=== PATIENT | male | born 1980 | race Caucasian/White ===

== ENCOUNTER 2019-05-22 10:43 | Outpatient (CLI) | payer OTHER, SELFPAY | END 2019-05-22 10:44 | disposition home or self-care (01) | PROVIDERS: PCP Family Medicine; Visit Provider Family Medicine | DX: Z53.8 Procedure and treatment not carried out for other reasons (principal) | CPT/HCPCS: 99199 ==

== ENCOUNTER 2019-06-15 12:49 | Outpatient (CLI) | payer OTHER, SELFPAY ==
--- NOTE | ~2019-06-15 | XR_ITS ---
XR toe 1st LT min 2V DATE: 06/15/2019 13:25 INDICATION: Left digit pain for 1.5 weeks. TECHNIQUE: 4 views COMPARISON: None FINDINGS: No fracture or dislocation, periosteal reaction or bone destruction. Moderate narrowing of first metatarsophalangeal joint, likely due to osteoarthritis IMPRESSION: Moderate narrowing of first metatarsophalangeal joint, likely due to osteoarthritis Reviewed, dictated and finalized at location B. IMPRESSION: Moderate narrowing of first metatarsophalangeal joint, likely due t o osteoarthritis
== END 2019-06-15 12:50 | disposition home or self-care (01) ==
LOC: CHSLAB 12:51
PROVIDERS: PCP Family Medicine; Visit Provider Family Medicine
DX: M79.675 Pain in left toe(s) (principal)
CPT/HCPCS: 73660

== ENCOUNTER 2019-07-23 11:23 | Outpatient (CLI) | payer OTHER, SELFPAY ==
--- NOTE | ~2019-07-23 | XR_ITS ---
XR shoulder RT min 2V 07/23/2019 11:50 Indication: Right shoulder pain Procedure: 4 views right shoulder Comparison: No prior studies for comparison. Findings: No acute fracture, subluxation or dislocation. Anatomic alignment. Surrounding osseous stru ctures and soft tissues are unremarkable. Impression: 1: No acute bone or joint abnormality. Reviewed, dictated and finalized at location A. Impression: 1: No acute bone or joint abnormality.
== END 2019-07-23 11:24 | disposition home or self-care (01) ==
LOC: CHSIMG 11:25
PROVIDERS: PCP Family Medicine; Visit Provider Family Medicine
DX: M25.511 Pain in right shoulder (principal)
CPT/HCPCS: 73030

== ENCOUNTER 2019-08-02 11:03 | Outpatient (RCR) | payer OTHER, SELFPAY ==
--- NOTE | 2019-08-02 11:36 | PTOPEVAL ---
Thank you for referring David Shannon to [facility]. Please review, sign, date and return this plan of care EDWAR. I agree with and certify that the following plan of care is medically necessary. Referring Physician Date Admitting Provider: Attending Provider: Yves Lafleur MD Referring Provider: *PT Outpatient Evaluation Start: 08/02/19 11:07 Freq: Status: Active Protocol: Document 08/02/19 11:10 J (Rec: 08/02/19 11:32 [facility] [id number]) Therapy Assessment Status Assessment Status Assessment Status Evaluation Outpatient Past Medical History Past Medical History Source of Past Medical History Patient Other Source of Past Medical History see patient intake form Evaluation Information Problem Diagnosis R shoulder pain Onset 07/26/19 Subjective Information patient reports he believes he Query Text:As Reported By Patient/ has re-aggravated an old Family shoulder injury. he reports he has been having increased pain in the L shoulder for a bit over a month. he reports the pain is getting worse. he reports he has had pain in the R shoulder in the past from a small tear in the RTC. he reports he did not have surgery last injury. he reports this pain feels similar to the last injury. he reports previous injury was 15 years ago. patient reports pain increased with increased activities and exaccerbation. he reports carrying a basket in the grocery store is difficult. he reports the area of pain to the front and top of the R shoulder. Diagnostic Tests X-Rays For This Problem Yes: negative Prior Level of Function Comments Additional Prior Level of Function patient reports he is diabetic Comments . he reports he does work. 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 he reports he is currently off work due to injury. Pain Assessment Timing of Pain Assessment Timing of Pain Assessment Assessment Pain Scale Pain Scale Used Numeric (1 - 10) Self Report Pain Assessment Right Shoulder(s) Reported Pain Level 1 Pain Description Numbness,Sharp,Shooting,
--- NOTE | 2019-09-08 09:09 | PTOPEVAL ---
Thank you for referring David Spring to [facility]. Please review, sign, date and return this plan of care [facility]. I agree with and certify that the following plan of care is medically necessary. Referring Physician Date Admitting Provider: Attending Provider: Yves Lafleur MD Referring Provider: *PT Outpatient Evaluation Start: 08/02/19 11:07 Freq: Status: Active Protocol: Document 08/31/19 09:00 JTF (Rec: 09/07/19 20:48 JTF Laptop) Therapy Assessment Status Assessment Status Assessment Status Re-evaluation Outpatient Past Medical History Past Medical History Source of Past Medical History Patient Other Source of Past Medical History see patient intake form Evaluation Information Problem Diagnosis R shoulder pain Subjective Information quick dash = 13% Query Text:As Reported By Patient/ patient reports he is feeling Family good this date. he reports he still has pain in the R shoulder at times, but is much improved since his initial evaluation. he reports he is not yet back to work but does follow up with his MD in about 2 weeks. he reports he would like to be 100% prior to returning to work. Pain Assessment Timing of Pain Assessment Timing of Pain Assessment Assessment Pain Scale Pain Scale Used Numeric (1 - 10) Self Report Pain Assessment Right Shoulder(s) Reported Pain Level 2 Pain Score Pain Score 2: Self Report Upper Extremity Range of Motion Scapular/ Shoulder Range of Motion Right Shoulder Flexion - Active 160 Shoulder Flexion - Passive 170 Shoulder Medial Rotation - Active 70 Shoulder Lateral Rotation - Active 90 Upper Extremity Muscle Strength Testing Scapular/Shoulder Right Shoulder Flexion Strength 4+ Good + Shoulder Extension Strength 5 Normal Shoulder Abduction Strength 4+ Good + Shoulder Medial Rotation Strength 5 Normal Shoulder Lateral Rotation Strength 5 Normal Shoulder Strength Comments 5/5 elbow strength Palpation Assessment Palpation Palpation tenderness to palpation noted over the long head of the biceps of the anterior R shoulder. PT Clinical Summary Clinical Summary Protocol: PTEVCODE PT Clinical Summary mr. spring presents this date for his 8th skilled PT session. as of this date, he has improved his ROM, strength
== END 2019-09-14 10:37 | disposition home or self-care (01) ==
LOC: CHSPT 11:03
PROVIDERS: PCP Family Medicine; Visit Provider Family Medicine
DX: M25.511 Pain in right shoulder (principal)
CPT/HCPCS: 97014; 97110; 97140; 97161; G0283

== ENCOUNTER 2020-08-16 17:06 | Outpatient (RCR) | payer OTHER, SELFPAY ==
--- NOTE | 2020-08-17 13:23 | PTOPEVAL ---
Thank you for referring David Shannon to [facility].? The patient is scheduled to be seen for therapy? _2___x/week for 8 visits. Please review, sign, date and return this plan of care [facility]. I agree with and certify that the following plan of care is medically necessary. Referring Physician Date Admitting Provider: Attending Provider: Mao Ortega MD Referring Provider: *PT Outpatient Evaluation Start: 08/16/20 17:03 Freq: Status: Active Protocol: Document 08/16/20 17:07 ABDIFATAH (Rec: 08/16/20 17:35 [facility] [id number]) Therapy Assessment Status Assessment Status Assessment Status Evaluation Evaluation Information Problem Diagnosis right rotator cuff tendonitis, impingement Onset 06/05/20 Subjective Information Pt. reports that he was Query Text:As Reported By Patient/ squeezing boxes at work which Family triggered his right shoulder pain. He describes pain on top of the right shoulder. He states that pain is not constant and is more related to work related duties. He states that pain will disrupt sleep, esepcially if rolling onto the right shoulder. He reports that his goal for therpay is to decrease his pain. 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 Activity of Daily Living Ability Independent Indoor/Home Mobility Independent Community Mobility Independent Stairs Ability Independent Functional Cognition (Planning, Shopping Independent , Taking Medications) Cooking Yes Cleaning Yes Laundry Yes Shopping Yes Driving Yes Pain Assessment Pain Scale Pain Scale Used Numeric (1 - 10) Self Report Pain Assessment Right Shoulder(s) Reported Pain Level 6 Pain Description Aching Pain Frequency Intermittent Lowest Pain Intensity 0 Greatest Pain Intensity 8 Pain Aggravating Factors Exercise/Activity,Lifting Pain Score Pain Score 6: Self Report Interventions Used Interventions Used By Clinicians Electrical Stimulation, Exercise,Heat Upper Extremity Range of Motion General Upper Extremity Range of Motion Gross Upper Extremity Rang
== END 2020-09-13 08:43 | disposition home or self-care (01) ==
LOC: CHSPT 17:06
PROVIDERS: PCP Family Medicine; Visit Provider Orthopaedic Surgery
DX: M75.41 Impingement syndrome of right shoulder (principal); M77.8 Other enthesopathies, not elsewhere classified
CPT/HCPCS: 97014; 97110; 97140; 97161; G0283

== ENCOUNTER 2020-10-28 15:41 | Emergency (ER) | payer OTHER, SELFPAY ==
--- NOTE | ~2020-10-28 | XR_ITS ---
EXAMINATION: XR chest 1V portable EXAM DATE: 10/28/2020 17:37 INDICATION: Dyspnea, COVID positive. TECHNIQUE: Portable AP frontal chest x-ray was obtained. Comparison is made to prior examination from 05/04/2015. FINDINGS: Small to moderate amount of patchy peripheral acute airspace disease consistent with COVID pneumonia. There is no pneumothorax suspected. There are no pleural effusions. Cardiomediastinal silh ouette is normal. There are no osseous abnormalities identified. IMPRESSION: Small to moderate amount of bilateral COVID pneumonia. Reviewed, dictated and finalized at location A.
[2020-10-28 16:13] VITALS: BP 124/77; PULSE 95; RESP 20; TEMP 36.4; O2SAT 94
--- NOTE | 2020-10-28 16:35 | ED.SOB ---
HPI - SOB/Dyspnea General Chief Complaint: Shortness of Breath/Dyspnea Stated Complaint: covid positive SOB Time Seen by Provider: 10/28/20 15:43 Source: patient Mode of arrival: ambulatory Limitations: no limitations History of Present Illness HPI Narrative: 40-year-old man with a history of type 2 diabetes comes in today complaining of increasing shortness of breath over last week. Patient states he has had a cough and a fever. His temperature was 101.4? this morning. He also complains of vomiting this morning and of mild chest discomfort. He denies calf pain and swelling, diarrhea, syncope, and rash. He had a positive COVID test on October 23 after presenting with body aches. He denies history of heart and lung disease. MD elicited complaint: shortness of breath and chest pain Related Data Home Medications Medication Instructions Recorded Confirmed citalopram 40 mg PO DAILY 10/28/20 10/28/20 glimepiride 1 mg PO DAILY 10/28/20 10/28/20 linagliptin [Tradjenta] 5 mg PO QAM 10/28/20 10/28/20 lisinopril-hydrochlorothiazide 1 tablet PO DAILY 10/28/20 10/28/20 lovastatin 40 mg PO QPM 10/28/20 10/28/20 metformin 1,000 mg PO BID 10/28/20 10/28/20 metoprolol tartrate 25 mg PO BID 10/28/20 10/28/20 pioglitazone 30 mg PO DAILY 10/28/20 10/28/20 Allergies Allergy/AdvReac Type Severity Reaction Status Date / Time camphor [From Biofreeze] Allergy Rash Verified 10/28/20 16:18 menthol [From Biofreeze] Allergy Rash Verified 10/28/20 16:18 Review of Systems Constitutional: Constitutional: Denies chills, Reports fatigue, Reports fever(s) and Denies weakness Eyes: Eyes: Denies change in vision and Denies photophobia ENT: Denies dysphagia, Reports nasal congestion and Denies sore throat Cardiovascular: Cardiovascular: Reports chest pain (with cough) and Denies radiating jaw, neck or arm pain Respiratory: Respiratory: Reports cough, Reports dyspnea and Denies wheezing Gastrointestinal: Gastrointestinal: Denies abdominal pain, Reports nausea and Reports vomiting Genitourinary: Genitourinary: Denies dysuria and Denies urinary frequency Musculoskeletal: Musculoskeletal: Denies back pain, Denies arthralgias and Denies joint swelling Integumentary/Breasts: Skin/Breast: Denies pruritus, Denies erythema and Denies rash Neurologic: Denies vertigo, Denies dizziness, Denies syncope, Denies focal weakness and Denies numbness Hematologic/Lymphatic: Hematologic/Lymphatic: Denies easy bleeding and Denies easy bruising Allergic/Immunologic: Allergic/Immunologic: Denies lip swelling, Denies throat swelling and Denies tongue swelling PMFSH Past Medical History Medical History Alcoholism Anxiety Arthritis Biceps tendinitis of right shoulder Bleeding nose Cellulitis Change in vision Depression Diabetes Drug dependence Headache High blood pressure Right rotator cuff tendinitis Sleep disorder Subacromial impingement of right shoulder Weight gain Surgical History Surgical History History of spinal fusion L4-L5 Family History Family History Other Arthritis Diabetes mellitus Hypertension Malignant neoplasm Social History Social History Years smoked: 11 Smoking status: Former smoker Smoking end date: 04/07/08 Alcohol intake: current Drinks per week: 6 Alcohol use details: Occasional Substance use: unknown Gender identity (if verbalized by the patient): Male Exam Const: General: healthy appearing, no acute distress and alert Nutritional Appearance: obese Orientation/consciousness: patient oriented x3 Limitations: no limitations HENMT: Head: normal to inspection Ears: external ears normal, TM's normal bilaterally and EAC's normal General nose exam: Normal nares present Fac
--- NOTE | 2020-10-28 16:40 | ECG_ITS ---
Measurements Intervals [place] Rate: 87 P: 67 RI: 157 QRS: -7 QRSD: 89 T: 24 QT: 337 QTc: 406 Interpretive Statements SINUS RHYTHM BORDERLINE R WAVE PROGRESSION, ANTERIOR LEADS BORDERLINE T WAVE ABNORMALITY- ANTERIOR LEADS BASELINE ARTIFACT- I, II, III, AVR, AVL, AVF, V3 BORDERLINE ECG Electronically Signed On 10-28-2020 17:12:35 CDT by Carlos Stanley D.O.
[2020-10-28] MEDS: ALBUTEROL SULFATE (*SP) INHALER 4 PUFF INHALATION (16:51)
[2020-10-28] MEDS: ONDANSETRON HCL ODT 4 MG TABLET PO (16:51)
[2020-10-28 16:52] VITALS: PULSE 85; RESP 16; O2SAT 95
[2020-10-28 17:23] LABS: Hemoglobin 13.6 g/dL (14.0-18.0); Mean Corpuscular HGB Conc 33.2 g/dL (32.0-36.0); Mean Corpuscular Hemoglobin 28.5 pg (27.0-31.0); Mean Platelet Volume 11.7 fl (8.7-11.0); Platelet Count Result 187 K/mm3 (150-420); Red Blood Count 4.77 M/mm3 (4.70-6.10); Red Cell Distribution Width 13.3 % (11.6-14.4); White Blood Count 4.9 K/mm3 (4.8-10.8)
[2020-10-28 17:30] LABS: D Dimer 0.26 mg/L (0.19-0.50)
[2020-10-28 17:35] LABS: Alanine Aminotransferase 43 U/L (16-63); Albumin Level 3.4 g/dL (3.4-5.0); Alkaline Phosphatase 61 U/L (46-116); Anion Gap 15 mmol/L (8-16); Aspartate Amino Transferase 35 U/L (15-37); Bilirubin,Total 0.6 mg/dL (0.00-1.00); Blood Urea Nitrogen 14 mg/dL (7-18); Calcium 8.6 mg/dL (8.5-10.1); Carbon Dioxide 26 mmol/L (21-32); Chloride 97 mmol/L (98-108); Estimated CRCL calculation 156 ml/min; Estimated Glomerular Filt Rate > 60; Glucose 239 mg/dL (70-99); Osmolality Calculated 294 mOsm/kg (285-295); Potassium 3.8 mmol/L (3.5-5.1); Sodium 138 mmol/L (136-145); Total Protein 6.9 g/dL (6.4-8.2); Troponin I 6.2 ng/L (0.00-60.4)
[2020-10-28] MEDS: DEXAMETHASONE 4 MG TABLET 8 MG PO (17:35)
[2020-10-28 17:40] LABS: Magnesium 1.3 mg/dL (1.8-2.4)
[2020-10-28 18:04] LABS: Influenza Control Valid (Valid)
[2020-10-28 18:44] VITALS: BP 106/53; PULSE 87; RESP 20; TEMP 36.9; O2SAT 92
--- NOTE | 2020-11-01 17:24 | PC.NURSE ---
PTS BLOOD CULTURE RESULTS REVIEWED BY DR FARRAR, DR FARRAR STATES CONTAMINATED BOTTLE AND PT ON LEVAQUIN.
== END 2020-10-28 18:47 | disposition home or self-care (01) ==
PROVIDERS: Emergency Provider Emergency Medicine; PCP Family Medicine
DX: U07.1 COVID-19 (principal); J12.82 Pneumonia due to coronavirus disease 2019; Z87.891 Personal history of nicotine dependence
CPT/HCPCS: 36415; 71045; 80053; 83735; 84484; 85025; 85380; 87040; 87077; 87186; 87804; 93005; 94640; 99283; 99284; A9270; J8540

== ENCOUNTER 2020-11-01 09:08 | Emergency (ER) | payer OTHER, SELFPAY ==
--- NOTE | ~2020-11-01 | CT_ITS ---
EXAMINATION: CTA chest PE protocol DATE: 11/01/2020 11:11 CDT INDICATION: Elevated d-dimer. Covid positive. TECHNIQUE: Computed tomographic angiography (CTA) of the chest was performed with 100 mL Omnipaque-35 0 intravenous contrast. The dose-length product was 1944.93 mGy-cm. Maximum intensity projection 3D-r econstructions of the aorta and other arteries were constructed by the technologist on a separate wor kstation. Automated exposure control and iterative reconstruction technique were employed. COMPARISON: Chest dated 10/28/2020. FINDINGS: Study is nondiagnostic for evaluation of pulmonary embolism. Heart size normal. No signific ant pleural or pericardial effusion. There are low-density lesions in both adrenal glands, likely enid ign adenomas. There is mild mediastinal lymphadenopathy, likely reactive. There is extensive patchy g roundglass opacification throughout all lobes, consistent with pneumonia. No endobronchial lesions. N o pneumothorax. IMPRESSION: 1. Extensive patchy bilateral groundglass opacification, consistent with pneumonia. 2: Study nondiagnostic for evaluation of pulmonary embolism. 3: Mediastinal lymphadenopathy, likely reactive. Reviewed, dictated and finalized at location A. IMPRESSION: 1. Extensive patchy bilateral groundglass opacification, consistent with pneumo ottoniel. 2: Study nondiagnostic for evaluation of pulmonary embolism. 3: Mediastinal lymphadenopathy, likely reactive.
--- NOTE | ~2020-11-01 | NM_ITS ---
EXAMINATION: NM pulmonary perfusion EXAM DATE: 11/01/2020 13:31 INDICATION: SOB,COVID+ TECHNIQUE: A perfusion lung scan was performed. The patient was injected with 5.5 mCi technetium 99m MAA and imaged. Modified PIOPED 2 criteria used for interpretation of perfusion without ventilation study (recent chest x-ray instead for comparison). Correlation is made to chest x-ray earlier same da te. FINDINGS: Chest x-ray demonstrates moderate amount of bibasilar predominant acute airspace disease. P erfusion scan demonstrates multiple matched segmental defects rendering the scan intermediate probabi lity, indeterminate. There are no definite segmental mismatches identified. IMPRESSION: Multiple matched defects; indeterminate scan. Reviewed, dictated and finalized at location B.
--- NOTE | ~2020-11-01 | XR_ITS ---
EXAMINATION: XR chest 1V portable DATE: 11/01/2020 13:22 INDICATION: Shortness of breath TECHNIQUE: frontal view of the chest was obtained. COMPARISON: Chest radiograph dated 10/28/2020 FINDINGS: Persistent patchy airspace opacities in the bilateral mid and lower lung zones. No pleural effusion o r pneumothorax. The cardiomediastinal silhouette is normal. IMPRESSION: 1. Unchanged patchy airspace opacities in bilateral mid and lower lung zones consistent with pneumoni a. Reviewed, dictated and finalized at location A. IMPRESSION: 1. Unchanged patchy airspace opacities in bilateral mid and lower lung zones co nsistent with pneumonia.
[2020-11-01 09:15] VITALS: BP 101/57; PULSE 78; RESP 18; TEMP 37.2; O2SAT 96
--- NOTE | 2020-11-01 09:16 | ED.GENADULT ---
HPI - General Adult General Chief complaint: Shortness of Breath/Dyspnea Stated complaint: COVID POSITIVE Source: patient Mode of arrival: ambulatory History of Present Illness HPI narrative: Yrn is a 40M with a PMH of obesity, DMII, HLD, rotator cuff tear, and anxiety/depression that was diagnosed with COVID pneumonia on 10/28 but continues to have SOB, cough, fatigue, and body aches that are worsening. He has been feeling sick for 2 weeks. Related Data Home Medications Medication Instructions Recorded Confirmed citalopram 40 mg PO DAILY 10/28/20 11/01/20 glimepiride 1 mg PO DAILY 10/28/20 11/01/20 linagliptin [Tradjenta] 5 mg PO QAM 10/28/20 11/01/20 lisinopril-hydrochlorothiazide 1 tablet PO DAILY 10/28/20 11/01/20 lovastatin 40 mg PO QPM 10/28/20 11/01/20 metformin 1,000 mg PO BID 10/28/20 11/01/20 metoprolol tartrate 25 mg PO BID 10/28/20 11/01/20 pioglitazone 30 mg PO DAILY 10/28/20 11/01/20 Allergies Allergy/AdvReac Type Severity Reaction Status Date / Time camphor [From Biofreeze] Allergy Rash Verified 10/28/20 16:18 menthol [From Biofreeze] Allergy Rash Verified 10/28/20 16:18 Review of Systems Constitutional: Constitutional: Reports chills, Reports fatigue, Reports fever(s) and Reports weakness Eyes: Eyes: Reports no additional eye complaints ENT: Reports system reviewed and no additional complaints, except as documented Cardiovascular: Cardiovascular: Reports no additional cardiovascular complaints Respiratory: Respiratory: Reports cough, Reports dyspnea and Reports wheezing Gastrointestinal: Gastrointestinal: Reports no additional gastrointestinal complaints Genitourinary: Genitourinary: Reports no additional male genitourinary complaints Musculoskeletal: Musculoskeletal: Reports no additional musculoskeletal complaints Integumentary/Breasts: Skin/Breast: Reports system reviewed and no additional complaints, except as docu Neurologic: Reports system reviewed and no additional complaints, except as documented Psychiatric: Psychiatric: Reports no additional psychiatric complaints Endocrine: Endocrine: Reports no additional endocrine complaints Hematologic/Lymphatic: Hematologic/Lymphatic: Reports no additional hematologic/lymphatic complaints Allergic/Immunologic: Allergic/Immunologic: Reports no additional allergic/immunologic complaints PMFSH Past Medical History Medical History Alcoholism Anxiety Arthritis Biceps tendinitis of right shoulder Bleeding nose Cellulitis Change in vision Depression Diabetes Drug dependence Headache High blood pressure Right rotator cuff tendinitis Sleep disorder Subacromial impingement of right shoulder Weight gain Surgical History Surgical History History of spinal fusion L4-L5 Family History Family History Other Arthritis Diabetes mellitus Hypertension Malignant neoplasm Social History Social History Years smoked: 11 Smoking status: Former smoker Smoking end date: 04/07/08 Alcohol intake: current Drinks per week: 6 Alcohol use details: Occasional Substance use: unknown Gender identity (if verbalized by the patient): Male Exam Const: General: alert Orientation/consciousness: patient oriented x3 Limitations: No altered mental status Other: Mild distress HENMT: Head: normal to inspection Other: atrauamtic Eyes: Conjunctivae: conjunctivae normal Pupils: Equal, round and reactive pupils present Neck: Neck: normal visual inspection Chest: Chest palpation & inspection: normal inspection of the chest Resp: Effort & Inspection: normal respiratory effort, not labored, not tachypneic and no use of accessory muscles Auscultation: clear to auscultation bilaterally Cardio: Rate: regul
--- NOTE | 2020-11-01 09:28 | ECG_ITS ---
Measurements Intervals [place] Rate: 75 P: 47 CO: 160 QRS: 35 QRSD: 90 T: 16 QT: 376 QTc: 420 Interpretive Statements SINUS RHYTHM BASELINE WANDER- II, III, AVF, V5-V6 NORMAL ECG Electronically Signed On 11-01-2020 10:59:08 CDT by Carlos Stanley D.O.
[2020-11-01 10:07] LABS: Hematocrit 40.1 % (40.0-54.0); Hemoglobin 13.5 g/dL (14.0-18.0); Mean Corpuscular HGB Conc 33.7 g/dL (32.0-36.0); Mean Corpuscular Hemoglobin 28.1 pg (27.0-31.0); Mean Corpuscular Volume 83.5 fL (78.0-102.0); Mean Platelet Volume 10.6 fl (8.7-11.0); Oxygen Content ABG 17.4 %vol (16.0-22.0); Oxyhemoglobin 90.2 % (94-100); Platelet Count Result 278 K/mm3 (150-420); Red Cell Distribution Width 13.1 % (11.6-14.4); Total Hemoglobin 13.7 g/dL; White Blood Count 14.7 K/mm3 (4.8-10.8)
[2020-11-01 10:34] LABS: PCO2 ABG 39.4 mmHg (35-45); PO2 ABG 60.1 mmHg (80-90); pH ABG 7.44 (7.35-7.45)
[2020-11-01 10:35] LABS: Alanine Aminotransferase 27 U/L (16-63); Alkaline Phosphatase 63 U/L (46-116); Anion Gap 13 mmol/L (8-16); Aspartate Amino Transferase 24 U/L (15-37); Base Excess ABG 2.1 mmol/L (0-2); Blood Urea Nitrogen 22 mg/dL (7-18); Calcium 9.4 mg/dL (8.5-10.1); Carbon Dioxide 27 mmol/L (21-32); Chloride 95 mmol/L (98-108); Estimated CRCL calculation 113 ml/min; Estimated Glomerular Filt Rate > 60; Glucose 325 mg/dL (70-99); HCO3 ABG 26.3 mmol/L (23-29); Modified Allen's Test Pass; NT Pro B Type Natriuretic Pept 405 pg/mL (0-125); Osmolality Calculated 296 mOsm/kg (285-295); Potassium 4.4 mmol/L (3.5-5.1); Site Drawn RIGHT RADIAL; Sodium 135 mmol/L (136-145); Total Protein 7.4 g/dL (6.4-8.2)
[2020-11-01 10:36] LABS: Device ROOM AIR
[2020-11-01 10:36] LABS: Troponin I < 4.0 ng/L (0.00-60.4)
[2020-11-01 10:45] LABS: Band Neutrophils Percent 1 % (0-6); Lymphocytes Absolute Manual 0.29 K/mm3 (1.1-4.5); Lymphocytes Percent Manual 2 % (18-44); Monocytes Absolute Manual 0.73 K/mm3 (0.1-0.90); Monocytes Percent Manual 5 % (3-9); Myelocytes Percent 1 %; Neutrophils Absolute Manual 13.52 K/mm3 (1.3-6.7); Neutrophils Percent Manual 91 % (46-73); Platelet Estimate Adequate (Adequate); Total Cells Counted 100
[2020-11-01] MEDS: levoFLOXacin TAB 500 MG, levoFLOXacin TAB 250 MG 750 MG PO (11:39)
[2020-11-01 14:53] VITALS: BP 121/71; PULSE 71; RESP 16; O2SAT 93
== END 2020-11-01 15:01 | disposition home or self-care (01) ==
PROVIDERS: Emergency Provider Family Medicine; PCP Family Medicine
DX: U07.1 COVID-19 (principal); J12.82 Pneumonia due to coronavirus disease 2019
CPT/HCPCS: 36415; 36600; 71045; 71275; 78580; 80053; 82805; 83880; 84484; 85025; 93005; 99283; 99284; A9270; A9540; Q9967

== ENCOUNTER 2020-11-24 09:39 | Outpatient (CLI) | payer OTHER, SELFPAY ==
--- NOTE | ~2020-11-24 | XR_ITS ---
XR chest 2V 11/24/2020 10:03 Indication: Pneumonia follow-up Procedure: 2 view chest Comparison: Comparison to multiple prior studies sequentially, with oldest reviewed study dated 05/04. Findings: Progression of patchy bilateral airspace disease, compatible with pneumonia. No significant effusion or pneumothorax. No acute osseous abnormality. Impression: 1: Progression of patchy bilateral airspace disease, compatible with pneumonia. Reviewed, dictated and finalized at location A. Impression: 1: Progression of patchy bilateral airspace disease, compatible with pneumonia.
== END 2020-11-24 09:40 | disposition home or self-care (01) ==
LOC: CHSIMG 09:41
PROVIDERS: PCP Family Medicine; Visit Provider Family Medicine
DX: U07.1 COVID-19 (principal)
CPT/HCPCS: 71046

== ENCOUNTER 2020-12-18 13:09 | Outpatient (CLI) | payer OTHER, SELFPAY | END 2020-12-18 13:10 | disposition home or self-care (01) | LOC: CHSCARD 13:12 | PROVIDERS: PCP Family Medicine; Visit Provider Family Medicine | DX: R06.00 Dyspnea, unspecified (principal) | CPT/HCPCS: 94060; 94726; 94729 ==

== ENCOUNTER 2020-12-28 14:19 | Outpatient (CLI) | payer OTHER, SELFPAY ==
--- NOTE | ~2020-12-28 | XR_ITS ---
EXAMINATION: XR chest 2V 12/28/2020 14:33 INDICATION: Chest pain and shortness of breath. PROCEDURE: 2 view chest COMPARISON: Comparison to multiple prior studies sequentially, with oldest reviewed study dated 11/01. FINDINGS: The lungs are clear. The cardiomediastinal silhouette is within normal limits. There are no pleural effusions. There is no pneumothorax suspected. IMPRESSION: 1: NO ACUTE CARDIOPULMONARY DISEASE. Reviewed, dictated and finalized at location A.
== END 2020-12-28 14:20 | disposition home or self-care (01) ==
LOC: CHSIMG 14:20
PROVIDERS: PCP Family Medicine; Visit Provider Family Medicine
DX: R07.89 Other chest pain (principal)
CPT/HCPCS: 71046

== ENCOUNTER 2021-01-01 14:24 | Outpatient (RCR) | payer OTHER, SELFPAY ==
--- NOTE | 2021-01-01 13:56 | OTOPEVAL ---
Thank you for referring David Shannon to [facility] [place].? The patient is scheduled to be seen for therapy? ____x/week for ___ weeks. Please review, sign, date and return this plan of care [facility]. I agree with and certify that the following plan of care is medically necessary. Referring Physician Date Admitting Provider: Attending Provider: ELISABETH BRYAN Referring Provider: LeaOT Outpatient Evaluation Start: 01/01/21 13:08 Freq: Status: Active Protocol: Document 01/01/21 13:09 ERIC (Rec: 01/01/21 13:55 [facility] [id number]) Therapy Assessment Status Assessment Status Assessment Status Evaluation Outpatient Past Medical History Cardiovascular History Hx Hypercholesterolemia Yes Hx Hypertension Yes Endocrine History Hx Diabetes Yes Evaluation Information Problem Diagnosis post viral debility Onset 10/23/20 Cause COVID-19 Subjective Information Patient reports that he tested Query Text:As Reported By Patient/ positive for COVID-19 on October 2020 and has had difficulties since then. He states that things are slowly getting better. Patient reports that his doctor recommended therapy so that he is able to return to work. Patient reports that he continues to fatigue easily and becomes short of breath. 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 Patient reports that he is independent with all ADLs and IADLs at this time. 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
--- NOTE | 2021-01-01 14:48 | PTOPEVAL ---
Thank you for referring David Shannon to [facility] [place].? The patient is scheduled to be seen for therapy? ____x/week for ___ weeks. Please review, sign, date and return this plan of care EDWAR. I agree with and certify that the following plan of care is medically necessary. Referring Physician Date Admitting Provider: Attending Provider: ELISABETH BRYAN Referring Provider: *KENNA Outpatient Evaluation Start: 01/01/21 13:55 Freq: Status: Active Protocol: Document 01/01/21 13:55 ACR (Rec: 01/01/21 14:48 ACR [id number]) Therapy Assessment Status Assessment Status Assessment Status Evaluation Outpatient Past Medical History Cardiovascular History Hx Hypercholesterolemia Yes Hx Hypertension Yes Endocrine History Hx Diabetes Yes Evaluation Information Problem Diagnosis Post covid lack of endurance Subjective Information Patient states that he had Query Text:As Reported By Patient/ COVID-19 on October 23 and went Family to the hospital a couple of times for treatment because he felt like he was very short of breath. He states he has the most difficulty with any exertion such as mowing the yard, working, cleaning around the house, stairs, and walking for a period of time. He states that he can walk around the store but he is moving a little slower. He states that he also has quite a bit of difficulty getting off of the floor. He states the goal for therapy is to improve his endurance and get his strength back in his legs. 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
== END 2021-01-01 15:25 | disposition home or self-care (01) ==
LOC: CHSPT 14:24
DX: G93.3 Postviral and related fatigue syndromes (principal); Z86.16 Personal history of COVID-19; R41.89 Other symptoms and signs involving cognitive functions and awareness; R53.81 Other malaise
CPT/HCPCS: 97110; 97161; 97165

== ENCOUNTER 2021-02-05 16:43 | Outpatient (CLI) | payer OTHER, SELFPAY ==
--- NOTE | ~2021-02-05 | XR_ITS ---
XR shoulder RT min 2V DATE: 02/05/2021 17:10 INDICATION: Anterior shoulder pain for one year; no injury. TECHNIQUE: 5 views COMPARISON: 07/23/2019 right shoulder FINDINGS: No fracture or dislocation, periosteal reaction or bone destruction or abnormal soft tissue calcification. IMPRESSION: Normal Reviewed, dictated and finalized at location A. IMPRESSION: Normal
== END 2021-02-05 16:44 | disposition home or self-care (01) ==
LOC: CHSIMG 16:45
PROVIDERS: PCP Family Medicine; Visit Provider Family Medicine
DX: M25.511 Pain in right shoulder (principal)
CPT/HCPCS: 73030

== ENCOUNTER 2021-03-29 15:16 | Outpatient (CLI) | payer OTHER, SELFPAY ==
[2021-03-29 16:18] LABS: Influenza A QL RT-PCR Negative (Negative); Influenza B QL RT-PCR Negative (Negative); SARS-CoV-2 RNA PCR Negative (Negative)
== END 2021-03-29 15:17 | disposition home or self-care (01) ==
LOC: CHSLAB 15:18
PROVIDERS: PCP Family Medicine; Visit Provider Family Medicine
DX: R05.9 Cough, unspecified (principal); Z20.822 Contact with and (suspected) exposure to COVID-19
CPT/HCPCS: 87081; 87502; 87880; C9803; U0003; U0005

== ENCOUNTER 2022-10-23 13:31 | Outpatient (CLI) | payer OTHER, SELFPAY ==
--- NOTE | 2022-10-23 14:30 | NEURO_ITS ---
Impression: # Complains of numbness of 4th and 5th toes. # Normal Nerve Conduction Study. # No evidence of Tarsal Tunnel Syndrome. # Needle/EMG exam not requested. # Clinical correlation recommended; Higher involvement needs to be ruled out. Nerve Conduction Studies Anti Sensory Summary Table Stim Site NR Peak (ms) P-T Amp (?V) Site1 Site2 Delta-P (ms) Dist (cm) Devon (m/s) Left Sup Fibular Anti Sensory (Ant Lat Mall) 14 cm 3.4 14.4 14 cm Ant Lat Mall 3.4 16.0 47 Right Sup Fibular Anti Sensory (Ant Lat Mall) 14 cm 3.6 12.9 14 cm Ant Lat Mall 3.6 16.0 44 Left Sural Anti Sensory (Lat Mall) Calf 3.7 10.4 Calf Lat Mall 3.7 16.0 43 Right Sural Anti Sensory (Lat Mall) Calf 3.3 17.7 Calf Lat Mall 3.3 16.0 48 Motor Summary Table Stim Site NR Onset (ms) O-P Amp (mV) Site1 Site2 Delta-0 (ms) Dist (cm) Devon (m/s) Left Lateral Plantar Motor (ADM) Med Mall 4.6 2.9 Right Lateral Plantar Motor (ADM) Med Mall 4.7 1.8 Left Peroneal Motor (Vastus Med) Ankle 4.6 1.1 Popit Ankle 9.2 41.0 45 Popit 13.8 0.8 Right Peroneal Motor (Vastus Med) Ankle 4.7 1.2 Popit Ankle 8.9 40.0 45 Popit 13.6 1.8 Left Tibial Motor (Abd Schulz Brev) Ankle 4.8 5.5 Knee Ankle 10.4 44.0 42 Knee 15.2 5.0 Right Tibial Motor (Abd Schulz Brev) Ankle 4.7 5.2 Knee Ankle 10.1 44.0 44 Knee 14.8 4.7 F Wave Studies NR F-Lat (ms) L-R F-Lat (ms) Left Peroneal (Mrkrs) (EDB) 59.06 0.81 Right Peroneal (Mrkrs) (EDB) 58.25 0.81 Left Tibial (Mrkrs) (Abd Hallucis) 59.11 0.55 Right Tibial (Mrkrs) (Abd Hallucis) 59.66 0.55 MTDD
== END 2022-10-23 13:32 | disposition home or self-care (01) ==
LOC: ANHNEURO 13:32
PROVIDERS: PCP Family Medicine; Visit Provider Family Medicine
DX: G62.9 Polyneuropathy, unspecified (principal)
CPT/HCPCS: 95911

== ENCOUNTER 2024-04-13 09:02 | Outpatient (RCR) | payer OTHER, SELFPAY ==
--- NOTE | 2024-04-12 13:16 | PTOPEVAL1 ---
Assessment and note entered by Lefty Johnston Evaluation Information Assessment Status Evaluation Diagnosis spinal stenosis, lumbar region with neurogenic claudication M48.062 ICD-10 Condition Codes (PT) Pain in low back M54.50,Radiculopathy, lumbar region M54.16 Onset 04/01/24 Subjective Information Pt. reports that he has had back pain for years. He reports that he has a previous fusion in the low back. He reports that his most recent symptoms are pain across the low back and buttock and tingling into both feet. He reports that pain intensity with fluctuate. He reports that he is able to walk for about 1 hour before having to sit . He states that he is not currently working and has been off work for 1 year. He states that pain rarely disrupts his sleep. He states that he is taking daily prescription medication for pain. He reports that medication does assist with his nerve pain. He reports that his goal for today is to complete his pre surgical testing per his doctor. Reported Pain Level Pain Score 3: Self Report Assessment PT Clinical Summary Pt. enters the clinic for pre-operative instruction and education regarding back pain. He is provided an HEP to address core strength and endurance prior to surgery. He presents with mild strength and mobility limitations on this date. At this time he will be discharged from our care at we will await his post operative evaluation. Plan of Care PT Services Indicated No Treatment Frequency and D/C from PT an await post operative evaluation. Duration These treatments will address the objective and functional deficits as defined above. The patient will be advanced safely and appropriately in order for the patient to progress towards his/her prior level of function. Additional exercises will be introduced and as well as a comprehensive home exercise program upon discharge, if needed, ?to ensure carryover of functional gains achieved in the clinic. This treatment plan has been reviewed and agreement upon by the patient.
== END 2024-04-13 09:10 | disposition home or self-care (01) ==
LOC: CHSPT 09:02
PROVIDERS: Visit Provider Anesthesiology Pain Medicine
DX: M48.062 Spinal stenosis, lumbar region with neurogenic claudication (principal)
CPT/HCPCS: 97110; 97161

== ENCOUNTER 2024-05-09 20:02 | Emergency (ER) | payer OTHER, SELFPAY ==
--- NOTE | 2024-05-09 20:04 | ED.URI ---
HPI - URI/Sore Throat General Chief Complaint: Upper Respiratory Infection Stated Complaint: flu like symptoms Time Seen by Provider: 05/09/24 20:03 Source: patient Mode of arrival: ambulatory Limitations: no limitations History of Present Illness HPI Narrative: Patient is a 43-year-old male with nausea and vomiting and not feeling well for the past week. He appears to have a sickness about a week ago that lasted a few days then he got better then he got sick again. Unclear if he had 2 separate viral illnesses. MD elicited complaint: cough, rhinorrhea, nasal congestion and other ( Nausea and vomiting) Pertinent past history: other ( diabetes type 2, hypertension, hyper lipids) Onset (ago): week(s) (1) Consistency: constant and intermittent Severity: moderate Pain scale (0-10): 1 Description of mucous: clear Able to tolerate fluids by mouth: No ( for 24 hours only; urinating today multiple times) Exacerbating factors: nothing Relieving factors: nothing Context: sick contacts and other(s) with similar symptoms Associated symptoms: rhinorrhea, nasal congestion, cough, nausea and vomiting Treatments prior to arrival: acetaminophen and ibuprofen Related Data Home Medications ?Medication ?Instructions ?Recorded ?Confirmed ?Last Taken ?Type citalopram 40 mg tablet 40 mg PO DAILY 10/28/20 02/27/21 10/28/20 History glimepiride 1 mg tablet 1 mg PO DAILY 10/28/20 02/27/21 10/28/20 History linagliptin 5 mg tablet (Tradjenta) 5 mg PO QAM 10/28/20 02/27/21 10/28/20 History lisinopril 20 1 tablet PO DAILY 10/28/20 02/27/21 10/28/20 History mg-hydrochlorothiazide 12.5 mg tablet lovastatin 40 mg tablet 40 mg PO QPM 10/28/20 02/27/21 10/27/20 History metformin 1,000 mg tablet 1,000 mg PO BID 10/28/20 02/27/21 10/28/20 History metoprolol tartrate 25 mg tablet 25 mg PO BID 10/28/20 02/27/21 10/28/20 History pioglitazone 30 mg tablet 30 mg PO DAILY 10/28/20 02/27/21 10/28/20 History Allergies Allergy/AdvReac Type Severity Reaction Status Date / Time camphor (From [employer]) Allergy Rash Verified 05/09/24 21:31 menthol (From [employer]) Allergy Rash Verified 05/09/24 21:31 Review of Systems Review of Systems: All systems reviewed & are unremarkable except as noted in HPI and below Constitutional: Constitutional: Reports no additional constitutional complaints Eyes: Eyes: Reports no additional eye complaints ENT: Reports system reviewed and no additional complaints, except as documented Cardiovascular: Cardiovascular: Reports no additional cardiovascular complaints Respiratory: Respiratory: Reports no additional respiratory complaints Gastrointestinal: Gastrointestinal: Reports no additional gastrointestinal complaints Genitourinary: Genitourinary: Reports no additional male genitourinary complaints Musculoskeletal: Musculoskeletal: Reports no additional musculoskeletal complaints Integumentary/Breasts: Skin/Breast: Reports system reviewed and no additional complaints, except as docu Neurologic: Reports system reviewed and no additional complaints, except as documented Psychiatric: Psychiatric: Reports no additional psychiatric complaints Endocrine: Endocrine: Reports no additional endocrine complaints Hematologic/Lymphatic: Hematologic/Lymphatic: Reports no additional hematologic/lymphatic complaints Allergic/Immunologic: Allergic/Immunologic: Reports no additional allergic/immunologic complaints PMFSH Past Medical History Medical History Right rotator cuff tendinitis Arthritis Sleep disorder Drug dependence Alcoholism Anxiety Depression Cellulitis Diabetes High blood pressure Bleeding nose Change in vision Headache Weight gain Subacromial impingement of right shoulder Biceps tendinitis of right shoulder Surgical History Surgical History History of spinal fusion L4-L5 Family History Family History Other Arthritis Diabetes mellitus Hypertension Malignant neoplasm Social History Social History Years smoked: 11 Smoking end date: 04/07/08 Alcohol intake: current Drinks per week: 6 Alcohol use details: Occasional Substance use: unknown Gender identity (if verbalized by the patient): Male Exam Const: General: ill appearing Nutritional Appearance: well nourished Orientation/consciousness: patient oriented x3 Limitations: no limitations HENMT: Head: normal to inspection Ears: external ears normal Face/Nose/Sinus: Normal external nose present Eyes: Conjunctivae: conjunctivae normal Pupils: Equal, round and reactive pupils present EOM: EOMs intact bilaterally Neck: Neck: normal visual inspection Chest: Chest palpation & inspection: normal inspection of the chest Resp: Effort & Inspection: normal respiratory effort and not labored Auscultation: clear to auscultation bilaterally and no crackles Cardio: Rate: regular rate Rhythm: regular rhythm Heart sounds: no murmurs GI: Inspection: non-distended GI Palp: Yes Soft to palpation and No Tenderness to palpation present (GI) Auscultation: normal bowel sounds : General: Yes bladder normal to palpation Back/Spine/Pelvis: Back: no CVA tenderness Skin: General skin exam: normal color Rashes: no rashes Wounds: no wounds Neuro: General: patient oriented x3 Cranial nerves: Yes Nystagmus not present Speech: normal speech Extrem: General: normal to inspection Psych: Mental Status: mental status grossly normal Affect: normal affect Attitude: cooperative MDM - URI/Sore Throat MDM Narrative Medical decision making narrative: patient is a 43-year-old male with nausea vomiting and not feeling well. We will do a COVID panel test at this time. We will also check strep. Lab Data Attestation: I reviewed the patient's lab results. ( Influenza A positive, strep negative) Discharge Plan Discharge Clinical Impression: Influenza A Patient Disposition: Home, Self-Care Condition: Stable Instructions: Influenza (ED) Patient Language: French Prescriptions: New ondansetron 4 mg tablet,disintegrating 4 mg PO Q6H PRN (Reason: nausea and vomiting) Qty: 30 0RF No Action citalopram 40 mg Tablet 40 mg PO DAILY lisinopril-hydrochlorothiazide 20-12.5 mg Tablet 1 tablet PO DAILY lovastatin 40 mg Tablet 40 mg PO QPM glimepiride 1 mg Tablet 1 mg PO DAILY metformin 1,000 mg Tablet 1,000 mg PO BID pioglitazone 30 mg Tablet 30 mg PO DAILY metoprolol tartrate 25 mg Tablet 25 mg PO BID Tradjenta 5 mg Tablet 5 mg PO QAM dexamethasone 6 mg tablet 6 mg PO DAILY Qty: 10 0RF ondansetron 4 mg tablet,disintegrating 4 mg PO Q6H PRN (Reason: nausea and vomiting) Qty: 10 0RF levofloxacin 750 mg tablet 750 mg PO DAILY Qty: 6 0RF Follow-up/Referrals: Yves Lafleur MD [Primary Care Provider] - Time of Disposition: 21:36
--- OUTSIDE RECORDS SUMMARY | 2024-05-09 20:04 | XMS_ITS | Clinical Summary ---
Author Organization [facility] Address [address] [place] [address] Phone Care Team Providers Care Food Service Order Clerk Name Role Phone MILES PHILLIPS MD Primary Care Provider [phone] Reason for Visit and Chief Complaint The Chief Complaint is: 2 month follow up Problems Includes: Problems addressed during this encounter and other active Problems All Visits Onset Date Resolved Date Provider Condition S tatus Anxiety Disorder Nos Unknown KYAW [place] WANDA PIANO MECHANIC-FPA, FLIGHT PHYSICIAN-BC Active Last Documented On 2 11:56AM ; [facility] 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 Unknown KYAW G WANDA PIANO MECHANIC-FPA , FLIGHT PHYSICIAN-BC Active Last Documented On 2 11:56AM ; [facility] Essential Hypertension Unknown KYAW [place] KUL P PIANO MECHANIC-FPA, FLIGHT PHYSICIAN-BC Active Last Documented On 2 11:56AM ; [facility] Major Depression Unknown KYAW G WANDA PIANO MECHANIC -FPA, FLIGHT PHYSICIAN-BC Active Last Documented On 2 11:57AM ; [facility] Plan of Treatment Education and Decision Aids were provided during visit for: Lifestyle education Last Documented On 3 2:22PM ; [facility] Assessments Includes: Assessments from this encounter Findings - [Z01.818 - Encounter for other preprocedural examination] Visit for: preoperative exam - Last Documented On 03/10/2023 11:51AM ; [facility] - [E66.9 - Obesity, unspecified] Obesity - Last Documented On 03/10/2023 11:51AM ; [facility] - [M54.50 - Low back pain, unspecified] Low back pain - Last Documented On 03/10/2023 11:51AM ; [facility] - [Z98.1 - Arthrodesis status] Postsurgical arthrodesis status - Last Documented On 03/10/2023 11:51AM ; [facility] - [M48.062 - Spinal stenosis, lumbar region with neurogenic claudication] Lumbar stenosis with neurogenic claudication - Last Documented On 03/10/2023 11:51AM ; [facility] - [M54.16 - Radiculopathy, lumbar region] Lumbar radiculopathy - Last Documented On 03/10/2023 11:51AM ; [facility] Instructions Includes: Instructions from this encounter Education and Decision Aids were provided during visit for: Lifestyle education Last Documented On 3 2:22PM ; [facility] Medical Equipment - Implanted Devices Includes: Current Devices No Medical Equipment Recorded Medications Includes: Medications discussed during this encounter and other current Medications Discontinued / Stopped on this date SANTOS PRUETT on 01/10/2023 Pregabalin 150 MG Oral Capsule Provider: SANTOS DEE Diagnosis: Radiculopathy, l umbar region Last Documented On 3 2:43PM By KYAW GRAHAM ; [facility] Calcium + Vitamin D3 600-10 MG-MCG Oral Tablet Provider: Diagnosis: Last Documented On 3 2:11PM By Cassandra MACDONALD ; [facility] Citalopram Hydrobromide 40 MG Oral Tablet Provider: Diagnosis: Last Documented On 3 2:12PM By Cassandra MACDONALD ; [facility] New / Renewed during this visit SANTOS PRUETT on 03/07/2023 Pregabalin 150 MG Oral Capsule Provider: SANTOS DEE 30 day supply: 60 capsule, 2 refills Diagnosis: Radiculopathy, lumbar region 1 CAPSULE TWO TIMES A DAY Pharmacy: [facility] [address], [phone] - Last Documented On 4 12:53PM By KYAW GRAHAM ; [facility] Meloxicam 15 MG Oral Tablet Provider: SANTOS DEE 30 day supply: 30 tablet, 2 refills Diagnosis: Low back pain, unspecified TAKE ONE TABLET BY MOUTH MILAGRO LY WITH A MEAL Pharmacy: [facility] [address], [phone] - Last Documented On 3 9:34AM By KYAW GRAHAM ; [facility] DULoxetine HCl 60 MG Oral Capsule Delayed Release Particles Provider: SANTOS PRUETT 30 day supply: 30 capsule, 2 refills Diagnosis: Low back pain, unspecified 1 capsule daily at bedtime Pharmacy: [facility] [address], [phone] - Last Documented On 4 10:40AM By KYAW GRAHAM ; [facility] Current Medications (continue as prescribed) Meloxicam 15 MG Oral Tablet 08/04/2023 Provider: SANTOS DEE Diagnosis: Low back pain, u nspecified TAKE ONE TABLET BY MOUTH MILAGRO GONSALES WITH A MEAL Last Documented On 4 4:11PM By KYAW GRAHAM ; [facility] DULoxetine HCl 60 MG Oral Capsule Delayed Release Particles 08/04/2023 Provider: SANTOS PRUETT Diagnosis: Low back pain, u nspecified TAKE ONE CAPSULE BY MOUTH AT BEDTIME Last Documented On 4 4:11PM By KYAW GRAHAM ; [facility] Pregabalin 150 MG Oral Capsule 08/04/2023 Provider: SANTOS DEE Diagnosis: Radiculopathy, l umbar region TAKE ONE CAPSULE BY MOUTH TWICE A DAY Last Documented On 4 4:11PM By KYAW MCKEONNA ; [facility] traMADol HCl 50 MG Oral Tablet 06/26/2023 Provider: [facility] Diagnosis: Radiculopathy, l umbar region One tablet three times a day as needed for severe pain Last Documented On 4 4:05PM By KYAW MCKEONNA ; [facility] Lovastatin 40 MG Oral Tablet 02/02/2022 Provider: MILES PHILLIPS MD Diagnosis: Last Documented On 2 1:02PM By KYAW MCKEONNA ; [facility] One-A-Day Mens Oral Tablet 02/01/2022 Provider: Diagnosis: Last Documented On 2 11:21AM By KYAW GRAHAM ; [facility] Metoprolol Tartrate 25 MG Oral Tablet 02/01/2022 Pro vider: Diagnosis: Last Documented On 2 11:21AM By KYAW GRAHAM ; [facility] Lisinopril-hydroCHLOROthiazide 20-12.5 MG Oral Tablet 02/01/2022 Provider: Diagnosis: Last Documented On 2 11:21AM By KYAW GRAHAM ; [facility] metFORMIN HCl ER (OSM) 1000 MG Oral Tablet Extended Release 24 Hour 02/01/2022 Provider: Diagnosis: 2 tablets twice daily. Last Documented On 2 11:21AM By KYAW GRAHAM ; [facility] Pioglitazone HCl 45 MG Oral Tablet 02/01/2022 Provid er: Diagnosis: Last Documented On 2 11:21AM By KYAW MCKEONNA ; [facility] Glimepiride 4 MG Oral Tablet 02/01/2022 Provider: Diagnosis: 2 tablets daily. Last Documented On 2 11:21AM By KYAW GRAHAM ; [facility] Jardiance 10 MG Oral Tablet 01/29/2022 Provider: MILES PHILLIPS MD Diagnosis: Last Documented On 2 11:21AM By KYAW GRAHAM ; [facility] Medications Administered Includes: Administered Medications from this encounter No Administered Medications Recorded Vital Signs Includes: Vital Signs from this encounter Vital Name 03/07/2023 02:12P Blood Pressure Sitting R 122/76 BP Cuff Size Large Pulse Rate-Sitting (bpm) 74 Temp-Temporal 96.5 Height (in) 74 Weight (lb) 340 Body Mass Index 43.7 Body Surface Area 2.7 Pain Level 2 Oxygen Saturation (%) 98 Last Documented: On 03/07/2023 2:14PM ; [facility] Results Includes: Results discussed during this encounter No Results Recorded For Specified Dates History of Present Illness Includes: History of Present Illness from this encounter HPI PHQ-9 Score: 6 Date:06/27/22BPI Score: Date:MiDAS Score: Date:SOAPP-R Score: 9 LOW Date:06/27/22Pain Location: Lumbar Quality: Shooting and sore. Radiation: Right leg to foot. Severity: Timing: constantAssociated Sx: weakness,Aggravating Factors:movement.Alleviating Factors:laying down. Past Tx: Spinal fusion L4-5 2008, physical therapy, L5 - S1 TFESI 02/13/2022, R L3-4 and L5-S1 TFESI 07/17/22, L5-S1 TFESI 12/27/22 CHRISTY GONZÁLES is a 42 year old male. - Allergy list reviewed - Allergy list reviewed - Problem list reviewed - Medication reconciliation performed - Medication list reviewed - Medication list reviewed - Prescription Drug Monitoring Program website checked. N/A - Last dose of medication? - Pain comes/goes - Primary pain location Lumbar region in my back - Primary pain duration Ongoing - Secondary pain duration Every time i take a step forward - Secondary pain location Right leg - Pain is dull, aching - Pain is shooting - Pain is sharp - Pain is deep - Pain aggravated sitting - Pain aggravated standing - Pain aggravated by walking - Pain aggravated by working - Pain aggravated bending - Pain radiating in the right thigh - Pain radiates in right calf/segundo - Pain radiates in right foot - Vertigo - No vertigo - Last drug screen appropriate N/A Discussion: FU after medication changes made for chronic low back pain. The Duloxetine has not been much more beneficial for his back pain. He continues to have significant trouble with the back pain and leg fatigue throughout the day and by evening and has to sit most of the time.He is unable to stand or walk longer than 10-15 minutes before he starts having significant back pain, sometimes back pain is pretty quick to start. He also gets pain and weakness in the backs of the legs. If he leans forward or sits this helps some. He tries to push through it but then feels pretty miserable afterwards. He has reviewed the MILD information that I gave him and would like to proceed with this procedure for his spinal stenosis. He understands he will need a PT eval prior to the MILD and will start in aqua therapy post MILD procedure for the best outcome. We discussed risk/benefit. He was given the pre and post op instructions in writing. He was given the pre op Hibiclens prep. He has no prior history of adverse reaction to anesthesia. He has not been sick or hospitalized recently. He is diabetic. He is not on any blood thinners. PRIOR VISIT 01/10/23: FU after L5-S1 TFESI. The radicular symptoms in the legs are much better. Back pain is better in the lower back but has some in the upper back. He gets some pain down the legs to the calves still when he stands up straight in a L5 and S1 pattern but mostly concentrated around the hips and less severe/less often. He continues to have some residual pain in the R buttock/hip/slightly into the groin area. This is worse w/ walking and standing. The legs feel fatigued but better than previous. He can stand and walk about an hour in the mornings now and during the day it varies. Pain varies throughout the day depending on what he is doing. The increase in Pregabalin has seemed to help. He takes Tylenol as needed. He is frustrated by his limitations with his pain. He continues to have significant trouble with the back pain and leg fatigue throughout the day and by evening has to sit most of the night. Prior Visit: Patient here today for routine follow-up on low back pain with radicular symptoms. Pain is now radiating down both legs right greater than left in a S1 dermatomal pattern and sometimes in the L5 dermatomal pattern. Standing and walking makes the pain worse. Sneezing causes a severe electric shock type of pain in the back of the legs. He can only stand or walk for less than 5 to 10 minutes because of the pain and weakness in the legs. He has missed a lot of work recently due to the pain and it interrupts his sleep. A recent MRI ordered by his primary care provider was reviewed. Previous lumbar epidural at L5-S1 was beneficial for greater than three months. It gave him greater than 50% pain relief. He would like to avoid surgery and narcotics if at all possible. Radiologist also mentioned ligamentum flavum thickening. He may benefit from the mild procedure. He brought his CD with him today, I will review this. His surgical consultation went well. Dr. Huerta recommended delaying surgery if at all possible. He continues a therapist guided home exercise program for his low back pain. FIRST VISIT [02/01/2022]: Patient referred by his primary care Dr for low back pain that radiates into the right leg in a S1 dermatomal pattern. Symptoms started about three months ago. Patient is status post lumbar fusion at L4-5 in 2008. Has had mild symptoms off and on since that time. Reports a severe flare in 2016 that went away on its own without treatment. Patient states he has been seeing a chiropractor. However, has had no improvement in his symptoms. Everything seems to make his pain worse. If he sits or lies down he does not have any of the radicular pain but continues to have back pain. Denies any numbness, tingling, loss of bowel or bladder control, or weakness. He has been out of work for the last two weeks because pain has worsened exponentially. Taking Meloxicam PRN. He was encouraged to take this daily with a meal for improved efficacy. Has Cyclobenzaprine but uses this only at night to sleep because it makes him too drowsy during the day. He has not been able to do any physical therapy or other interventional treatments. At this time pain is too severe for the patient to tolerate physical therapy. We can certainly consider after getting his pain better controlled. We discussed transforaminal epidural steroid injection today. Patient would like to proceed. Imaging: All relevant imaging available was personally reviewed with the patient today with the following tests and results noted: MRI Lumbar Spine 01/25/2022 Impression: Posterior lumbar instrumented fusion L4- 5. This creates moderate artifact obscures the L3-4 disc level on most of the axial sequences. Within limitation, there is moderate to severe disc degeneration at L3-4 with diffuse annular bulge. Thickening of posterior ligaments at this level result in severe spinal stenosis with thecal sac CSF effacement. No definite foraminal narrowing. Posterior lumbar instrumented fusion L4-5 without significant spinal stenosis or foraminal stenosis. Lumbar disc levels otherwise unremarkable. No acute osseous abnormality, fracture, or marrow edema at any level. MRI Lumbar Spine 11/29/22 L4-L5 instrumented fusion. L3-L4 spinal stenosis secondary to disc bulge, superimposed central disc protrusion, thickened ligamentum flavum, and facet arthropathy. Moderate to severe diminished caliber of the thecal sac. Lateral recess effacement on both sides. L5-S1 disc bulge in superimposed small disc protrusion abutting the descending right S1 nerve root and approaches the descending left S1 nerve root. Bilateral facet arthropathy. Epidural lipoma ptosis, the thecal sac has almost terminated. 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 Last Documented On 3 2:07PM ; [facility] Tobacco non-user 02/01/2022 Last Documented On 3 2:07PM ; [facility] Alcohol 02/01/2022 Last Documented On 3 2:07PM ; [facility] Amount of alcohol per day: 0-1 2 Last Documented On 3 2:07PM ; [facility] Difficulty walking 02/01/2022 Last Documented On 3 2:07PM ; [facility] Not using drugs 02/01/2022 Last Documented On 3 2:07PM ; [facility] Smoking Status Unknown Procedures and Surgical History Includes: Procedures from this encounter Procedures Code Diagnosis Performing Provider Service L ocation Service Date plan of care reviewed and agreed to Last Documented On 3 2:22PM ; [facility] plan of care reviewed and agreed to by t he patient Last Documented On 3 2:22PM ; [facility] use of tobacco assessment performed 1000F Last Documented On 3 2:08PM ; [facility] patient screened for future fall risk: documentation of any fall with injury in past year 1100F Last Documented On 3 2:22PM ; [facility] review of medications documented 1160F Last Documented On 3 2:08PM ; [facility] screening for adult depression: impressi on and score Last Documented On 3 2:08PM ; [facility] screening for adult depression: impressi on and score ten Last Documented On 3 2:22PM ; [facility] screening for adult depression: impressi on and score six Last Documented On 3 2:22PM ; [facility] standardized depression screening: posit lakesha for symptoms Last Documented On 3 2:22PM ; [facility] encouragement to exercise Last Documented On 3 2:22PM ; [facility] Reviewed & agreed to staff entries. Last Documented On 3 2:22PM ; [facility] Clinical summary provided to patient Last Documented On 3 2:22PM ; [facility] SOAPP-R: total score 9 Last Documented On 3 2:22PM ; [facility] Surgical History Last Updated No Pacemaker 02/01/2022 Last Documented On 3 2:07PM ; [facility] Medical History Includes: Medical History addressed during this encounter Description Last Updated Has a fear of falling. 03/07/2023 Last Documented On 3 11:51AM ; [facility] Has had no fall in the last 12 months. 1 Last Documented On 3 2:07PM ; [facility] Currently wearing eyeglasses 02/01/2022 Last Documented On 3 2:07PM ; [facility] No Pain Pump 02/01/2022 Last Documented On 3 2:07PM ; [facility] No Spinal cord stimulator 02/01/2022 Last Documented On 3 2:07PM ; [facility] Please list all surgeries: L4/L5 spinal fusion 07/06/2021 02/01/2022 Last Documented On 3 2:07PM ; [facility] Wearing contact lenses 02/01/2022 Last Documented On 3 2:07PM ; [facility] Family History Includes: Family History addressed during this encounter Description Last Updated Family history of Arthritis 02/01/2022 Last Documented On 3 2:07PM ; [facility] Family history of ischemic heart disease 02/01/2022 Last Documented On 3 2:07PM ; [facility] Family history of stroke/paralysis 02/01 Last Documented On 3 2:07PM ; [facility] Review of Systems Includes: Review of Systems from this encounter Systemic: No systemic symptoms other then noted. Fatigue. No recent weight loss. Head: No head symptoms other then noted. Neck: No neck pain. Otolaryngeal: No otolaryngeal symptoms other than noted. Cardiovascular: No cardiovascular symptoms other than noted. Pulmonary: No pulmonary symptoms other than noted. Gastrointestinal: No difficulty chewing and no dysphagia. Genitourinary: No genitourinary symptoms other than noted. Endocrine: No endocrine symptoms other than noted. Hematologic: No easy bleeding and no tendency for easy bruising. A tendency for easy bruising. Musculoskeletal: No musculoskeletal symptoms other than noted. Back pain, pain localized to one or more joints, and joint stiffness localized to one or more joints. Neurological: No neurological symptoms other than noted and no fainting passing out with needles or medical procedures. Psychological: Depression. No sleep apnea. Skin: No skin symptoms other than noted. Mental Status Includes: Mental Status from this encounter No Mental Status Recorded Functional Status Includes: Functional Status from this encounter No Functional Status Recorded Physical Exam Includes: Physical Exam from this encounter Allergies Includes: Active Allergies No Known Allergies Encounters Encounter Provider Location Date Check-In Time Check-Out Time Diagnosis PAIN MANAGEMENT FOLLOW UP KYAW AVELAR, MAXX-BC [facility] 03/07/20 23 2:06PM 2:58PM Obesity,Orthope dics Postsurgical Arthrodesis Status,Lumbar Radiculopathy,S jumana Stenosis Lumbar with Neurogenic Claudication,Do rsopathy Low Back Pain,Visit For: Preoperative Exam Insurance Includes: Active Insurance Policies Plan Name Member ID Group # Subscriber Relationship Effect lakesha Dates 1 - [facility] [id number] CHRISTY GONZÁLES Self Clinical Notes Includes: Clinical Notes from this encounter * Progress note Date Encounter Last Documented by 03/07/2023 PAIN MANAGEMENT FOLLOW UP Last d ocumented on 03/10/2023; 11:51 AM, KYAW AVELAR, FLIGHT PHYSICIAN-BC; [facility] Top of Document This document represents the pre-surgical History & Physical for this patient Active Problems & Conditions - Anxiety Disorder Nos - Essential Hypertension - Major Depression - 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 History of Present Illness PHQ-9 Score: 6 Date:06/27/22 BPI Score: Date: MiDAS Score: Date: SOAPP-R Score: 9 LOW Date:06/27/22 Pain Location: Lumbar Quality: Shooting and sore. Radiation: Right leg to foot. Severity: Timing: constant Associated Sx: weakness, Aggravating Factors:movement. Alleviating Factors:laying down. Past Tx: Spinal fusion L4-5 2008, physical therapy, L5 - S1 TFESI 02/13/2022, R L3-4 and L5-S1 TFESI 07/17/22, L5-S1 TFESI 12/27/22 CHRISTY GONZÁLES is a 42 year old male. - Allergy list reviewed - Allergy list reviewed - Problem list reviewed - Medication reconciliation performed - Medication list reviewed - Medication list reviewed - Prescription Drug Monitoring Program website checked. N/A - Last dose of medication? - Pain comes/goes - Primary pain location Lumbar region in my back - Primary pain duration Ongoing - Secondary pain duration Every time i take a step forward - Secondary pain location Right leg - Pain is dull, aching - Pain is shooting - Pain is sharp - Pain is deep - Pain aggravated sitting - Pain aggravated standing - Pain aggravated by walking - Pain aggravated by working - Pain aggravated bending - Pain radiating in the right thigh - Pain radiates in right calf/segundo - Pain radiates in right foot - Vertigo - No vertigo - Last drug screen appropriate N/A Discussion: FU after medication changes made for chronic low back pain. The Duloxetine has not been much more beneficial for his back pain. He continues to have significant trouble with the back pain and leg fatigue throughout the day and by evening and has to sit most of the time.He is unable to stand or walk longer than 10-15 minutes before he starts having significant back pain, sometimes back pain is pretty quick to start. He also gets pain and weakness in the backs of the legs. If he leans forward or sits this helps some. He tries to push through it but then feels pretty miserable afterwards. He has reviewed the MILD information that I gave him and would like to proceed with this procedure for his spinal stenosis. He understands he will need a PT eval prior to the MILD and will start in aqua therapy post MILD procedure for the best outcome. We discussed risk/benefit. He was given the pre and post op instructions in writing. He was given the pre op Hibiclens prep. He has no prior history of adverse reaction to anesthesia. He has not been sick or hospitalized recently. He is diabetic. He is not on any blood thinners. PRIOR VISIT 01/10/23: FU after L5-S1 TFESI. The radicular symptoms in the legs are much better. Back pain is better in the lower back but has some in the upper back. He gets some pain down the legs to the calves still when he stands up straight in a L5 and S1 pattern but mostly concentrated around the hips and less severe/less often. He continues to have some residual pain in the R buttock/hip/slightly into the groin area. This is worse w/ walking and standing. The legs feel fatigued but better than previous. He can stand and walk about an hour in the mornings now and during the day it varies. Pain varies throughout the day depending on what he is doing. The increase in Pregabalin has seemed to help. He takes Tylenol as needed. He is frustrated by his limitations with his pain. He continues to have significant trouble with the back pain and leg fatigue throughout the day and by evening has to sit most of the night. Prior Visit: Patient here today for routine follow-up on low back pain with radicular symptoms. Pain is now radiating down both legs right greater than left in a S1 dermatomal pattern and sometimes in the L5 dermatomal pattern. Standing and walking makes the pain worse. Sneezing causes a severe electric shock type of pain in the back of the legs. He can only stand or walk for less than 5 to 10 minutes because of the pain and weakness in the legs. He has missed a lot of work recently due to the pain and it interrupts his sleep. A recent MRI ordered by his primary care provider was reviewed. Previous lumbar epidural at L5-S1 was beneficial for greater than three months. It gave him greater than 50% pain relief. He would like to avoid surgery and narcotics if at all possible. Radiologist also mentioned ligamentum flavum thickening. He may benefit from the mild procedure. He brought his CD with him today, I will review this. His surgical consultation went well. Dr. Huerta recommended delaying surgery if at all possible. He continues a therapist guided home exercise program for his low back pain. FIRST VISIT [02/01/2022]: Patient referred by his primary care Dr for low back pain that radiates into the right leg in a S1 dermatomal pattern. Symptoms started about three months ago. Patient is status post lumbar fusion at L4-5 in 2008. Has had mild symptoms off and on since that time. Reports a severe flare in 2016 that went away on its own without treatment. Patient states he has been seeing a chiropractor. However, has had no improvement in his symptoms. Everything seems to make his pain worse. If he sits or lies down he does not have any of the radicular pain but continues to have back pain. Denies any numbness, tingling, loss of bowel or bladder control, or weakness. He has been out of work for the last two weeks because pain has worsened exponentially. Taking Meloxicam PRN. He was encouraged to take this daily with a meal for improved efficacy. Has Cyclobenzaprine but uses this only at night to sleep because it makes him too drowsy during the day. He has not been able to do any physical therapy or other interventional treatments. At this time pain is too severe for the patient to tolerate physical therapy. We can certainly consider after getting his pain better controlled. We discussed transforaminal epidural steroid injection today. Patient would like to proceed. Imaging: All relevant imaging available was personally reviewed with the patient today with the following tests and results noted: MRI Lumbar Spine 01/25/2022 Impression: Posterior lumbar instrumented fusion L4- 5. This creates moderate artifact obscures the L3-4 disc level on most of the axial sequences. Within limitation, there is moderate to severe disc degeneration at L3-4 with diffuse annular bulge. Thickening of posterior ligaments at this level result in severe spinal stenosis with thecal sac CSF effacement. No definite foraminal narrowing. Posterior lumbar instrumented fusion L4-5 without significant spinal stenosis or foraminal stenosis. Lumbar disc levels otherwise unremarkable. No acute osseous abnormality, fracture, or marrow edema at any level. MRI Lumbar Spine 11/29/22 L4-L5 instrumented fusion. L3-L4 spinal stenosis secondary to disc bulge, superimposed central disc protrusion, thickened ligamentum flavum, and facet arthropathy. Moderate to severe diminished caliber of the thecal sac. Lateral recess effacement on both sides. L5-S1 disc bulge in superimposed small disc protrusion abutting the descending right S1 nerve root and approaches the descending left S1 nerve root. Bilateral facet arthropathy. Epidural lipoma ptosis, the thecal sac has almost terminated. Current Medication - DULoxetine HCl 60 MG Oral Capsule Delayed Release Particles 1 capsule daily at bedtime, 30 days, 1 refills - Glimepiride 4 MG Oral Tablet as directed 2 tablets daily., 0 days, 0 refills - Jardiance 10 MG Oral Tablet 30 days, 0 refills - Lisinopril-hydroCHLOROthiazide 20-12.5 MG Oral Tablet One tablet daily 0 days, 0 refills - Lovastatin 40 MG Oral Tablet One tablet daily 90 days, 0 refills - Meloxicam 15 MG Oral Tablet TAKE ONE TABLET BY MOUTH DAILY WITH A MEAL, 30 days, 1 refills - metFORMIN HCl ER (OSM) 1000 MG Oral Tablet Extended Release 24 Hour as directed 2 tablets twice daily., 0 days, 0 refills - Metoprolol Tartrate 25 MG Oral Tablet One tablet twice a day 0 days, 0 refills - One-A-Day Mens Oral Tablet One tablet daily 0 days, 0 refills - Pioglitazone HCl 45 MG Oral Tablet One tablet daily 0 days, 0 refills Past Medical/Surgical History Reported: Please list all surgeries: L4/L5 spinal fusion 07/06/2021. Medical: Currently wearing eyeglasses and currently wearing contact lenses. No Spinal cord stimulator and no Pain Pump. Surgical / Procedural: No Pacemaker. Physical Trauma: Has had no fall in the last 12 months. Has a fear of falling. Social History Difficulty walking. Behavioral: Amount of alcohol per day: 0-1. Tobacco use: Tobacco non-user. Alcohol: Alcohol. Drug Use: Not using drugs. 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 Allergies - No Known Allergies Family History Arthritis Stroke/paralysis Ischemic heart disease Review Of Systems Systemic: No systemic symptoms other then noted. Fatigue. No recent weight loss. Head: No head symptoms other then noted. Neck: No neck pain. Otolaryngeal: No otolaryngeal symptoms other than noted. Cardiovascular: No cardiovascular symptoms other than noted. Pulmonary: No pulmonary symptoms other than noted. Gastrointestinal: No difficulty chewing and no dysphagia. Genitourinary: No genitourinary symptoms other than noted. Endocrine: No endocrine symptoms other than noted. Hematologic: No easy bleeding and no tendency for easy bruising. A tendency for easy bruising. Musculoskeletal: No musculoskeletal symptoms other than noted. Back pain, pain localized to one or more joints, and joint stiffness localized to one or more joints. Neurological: No neurological symptoms other than noted and no fainting passing out with needles or medical procedures. Psychological: Depression. No sleep apnea. Skin: No skin symptoms other than noted. Physical Findings - Vitals taken 03/07/2023 02:12 pm BP-Sitting R 122/76 mmHg BP Cuff Size Large Pulse Rate-Sitting 74 bpm Temp-Temporal 96.5 F Height 74 in Weight 340 lbs Body Mass Index 43.7 kg/m2 Body Surface Area 2.7 m2 Pain Level 2 Pain Level Note with sitting 8 walking Lumbar down blt legs Oxygen Saturation 98 % Psychiatric: Psychiatric: Value PHQ9 score: 6 Constitutional: Well developed. Well nourished, obese. No acute distress. HEENT: NC/AT. Anicteric. Clear Conjunctiva. PERRLA. MM's pink/moist. No discharge via nares. No discharge via EAC. Neck supple. No thyromegally. No palpable masses. No lymphadenopathy in cervical chain bilaterally. CVS: RRR. No murmurs. No peripheral edema. Peripheral pulses palpable in all extremities. Pulmonary: CTA bilaterally. No wheezes. No rales. No crackles. No rubs. Normal chest expansion. Spine/MSK: Tender around the L3-4 lumbar spine area. Non tender SI joints. Negative straight leg test. Negative facet loading bilaterally. Negative compression, thigh thrust, distraction, and [place]'s. Positive Noemi's on the right. Gait: Not antalgic. No steppage gait. No Trendelenburg gait. No circumspected gait pattern. Heel walk normal. Toe walk normal. Tandem gait normal. Neuro: Awake. Alert. Oriented x3. DTR's intact in all extremities. DTR's equal in all extremities. No sensory deficit. No motor deficit. Psych: No apparent distress. Mood normal. Affect normal. No pain behaviors. Skin: Normal. [place], warm, dry. Tests Educational Testing: Questionnaires PHQ-9: Value SOAPP-R: total score 9 Assessment - [Z01.818 - Encounter for other preprocedural examination] Visit for: preoperative exam - [E66.9 - Obesity, unspecified] Obesity - [M54.50 - Low back pain, unspecified] Low back pain - [Z98.1 - Arthrodesis status] Postsurgical arthrodesis status - [M48.062 - Spinal stenosis, lumbar region with neurogenic claudication] Lumbar stenosis with neurogenic claudication - [M54.16 - Radiculopathy, lumbar region] Lumbar radiculopathy Therapy - Reviewed & agreed to staff entries. - Encouragement to exercise. - Clinical summary provided to patient. - Plan of care reviewed and agreed to by the patient. Counseling/Education - Lifestyle education Discussed Schedule for MILD @ L3-4. FU after procedure. Plan StartCited - Low back pain, unspecified DULoxetine HCl 60 MG capsule 1 capsule daily at bedtime, 30 days, 2 refills Meloxicam 15 MG tablet TAKE ONE TABLET BY MOUTH DAILY WITH A MEAL, 30 days, 2 refills EndCited StartCited - Radiculopathy, lumbar region Pregabalin 150 MG capsule 1 CAPSULE TWO TIMES A DAY, 30 days, 2 refills EndCited StartCited - Spinal stenosis, lumbar region with neurogenic claudication Therapy/Physical Therapy: Physical Therapy Instructions: Evaluate and Treat pre Op MILD procedure and post op start aqua therapy per protocol Pain Management CPT: MILD Procedure Instructions: Minimally Invasive Lumbar Decompression at L3-4 with fluoroscopy EndCited Notes No changes to H & P Date: Time: Signature: Practice Management Use of tobacco assessment performed and patient screened for future fall risk documentation of any fall with injury in past year Review of medications documented; Standardized depression screening: positive for symptoms, for adult impression and score, impression and score ten, and impression and score six; [[id number]] Established outpatient, medically appropriate H&P, moderate level decision making, 30-39 minutes. A total of 28 minutes were spent on this patient's care evaluation, as above. Results of this interaction were communicated directly to the patient's referring and/or primary care provider. All imaging studies and test results discussed in the above document were personally reviewed and evaluated by the performing provider. For all patients on acute or chronic opioids, ongoing need for opioid analgesia is assessed at each visit with consideration of discontinuation or wean to lowest effective dose when possible and appropriate. Contents of this document have been edited for correctness, but may be subject to typographical or yarder puncher errors. Verify all diagnoses, medications, dosages, and patient instructions with patient and/or the originator of this document. Care Team - MILES PHILLIPS MD - Primary Care Health Reminders - Assess Blood Pressure satisfied 03/07/2023. - Assess BMI satisfied 03/07/2023. - Assess Tobacco Use satisfied 03/07/2023. - Blood Pressure Measurement satisfied 03/07/2023. - Depression Screening satisfied 03/07/2023. - Follow Up Plan BMI Management satisfied 03/07/2023. - Follow up plan for Depression Screening satisfied 03/07/2023.
--- OUTSIDE RECORDS SUMMARY | 2024-05-09 20:04 | XMS_ITS | Clinical Summary ---
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 Name Role Phone MILES PHILLIPS MD Primary Care Provider [phone] Reason for Visit and Chief Complaint The Chief Complaint is: Follow up on increase in pain lumbar spine and down legs Problems Includes: Problems addressed during this encounter and other active Problems All Visits Onset Date Resolved Date Provider Condition S tatus Anxiety Disorder Nos Unknown KYAW Spani WANDA DIRECTOR OF FLIGHT OPERATIONS-FPA, TECHNICAL SYSTEMS ARCHITECT-BC Active Last Documented On 2 11:56AM ; [facility] 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 Unknown KYAW [place] WANDA DIRECTOR OF FLIGHT OPERATIONS-FPA , TECHNICAL SYSTEMS ARCHITECT-BC Active Last Documented On 2 11:56AM ; [facility] Essential Hypertension Unknown KYAW [place] KUL P DIRECTOR OF FLIGHT OPERATIONS-FPA, TECHNICAL SYSTEMS ARCHITECT-BC Active Last Documented On 2 11:56AM ; [facility] Major Depression Unknown KYAW [place] WNADA DIRECTOR OF FLIGHT OPERATIONS -FPA, TECHNICAL SYSTEMS ARCHITECT-BC Active Last Documented On 2 11:57AM ; [facility] Plan of Treatment Education and Decision Aids were provided during visit for: Lifestyle education Last Documented On 3 1:08PM ; [facility] Assessments Includes: Assessments from this encounter Findings - [E66.9 - Obesity, unspecified] Obesity - Last Documented On 03/27/2023 1:39PM ; [facility] - [M54.50 - Low back pain, unspecified] Low back pain - Last Documented On 03/27/2023 1:39PM ; [facility] - [Z98.1 - Arthrodesis status] Postsurgical arthrodesis status - Last Documented On 03/27/2023 1:39PM ; [facility] - [M48.062 - Spinal stenosis, lumbar region with neurogenic claudication] Lumbar stenosis with neurogenic claudication - Last Documented On 03/27/2023 1:39PM ; [facility] - [M54.16 - Radiculopathy, lumbar region] Lumbar radiculopathy - Last Documented On 03/27/2023 1:39PM ; [facility] Instructions Includes: Instructions from this encounter Education and Decision Aids were provided during visit for: Lifestyle education Last Documented On 3 1:08PM ; [facility] Medical Equipment - Implanted Devices Includes: Current Devices No Medical Equipment Recorded Medications Includes: Medications discussed during this encounter and other current Medications New / Renewed during this visit SANTOS PRUETT on 03/27/2023 traMADol HCl 50 MG Oral Tablet Provider: SANTOS DEE 7 day supply: 21 tablet, 0 refills Diagnosis: Radiculopathy, lumbar region One tablet three times a day as needed for severe pain Pharmacy: [address], [id number] - Last Documented On 4 2:59PM By KYAW GRAHAM ; [facility] Current Medications (continue as prescribed) Meloxicam 15 MG Oral Tablet 08/04/2023 Provider: SANTOS DEE Diagnosis: Low back pain, u nspecified TAKE ONE TABLET BY MOUTH MILAGRO LY WITH A MEAL Last Documented On 4 4:11PM By KYAW GRAHAM ; [facility] DULoxetine HCl 60 MG Oral Capsule Delayed Release Particles 08/04/2023 Provider: SANTOS PRUETT Diagnosis: Low back pain, u nspecified TAKE ONE CAPSULE BY MOUTH AT BEDTIME Last Documented On 4 4:11PM By KYAW GRAHAM ; [facility] Pregabalin 150 MG Oral Capsule 08/04/2023 Provider: SANTOS DEE Diagnosis: Radiculopathy, l umbar region TAKE ONE CAPSULE BY MOUTH TWICE A DAY Last Documented On 4 4:11PM By KYAW GRAHAM ; [facility] traMADol HCl 50 MG Oral Tablet 06/26/2023 Provider: SANTOS DEE Diagnosis: Radiculopathy, l umbar region One tablet three times a day as needed for severe pain Last Documented On 4 4:05PM By KYAW GRAHAM ; [facility] Lovastatin 40 MG Oral Tablet 02/02/2022 Provider: MILES PHILLIPS MD Diagnosis: Last Documented On 2 1:02PM By KYAW GRAHAM ; [facility] One-A-Day Mens Oral Tablet 02/01/2022 Provider: Diagnosis: Last Documented On 2 11:21AM By KYAW GRAHAM ; [facility] Metoprolol Tartrate 25 MG Oral Tablet 02/01/2022 Pro vider: Diagnosis: Last Documented On 2 11:21AM By KYAW GRAHAM ; [facility] Lisinopril-hydroCHLOROthiazide 20-12.5 MG Oral Tablet 02/01/2022 Provider: Diagnosis: Last Documented On 2 11:21AM By KYAW GRAHAM ; [facility] metFORMIN HCl ER (OSM) 1000 MG Oral Tablet Extended Release 24 Hour 02/01/2022 Provider: Diagnosis: 2 tablets twice daily. Last Documented On 2 11:21AM By KYAW GRAHAM ; [facility] Pioglitazone HCl 45 MG Oral Tablet 02/01/2022 Provid er: Diagnosis: Last Documented On 2 11:21AM By KYAW GRAHAM ; [facility] Glimepiride 4 MG Oral Tablet 02/01/2022 Provider: Diagnosis: 2 tablets daily. Last Documented On 2 11:21AM By KYAW GRAHAM ; [facility] Jardiance 10 MG Oral Tablet 01/29/2022 Provider: MILES PHILLIPS MD Diagnosis: Last Documented On 2 11:21AM By KYAW GRAHAM ; [facility] Medications Administered Includes: Administered Medications from this encounter No Administered Medications Recorded Vital Signs Includes: Vital Signs from this encounter Vital Name 03/27/2023 01:10P Temp-Temporal 98 Height (in) 74 Weight (lb) 340 Body Mass Index 43.7 Body Surface Area 2.7 Pain Level 6 Last Documented: On 03/27/2023 1:11PM ; [facility] Results Includes: Results discussed during this encounter [...] Last drug screen appropriate N/A Discussion: FU for increased back pain. Missed 2 days of work because of pain this week. Waiting on MILD procedure to be approved by insurance. He is worried he will lose his job because of all the days he has missed. We discussed Tramadol short term w/ goal to stop in the future after MILD procedure. He understands this ia a narcotic and should be used sparingly for severe pain only. Risks/benefits discussed. 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 Last Documented On 3 1:07PM ; [facility] Tobacco non-user 02/01/2022 Last Documented On 3 1:07PM ; [facility] Alcohol 02/01/2022 Last Documented On 3 1:07PM ; [facility] Amount of alcohol per day: 0-1 2 Last Documented On 3 1:07PM ; [facility] Difficulty walking 02/01/2022 Last Documented On 3 1:07PM ; [facility] Not using drugs 02/01/2022 Last Documented On 3 1:07PM ; [facility] Smoking Status Unknown Procedures and Surgical History Includes: Procedures from this encounter Procedures Code Diagnosis Performing Provider Service L ocation Service Date plan of care reviewed and agreed to Last Documented On 3 1:08PM ; [facility] plan of care reviewed and agreed to by t he patient Last Documented On 3 1:08PM ; [facility] use of tobacco assessment performed 1000F Last Documented On 3 1:08PM ; [facility] patient screened for future fall risk: documentation of any fall with injury in past year 1100F Last Documented On 3 1:08PM ; [facility] review of medications documented 1160F Last Documented On 3 1:08PM ; [facility] screening for adult depression: impressi on and score Last Documented On 3 1:08PM ; [facility] screening for adult depression: impressi on and score ten Last Documented On 3 1:08PM ; [facility] screening for adult depression: impressi on and score six Last Documented On 3 1:08PM ; [facility] standardized depression screening: posit lakesha for symptoms Last Documented On 3 1:08PM ; [facility] encouragement to exercise Last Documented On 3 1:08PM ; [facility] Reviewed & agreed to staff entries. Last Documented On 3 1:08PM ; [facility] Clinical summary provided to patient Last Documented On 3 1:08PM ; [facility] SOAPP-R: total score 9 Last Documented On 3 1:08PM ; [facility] Surgical History Last Updated No Pacemaker 02/01/2022 Last Documented On 3 1:07PM ; [facility] Medical History Includes: Medical History addressed during this encounter Description Last Updated Has a fear of falling. 08/04/2023 Last Documented On 3 1:07PM ; [facility] Has had no fall in the last 12 months. 1 Last Documented On 3 1:07PM ; [facility] Currently wearing eyeglasses 02/01/2022 Last Documented On 3 1:07PM ; [facility] No Pain Pump 02/01/2022 Last Documented On 3 1:07PM ; [facility] No Spinal cord stimulator 02/01/2022 Last Documented On 3 1:07PM ; [facility] Please list all surgeries: L4/L5 spinal fusion 07/06/2021 02/01/2022 Last Documented On 3 1:07PM ; [facility] Wearing contact lenses 02/01/2022 Last Documented On 3 1:07PM ; [facility] Family History Includes: Family History addressed during this encounter Description Last Updated Family history of Arthritis 02/01/2022 Last Documented On 3 1:07PM ; [facility] Family history of ischemic heart disease 02/01/2022 Last Documented On 3 1:07PM ; [facility] Family history of stroke/paralysis 02/01 Last Documented On 3 1:07PM ; [facility] Review of Systems Includes: Review of Systems [...] Location Date Check-In Time Check-Out Time Diagnosis TELEHEALTH KYAW MUÑOZ DIRECTOR OF FLIGHT OPERATIONS-FPA, TECHNICAL SYSTEMS ARCHITECT-BC [facility] 03/27/20 23 1:06PM 1:37PM Obesity,Orthoped ics Postsurgical Arthrodesis Status,Lumbar Radiculopathy,Sp inal Stenosis Lumbar with Neurogenic Claudication,David sopathy Low Back Pain Insurance Includes: Active Insurance Policies Plan Name Member ID Group # Subscriber Relationship Effect lakesha Dates 1 - [facility] [id number] CHRISTY GONZÁLES Self Clinical Notes Includes: Clinical Notes from this encounter * Progress note Date Encounter Last Documented by 03/27/2023 TELEHEALTH Last documented on 03/27/2023; 1:39 PM, KYAW MUÑOZ DIRECTOR OF FLIGHT OPERATIONS-FPA, TECHNICAL SYSTEMS ARCHITECT-BC; [facility] Active Problems & Conditions - Anxiety Disorder Nos - Essential Hypertension - Major Depression - Peripheral Neuropathy Sensory Due To Type 2 Diabetes Mellitus Chief Complaint The Chief Complaint is: Follow up on increase in pain lumbar spine and down legs. History of Present Illness PHQ-9 Score: 6 [...] Last drug screen appropriate N/A Discussion: FU for increased back pain. Missed 2 days of work because of pain this week. Waiting on MILD procedure to be approved by insurance. He is worried he will lose his job because of all the days he has missed. We discussed Tramadol short term w/ goal to stop in the future after MILD procedure. He understands this ia a narcotic and should be used sparingly for severe pain only. Risks/benefits discussed. PRIOR VISIT: FU after medication changes made for chronic [...] daily at bedtime, 30 days, 2 refills - Glimepiride 4 MG Oral Tablet [...] WITH A MEAL, 30 days, 2 refills - metFORMIN HCl ER (OSM) 1000 [...] tablet daily 0 days, 0 refills - Pregabalin 150 MG Oral Capsule 1 CAPSULE TWO TIMES A DAY, 30 days, 2 refills Past Medical/Surgical History Reported: Please list [...] Use: Not using drugs. 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 Allergies - No Known Allergies Family [...] than noted. Physical Findings - Vitals taken 03/27/2023 01:10 pm Temp-Temporal 98 F Height 74 in Weight 340 lbs Body Mass Index 43.7 kg/m2 Body Surface Area 2.7 m2 Pain Level 6 Pain Level Note lumbar and blt leg. Psychiatric: Psychiatric: Value PHQ9 score: 6 Tests Educational Testing: Questionnaires PHQ-9: Value SOAPP-R: total score 9 Assessment - [E66.9 - Obesity, unspecified] Obesity - [...] L3-4. FU after procedure. Plan StartCited - Radiculopathy, lumbar region traMADol HCl 50 MG tablet One tablet three times a day as needed for severe pain, 7 days, 0 refills EndCited Practice Management Use of tobacco assessment performed and patient screened for future fall risk documentation of any fall with injury in past year Review of medications documented; Standardized depression screening: positive for symptoms, for adult impression and score, impression and score ten, and impression and score six; [54151] Established outpatient, medically appropriate H&P, moderate level decision making, 30-39 minutes. A total of 12 minutes were spent on this patient's care [...] but may be subject to typographical or navy airspace officer errors. Verify all diagnoses, medications, dosages, and patient instructions with patient and/or the originator of this document. Telehealth Visit: Audio and video. Patient called from work. Provider located at the [facility] office. Patient consents to bill insurance for this visit. No exam completed. If at anytime it was felt patient need to be evaluated arrangements would be made. Care Team - MILES PHILLIPS MD - Primary Care Health Reminders - Assess BMI satisfied 03/27/2023. - Assess Tobacco Use satisfied 03/27/2023. - Depression Screening satisfied 03/27/2023. - Follow Up Plan BMI Management satisfied 03/27/2023.
--- OUTSIDE RECORDS SUMMARY | 2024-05-09 20:04 | XMS_ITS | Clinical Summary ---
Author Organization [facility] Address [address] [place] [address] Phone Care Team Providers Care Shorthand Teacher Name Role Phone ALAN BERGER, MILES Primary Care Provider [phone] Reason for Visit and Chief Complaint The Chief Complaint is: Follow up on medication refills Problems Includes: Problems addressed during this encounter and other active Problems All Visits Onset Date Resolved Date Provider Condition S tatus Anxiety Disorder Nos Unknown KYAW Spain WANDA MAINTENANCE REPAIRMAN-FPA, ARSON AND BOMB INVESTIGATOR-BC Active Last Documented On 2 11:56AM ; [facility] 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 Unknown KYAW G WANDA MAINTENANCE REPAIRMAN-FPA , ARSON AND BOMB INVESTIGATOR-BC Active Last Documented On 2 11:56AM ; [facility] Essential Hypertension Unknown KYAW Spain KUL P MAINTENANCE REPAIRMAN-FPA, ARSON AND BOMB INVESTIGATOR-BC Active Last Documented On 2 11:56AM ; [facility] Major Depression Unknown KYAW [place] WANDA MAINTENANCE REPAIRMAN -FPA, ARSON AND BOMB INVESTIGATOR-BC Active Last Documented On 2 11:57AM ; [facility] Plan of Treatment Pending Tests Order Diagnosis Results Due Ordering P rovider Pain Management CPT MILD Procedure Spinal steno sis, lumbar region with neurogenic claudication 09/03/23 KYAW G WANDA MAINTENANCE REPAIRMAN-FPA, ARSON AND BOMB INVESTIGATOR-BC Last Documented On 4 2:50PM ; [facility] Education and Decision Aids were provided during visit for: Lifestyle education Last Documented On 4 3:30PM ; [facility] Pill Count: Tramadol ~ Last Documented On 4 3:36PM ; [facility] Pill Count: Patient did not bring pain medication to appointment for pill count, per policy. Advised in order to continue to safely prescribe opioids, medication must be brought to each appointment Last Documented On 4 3:56PM ; [facility] Assessments Includes: Assessments from this encounter Findings - [E66.9 - Obesity, unspecified] Obesity - Last Documented On 08/04/2023 4:15PM ; [facility] - [M54.50 - Low back pain, unspecified] Low back pain - Last Documented On 08/04/2023 4:15PM ; [facility] - [Z98.1 - Arthrodesis status] Postsurgical arthrodesis status - Last Documented On 08/04/2023 4:15PM ; [facility] - [M48.062 - Spinal stenosis, lumbar region with neurogenic claudication] Lumbar stenosis with neurogenic claudication - Last Documented On 08/04/2023 4:15PM ; [facility] - [M54.16 - Radiculopathy, lumbar region] Lumbar radiculopathy - Last Documented On 08/04/2023 4:15PM ; [facility] Instructions Includes: Instructions from this encounter Education and Decision Aids were provided during visit for: Lifestyle education Last Documented On 4 3:30PM ; [facility] Pill Count: Tramadol ~ Last Documented On 4 3:36PM ; [facility] Pill Count: Patient did not bring pain medication to appointment for pill count, per policy. Advised in order to continue to safely prescribe opioids, medication must be brought to each appointment Last Documented On 4 3:56PM ; [facility] Medical Equipment - Implanted Devices Includes: Current Devices No Medical Equipment Recorded Medications Includes: Medications discussed during this encounter and other current Medications Discontinued / Stopped on this date SANTOS PRUETT on 07/24/2023 Pregabalin 150 MG Oral Capsule Provider: SANTOS DEE Diagnosis: Radiculopathy, l umbar region Last Documented On 4 4:11PM By KYAW GRAHAM ; [facility] Meloxicam 15 MG Oral Tablet Provider: SANTOS DEE Diagnosis: Low back pain, u nspecified Last Documented On 4 3:49PM By KYAW GRAHAM ; [facility] New / Renewed during this visit SANTOS PRUETT on 08/04/2023 Meloxicam 15 MG Oral Tablet Provider: SANTOS DEE 90 day supply: 90 tablet, 0 refills Diagnosis: Low back pain, unspecified TAKE ONE TABLET BY MOUTH MILAGRO LY WITH A MEAL Pharmacy: [facility] [address], [id number] - Last Documented On 4 4:11PM By KYAW GRAHAM ; [facility] DULoxetine HCl 60 MG Oral Capsule Delayed Release Particles Provider: SANTOS PRUETT 90 day supply: 90 capsule, 0 refills Diagnosis: Low back pain, unspecified TAKE ONE CAPSULE BY MOUTH AT BEDTIME Pharmacy: [facility] [address], [phone] - Last Documented On 4 4:11PM By KYAW GRAHAM ; [facility] Pregabalin 150 MG Oral Capsule Provider: SANTOS DEE 90 day supply: 180 capsule, 0 refills Diagnosis : Radiculopathy, lumbar region TAKE ONE CAPSULE BY MOUTH TWICE A DAY [facility] [address], [phone] - Last Documented On 4 4:11PM By KYAW GRAHAM ; [facility] Current Medications (continue as prescribed) traMADol HCl 50 MG Oral Tablet 06/26/2023 Provider: SANTOS DEE Diagnosis: Radiculopathy, l umbar region One tablet three times a day as needed for severe pain Last Documented On 4 4:05PM By KYAW GRAHAM ; [facility] Lovastatin 40 MG Oral Tablet 02/02/2022 Provider: MILES PHILLIPS MD Diagnosis: Last Documented On 2 1:02PM By KYAW GRAHAM ; [facility] One-A-Day Mens Oral Tablet 02/01/2022 Provider: Diagnosis: Last Documented On 2 11:21AM By KYAW GRAHAM ; [facility] Metoprolol Tartrate 25 MG Oral Tablet 02/01/2022 Pro vider: Diagnosis: Last Documented On 2 11:21AM By KYAW LILLYNA ; [facility] Lisinopril-hydroCHLOROthiazide 20-12.5 MG Oral Tablet 02/01/2022 Provider: Diagnosis: Last Documented On 2 11:21AM By KYAW MCKEONPCAITLYN ; [facility] metFORMIN HCl ER (OSM) 1000 MG Oral Tablet Extended Release 24 Hour 02/01/2022 Provider: Diagnosis: 2 tablets twice daily. Last Documented On 2 11:21AM By KYAW GRAHAM ; [facility] Pioglitazone HCl 45 MG Oral Tablet 02/01/2022 Provid er: Diagnosis: Last Documented On 2 11:21AM By KYAW MUÑOZ ARSON AND BOMB INVESTIGATORMUSA ; [facility] Glimepiride 4 MG Oral Tablet 02/01/2022 Provider: Diagnosis: 2 tablets daily. Last Documented On 2 11:21AM By KYAW GRAHAM ; [facility] Jardiance 10 MG Oral Tablet 01/29/2022 Provider: MILES PHILLIPS MD Diagnosis: Last Documented On 11:21AM [facility] ; [facility] Medications Administered Includes: Administered Medications from this encounter No Administered Medications Recorded Vital Signs Includes: Vital Signs from this encounter Vital Name 08/04/2023 03:54P Blood Pressure Sitting R 110/72 BP Cuff Size Large Pulse Rate-Sitting (bpm) 77 Temp-Temporal 96.4 Height (in) 74 Weight (lb) 309 Body Mass Index 39.7 Body Surface Area (m2) 2.6 Pain Level 0 Oxygen Saturation (%) 100 Last Documented: On 08/04/2023 4:15PM ; [facility] Results Includes: Results discussed during this encounter No Results Recorded For Specified Dates History of Present Illness Includes: History of Present Illness from this encounter HPI PHQ-9 Score: 12 Date:08/04/2023PI Score: Date:MiDAS Score: 38% Date:08/04/2023SOAPP-R Score: 7 LOW Date:08/04/2023ain Location: Lumbar Quality: Shooting and sore. Radiation: [...] - Prescription Drug Monitoring Program website checked. 06/26/2023 - How much of the medication are you taking a day? 1 a day if needed - Last dose of medication? A couple weeks - Pain comes/goes - Primary pain location [...] - Pain radiates in right foot - No vertigo - No vertigo - Last drug screen appropriate N/A Discussion: FU chronic low back pain. He lost his job and insurance so MILD auth was stopped. He has insurance again and would like to try and get this approved. He continues to have significant trouble with the back pain and leg fatigue throughout the day and by evening and has to sit most of the time.He is unable to stand or walk longer than 10-15 minutes before he starts having significant back pain and R groin pain, sometimes back pain is pretty quick to start. He also gets pain and weakness in the backs of the legs. If he leans forward or sits this helps some. He tries to push through it but then feels pretty miserable afterwards. Epidural steroid injections although initially helpful only lasted a few weeks. He tries to do his therapist home exercise program and stretches but it aggravates his pain. PRIOR VISIT 01/10/23: FU after L5-S1 TFESI. [...] has to sit most of the night. 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 Last Documented On 4 3:30PM ; [facility] Tobacco non-user 02/01/2022 Last Documented On 4 3:30PM ; [facility] Alcohol 02/01/2022 Last Documented On 4 3:30PM ; [facility] Amount of alcohol per day: 0-1 2 Last Documented On 4 3:30PM ; [facility] Difficulty walking 02/01/2022 Last Documented On 4 3:30PM ; [facility] Not using drugs 02/01/2022 Last Documented On 4 3:30PM ; [facility] Smoking Status Unknown Procedures and Surgical History Includes: Procedures from this encounter Procedures Code Diagnosis Performing Provider Service Location Service Date CLINIC VISIT T1015 Spinal stenosis, lumbar region with neurogenic claudication, Low back pain, unspecified, Radiculopathy, lumbar region, Arthrodesis status KYAW MUÑOZ MAINTENANCE REPAIRMAN-FPA, ARSON AND BOMB INVESTIGATOR-BC [facility] 08/04/2023 Last Documented On 4 4:15PM ; [facility] plan of care reviewed and agreed to Last Documented On 4 3:30PM ; [facility] plan of care reviewed and agreed to by veronica mcginnis patient Last Documented On 4 3:30PM ; [facility] use of tobacco assessment performed 1000F Last Documented On 4 3:30PM ; [facility] patient screened for future fall risk: documentation of any fall with injury in past year 1100F Last Documented On 4 3:30PM ; [facility] review of medications documented 1160F Last Documented On 4 3:30PM ; [facility] screening for adult depression: impressi on and score twelve Last Documented On 4 3:36PM ; [facility] screening for adult depression: impressi on and score ten Last Documented On 4 3:30PM ; [facility] screening for adult depression: impressi on and score six Last Documented On 4 3:30PM ; [facility] standardized depression screening: posit lakesha for symptoms Last Documented On 4 3:30PM ; [facility] encouragement to exercise Last Documented On 4 3:30PM ; [facility] Reviewed & agreed to staff entries. Last Documented On 4 3:30PM ; [facility] Clinical summary provided to patient Last Documented On 4 3:30PM ; [facility] SOAPP-R: total score 7 Last Documented On 4 3:52PM ; [facility] Surgical History Last Updated No Pacemaker 02/01/2022 Last Documented On 4 3:30PM ; [facility] Medical History Includes: Medical History addressed during this encounter Description Last Updated Denies a fear of falling. 08/04/2023 Last Documented On 4 4:15PM ; [facility] Has had no fall in the last 12 months. 1 Last Documented On 4 3:30PM ; [facility] Currently wearing eyeglasses 02/01/2022 Last Documented On 4 3:30PM ; [facility] No Pain Pump 02/01/2022 Last Documented On 4 3:30PM ; [facility] No Spinal cord stimulator 02/01/2022 Last Documented On 4 3:30PM ; [facility] Please list all surgeries: L4/L5 spinal fusion 07/06/2021 02/01/2022 Last Documented On 4 3:30PM ; [facility] Wearing contact lenses 02/01/2022 Last Documented On 4 3:30PM ; [facility] Family History Includes: Family History addressed during this encounter Description Last Updated Family history of Arthritis 02/01/2022 Last Documented On 4 3:30PM ; [facility] Family history of ischemic heart disease 02/01/2022 Last Documented On 4 3:30PM ; [facility] Family history of stroke/paralysis 02/01 Last Documented On 4 3:30PM ; [facility] Review of Systems Includes: Review of Systems [...] Time Diagnosis PAIN MANAGEMENT FOLLOW UP KYAW MUÑOZ APRN-NISH, ARSON AND BOMB INVESTIGATOR-BC [facility] 08/04/19 24 3:30PM 4:13PM Obesity,Orthope dics Postsurgical Arthrodesis Status,Lumbar Radiculopathy,S jumana Stenosis Lumbar with Neurogenic Claudication,Do rsopathy Low Back Pain Insurance Includes: Active Insurance Policies Plan Name Member ID Group # Subscriber Relationship Effect lakesha Dates 1 - 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 History of Present Illness PHQ-9 Score: 12 Date:08/04/2023 BPI Score: Date: MiDAS Score: 38% Date:08/04/2023 SOAPP-R Score: 7 LOW Date:08/04/2023 Pain Location: Lumbar Quality: Shooting and sore. [...] - Prescription Drug Monitoring Program website checked. 06/26/2023 - How much of the medication are you taking a day? 1 a day if needed - Last dose of medication? A couple weeks - Pain comes/goes - Primary pain location [...] - Pain radiates in right foot - No vertigo - No vertigo - Last drug screen appropriate N/A Discussion: FU chronic low back pain. He lost his job and insurance so MILD auth was stopped. He has insurance again and would like to try and get this approved. He continues to have significant trouble with the back pain and leg fatigue throughout the day and by evening and has to sit most of the time.He is unable to stand or walk longer than 10-15 minutes before he starts having significant back pain and R groin pain, sometimes back pain is pretty quick to start. He also gets pain and weakness in the backs of the legs. If he leans forward or sits this helps some. He tries to push through it but then feels pretty miserable afterwards. Epidural steroid injections although initially helpful only lasted a few weeks. He tries to do his therapist home exercise program and stretches but it aggravates his pain. PRIOR VISIT 01/10/23: FU after L5-S1 TFESI. [...] has to sit most of the night. PRIOR VISIT:: Patient here today for routine follow-up on [...] 60 MG Oral Capsule Delayed Release Particles TAKE ONE CAPSULE BY MOUTH AT BEDTIME, 30 days, 0 refills - Glimepiride 4 MG Oral Tablet [...] MOUTH DAILY WITH A MEAL, 30 days, 0 refills - metFORMIN HCl ER (OSM) 1000 [...] tablet daily 0 days, 0 refills - traMADol HCl 50 MG Oral Tablet One tablet three times a day as needed for severe pain, 14 days, 0 refills Past Medical/Surgical History Reported: Please list all surgeries: L4/L5 spinal fusion 07/06/2021. Medical: Currently wearing eyeglasses and currently wearing contact lenses. No Spinal cord stimulator and no Pain Pump. Surgical / Procedural: No Pacemaker. Physical Trauma: Has had no fall in the last 12 months. and Denies a fear of falling. Social History Difficulty walking. Behavioral: Amount of alcohol per day: 0-1. Tobacco use: Tobacco non-user. Alcohol: Alcohol. Drug Use: Not using drugs. 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 Allergies - No Known Allergies Family History [...] than noted. Physical Findings - Vitals taken 08/04/2023 03:54 pm BP-Sitting R 110/72 mmHg BP Cuff Size Large Pulse Rate-Sitting 77 bpm Temp-Temporal 96.4 F Height 74 in Weight 309 lbs Body Mass Index 39.7 kg/m2 Pain Level 0 Pain Level Note 6 with standing or walking up to 8/10 Oxygen Saturation 100 % Musculoskeletal System: General/bilateral: Musculoskeletal Scales: Value Lumbar oswestry score 38 Psychiatric: Psychiatric: Value PHQ9 score: 12 Tests Educational Testing: Questionnaires PHQ-9: Value SOAPP-R: total score 7 Assessment - [E66.9 - Obesity, unspecified] Obesity [...] by the patient. Counseling/Education - Lifestyle education - Pill Count: Tramadol - Pill Count: Patient did not bring pain medication to appointment for pill count, per policy. Advised in order to continue to safely prescribe opioids, medication must be brought to each appointment Discussed Schedule for MILD @ L3-4. FU after procedure. Plan StartCited - Low back pain, unspecified DULoxetine HCl 60 MG capsule TAKE ONE CAPSULE BY MOUTH AT BEDTIME, 90 days, 0 refills Meloxicam 15 MG tablet TAKE ONE TABLET BY MOUTH DAILY WITH A MEAL, 90 days, 0 refills EndCited StartCited - Radiculopathy, lumbar region Pregabalin 150 MG capsule TAKE ONE CAPSULE BY MOUTH TWICE A DAY, 90 days, 0 refills EndCited StartCited - Spinal stenosis, lumbar region with neurogenic claudication Pain Management CPT: MILD Procedure Instructions: Minimally Invasive Lumbar Decompression at L3-4 with fluoroscopy EndCited Practice Management Use of tobacco assessment performed and patient screened for future fall risk documentation of any fall with injury in past year Review of medications documented; Standardized depression screening: positive for symptoms, for adult impression and score twelve, impression and score ten, and impression and score six; [32089] Established outpatient, medically appropriate H&P, moderate level [...] but may be subject to typographical or bellperson errors. Verify all diagnoses, medications, dosages, and patient instructions with patient and/or the originator of this document. Care Team - MILES PHILLIPS MD - Primary Care Health Reminders - Assess Blood Pressure satisfied 08/04/2023. - Assess BMI satisfied 08/04/2023. - Assess Tobacco Use satisfied 08/04/2023. - Blood Pressure Measurement satisfied 08/04/2023. - Depression Screening satisfied 08/04/2023. - Follow Up Plan BMI Management satisfied 08/04/2023. - Follow up plan for Depression Screening satisfied 08/04/2023.
--- OUTSIDE RECORDS SUMMARY | 2024-05-09 20:04 | XMS_ITS | Patient Health Summary ---
Author Organization [facility] Address [address] [place] [address] Care Team Providers Care Bin Cleaner Name Role Phone Yves Lafleur MD Primary Care Provider Note from [facility],non-owned Affiliates and Associated Physician Practices is amultiple site organization consisting of ambulatory clinics and hospital sitesin [place], [place], [place] and [place]. This disclosure is being madepursuant to the Care Everywhere program and may not contain all information available regarding this patient. Last updated 17.[facility] Allergies * Biofreeze(Rash) -Medium Criticality Medications * Be aware that medications may not be up to date on this document. Alwaysverify current medications with the patient. * citalopram (CeleXA) 40 MG tablet(Started 05/14/2022) * lisinopril-hydroCHLOROthiazide (Prinzide; Zestoretic) 20-12.5 MG tablet (Started 05/10/2022) * lovastatin (Mevacor) 40 MG tablet(Started 05/10/2022) * meloxicam (Mobic) 15 MG tablet(Started 06/17/2022) * metFORMIN (Glucophage) 1000 MG tablet(Started 05/10/2022) * metoprolol tartrate IR (Lopressor) 25 MG tablet(Started 05/10/2022) * pioglitazone (Actos) 45 MG tablet(Started 06/17/2022) * pregabalin (Lyrica) 100 MG capsule(Started 06/27/2022) * Jardiance 10 MG tablet(Started 06/17/2022) * glimepiride (Amaryl) 4 MG tablet(Started 06/17/2022) Social History Tobacco Use Types Packs/Day Years Used Date Smoking Tobacco: Never Assessed Sex and Gender Information Value Date Recorded Sex Assigned at Not on file Gender Identity Not on file Sexual Orientation Not on file Procedures * XR LUMBAR SPINE 2 OR 3VW(Performed 07/16/2022) Performed for Back pain, unspecified back location, unspecified back pain laterality, unspecified chronicity Results * XR LUMBAR SPINE 2 OR 3VW (07/16/2022 10:40 AM CDT) Anatomical Region Laterality Modality Spine Radiographic Teresa ging 07/16/2022 11:2 1 AM CDT Impressions 07/16/2022 11:22 AM CDT IMPRESSION: Posterior instrumented spinal fusion at L4-5. > Interpreting Provider: Keshav Pandya MD on 07/16/2022 11:22 AM Narrative 07/16/2022 11:22 AM CDT PROCEDURE: ??XR LUMBAR SPINE 2 OR 3VW, DATE/TIME OF EXAM: ??07/16/2022 10:40 AM, LOCATION ??[facility] INDICATION: M54.9: Back pain, unspecified back location, unspecified back pain laterality, unspecified chronicity ADDITIONAL CLINICAL INFORMATION: Ordering Provider Reason For Exam: ??back pain Technologist Note: Additional: COMPARISON: None. FINDINGS: There is posterior instrumented fusion at L4-5. The instrumentation is intact. There is no fracture or subluxation. There is moderate disc space narrowing at L4-5 appear Procedure Note Keshav Pandya MD - 07/16/2022 PROCEDURE: XR LUMBAR SPINE 2 OR 3VW, DATE/TIME OF EXAM: 0:40 AM, LOCATION [facility] INDICATION: M54.9: Back pain, unspecified back location, unspecified back pain laterality, unspecified chronicity ADDITIONAL CLINICAL INFORMATION: Ordering Provider Reason For Exam: back pain Technologist Note: Additional: COMPARISON: None. FINDINGS: There is posterior instrumented fusion at L4-5. The instrumentation is intact. There is no fracture or subluxation. There is moderate discspace narrowing at L4-5 appear IMPRESSION: Posterior instrumented spinal fusion at L4-5. > Interpreting Provider: Keshav Pandya MD on 07/16/2022 11:22 AM Erich Huerta MD DIAGNOSTIC IMAGING O [facility] Care Teams Bin Cleaner Relationship Specialty Start Date End Date Yves Lafleur MD [address] [place] [address] PCP - General 06/28/22
--- OUTSIDE RECORDS SUMMARY | 2024-05-09 20:04 | XMS_ITS | Clinical Summary ---
Author Organization [facility] Address [address] [place] [address] Care Team Providers Care Compressor Technician Name Role Phone Yves Lafleur MD Primary Care Provider Source Comments [facility],non-owned Affiliates and Associated Physician Practices is amultiple site organization consisting of ambulatory clinics and hospital sitesin [place], [place], [place] and [place]. This disclosure is being madepursuant to the Care Everywhere program and may not contain all information available regarding this patient. Last updated 17.[facility] Allergies Active Allergy Reactions Criticality Noted Date Comments Biofreeze Rash Medium 07/16/2022 Medications * Be aware that medications may not be up to date on this document. Alwaysverify current medications with the patient. Medication Sig Dispensed Refills Start Date End Date Status citalopram (CeleXA) 40 MG tablet 05/14/2022 Active lisinopril-hydroCHLOROthiazide (Prinzide; Zestoretic) 20-12.5 MG tablet 05/10/2022 Active lovastatin (Mevacor) 40 MG tablet 05/10/2022 Active meloxicam (Mobic) 15 MG tablet 06/17/2022 Active metFORMIN (Glucophage) 1000 MG tablet 05/10/2022 Active metoprolol tartrate IR (Lopressor) 25 MG tablet 05/10/2022 Active pioglitazone (Actos) 45 MG tablet 06/17/2022 Active pregabalin (Lyrica) 100 MG capsule 06/27/2022 Active Jardiance 10 MG tablet 06/17/2022 Ac tive glimepiride (Amaryl) 4 MG tablet 06/17/2022 Active Social History Tobacco Use Types Packs/Day Years Used Date Smoking Tobacco: Never Assessed Sex and Gender Information Value Date Recorded Sex Assigned at Not on file Gender Identity Not on file Sexual Orientation Not on file Plan of Treatment Health Maintenance Due Date Last Done Comments HIV SCREENING 1997 HEPATITIS C SCREENING 08/21/2000 DTAP/TDAP/TD VACCINES (1 - Tdap) 2001 HEPATITIS B VACCINE (1 of 3 - 19+ 3-dose series) 2001 COVID-19 VACCINE (1 - 2023-2 5 season) 2023 INFLUENZA VACCINE (#1) 2023 DEPRESSION SCREENING 04/07/2024 ZOSTER VACCINE (1 of 2) 2032 HIB VACCINE Aged Out No longer eligi ble based on patient's age to complete this topic HPV VACCINE Aged Out No longer eligi ble based on patient's age to complete this topic MENINGOCOCCAL (Group B) VACCINE Aged Out No longer eligible based on patient's age to complete this topic MENINGOCOCCAL VACCINE Aged Out No chai anna marie eligible based on patient's age to complete this topic PNEUMOCOCCAL VACCINE Aged Out No long er eligible based on patient's age to complete this topic Care Teams Compressor Technician Relationship Specialty Start Date End Date Yves Lafleur MD [address] [place] [address] PCP - General 06/28/22
--- OUTSIDE RECORDS SUMMARY | 2024-05-09 20:04 | XMS_ITS | Clinical Summary ---
Author Organization [facility] Address [address] [place] [address] Phone Care Team Providers Care Record Changer Tester Name Role Phone MILES PHILLIPS MD Primary Care Provider [phone] Reason for Visit and Chief Complaint RX ISSUE/REFILL Problems Includes: Problems addressed during this encounter and other active Problems All Visits Onset Date Resolved Date Provider Condition S tatus Anxiety Disorder Nos Unknown KYAW Judit WANDA SENIOR INFORMATION SYSTEMS ARCHITECT-FPA, WHITE WASHER-BC Active Last Documented On 2 11:56AM ; [facility] 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 Unknown KYAW [place] WANDA SENIOR INFORMATION SYSTEMS ARCHITECT-FPA , WHITE WASHER-BC Active Last Documented On 2 11:56AM ; [facility] Essential Hypertension Unknown KYAW [place] KUL P SENIOR INFORMATION SYSTEMS ARCHITECT-FPA, WHITE WASHER-BC Active Last Documented On 2 11:56AM ; [facility] Major Depression Unknown KYAW [place] WANDA SENIOR INFORMATION SYSTEMS ARCHITECT -FPA, WHITE WASHER-BC Active Last Documented On 2 11:57AM ; [facility] Plan of Treatment No Plan of Treatment Recorded Assessments Includes: Assessments from this encounter No Assessments Recorded Medical Equipment - Implanted Devices Includes: Current Devices No Medical Equipment Recorded Medications Includes: Medications discussed during this encounter and other current Medications Discontinued / Stopped on this date KYAW MUÑOZ SENIOR INFORMATION SYSTEMS ARCHITECT-FPA, WHITE WASHER-BC on 04/16/2023 traMADol HCl 50 MG Oral Tablet Provider: KYAW MUÑOZ SENIOR INFORMATION SYSTEMS ARCHITECT- FPA, WHITE WASHER-BC Diagnosis: Radiculopathy, l umbar region Last Documented On 4 8:34AM By KYAW GRAHAM ; [facility] Current Medications (continue as prescribed) Meloxicam 15 MG Oral Tablet 08/04/2023 Provider: SANTOS DEE Diagnosis: Low back pain, u nspecified TAKE ONE TABLET BY MOUTH MILAGRO LY WITH A MEAL Last Documented On 4 4:11PM By KYAW GRAHAM ; [facility] DULoxetine HCl 60 MG Oral Capsule Delayed Release Particles 08/04/2023 Provider: MAXX PRUETTNA Diagnosis: Low back pain, u nspecified TAKE ONE CAPSULE BY MOUTH AT BEDTIME Last Documented On 4 4:11PM By KYAW GRAHAM ; [facility] Pregabalin 150 MG Oral Capsule 08/04/2023 Provider: MAXX DEENA Diagnosis: Radiculopathy, l umbar region TAKE ONE CAPSULE BY MOUTH TWICE A DAY Last Documented On 4 4:11PM By KYAW GRAHAM ; [facility] traMADol HCl 50 MG Oral Tablet 06/26/2023 Provider: MAXX DEENA Diagnosis: Radiculopathy, l umbar region One tablet three times a day as needed for severe pain Last Documented On 4 4:05PM By KYAW GRAHAM ; [facility] Lovastatin 40 MG Oral Tablet 02/02/2022 Provider: MILES PHILLIPS MD Diagnosis: Last Documented On 2 1:02PM By KYAW GRAHAM ; [facility] One-A-Day Mens Oral Tablet 02/01/2022 Provider: Diagnosis: Last Documented On 2 11:21AM By KYAW GRAHAM ; [facility] Metoprolol Tartrate 25 MG Oral Tablet 02/01/2022 Pro vider: Diagnosis: Last Documented On 2 11:21AM By KYAW GRAHAM ; [facility] Lisinopril-hydroCHLOROthiazide 20-12.5 MG Oral Tablet 02/01/2022 Provider: Diagnosis: Last Documented On 2 11:21AM [facility] metFORMIN HCl ER (OSM) 1000 MG Oral Tablet Extended Release 24 Hour 02/01/2022 Provider: Diagnosis: 2 tablets twice daily. Last Documented On 2 11:21AM By KYAW WANDA [facility] ; [facility] Pioglitazone HCl 45 MG Oral Tablet 02/01/2022 Provid er: Diagnosis: Last Documented On 2 11:21AM By KYAW WANDA [facility] ; [facility] Glimepiride 4 MG Oral Tablet 02/01/2022 Provider: Diagnosis: 2 tablets daily. Last Documented On 2 11:21AM By KYAW MUÑOZ [facility] ; [facility] Jardiance 10 MG Oral Tablet 01/29/2022 Provider: MILES PHILLIPS MD Diagnosis: Last Documented On 2 11:21AM By KYAW WANDA [facility] ; [facility] Medications Administered Includes: Administered Medications from this encounter No Administered Medications Recorded Results Includes: Results discussed during this encounter No Results Recorded For Specified Dates History of Present Illness Includes: History of Present Illness from this encounter No History of Present Illness Recorded Social History Description 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 Updated 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 Last Documented On 4 10:46AM ; [facility] Tobacco non-user 02/01/2022 Last Documented On 4 10:46AM ; [facility] Alcohol 02/01/2022 Last Documented On 4 10:46AM ; [facility] Amount of alcohol per day: 0-1 2 Last Documented On 4 10:46AM ; [facility] Difficulty walking 02/01/2022 Last Documented On 4 10:46AM ; [facility] Not using drugs 02/01/2022 Last Documented On 4 10:46AM ; [facility] Smoking Status Unknown Procedures and Surgical History Surgical History Last Updated No Pacemaker 02/01/2022 Last Documented On 4 10:46AM ; [facility] Medical History Includes: Medical History addressed during this encounter Description Last Updated Has a fear of falling. 08/04/2023 Last Documented On 4 10:46AM ; [facility] Has had no fall in the last 12 months. 1 Last Documented On 4 10:46AM ; [facility] Currently wearing eyeglasses 02/01/2022 Last Documented On 4 10:46AM ; [facility] No Pain Pump 02/01/2022 Last Documented On 4 10:46AM ; [facility] No Spinal cord stimulator 02/01/2022 Last Documented On 4 10:46AM ; [facility] Please list all surgeries: L4/L5 spinal fusion 07/06/2021 02/01/2022 Last Documented On 4 10:46AM ; [facility] Wearing contact lenses 02/01/2022 Last Documented On 4 10:46AM ; [facility] Family History Includes: Family History addressed during this encounter Description Last Updated Family history of Arthritis 02/01/2022 Last Documented On 4 10:46AM ; [facility] Family history of ischemic heart disease 02/01/2022 Last Documented On 4 10:46AM ; [facility] Family history of stroke/paralysis 02/01 Last Documented On 4 10:46AM ; [facility] Review of Systems Includes: Review of Systems from this encounter No Review of Systems Recorded Mental Status Includes: Mental Status from this encounter No Mental Status Recorded Functional Status Includes: Functional Status from this encounter No Functional Status Recorded Physical Exam Includes: Physical Exam from this encounter No Physical Exam Recorded Allergies Includes: Active Allergies No Known Allergies Encounters Encounter Provider Location Date Check-In Time Check-Out Time Diagnosis RX ISSUE/REFILL KYAW MUÑOZ SENIOR INFORMATION SYSTEMS ARCHITECT-FPA, WHITE WASHER-BC 06/25/2023 10:47AM 11:59PM Insurance Includes: Active Insurance Policies Plan Name Member ID Group # Subscriber Relationship Effect lakesha Dates 1 - [facility] [id number] CHRISTY GONZÁLES Self Clinical Notes Includes: Clinical Notes from this encounter * Progress note Date Encounter Last Documented by 06/25/2023 RX ISSUE/REFILL Last documented on 06/26/2023; 8:34 AM, KYAW MUÑOZ APRN-NISH, MAXX-NA; [facility] Active Problems & Conditions - Anxiety Disorder Nos - Essential Hypertension - Major Depression - 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 I TOLD HIM WE NO LONGER GO THERE AND WOULD HAVE TO BE IN [place]. PT SAID HE DOES NOT HAVE TRASPORTATION AND DOES NOT KNOW IF HE WILL BE ABOE TO COME HERE. I EXPLAINED TO HIM IN ORDER FOR YOU TO CONT TO ORDER PAIN MED HE WOULD HAVE TO BEE SEEN. HE STATED UNDERSTANDING . PT JUST RECETLY GOT INSURANCE BACK AND I TOLD HIM TO CONTACT HIS INSURANCE AND THEY CAN POSSIBLY HELP HIM WITH TRASPORTATION. Patient is requesting a refill on TRAMADOL 50 ~How is medication taken? NEEDED ~How many are left? 0 OUT Friday06/20/23 Risk Assessment Score: LOW ~[place] Last Office Visit: 03/27/23 TH ~ pt phone # for Return call: ~Last Drug Screen:NONE ~Date/Initials: 06/25/23 CB. Current Medication - DULoxetine HCl 60 MG [...] refills - Pregabalin 150 MG Oral Capsule TAKE ONE CAPSULE BY MOUTH TWICE A DAY, 30 days, 0 refills Past Medical/Surgical History Reported: [...] Use: Not using drugs. 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 Allergies - No Known Allergies Family History Arthritis Stroke/paralysis Ischemic heart disease Plan StartCited - Other PHY ORDER/COMMENT For [place] patients I am offering them telehealth every other visit. We can do a telehealth visit w/ him this time but he will need to be seen in office likely the next visit. I will fill Tramadol. EndCited StartCited - Radiculopathy, lumbar region traMADol HCl 50 MG tablet One tablet three times a day as needed for severe pain, 14 days, 0 refills EndCited Care Team - MILES PHILLIPS MD - Primary Care Health Reminders - Assess Tobacco Use satisfied 06/25/2023.
--- OUTSIDE RECORDS SUMMARY | 2024-05-09 20:04 | XMS_ITS | Clinical Summary ---
Author Organization [facility] Address [address] [place] [address] Phone Care Team Providers Care Religion Department Chair Name Role Phone MILES PHILLIPS MD Primary Care Provider [phone] Reason for Visit and Chief Complaint RX ISSUE/REFILL Problems Includes: Problems addressed during this encounter and other active Problems All Visits Onset Date Resolved Date Provider Condition S tatus Anxiety Disorder Nos Unknown KYAW Judit WANDA AUDITING CODER-FPA, PUBLIC EMPLOYMENT MEDIATOR-BC Active Last Documented On 2 11:56AM ; [facility] 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 Unknown KYAW [place] WANDA AUDITING CODER-FPA , PUBLIC EMPLOYMENT MEDIATOR-BC Active Last Documented On 2 11:56AM ; [facility] Essential Hypertension Unknown KYAW [place] KUL P AUDITING CODER-FPA, PUBLIC EMPLOYMENT MEDIATOR-BC Active Last Documented On 2 11:56AM ; [facility] Major Depression Unknown KYAW [place] WANDA AUDITING CODER -FPA, PUBLIC EMPLOYMENT MEDIATOR-BC Active Last Documented On 2 11:57AM ; [facility] Plan of Treatment No Plan of Treatment Recorded Assessments Includes: Assessments from this encounter No Assessments Recorded Medical Equipment - Implanted Devices Includes: Current Devices No Medical Equipment Recorded Medications Includes: Medications discussed during this encounter and other current Medications Discontinued / Stopped on this date KYAW MUÑOZ AUDITING CODER-FPA, PUBLIC EMPLOYMENT MEDIATOR-BC on 03/27/2023 traMADol HCl 50 MG Oral Tablet Provider: KYAW MUÑOZ AUDITING CODER- FPA, PUBLIC EMPLOYMENT MEDIATOR-BC Diagnosis: Radiculopathy, l umbar region Last Documented On 4 2:59PM By KYAW GRAHAM ; [facility] New / Renewed during this visit SANTOS PRUETT on 04/16/2023 traMADol HCl 50 MG Oral Tablet Provider: SANTOS DEE 14 day supply: 42 tablet, 0 refills Diagnosis: Radiculopathy, lumbar region One tablet three times a day as needed for severe pain Pharmacy: [address], [phone] - Last Documented On 4 8:34AM By KYAW GRAHAM ; [facility] Current Medications (continue as prescribed) Meloxicam 15 MG Oral Tablet 08/04/2023 Provider: SANTOS DEE Diagnosis: Low back pain, u nspecified TAKE ONE TABLET BY MOUTH MILAGRO LY WITH A MEAL Last Documented On 4 4:11PM By KYAW GRAHAM ; [facility] DULoxetine HCl 60 MG Oral Capsule Delayed Release Particles 08/04/2023 Provider: SANTOS PRUETT Diagnosis: Low back pain, u nspecified TAKE ONE CAPSULE BY MOUTH AT BEDTIME Last Documented On 4 4:11PM By KYAW GRAHAM ; [facility] Pregabalin 150 MG Oral Capsule 08/04/2023 Provider: SANTOS DEE Diagnosis: Radiculopathy, l umbar region TAKE ONE CAPSULE BY MOUTH TWICE A DAY Last Documented On 4 4:11PM By KYAW GRAHAM ; [facility] traMADol HCl 50 MG Oral Tablet 06/26/2023 Provider: SANTOS DEE Diagnosis: Radiculopathy, l umbar region One tablet three times a day as needed for severe pain Last Documented On 4 4:05PM By KYAW GRAHAM ; [facility] Lovastatin 40 MG Oral Tablet 02/02/2022 Provider: MILES PHILLIPS MD Diagnosis: Last Documented On 2 1:02PM By KYAW MUÑOZ [facility] ; [facility] One-A-Day Mens Oral Tablet 02/01/2022 Provider: Diagnosis: Last Documented On 2 11:21AM By KYAW MUÑOZ [facility] ; [facility] Metoprolol Tartrate 25 MG Oral Tablet 02/01/2022 Pro vider: Diagnosis: Last Documented On 2 11:21AM By KYAW MUÑOZ [facility] ; [facility] Lisinopril-hydroCHLOROthiazide 20-12.5 MG Oral Tablet 02/01/2022 Provider: Diagnosis: Last Documented On 2 11:21AM By KYAWMARSHA MUÑOZ [facility] ; [facility] metFORMIN HCl ER (OSM) 1000 MG Oral Tablet Extended Release 24 Hour 02/01/2022 Provider: Diagnosis: 2 tablets twice daily. Last Documented On 2 11:21AM By KAYW MUÑOZ [facility] ; [facility] Pioglitazone HCl 45 MG Oral Tablet 02/01/2022 Provid er: Diagnosis: Last Documented On 2 11:21AM By KYAW MUÑOZ [facility] ; [facility] Glimepiride 4 MG Oral Tablet 02/01/2022 Provider: Diagnosis: 2 tablets daily. Last Documented On 2 11:21AM By KAYW MUÑOZ [facility] ; [facility] Jardiance 10 MG Oral Tablet 01/29/2022 Provider: MILES PHILLIPS MD Diagnosis: Last Documented On 2 11:21AM By KYAW MUÑOZ [facility] ; 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 Amount of alcohol per day: 0-1 2 Last Documented On 4 2:18PM ; [facility] Difficulty walking 02/01/2022 Last Documented On 4 2:18PM ; [facility] Not using drugs 02/01/2022 Last Documented On 4 2:18PM ; [facility] Smoking Status Unknown Procedures and Surgical History Surgical History Last Updated No Pacemaker 02/01/2022 Last Documented On 4 2:18PM ; [facility] Medical History Includes: Medical History addressed during this encounter Description Last Updated Has a fear of falling. 08/04/2023 Last Documented On 4 2:18PM ; [facility] Has had no fall in the last 12 months. 1 Last Documented On 4 2:18PM ; [facility] Currently wearing eyeglasses 02/01/2022 Last Documented On 4 2:18PM ; [facility] No Pain Pump 02/01/2022 Last Documented On 4 2:18PM ; [facility] No Spinal cord stimulator 02/01/2022 Last Documented On 4 2:18PM ; [facility] Please list all surgeries: L4/L5 spinal fusion 07/06/2021 02/01/2022 Last Documented On 4 2:18PM ; [facility] Wearing contact lenses 02/01/2022 Last Documented On 4 2:18PM ; [facility] Family History Includes: Family History addressed during this encounter Description Last Updated Family history of Arthritis 02/01/2022 Last Documented On 4 2:18PM ; [facility] Family history of ischemic heart disease 02/01/2022 Last Documented On 4 2:18PM ; [facility] Family history of stroke/paralysis 02/01 Last Documented On 4 2:18PM ; [facility] Review of Systems Includes: Review of Systems [...] Time Check-Out Time Diagnosis RX ISSUE/REFILL KYAW G WANDA AUDITING CODER-FPA, PUBLIC EMPLOYMENT MEDIATOR-BC 04/16/2023 2:18PM 11:59PM Insurance Includes: Active Insurance Policies Plan Name Member ID Group # Subscriber Relationship Effect lakesha Dates 1 - [facility] [id number] CHRISTY GONZÁLES Self Clinical Notes Includes: Clinical Notes from this encounter * Progress note Date Encounter Last Documented by 04/16/2023 RX ISSUE/REFILL Last documented on 04/16/2023; 2:59 PM, KYAW MUÑOZ AUDITING CODER-FPA, PUBLIC EMPLOYMENT MEDIATOR-BC; [facility] Active Problems & Conditions - Anxiety Disorder Nos - Essential Hypertension - Major Depression - 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 BID ~How many are left?5 Risk Assessment Score: LOW ~[place]:03/27/23 Last Office Visit: 03/27/23 TH ~ pt phone # for Return call: [phone] ~Last Drug Screen:NONE ~Date/Initials: 04/16/23 CB. Current Medication - DULoxetine HCl 60 [...] Stroke/paralysis Ischemic heart disease Plan StartCited - Radiculopathy, lumbar region traMADol HCl 50 MG tablet One tablet three times a day as needed for severe pain, 14 days, 0 refills EndCited Care Team - MILES PHILLIPS MD - Primary Care Health Reminders - Assess Tobacco Use satisfied 04/16/2023.
--- OUTSIDE RECORDS SUMMARY | 2024-05-09 20:04 | XMS_ITS | Clinical Summary ---
Author Organization [facility] Address [address] [place] [address]. [place], [place] [id number] [place] [id number] Care Team Providers Care Casual Shoe Inspector Name Role Phone None, Provider MD Primary Care Provider Unavaila ble Allergies No known active allergies Medications amitriptyline 25 MG tablet 07/14/2018 Active INVOKANA 100 MG tablet 07/14/2018 Active citalopram 20 MG tablet 07/14/2018 Active lisinopril-hydr ochlorothiazide 20-12.5 MG tablet 1 07/20/2018 Active lovastatin 40 MG tablet 07/14/2018 Active metoprolol tartrate 25 MG tablet 1 07/20/2018 Active pioglitazone 30 MG tablet 07/14/2018 Active metFORMIN 1000 MG tablet Take 1,000 mg by mouth 2 (two) times daily with meals. Active glimepiride 4 MG tablet Take 2 mg by mouth every morning before breakfast. Active Active Problems No known active problems Family History Medical History Relation Comments Cancer Maternal Grandfather Diabetes Paternal Grandfather Hypertension Paternal Grandfather Relation Status Comments Maternal Grandfather Paternal Grandfather Social History Tobacco Use Types Packs/Day Years Used Date Smoking Tobacco: Former Cigarettes Q uit: 08/15/2008 Smokeless Tobacco: Never Alcohol Use Standard Drinks/Week Comments No 0 (1 standard drink = 0.6 oz pur e alcohol) AUDIT-C Answer Date Recorded Frequency of Alcohol Consumption Never 08/15/2018 Average Number of Drinks Not on file 019 Frequency of Binge Drinking Not on file 08/05 Sex and Gender Information Value Date Recorded Sex Assigned at Not on file Legal Sex Male 9:09 PM USED CAR [employer] Gender Identity Not on file Sexual Orientation Not on file Last Filed Vital Signs Vital Sign Reading Time Taken Comments Blood Pressure 99/60 08/15/2018 2:12 PM CDT Pulse 70 08/15/2018 2:12 PM CDT Temperature 37.2 ??C (98.9 ??F) 08/15/2018 2:12 PM CD T Respiratory Rate 22 08/15/2018 2:12 PM CDT Oxygen Saturation 100% 08/15/2018 2:12 PM CDT Inhaled Oxygen Concentration - - Weight 137.3 kg (302 lb 12.8 oz) 08/15/2018 2:12 PM CDT Height 182.9 cm (6') 08/15/2018 2:12 PM CDT Body Mass Index 41.07 08/15/2018 2:12 PM CDT Plan of Treatment Health Maintenance Due Date Last Done Comments Annual Physical 1985 Hepatitis C 2000 DTaP, Tdap and Td Vaccines (1 - Tdap) 2001 01/24/1988, 12/23/1986, 02/26/1983, Additional history exists Hepatitis B Vaccines (1 of 3 - 19+ 3-dose series) 2001 COVID-19 Vaccine ( - 2023- season) 2023 Influenza Adult (#1) 2024 HPV Vaccines Aged Out No longer eligi ble based on patient's age to complete this topic Meningococcal B Vaccine Aged Out No l onger eligible based on patient's age to complete this topic Meningococcal Vaccine Aged Out No chai anna marie eligible based on patient's age to complete this topic Pneumococcal Vaccine: Pediatrics (0 to 5 Years) and At-Risk Patients (6 to 64 Years) Aged Out No longer eligible based on patient's age to complete this topic RSV Immunizations Under 20 Months Aged Out No longer eligible based on patient's age to complete this topic Insurance [facility] Care Teams Casual Shoe Inspector Relationship Specialty Start Date End Date None, Provider, PCP - General 08/15/18
--- OUTSIDE RECORDS SUMMARY | 2024-05-09 20:04 | XMS_ITS ---
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 Name Role Phone ALAN BERGER, MILES Primary Care Provider [phone] Problems Includes: Active, inactive, and resolved Problems All Visits Onset Date Resolved Date Provider Condition S tatus Anxiety Disorder Nos Unknown KYAW G WANDA DEPARTMENT OF NATURAL RESOURCES OFFICER-FPA, ART STUDIO TEACHER-BC Active Last Documented On 2 11:56AM ; [facility] 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 Unknown KYAW G WANDA DEPARTMENT OF NATURAL RESOURCES OFFICER-FPA , ART STUDIO TEACHER-BC Active Last Documented On 2 11:56AM ; [facility] Essential Hypertension Unknown KYAW Judit KUL P DEPARTMENT OF NATURAL RESOURCES OFFICER-FPA, ART STUDIO TEACHER-BC Active Last Documented On 2 11:56AM ; [facility] Major Depression Unknown KYAW G WANDA DEPARTMENT OF NATURAL RESOURCES OFFICER -FPA, ART STUDIO TEACHER-BC Active Last Documented On 2 11:57AM ; [facility] Plan of Treatment Referrals To Diagnosis Pain Management [address] [id number] - Radiculopathy, lumbar region Note: consent for bilateral L5-S1 transforaminal epidural steroid injection under fluoroscopy Last Documented On 3 8:52AM ; [facility] Pain Management [address] [id number] - Radiculopathy, lumbar region Note: consent for Right L3-4 and L5-S1 transforaminal epidural steroid injection under fluoroscopy Last Documented On 3 9:07AM ; [facility] Orthopedic [facility] - [address] [place] [address] Radiculopathy, lumbar region Note: Dr Erich Moore would like surgical opinion on his options in case conservative measures fail Last Documented On 4 2:24PM ; [facility] Education and Decision Aids were provided during visit for: Lifestyle education Last Documented On 4 3:30PM ; [facility] Pill Count: Tramadol ~ Last Documented On 4 3:36PM ; [facility] Pill Count: Patient did not bring pain medication to appointment for pill count, per policy. Advised in order to continue to safely prescribe opioids, medication must be brought to each appointment Last Documented On 4 3:56PM ; [facility] Lifestyle education Last Documented On 3 1:08PM ; [facility] Lifestyle education Last Documented On 3 2:22PM ; [facility] Lifestyle education Last Documented On 3 10:02AM ; [facility] Pill Count: N/A Last Documented On 3 10:03AM ; [facility] Lifestyle education Last Documented On 3 1:27PM ; [facility] Lifestyle education Last Documented On 3 3:22PM ; [facility] Lifestyle education Last Documented On 3 8:57AM ; [facility] Lifestyle education Last Documented On 3 9:23AM ; [facility] Lifestyle education Last Documented On 2 9:47AM ; [facility] Lifestyle education Last Documented On 2 12:01PM ; [facility] Assessments Includes: Assessments for all patient encounters Findings Encounter Date Low back pain PAIN MANAGEMENT FOLL OW UP with KYAW MUÑOZ DEPARTMENT OF NATURAL RESOURCES OFFICER-FPA, ART STUDIO TEACHER-BC 08/04/2023 Last Documented On 4 4:15PM ; [facility] Lumbar radiculopathy PAIN MANAGEMENT FOL LOW UP with KYAW [place] WANDA DEPARTMENT OF NATURAL RESOURCES OFFICER-FPA, ART STUDIO TEACHER-BC 08/04/2023 Last Documented On 4 4:15PM ; [facility] Lumbar stenosis with neuroge colleen claudication PAIN MANAGEMENT FOLLOW UP with KYAW [place] WANDA DEPARTMENT OF NATURAL RESOURCES OFFICER-FPA, ART STUDIO TEACHER-BC 08/04/2023 Last Documented On 4 4:15PM ; [facility] Obesity PAIN MANAGEMENT FOLLOW UP with Mahad [place] WANDA DEPARTMENT OF NATURAL RESOURCES OFFICER-FPA, ART STUDIO TEACHER-BC 08/04/2023 Last Documented On 4 4:15PM ; [facility] Postsurgical arthrodesis status PAIN MAN AGEMENT FOLLOW UP with KYAW [place] WANDA DEPARTMENT OF NATURAL RESOURCES OFFICER-FPA, ART STUDIO TEACHER-BC 08/04/2023 Last Documented On 4 4:15PM ; [facility] Low back pain TELEHEALTH with KYAW [place] WANDA A PRN-FPA, ART STUDIO TEACHER-BC 03/27/2023 Last Documented On 3 1:39PM ; [facility] Lumbar radiculopathy TELEHEALTH with KYAW Estrada ULP DEPARTMENT OF NATURAL RESOURCES OFFICER-FPA, ART STUDIO TEACHER-BC 03/27/2023 Last Documented On 3 1:39PM ; [facility] Lumbar stenosis with neuroge colleen claudication TELEHEALTH with KYAW [place] WANDA DEPARTMENT OF NATURAL RESOURCES OFFICER-FPA, ART STUDIO TEACHER-BC 03/27/2023 Last Documented On 3 1:39PM ; [facility] Obesity TELEHEALTH with KYAW [place] WANDA A PRN-FPA, ART STUDIO TEACHER-BC 03/27/2023 Last Documented On 3 1:39PM ; [facility] Postsurgical arthrodesis status TELEHEAL TH with KYAW [place] WANDA DEPARTMENT OF NATURAL RESOURCES OFFICER-FPA, ART STUDIO TEACHER-BC 03/27/2023 Last Documented On 3 1:39PM ; [facility] [Z01.818 - Encounter for ot er preprocedural examination] visit for: preoperative exam PAIN MANAGEMENT FOLLOW UP with KYAW [place] WANDA DEPARTMENT OF NATURAL RESOURCES OFFICER-FPA, ART STUDIO TEACHER-BC 03/07/2023 Last Documented On 3 11:51AM ; [facility] Low back pain PAIN MANAGEMENT FOLL OW UP with KYAW G WANDA DEPARTMENT OF NATURAL RESOURCES OFFICER-FPA, ART STUDIO TEACHER-BC 03/07/2023 Last Documented On 3 11:51AM ; [facility] Lumbar radiculopathy PAIN MANAGEMENT FOL LOW UP with KYAW G WANDA DEPARTMENT OF NATURAL RESOURCES OFFICER-FPA, ART STUDIO TEACHER-BC 03/07/2023 Last Documented On 3 11:51AM ; [facility] Lumbar stenosis with neuroge colleen claudication PAIN MANAGEMENT FOLLOW UP with KYAW G WANDA DEPARTMENT OF NATURAL RESOURCES OFFICER-FPA, ART STUDIO TEACHER-BC 03/07/2023 Last Documented On 3 11:51AM ; [facility] Obesity PAIN MANAGEMENT FOLLOW UP with Mahad BAÑUELOS G WANDA DEPARTMENT OF NATURAL RESOURCES OFFICER-FPA, ART STUDIO TEACHER-BC 03/07/2023 Last Documented On 3 11:51AM ; [facility] Postsurgical arthrodesis status PAIN MAN AGEMENT FOLLOW UP with KYAW G WANDA DEPARTMENT OF NATURAL RESOURCES OFFICER-FPA, ART STUDIO TEACHER-BC 03/07/2023 Last Documented On 3 11:51AM ; [facility] Low back pain PAIN MANAGEMENT FOLL OW UP with KYAW Judit WANDA DEPARTMENT OF NATURAL RESOURCES OFFICER-FPA, ART STUDIO TEACHER-BC 01/10/2023 Last Documented On 3 11:02AM ; [facility] Lumbar radiculopathy PAIN MANAGEMENT FOL LOW UP with KYAW G WANDA DEPARTMENT OF NATURAL RESOURCES OFFICER-FPA, ART STUDIO TEACHER-BC 01/10/2023 Last Documented On 3 11:02AM ; [facility] Lumbar stenosis with neuroge colleen claudication PAIN MANAGEMENT FOLLOW UP with KYAW G WANDA DEPARTMENT OF NATURAL RESOURCES OFFICER-FPA, ART STUDIO TEACHER-BC 01/10/2023 Last Documented On 3 11:02AM ; [facility] Obesity PAIN MANAGEMENT FOLLOW UP with Mahad BAÑUELOS G WANDA DEPARTMENT OF NATURAL RESOURCES OFFICER-FPA, ART STUDIO TEACHER-BC 01/10/2023 Last Documented On 3 11:02AM ; [facility] Postsurgical arthrodesis status PAIN MAN AGEMENT FOLLOW UP with KYAW G WANDA DEPARTMENT OF NATURAL RESOURCES OFFICER-FPA, ART STUDIO TEACHER-BC 01/10/2023 Last Documented On 3 11:02AM ; [facility] Low back pain PAIN MANAGEMENT FOLL OW UP with KYAW G WANDA DEPARTMENT OF NATURAL RESOURCES OFFICER-FPA, ART STUDIO TEACHER-BC 12/10/2022 Last Documented On 3 2:13PM ; [facility] Lumbar radiculopathy PAIN MANAGEMENT FOL LOW UP with KYAW G WANDA DEPARTMENT OF NATURAL RESOURCES OFFICER-FPA, ART STUDIO TEACHER-BC 12/10/2022 Last Documented On 3 2:13PM ; [facility] Lumbar stenosis with neuroge colleen claudication PAIN MANAGEMENT FOLLOW UP with KYAW G WANDA DEPARTMENT OF NATURAL RESOURCES OFFICER-FPA, ART STUDIO TEACHER-BC 12/10/2022 Last Documented On 3 2:13PM ; [facility] Obesity PAIN MANAGEMENT FOLLOW UP with M EDDA G WANDA DEPARTMENT OF NATURAL RESOURCES OFFICER-FPA, ART STUDIO TEACHER-BC 12/10/2022 Last Documented On 3 2:13PM ; [facility] Postsurgical arthrodesis status PAIN MAN AGEMENT FOLLOW UP with KYAW G WANDA DEPARTMENT OF NATURAL RESOURCES OFFICER-FPA, ART STUDIO TEACHER-BC 12/10/2022 Last Documented On 3 2:13PM ; [facility] Low back pain PAIN MANAGEMENT FOLL OW UP with KYAW G WANDA DEPARTMENT OF NATURAL RESOURCES OFFICER-FPA, ART STUDIO TEACHER-BC 10/29/2022 Last Documented On 3 3:46PM ; [facility] Lumbar radiculopathy PAIN MANAGEMENT FOL LOW UP with KYAW G WANDA DEPARTMENT OF NATURAL RESOURCES OFFICER-FPA, ART STUDIO TEACHER-BC 10/29/2022 Last Documented On 3 3:46PM ; [facility] Lumbar stenosis PAIN MANAGEMENT FOLL OW UP with KYAW G WANDA DEPARTMENT OF NATURAL RESOURCES OFFICER-FPA, ART STUDIO TEACHER-BC 10/29/2022 Last Documented On 3 3:46PM ; [facility] Obesity PAIN MANAGEMENT FOLLOW UP with M EDDA G WANDA DEPARTMENT OF NATURAL RESOURCES OFFICER-FPA, ART STUDIO TEACHER-BC 10/29/2022 Last Documented On 3 3:46PM ; [facility] Postsurgical arthrodesis status PAIN MAN AGEMENT FOLLOW UP with KYAW G WANDA DEPARTMENT OF NATURAL RESOURCES OFFICER-FPA, ART STUDIO TEACHER-BC 10/29/2022 Last Documented On 3 3:46PM ; [facility] Low back pain PAIN MANAGEMENT FOLL OW UP with KYAW G WANDA DEPARTMENT OF NATURAL RESOURCES OFFICER-FPA, ART STUDIO TEACHER-BC 07/31/2022 Last Documented On 3 9:24AM ; [facility] Lumbar radiculopathy PAIN MANAGEMENT FOL LOW UP with KYAW G WANDA DEPARTMENT OF NATURAL RESOURCES OFFICER-FPA, ART STUDIO TEACHER-BC 07/31/2022 Last Documented On 3 9:24AM ; [facility] Lumbar stenosis PAIN MANAGEMENT FOLL OW UP with KYAW G WANDA DEPARTMENT OF NATURAL RESOURCES OFFICER-FPA, ART STUDIO TEACHER-BC 07/31/2022 Last Documented On 3 9:24AM ; [facility] Obesity PAIN MANAGEMENT FOLLOW UP with M EDDA G WANDA DEPARTMENT OF NATURAL RESOURCES OFFICER-FPA, ART STUDIO TEACHER-BC 07/31/2022 Last Documented On 3 9:24AM ; [facility] Postsurgical arthrodesis status PAIN MAN AGEMENT FOLLOW UP with KYAW G WANDA DEPARTMENT OF NATURAL RESOURCES OFFICER-FPA, ART STUDIO TEACHER-BC 07/31/2022 Last Documented On 3 9:24AM ; [facility] Low back pain PAIN MANAGEMENT FOLL OW UP with KYAW G WANDA DEPARTMENT OF NATURAL RESOURCES OFFICER-FPA, ART STUDIO TEACHER-BC 06/27/2022 Last Documented On 3 2:21PM ; [facility] Lumbar radiculopathy PAIN MANAGEMENT FOL LOW UP with KYAW G WANDA DEPARTMENT OF NATURAL RESOURCES OFFICER-FPA, ART STUDIO TEACHER-BC 06/27/2022 Last Documented On 3 2:21PM ; [facility] Lumbar stenosis PAIN MANAGEMENT FOLL OW UP with KYAW G WANDA DEPARTMENT OF NATURAL RESOURCES OFFICER-FPA, ART STUDIO TEACHER-BC 06/27/2022 Last Documented On 3 2:21PM ; [facility] Obesity PAIN MANAGEMENT FOLLOW UP with Mahad BAÑUELOS G WANDA DEPARTMENT OF NATURAL RESOURCES OFFICER-FPA, ART STUDIO TEACHER-BC 06/27/2022 Last Documented On 3 2:21PM ; [facility] Postsurgical arthrodesis status PAIN MAN AGEMENT FOLLOW UP with KYAW G WANDA DEPARTMENT OF NATURAL RESOURCES OFFICER-FPA, ART STUDIO TEACHER-BC 06/27/2022 Last Documented On 3 2:21PM ; [facility] Low back pain PAIN MANAGEMENT FOLL OW UP with KYAW G WANDA DEPARTMENT OF NATURAL RESOURCES OFFICER-FPA, ART STUDIO TEACHER-BC 02/25/2022 Last Documented On 2 1:04PM ; [facility] Lumbar radiculopathy PAIN MANAGEMENT FOL LOW UP with KYAW [place] WANDA DEPARTMENT OF NATURAL RESOURCES OFFICER-FPA, ART STUDIO TEACHER-BC 02/25/2022 Last Documented On 2 1:04PM ; [facility] Lumbar stenosis PAIN MANAGEMENT FOLL OW UP with KYAW [place] WANDA DEPARTMENT OF NATURAL RESOURCES OFFICER-FPA, ART STUDIO TEACHER-BC 02/25/2022 Last Documented On 2 1:04PM ; [facility] Obesity PAIN MANAGEMENT FOLLOW UP with Mahad [place] WANDA DEPARTMENT OF NATURAL RESOURCES OFFICER-FPA, ART STUDIO TEACHER-BC 02/25/2022 Last Documented On 2 1:04PM ; [facility] Postsurgical arthrodesis status PAIN MAN AGEMENT FOLLOW UP with KYAW [place] WANDA DEPARTMENT OF NATURAL RESOURCES OFFICER-FPA, ART STUDIO TEACHER-BC 02/25/2022 Last Documented On 2 1:04PM ; [facility] Low back pain PAIN MANAGEMENT NEW CONSULT with KYAW [place] WANDA DEPARTMENT OF NATURAL RESOURCES OFFICER-FPA, ART STUDIO TEACHER-BC 02/01/2022 Last Documented On 2 12:05PM ; [facility] Lumbar radiculopathy PAIN MANAGEMENT NEW CONSULT with KYAW [place] WANDA DEPARTMENT OF NATURAL RESOURCES OFFICER-FPA, ART STUDIO TEACHER-BC 02/01/2022 Last Documented On 2 12:05PM ; [facility] Lumbar stenosis PAIN MANAGEMENT NEW CONSULT with KYAW [place] WANDA DEPARTMENT OF NATURAL RESOURCES OFFICER-FPA, ART STUDIO TEACHER-BC 02/01/2022 Last Documented On 2 12:05PM ; [facility] Obesity PAIN MANAGEMENT NEW CONSULT with KYAW [place] WANDA DEPARTMENT OF NATURAL RESOURCES OFFICER-FPA, ART STUDIO TEACHER-BC 02/01/2022 Last Documented On 2 12:05PM ; [facility] Postsurgical arthrodesis status PAIN MAN AGEMENT NEW CONSULT with KYAW [place] WANDA DEPARTMENT OF NATURAL RESOURCES OFFICER-FPA, ART STUDIO TEACHER-BC 02/01/2022 Last Documented On 2 12:05PM ; [facility] Instructions Includes: Instructions for all patient encounters Education and Decision Aids were provided during visit for: Lifestyle education Last Documented On 4 3:30PM ; [facility] Pill Count: Tramadol ~ Last Documented On 4 3:36PM ; [facility] Pill Count: Patient did not bring pain medication to appointment for pill count, per policy. Advised in order to continue to safely prescribe opioids, medication must be brought to each appointment Last Documented On 4 3:56PM ; [facility] Lifestyle education Last Documented On 3 1:08PM ; [facility] Lifestyle education Last Documented On 3 2:22PM ; [facility] Lifestyle education Last Documented On 3 10:02AM ; [facility] Pill Count: N/A Last Documented On 3 10:03AM ; [facility] Lifestyle education Last Documented On 3 1:27PM ; [facility] Lifestyle education Last Documented On 3 3:22PM ; [facility] Lifestyle education Last Documented On 3 8:57AM ; [facility] Lifestyle education Last Documented On 3 9:23AM ; [facility] Lifestyle education Last Documented On 2 9:47AM ; [facility] Lifestyle education Last Documented On 2 12:01PM ; [facility] Medical Equipment - Implanted Devices Includes: Current and historical Devices No Medical Equipment Recorded Medications Includes: Current and historical Medications Current Medications (continue as prescribed) Meloxicam 15 MG Oral Tablet 08/04/2023 Provider: SANTOS DEE Diagnosis: Low back pain, u nspecified TAKE ONE TABLET BY MOUTH MILAGRO LY WITH A MEAL Last Documented On 4 4:11PM By KYAW GRAHAM ; [facility] DULoxetine HCl 60 MG Oral Capsule Delayed Release Particles 08/04/2023 Provider: SANTOS PRUETT Diagnosis: Low back pain, u nspecified TAKE ONE CAPSULE BY MOUTH AT BEDTIME Last Documented On 4 4:11PM By KYAW GRAHAM ; [facility] Pregabalin 150 MG Oral Capsule 08/04/2023 Provider: SANTOS DEE Diagnosis: Radiculopathy, l umbar region TAKE ONE CAPSULE BY MOUTH TWICE A DAY Last Documented On 4 4:11PM [facility] ; [facility] traMADol HCl 50 MG Oral Tablet 06/26/2023 Provider: [facility] Diagnosis: Radiculopathy, l umbar region One tablet three times a day as needed for severe pain Last Documented On 4 4:05PM By KYAW [facility] ; [facility] Lovastatin 40 MG Oral Tablet 02/02/2022 Provider: MILES PHILLIPS MD Diagnosis: Last Documented On 2 1:02PM By KYAW MCKEONNA ; [facility] One-A-Day Mens Oral Tablet 02/01/2022 Provider: Diagnosis: Last Documented On 2 11:21AM By KYAW GRAHAM ; [facility] Metoprolol Tartrate 25 MG Oral Tablet 02/01/2022 Pro vider: Diagnosis: Last Documented On 2 11:21AM By [facility] ; [facility] Lisinopril-hydroCHLOROthiazide 20-12.5 MG Oral Tablet 02/01/2022 Provider: Diagnosis: Last Documented On 2 11:21AM By KYAW GRAHAM ; [facility] metFORMIN HCl ER (OSM) 1000 MG Oral Tablet Extended Release 24 Hour 02/01/2022 Provider: Diagnosis: 2 tablets twice daily. Last Documented On 2 11:21AM By KYAW MCKEONPCAITLYN ; [facility] Pioglitazone HCl 45 MG Oral Tablet 02/01/2022 Provid er: Diagnosis: Last Documented On 2 11:21AM By KYAW MCKEONNA ; [facility] Glimepiride 4 MG Oral Tablet 02/01/2022 Provider: Diagnosis: 2 tablets daily. Last Documented On 2 11:21AM By KYAW GRAHAM ; [facility] Jardiance 10 MG Oral Tablet 01/29/2022 Provider: MILES PHILLIPS MD Diagnosis: Last Documented On 2 11:21AM By KYAW GRAHAM ; [facility] Past Medications on file Pregabalin 150 MG Oral Capsule 07/24/2023 - 08/04/2023 Provider: KYAW MUÑOZ APRN-MAXX MOCK-NA Diagnosis: Radiculopathy, l umbar region TAKE ONE CAPSULE BY MOUTH TWICE A DAY Last Documented On 4 4:11PM By KYAW GRAHAM ; [facility] DULoxetine HCl 60 MG Oral Capsule Delayed Release Particles 07/24/2023 - 08/04/2023 Provider: KYAW MUÑOZ APRN-MAXX MOCK-NA Diagnosis: Low back pain, unspecified TAKE ONE CAPSULE BY MOUTH AT BEDTIME Last Documented On 4 4:08PM By KYAW GRAHAM ; [facility] Meloxicam 15 MG Oral Tablet 07/24/2023 - 08/04/2023 Provider: MAXX VALDEZ-NA Diagnosis: TAKE ONE TABLET BY MOUTH DAILY WITH A MEAL Last Documented On 4 4:08PM By KYAW GRAHAM ; [facility] Meloxicam 15 MG Oral Tablet 06/23/2023 - 08/04/2023 Provider: MAXX PRUETT-NA Diagnosis: Low back pain, unspecified TAKE ONE TABLET BY MOUTH DAILY WITH A MEAL Last Documented On 4 3:49PM By KYAW GRAHAM ; [facility] Pregabalin 150 MG Oral Capsule 06/23/2023 - 07/24/2023 Provider: KYAW MUÑOZ APRN-MAXX MOCK-NA Diagnosis: Radiculopathy, l umbar region TAKE ONE CAPSULE BY MOUTH TWICE A DAY Last Documented On 4 11:03AM By KYAW GRAHAM ; [facility] DULoxetine HCl 60 MG Oral Capsule Delayed Release Particles 05/26/2023 - 07/24/2023 Provider: KYAW MUÑOZ APRN-SANTOS MOCK Diagnosis: Low back pain, unspecified TAKE ONE CAPSULE BY MOUTH AT BEDTIME Last Documented On 4 11:03AM By KYAW GRAHAM ; [facility] traMADol HCl 50 MG Oral Tablet 04/16/2023 - 06/25/2023 Provider: SANTOS PRUETT Diagnosis: Radiculopathy, l umbar region One tablet three times a day as needed for severe pain Last Documented On 4 8:34AM By KYAW GRAHAM ; [facility] Meloxicam 15 MG Oral Tablet 04/01/2023 - 06/23/2023 Provider: SANTOS PRUETT Diagnosis: Low back pain, unspecified TAKE ONE TABLET BY MOUTH DAILY WITH A MEAL Last Documented On 4 12:52PM By KYAW GRAHAM ; [facility] traMADol HCl 50 MG Oral Tablet 03/27/2023 - 04/16/2023 Provider: SANTOS PRUETT Diagnosis: Radiculopathy, l umbar region One tablet three times a day as needed for severe pain Last Documented On 4 2:59PM By KYAW GRAHAM ; [facility] Pregabalin 150 MG Oral Capsule 03/07/2023 - 06/23/2023 Provider: SANTOS PRUETT Diagnosis: Radiculopathy, l umbar region 1 CAPSULE TWO TIMES A DAY Last Documented On 4 12:53PM By KYAW GRAHAM ; [facility] Meloxicam 15 MG Oral Tablet 03/07/2023 - 04/01/2023 Provider: SANTOS PRUETT Diagnosis: Low back pain, unspecified TAKE ONE TABLET BY MOUTH DAILY WITH A MEAL Last Documented On 3 9:34AM By KYAW GRAHAM ; [facility] DULoxetine HCl 60 MG Oral Capsule Delayed Release Particles 03/07/2023 - 05/26/2023 Provider: SANTOS PRUETT Diagnosis: Low back pain, unspecified 1 capsule daily at bedtime Last Documented On 4 10:40AM By KYAW GRAHAM ; [facility] Meloxicam 15 MG Oral Tablet 01/10/2023 - 03/07/2023 Provider: SANTOS PRUETT Diagnosis: Low back pain, unspecified TAKE ONE TABLET BY MOUTH DAILY WITH A MEAL Last Documented On 3 2:41PM By KYAW GRAHAM ; [facility] DULoxetine HCl 60 MG Oral Capsule Delayed Release Particles 01/10/2023 - 03/07/2023 Provider: SANTOS PRUETT Diagnosis: Low back pain, unspecified 1 capsule daily at bedtime Last Documented On 3 2:41PM By KYAW GRAHAM ; [facility] DULoxetine HCl 30 MG Oral Capsule Delayed Release Particles 01/10/2023 - 02/20/2023 Provider: SANTOS PRUETT Diagnosis: Low back pain, unspecified take 1 capsule at bedtime fo r 1 week then increase to 60mg dose Last Documented On 3 8:36AM By KYAW GRAHAM ; [facility] Pregabalin 150 MG Oral Capsule 01/10/2023 - 03/07/2023 Provider: SANTOS PRUETT Diagnosis: Radiculopathy, l umbar region 1 CAPSULE TWO TIMES A DAY Last Documented On 3 2:43PM By KYAW GRAHAM ; [facility] Pregabalin 150 MG Oral Capsule 12/10/2022 - 01/10/2023 Provider: SANTOS PRUETT Diagnosis: Radiculopathy, l umbar region 1 CAPSULE TWO TIMES A DAY Last Documented On 3 10:57AM By KYAW [facility] ; [facility] Pregabalin 100 MG Oral Capsule 10/29/2022 - 01/10/2023 Provider: SANTOS PRUETT Diagnosis: Radiculopathy, l umbar region TAKE ONE CAPSULE BY MOUTH TWICE A DAY Last Documented On 3 10:34AM By [facility] ; [facility] Meloxicam 15 MG Oral Tablet 10/29/2022 - 01/10/2023 Provider: LINDA PRUETTP-BC Diagnosis: Low back pain, unspecified TAKE ONE TABLET BY MOUTH DAILY WITH A MEAL Last Documented On 3 10:56AM By KYAW MCKEONNA ; [facility] Pregabalin 100 MG Oral Capsule 10/23/2022 - 10/23/2022 Provider: KYAW AVELAR ART STUDIO TEACHER-BC Diagnosis: Radiculopathy, l umbar region TAKE ONE CAPSULE BY MOUTH TWICE A DAY Last Documented On 3 11:51PM By KYAW MCKEONNA ; [facility] Pregabalin 100 MG Oral Capsule 10/23/2022 - 10/29/2022 Provider: KYAW AVELAR ART STUDIO TEACHER-BC Diagnosis: Radiculopathy, l umbar region TAKE ONE CAPSULE BY MOUTH TWICE A DAY Last Documented On 3 3:44PM By [facility] ; [facility] Meloxicam 15 MG Oral Tablet 10/23/2022 - 10/29/2022 Provider: KYAW AVELAR ART STUDIO TEACHER-BC Diagnosis: Low back pain, unspecified TAKE ONE TABLET BY MOUTH DAILY WITH A MEAL Last Documented On 3 3:45PM By KYAW MCKEONNA ; [facility] Meloxicam 15 MG Oral Tablet 08/20/2022 - 10/23/2022 Provider: KYAW AVELAR ART STUDIO TEACHER-BC Diagnosis: Low back pain, unspecified TAKE ONE TABLET BY MOUTH DAILY WITH A MEAL Last Documented On 3 12:38PM By KYAW LILLYNA ; [facility] Pregabalin 100 MG Oral Capsule 07/31/2022 - 10/23/2022 Provider: KYAW MUÑOZ APRN-NISH ART STUDIO TEACHER-BC Diagnosis: Radiculopathy, l umbar region TAKE ONE CAPSULE BY MOUTH TWICE A DAY Last Documented On 3 12:38PM By KYAW LILLY-BC ; [facility] Meloxicam 15 MG Oral Tablet 07/31/2022 - 08/20/2022 Provider: KYAW MUÑOZ DEPARTMENT OF NATURAL RESOURCES OFFICER-FPA ART STUDIO TEACHER-BC Diagnosis: Low back pain, unspecified TAKE ONE TABLET BY MOUTH DAILY WITH A MEAL Last Documented On 3 9:40AM By KYAW MCKEONP-BC ; [facility] Pregabalin 100 MG Oral Capsule 07/22/2022 - 07/22/2022 Provider: KYAW Corona PRN-FPA, ART STUDIO TEACHER-BC Diagnosis: TAKE ONE CAPSULE BY MOUTH TWICE A DAY Last Documented On 3 2:19PM By KYAW MUÑOZ ART STUDIO TEACHER-BC ; [facility] Pregabalin 100 MG Oral Capsule 07/22/2022 - 07/31/2022 Provider: KYAW Corona PRN-FPA, ART STUDIO TEACHER-BC Diagnosis: TAKE ONE CAPSULE BY MOUTH TWICE A DAY Last Documented On 3 9:18AM By KYAW MUÑOZ [facility] ; [facility] Pregabalin 100 MG Oral Capsule 06/27/2022 - 07/31/2022 Provider: KYAW MUÑOZ DEPARTMENT OF NATURAL RESOURCES OFFICER-FPA, ART STUDIO TEACHER-BC Diagnosis: Radiculopathy, l umbar region 1 CAPSULE TWO TIMES A DAY Last Documented On 3 8:58AM By Cassandra MACDONALD ; [facility] Meloxicam 15 MG Oral Tablet 06/27/2022 - 07/31/2022 Provider: KYAW MUÑOZ DEPARTMENT OF NATURAL RESOURCES OFFICER-FPA, ART STUDIO TEACHER-BC Diagnosis: Low back pain, unspecified TAKE ONE TABLET BY MOUTH DAILY WITH A MEAL Last Documented On 3 9:18AM By KYAW MUÑOZ [facility] ; [facility] Calcium + Vitamin D3 600-10 MG-MCG Oral Tablet 0 06/27/2022 - 03/07/2023 Provider: Diagnosis: Last Documented On 3 2:11PM By Cassandra MACDONALD ; [facility] Pregabalin 75 MG Oral Capsule 06/17/2022 - 07/22/2022 Provider: KYAW MUÑOZ DEPARTMENT OF NATURAL RESOURCES OFFICER-FPA, ART STUDIO TEACHER-BC Diagnosis: Radiculopathy, l umbar region TAKE ONE CAPSULE BY MOUTH TWICE A DAY Last Documented On 3 1:15PM By KYAW MUÑOZ [facility] ; [facility] Meloxicam 15 MG Oral Tablet 06/17/2022 - 06/27/2022 Provider: KYAW MUÑOZ A PRN-FPA, ART STUDIO TEACHER-BC Diagnosis: TAKE ONE TABLET BY MOUTH DAILY WITH A MEAL Last Documented On 3 2:21PM By KYAW MUÑOZ [facility] ; [facility] Pregabalin 75 MG Oral Capsule 06/17/2022 - 06/17/2022 Provider: KYAW MUÑOZ APRN-FPA, ART STUDIO TEACHER-BC Diagnosis: Radiculopathy, l umbar region TAKE ONE CAPSULE BY MOUTH TWICE A DAY Last Documented On 3 12:53PM By KYAW MUÑOZ [facility] ; [facility] Meloxicam 15 MG Oral Tablet 02/25/2022 - 06/27/2022 Provider: KYAW MUÑOZ APRN-FPChloe ART STUDIO TEACHER-BC Diagnosis: Radiculopathy, l umbar region One tablet daily with a meal Last Documented On 3 9:34AM By Cassandra MACDONALD ; [facility] Pregabalin 75 MG Oral Capsule 02/25/2022 - 06/17/2022 Provider: KYAW MUÑOZ APRN-FPChloe ART STUDIO TEACHER-BC Diagnosis: Radiculopathy, l umbar region 1 CAPSULE TWO TIMES A DAY Last Documented On 3 12:07PM By [facility] ; [facility] Pregabalin 75 MG Oral Capsule 02/01/2022 - 02/25/2022 Provider: KYAW MUÑOZ APRN-FPChloe ART STUDIO TEACHER-BC Diagnosis: Radiculopathy, l umbar region 1 capsule at bedtime for 4 d ays then increase to two times daily Last Documented On 2 9:48AM By Cassandra MACDONALD ; [facility] Cyclobenzaprine HCl 10 MG Oral Tablet 02/01/2022 - Provider: Diagnosis: Up to 3 times a day. Last Documented On 3 9:34AM By Cassandra MACDONALD ; [facility] Meloxicam 15 MG Oral Tablet 02/01/2022 - 02/25/2022 Pr ovider: Diagnosis: Last Documented On 2 1:02PM By KYAW MÑUOZ [facility] ; [facility] Citalopram Hydrobromide 40 MG Oral Tablet 02/01/2022 - 03/07/2023 Provider: Diagnosis: Last Documented On 3 2:12PM By Cassandra MACDONALD ; [facility] metFORMIN HCl ER (OSM) 1000 MG Oral Tablet Extended Release 24 Hour 02/01/2022 - 02/01/2022 Provider: Diagnosis: Last Documented On 2 10:28AM By Cassandra MACDONALD ; [facility] Pregabalin 150 MG Oral Capsule 02/01/2022 - 06/27/2022 Provider: KYAW MUÑOZ DEPARTMENT OF NATURAL RESOURCES OFFICER-A, [facility] Diagnosis: Radiculopathy, l umbar region 1 CAPSULE TWO TIMES A DAY Last Documented On 3 9:34AM By Cassandra MACDONALD ; [facility] Medications Administered Includes: Administered Medications in patient's chart No Administered Medications Recorded Vital Signs Includes: Vital Signs from 05/09/2023 through 05/09/2024 Vital Name 08/04/2023 03:54P Blood Pressure Sitting R 110/72 BP Cuff Size Large Pulse Rate-Sitting (bpm) 77 Temp-Temporal 96.4 Height (in) 74 Weight (lb) 309 Body Mass Index 39.7 Body Surface Area (m2) 2.6 Pain Level 0 Oxygen Saturation (%) 100 Last Documented: On 08/04/2023 4:15PM ; [facility] Results Includes: Results from 05/09/2023 through 05/09/2024 No Results Recorded For Specified Dates History of Present Illness History of Present Illness not supported for this document type No History of Present Illness Recorded Social History Description Last Updated 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 Last Documented On 3 3:46PM ; [facility] Tobacco non-user 02/01/2022 Last Documented On 2 12:05PM ; [facility] Alcohol 02/01/2022 Last Documented On 2 12:05PM ; [facility] Amount of alcohol per day: 0-1 2 Last Documented On 2 12:05PM ; [facility] Difficulty walking 02/01/2022 Last Documented On 2 12:05PM ; [facility] Not using drugs 02/01/2022 Last Documented On 2 12:05PM ; [facility] Smoking Status Unknown Procedures and Surgical History Includes: Procedures from 05/09/2023 through 05/09/2024 Procedures Code Diagnosis Performing Provider Service Location Service Date CLINIC VISIT T1015 Spinal stenosis, lumbar region with neurogenic claudication, Low back pain, unspecified, Radiculopathy, lumbar region, Arthrodesis status KYAW MUÑOZ DEPARTMENT OF NATURAL RESOURCES OFFICER-FPA, ART STUDIO TEACHER-BC [facility] 08/04/2023 Last Documented On 4 4:15PM ; [facility] Surgical History Last Updated No Pacemaker 02/01/2022 Last Documented On 2 12:05PM ; [facility] Medical History Includes: Medical History in patient's chart Description Last Updated Denies a fear of falling. 08/04/2023 Last Documented On 4 4:15PM ; [facility] Has had no fall in the last 12 months. 1 Last Documented On 2 12:05PM ; [facility] Currently wearing eyeglasses 02/01/2022 Last Documented On 2 12:05PM ; [facility] No Pain Pump 02/01/2022 Last Documented On 2 12:05PM ; [facility] No Spinal cord stimulator 02/01/2022 Last Documented On 2 12:05PM ; [facility] Please list all surgeries: L4/L5 spinal fusion 07/06/2021 02/01/2022 Last Documented On 2 12:05PM ; [facility] Wearing contact lenses 02/01/2022 Last Documented On 2 12:05PM ; [facility] Family History Includes: Family History in patient's chart Description Last Updated Family history of Arthritis 02/01/2022 Last Documented On 2 12:05PM ; [facility] Family history of ischemic heart disease 02/01/2022 Last Documented On 2 12:05PM ; [facility] Family history of stroke/paralysis 02/01 Last Documented On 2 12:05PM ; [facility] Review of Systems Review of Systems not supported for this document type No Review of Systems Recorded Mental Status No Mental Status Recorded Functional Status No Functional Status Recorded Physical Exam Physical Exam not supported for this document type No Physical Exam Recorded Allergies Includes: Active, inactive, and resolved Allergies No Known Allergies Encounters Includes: Encounters from 05/09/2023 through 05/09/2024 Encounter Provider Location Date Check-In Time Check-Out Time Diagnosis PAIN MANAGEMENT FOLLOW UP KYAW MUÑOZ APRN-NISH, MAXX-BC [facility]- 08/04/19 3:30PM 4:13PM Obesity,Orthope dics Postsurgical Arthrodesis Status,Lumbar Radiculopathy,S jumana Stenosis Lumbar with Neurogenic Claudication,Do rsopathy Low Back Pain RX ISSUE/REFILL KYAW MUÑOZ APRN-NISH, ART STUDIO TEACHER-BC 06/25/19 24 03/27/2023 10:47AM 03/27/2023 11:59PM Insurance Includes: Active Insurance Policies Plan Name Member ID Group # Subscriber Relationship Effect lakesha Dates 1 - [facility] [id number] CHRISTY GONZÁLES Self Clinical Notes Includes: Signed Clinical Notes starting from 04/26/2022 * Progress note Date Encounter Last Documented by 08/04/2023 PAIN MANAGEMENT FOLLOW UP Last d ocumented on 08/04/2023; 4:15 PM, KYAW MUÑOZ APRN-NISH, ART STUDIO TEACHER-BC; [facility] Active Problems & Conditions - Anxiety Disorder [...] Use: Not using drugs. 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 Allergies - No Known Allergies Family History [...] score ten, and impression and score six; [61357] Established outpatient, medically appropriate H&P, moderate level [...] but may be subject to typographical or gate shear operator errors. Verify all diagnoses, medications, dosages, and [...] up plan for Depression Screening satisfied 08/04/2023. 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 I TOLD HIM WE NO LONGER GO THERE AND WOULD HAVE TO BE IN [place]. PT SAID HE DOES NOT HAVE TRASPORTATION [...] Use: Not using drugs. 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 Allergies - No Known Allergies Family History Arthritis Stroke/paralysis Ischemic heart disease Plan StartCited - Other PHY ORDER/COMMENT For narajill patients I am offering them telehealth every [...]
--- OUTSIDE RECORDS SUMMARY | 2024-05-09 20:04 | XMS_ITS | Referral Summary ---
Author Organization [facility] [employer] Address [address] [place] [address] Care Team Providers Care Sheet Tailer Name Role Phone Yves Lafleur MD Primary Care Provider Source Comments [facility] [employer],non-owned Affiliates and Associated Physician Practices is amultiple site organization consisting of ambulatory clinics and hospital sitesin [place], [place], [place] and [place]. This disclosure is being madepursuant to the Care Everywhere program and may not contain all information available regarding this patient. Last updated 17.[facility] Allergies Active Allergy Reactions Criticality Noted Date [...] Orientation Not on file Plan of Treatment Not on file Care Teams Sheet Tailer Relationship Specialty Start Date End Date Yves Lafleur MD [address] [place] [id number] PCP - General 06/28/22
--- OUTSIDE RECORDS SUMMARY | 2024-05-09 20:04 | XMS_ITS ---
Care Plan - [facility] Created on: May 09, 2024 CHRISTY GONZÁLES : 1980 Sex: Male Author Organization [facility] Address [address] [place] [address] Phone Care Team Providers Care Emissions Testing Technician Name Role Phone MILES PHILLIPS MD Primary Care Provider [phone]
[2024-05-09 20:05] VITALS: BP 117/85; PULSE 135; RESP 18; TEMP 36.8; O2SAT 100
--- NOTE | 2024-05-09 20:06 | PC.NURSE ---
COVID PCR obtained and taken to lab
--- OUTSIDE RECORDS SUMMARY | 2024-05-09 20:54 | XMS_ITS | Referral Summary ---
Author Organization [facility] [employer] Address [address] [place] [address] Care Team Providers Care Electric Clock Mechanic Name Role Phone Yves Lafleur MD Primary Care Provider [phone] Source Comments [facility] [employer],non-owned Affiliates and Associated Physician Practices is amultiple site organization consisting of ambulatory clinics and hospital sitesin [place], [place], [place] and [place]. This disclosure is being madepursuant to the Care Everywhere program and may not contain all information available regarding this patient. Last updated 17.[facility] [employer] Allergies Active Allergy Reactions Criticality Noted Date [...] of Treatment Not on file Care Teams Electric Clock Mechanic Relationship Specialty Start Date End Date Yves Lafleur MD [address] [place] [phone] PCP - General 06/28/22
--- OUTSIDE RECORDS SUMMARY | 2024-05-09 20:54 | XMS_ITS | Clinical Summary ---
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-BC Active Last Documented On 2 11:56AM ; [facility] 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 Unknown KYAW G WANDA MOLD MECHANIC-FPA , ELEVATOR MECHANIC-BC Active Last Documented On 2 11:56AM ; [facility] Essential Hypertension Unknown KYAW [place] KUL P MOLD MECHANIC-FPA, ELEVATOR MECHANIC-BC Active Last Documented On 2 11:56AM ; [facility] Major Depression Unknown KYAW G WANDA MOLD MECHANIC -FPA, ELEVATOR MECHANIC-BC Active Last Documented On 2 11:57AM ; [facility] Plan of Treatment Education and Decision Aids were provided during visit for: Lifestyle education Last Documented On 3 2:22PM ; [facility] Assessments Includes: Assessments from this encounter Findings - [Z01.818 - Encounter for other preprocedural examination] Visit for: preoperative exam - Last Documented On 03/10/2023 11:51AM ; [facility] - [E66.9 - Obesity, unspecified] Obesity - Last Documented On 03/10/2023 11:51AM ; [facility] - [M54.50 - Low back pain, unspecified] Low back pain - Last Documented On 03/10/2023 11:51AM ; [facility] - [Z98.1 - Arthrodesis status] Postsurgical arthrodesis status - Last Documented On 03/10/2023 11:51AM ; [facility] - [M48.062 - Spinal stenosis, lumbar region with neurogenic claudication] Lumbar stenosis with neurogenic claudication - Last Documented On 03/10/2023 11:51AM ; [facility] - [M54.16 - Radiculopathy, lumbar region] Lumbar radiculopathy - Last Documented On 03/10/2023 11:51AM ; [facility] Instructions Includes: Instructions from this encounter Education and Decision Aids were provided during visit for: Lifestyle education Last Documented On 3 2:22PM ; [facility] Medical Equipment - Implanted Devices Includes: Current Devices No Medical Equipment Recorded Medications Includes: Medications discussed during this encounter and other current Medications Discontinued / Stopped on this date SANTOS PRUETT on 01/10/2023 Pregabalin 150 MG Oral Capsule Provider: SANTOS DEE Diagnosis: Radiculopathy, l umbar region Last Documented On 3 2:43PM By KYAW GRAHAM ; [facility] Calcium + Vitamin D3 600-10 MG-MCG Oral Tablet Provider: Diagnosis: Last Documented On 3 2:11PM By Cassandra MACDONALD ; [facility] Citalopram Hydrobromide 40 MG Oral Tablet Provider: Diagnosis: Last Documented On 3 2:12PM By Cassandra MACDONALD ; [facility] New / Renewed during this visit SANTOS PRUETT on 03/07/2023 Pregabalin 150 MG Oral Capsule Provider: SANTOS DEE 30 day supply: 60 capsule, 2 refills Diagnosis: Radiculopathy, lumbar region 1 CAPSULE TWO TIMES A DAY Pharmacy: [facility] [address], [id number] - Last Documented On 4 12:53PM By KYAW GRAHAM ; [facility] Meloxicam 15 MG Oral Tablet Provider: SANTOS DEE 30 day supply: 30 tablet, 2 refills Diagnosis: Low back pain, unspecified TAKE ONE TABLET BY MOUTH MILAGRO LY WITH A MEAL Pharmacy: [facility] [address], [phone] - Last Documented On 3 9:34AM By KYAW GRAHAM ; [facility] DULoxetine HCl 60 MG Oral Capsule Delayed Release Particles Provider: SANTOS PRUETT 30 day supply: 30 capsule, 2 refills Diagnosis: Low back pain, unspecified 1 capsule daily at bedtime Pharmacy: [facility] [address], [phone] - Last Documented On 4 10:40AM By KYAW GRAHAM ; [facility] Current Medications (continue as prescribed) Meloxicam 15 MG Oral Tablet 08/04/2023 Provider: SANTOS DEE Diagnosis: Low back pain, u nspecified TAKE ONE TABLET BY MOUTH MILAGRO GONSALES WITH A MEAL Last Documented On 4 4:11PM By KYAW GRAHAM ; [facility] DULoxetine HCl 60 MG Oral Capsule Delayed Release Particles 08/04/2023 Provider: SANTOS PRUETT Diagnosis: Low back pain, u nspecified TAKE ONE CAPSULE BY MOUTH AT BEDTIME Last Documented On 4 4:11PM By KYAW GRAHAM ; [facility] Pregabalin 150 MG Oral Capsule 08/04/2023 Provider: SANTOS DEE Diagnosis: Radiculopathy, l umbar region TAKE ONE CAPSULE BY MOUTH TWICE A DAY Last Documented On 4 4:11PM By KYAW MCKEONNA ; [facility] traMADol HCl 50 MG Oral Tablet 06/26/2023 Provider: [facility] Diagnosis: Radiculopathy, l umbar region One tablet three times a day as needed for severe pain Last Documented On 4 4:05PM By KYAW MCKEONNA ; [facility] Lovastatin 40 MG Oral Tablet 02/02/2022 Provider: MILES PHILLIPS MD Diagnosis: Last Documented On 2 1:02PM By KYAW MCKEONNA ; [facility] One-A-Day Mens Oral Tablet 02/01/2022 Provider: Diagnosis: Last Documented On 2 11:21AM By KYAW GRAHAM ; [facility] Metoprolol Tartrate 25 MG Oral Tablet 02/01/2022 Pro vider: Diagnosis: Last Documented On 2 11:21AM By KYAW GRAHAM ; [facility] Lisinopril-hydroCHLOROthiazide 20-12.5 MG Oral Tablet 02/01/2022 Provider: Diagnosis: Last Documented On 2 11:21AM By KYAW GRAHAM ; [facility] metFORMIN HCl ER (OSM) 1000 MG Oral Tablet Extended Release 24 Hour 02/01/2022 Provider: Diagnosis: 2 tablets twice daily. Last Documented On 2 11:21AM By KYAW GRAHAM ; [facility] Pioglitazone HCl 45 MG Oral Tablet 02/01/2022 Provid er: Diagnosis: Last Documented On 2 11:21AM By KYAW MCKEONNA ; [facility] Glimepiride 4 MG Oral Tablet 02/01/2022 Provider: Diagnosis: 2 tablets daily. 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 Last Documented On 3 2:07PM ; [facility] Tobacco non-user 02/01/2022 Last Documented On 3 2:07PM ; [facility] Alcohol 02/01/2022 Last Documented On 3 2:07PM ; [facility] Amount of alcohol per day: 0-1 2 Last Documented On 3 2:07PM ; [facility] Difficulty walking 02/01/2022 Last Documented On 3 2:07PM ; [facility] Not using drugs 02/01/2022 Last Documented On 3 2:07PM ; [facility] Smoking Status Unknown Procedures and Surgical History Includes: Procedures from this encounter Procedures Code Diagnosis Performing Provider Service L ocation Service Date plan of care reviewed and agreed to Last Documented On 3 2:22PM ; [facility] plan of care reviewed and agreed to by t he patient Last Documented On 3 2:22PM ; [facility] use of tobacco assessment performed 1000F Last Documented On 3 2:08PM ; [facility] patient screened for future fall risk: documentation of any fall with injury in past year 1100F Last Documented On 3 2:22PM ; [facility] review of medications documented 1160F Last Documented On 3 2:08PM ; [facility] screening for adult depression: impressi on and score Last Documented On 3 2:08PM ; [facility] screening for adult depression: impressi on and score ten Last Documented On 3 2:22PM ; [facility] screening for adult depression: impressi on and score six Last Documented On 3 2:22PM ; [facility] standardized depression screening: posit lakesha for symptoms Last Documented On 3 2:22PM ; [facility] encouragement to exercise Last Documented On 3 2:22PM ; [facility] Reviewed & agreed to staff entries. Last Documented On 3 2:22PM ; [facility] Clinical summary provided to patient Last Documented On 3 2:22PM ; [facility] SOAPP-R: total score 9 Last Documented On 3 2:22PM ; [facility] Surgical History Last Updated No Pacemaker 02/01/2022 Last Documented On 3 2:07PM ; [facility] Medical History Includes: Medical History addressed during this encounter Description Last Updated Has a fear of falling. 03/07/2023 Last Documented On 3 11:51AM ; [facility] Has had no fall in the last 12 months. 1 Last Documented On 3 2:07PM ; [facility] Currently wearing eyeglasses 02/01/2022 Last Documented On 3 2:07PM ; [facility] No Pain Pump 02/01/2022 Last Documented On 3 2:07PM ; [facility] No Spinal cord stimulator 02/01/2022 Last Documented On 3 2:07PM ; [facility] Please list all surgeries: L4/L5 spinal fusion 07/06/2021 02/01/2022 Last Documented On 3 2:07PM ; [facility] Wearing contact lenses 02/01/2022 Last Documented On 3 2:07PM ; [facility] Family History Includes: Family History addressed during this encounter Description Last Updated Family history of Arthritis 02/01/2022 Last Documented On 3 2:07PM ; [facility] Family history of ischemic heart disease 02/01/2022 Last Documented On 3 2:07PM ; [facility] Family history of stroke/paralysis 02/01 Last Documented On 3 2:07PM ; [facility] Review of Systems Includes: Review [...] PAIN MANAGEMENT FOLLOW UP KYAW AVELAR, MAXX-BC [facility] 03/07/20 23 2:06PM 2:58PM Obesity,Orthope dics Postsurgical Arthrodesis Status,Lumbar Radiculopathy,S jumana Stenosis Lumbar with Neurogenic Claudication,Do rsopathy Low Back Pain,Visit For: Preoperative Exam Insurance Includes: Active Insurance Policies Plan Name Member ID Group # Subscriber Relationship Effect lakesha Dates 1 - [facility] [id number] CHRISTY GONZÁLES Self Clinical Notes Includes: Clinical Notes from this encounter * Progress note Date Encounter Last Documented by 03/07/2023 PAIN MANAGEMENT FOLLOW UP Last d ocumented on 03/10/2023; 11:51 AM, KYAW AVELAR, ELEVATOR MECHANIC-BC; [facility] Top of Document This document [...] Use: Not using drugs. 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 Allergies - No Known Allergies Family [...] bilaterally. Negative compression, thigh thrust, distraction, and Bay's. Positive Noemi's on the right. Gait: Not antalgic. No steppage gait. No Trendelenburg gait. No circumspected gait pattern. Heel walk normal. Toe walk normal. Tandem gait normal. Neuro: Awake. Alert. Oriented x3. DTR's intact in all extremities. DTR's equal in all extremities. No sensory deficit. No motor deficit. Psych: No apparent distress. Mood normal. Affect normal. No pain behaviors. Skin: Normal. [place], warm, dry. Tests Educational Testing: Questionnaires PHQ-9: [...] score ten, and impression and score six; [03983] Established outpatient, medically appropriate H&P, moderate level [...] but may be subject to typographical or blow off worker errors. Verify all diagnoses, medications, dosages, and [...]
--- OUTSIDE RECORDS SUMMARY | 2024-05-09 20:54 | XMS_ITS | Clinical Summary ---
Author Organization [facility] Address [address] [place] [address] Care Team Providers Care Predictive Maintenance Technician Name Role Phone Yves Lafleur MD Primary Care Provider Source Comments [facility],non-owned Affiliates and Associated Physician Practices is amultiple site organization consisting of ambulatory clinics and hospital sitesin [place], [place], [place] and [place]. This disclosure is being madepursuant to the Care Everywhere program and may not contain all information available regarding this patient. Last updated 17.[facility] Allergies Active Allergy Reactions Criticality Noted Date [...] age to complete this topic Care Teams Predictive Maintenance Technician Relationship Specialty Start Date End Date Yves Lafleur MD [address] [place] [address] PCP - General 06/28/22
--- OUTSIDE RECORDS SUMMARY | 2024-05-09 20:54 | XMS_ITS ---
Author Organization [facility] Address [address] [place] [address] Phone Care Team Providers Care Grader Marker Name Role Phone ALAN BERGER, MILES Primary Care Provider [phone] Problems Includes: Active, inactive, and resolved Problems All Visits Onset Date Resolved Date Provider Condition S tatus Anxiety Disorder Nos Unknown KYAW G WANDA ASSISTANT CHIEF OF POLICE-FPA, SPEECH LANGUAGE PATHOLOGIST PRN-BC Active Last Documented On 2 11:56AM ; [facility] 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 Unknown KYAW G WANDA ASSISTANT CHIEF OF POLICE-FPA , SPEECH LANGUAGE PATHOLOGIST PRN-BC Active Last Documented On 2 11:56AM ; [facility] Essential Hypertension Unknown KYAW Judit KUL P ASSISTANT CHIEF OF POLICE-FPA, SPEECH LANGUAGE PATHOLOGIST PRN-BC Active Last Documented On 2 11:56AM ; [facility] Major Depression Unknown KYAW G WANDA ASSISTANT CHIEF OF POLICE -FPA, SPEECH LANGUAGE PATHOLOGIST PRN-BC Active Last Documented On 2 11:57AM ; [facility] Plan of Treatment Referrals To Diagnosis Pain Management [address] [address] - Radiculopathy, lumbar region Note: consent for bilateral L5-S1 transforaminal epidural steroid injection under fluoroscopy Last Documented On 3 8:52AM ; [facility] Pain Management [address] [address] - Radiculopathy, lumbar region Note: consent for Right L3-4 and L5-S1 transforaminal epidural steroid injection under fluoroscopy Last Documented On 3 9:07AM ; [facility] Orthopedic [facility] - [address] [place] [address] Radiculopathy, lumbar region Note: Dr Erich Moore would like surgical opinion on his options in case conservative measures fail Last Documented On 4 2:24PM ; [facility] Education and Decision Aids were provided during visit for: Lifestyle education Last Documented On 4 3:30PM ; [facility] Pill Count: Tramadol ~ Last Documented On 4 3:36PM ; [facility] Pill Count: Patient did not bring pain medication to appointment for pill count, per policy. Advised in order to continue to safely prescribe opioids, medication must be brought to each appointment Last Documented On 4 3:56PM ; [facility] Lifestyle education Last Documented On 3 1:08PM ; [facility] Lifestyle education Last Documented On 3 2:22PM ; [facility] Lifestyle education Last Documented On 3 10:02AM ; [facility] Pill Count: N/A Last Documented On 3 10:03AM ; [facility] Lifestyle education Last Documented On 3 1:27PM ; [facility] Lifestyle education Last Documented On 3 3:22PM ; [facility] Lifestyle education Last Documented On 3 8:57AM ; [facility] Lifestyle education Last Documented On 3 9:23AM ; [facility] Lifestyle education Last Documented On 2 9:47AM ; [facility] Lifestyle education Last Documented On 2 12:01PM ; [facility] Assessments Includes: Assessments for all patient encounters Findings Encounter Date Low back pain PAIN MANAGEMENT FOLL OW UP with KYAW MUÑOZ ASSISTANT CHIEF OF POLICE-FPA, SPEECH LANGUAGE PATHOLOGIST PRN-BC 08/04/2023 Last Documented On 4 4:15PM ; [facility] Lumbar radiculopathy PAIN MANAGEMENT FOL LOW UP with KYAW [place] WANDA ASSISTANT CHIEF OF POLICE-FPA, SPEECH LANGUAGE PATHOLOGIST PRN-BC 08/04/2023 Last Documented On 4 4:15PM ; [facility] Lumbar stenosis with neuroge colleen claudication PAIN MANAGEMENT FOLLOW UP with KYAW [place] WANDA ASSISTANT CHIEF OF POLICE-FPA, SPEECH LANGUAGE PATHOLOGIST PRN-BC 08/04/2023 Last Documented On 4 4:15PM ; [facility] Obesity PAIN MANAGEMENT FOLLOW UP with Mahad [place] WANDA ASSISTANT CHIEF OF POLICE-FPA, SPEECH LANGUAGE PATHOLOGIST PRN-BC 08/04/2023 Last Documented On 4 4:15PM ; [facility] Postsurgical arthrodesis status PAIN MAN AGEMENT FOLLOW UP with KYAW [place] WANDA ASSISTANT CHIEF OF POLICE-FPA, SPEECH LANGUAGE PATHOLOGIST PRN-BC 08/04/2023 Last Documented On 4 4:15PM ; [facility] Low back pain TELEHEALTH with YKAW [place] WANDA A PRN-FPA, SPEECH LANGUAGE PATHOLOGIST PRN-BC 03/27/2023 Last Documented On 3 1:39PM ; [facility] Lumbar radiculopathy TELEHEALTH with KYAW Estrada ULP ASSISTANT CHIEF OF POLICE-FPA, SPEECH LANGUAGE PATHOLOGIST PRN-BC 03/27/2023 Last Documented On 3 1:39PM ; [facility] Lumbar stenosis with neuroge colleen claudication TELEHEALTH with KYAW [place] WANDA ASSISTANT CHIEF OF POLICE-FPA, SPEECH LANGUAGE PATHOLOGIST PRN-BC 03/27/2023 Last Documented On 3 1:39PM ; [facility] Obesity TELEHEALTH with KYAW [place] WANDA A PRN-FPA, SPEECH LANGUAGE PATHOLOGIST PRN-BC 03/27/2023 Last Documented On 3 1:39PM ; [facility] Postsurgical arthrodesis status TELEHEAL TH with KYAW [place] WANDA ASSISTANT CHIEF OF POLICE-FPA, SPEECH LANGUAGE PATHOLOGIST PRN-BC 03/27/2023 Last Documented On 3 1:39PM ; [facility] [Z01.818 - Encounter for ot er preprocedural examination] visit for: preoperative exam PAIN MANAGEMENT FOLLOW UP with KYAW [place] WANDA ASSISTANT CHIEF OF POLICE-FPA, SPEECH LANGUAGE PATHOLOGIST PRN-BC 03/07/2023 Last Documented On 3 11:51AM ; [facility] Low back pain PAIN MANAGEMENT FOLL OW UP with KYAW G WANDA ASSISTANT CHIEF OF POLICE-FPA, SPEECH LANGUAGE PATHOLOGIST PRN-BC 03/07/2023 Last Documented On 3 11:51AM ; [facility] Lumbar radiculopathy PAIN MANAGEMENT FOL LOW UP with KYAW G WANDA ASSISTANT CHIEF OF POLICE-FPA, SPEECH LANGUAGE PATHOLOGIST PRN-BC 03/07/2023 Last Documented On 3 11:51AM ; [facility] Lumbar stenosis with neuroge colleen claudication PAIN MANAGEMENT FOLLOW UP with KYAW G WANDA ASSISTANT CHIEF OF POLICE-FPA, SPEECH LANGUAGE PATHOLOGIST PRN-BC 03/07/2023 Last Documented On 3 11:51AM ; [facility] Obesity PAIN MANAGEMENT FOLLOW UP with Mahad BAÑUELOS G WANDA ASSISTANT CHIEF OF POLICE-FPA, SPEECH LANGUAGE PATHOLOGIST PRN-BC 03/07/2023 Last Documented On 3 11:51AM ; [facility] Postsurgical arthrodesis status PAIN MAN AGEMENT FOLLOW UP with KYAW G WANDA ASSISTANT CHIEF OF POLICE-FPA, SPEECH LANGUAGE PATHOLOGIST PRN-BC 03/07/2023 Last Documented On 3 11:51AM ; [facility] Low back pain PAIN MANAGEMENT FOLL OW UP with KYAW Judit WANDA ASSISTANT CHIEF OF POLICE-FPA, SPEECH LANGUAGE PATHOLOGIST PRN-BC 01/10/2023 Last Documented On 3 11:02AM ; [facility] Lumbar radiculopathy PAIN MANAGEMENT FOL LOW UP with KYAW G WANDA ASSISTANT CHIEF OF POLICE-FPA, SPEECH LANGUAGE PATHOLOGIST PRN-BC 01/10/2023 Last Documented On 3 11:02AM ; [facility] Lumbar stenosis with neuroge colleen claudication PAIN MANAGEMENT FOLLOW UP with KYAW G WANDA ASSISTANT CHIEF OF POLICE-FPA, SPEECH LANGUAGE PATHOLOGIST PRN-BC 01/10/2023 Last Documented On 3 11:02AM ; [facility] Obesity PAIN MANAGEMENT FOLLOW UP with Mahad BAÑUELOS G WANDA ASSISTANT CHIEF OF POLICE-FPA, SPEECH LANGUAGE PATHOLOGIST PRN-BC 01/10/2023 Last Documented On 3 11:02AM ; [facility] Postsurgical arthrodesis status PAIN MAN AGEMENT FOLLOW UP with KYAW G WANDA ASSISTANT CHIEF OF POLICE-FPA, SPEECH LANGUAGE PATHOLOGIST PRN-BC 01/10/2023 Last Documented On 3 11:02AM ; [facility] Low back pain PAIN MANAGEMENT FOLL OW UP with KYAW G WANDA ASSISTANT CHIEF OF POLICE-FPA, SPEECH LANGUAGE PATHOLOGIST PRN-BC 12/10/2022 Last Documented On 3 2:13PM ; [facility] Lumbar radiculopathy PAIN MANAGEMENT FOL LOW UP with KYAW G WANDA ASSISTANT CHIEF OF POLICE-FPA, SPEECH LANGUAGE PATHOLOGIST PRN-BC 12/10/2022 Last Documented On 3 2:13PM ; [facility] Lumbar stenosis with neuroge colleen claudication PAIN MANAGEMENT FOLLOW UP with KYAW G WANDA ASSISTANT CHIEF OF POLICE-FPA, SPEECH LANGUAGE PATHOLOGIST PRN-BC 12/10/2022 Last Documented On 3 2:13PM ; [facility] Obesity PAIN MANAGEMENT FOLLOW UP with M EDDA G WANDA ASSISTANT CHIEF OF POLICE-FPA, SPEECH LANGUAGE PATHOLOGIST PRN-BC 12/10/2022 Last Documented On 3 2:13PM ; [facility] Postsurgical arthrodesis status PAIN MAN AGEMENT FOLLOW UP with KYAW G WANDA ASSISTANT CHIEF OF POLICE-FPA, SPEECH LANGUAGE PATHOLOGIST PRN-BC 12/10/2022 Last Documented On 3 2:13PM ; [facility] Low back pain PAIN MANAGEMENT FOLL OW UP with KYAW G WANDA ASSISTANT CHIEF OF POLICE-FPA, SPEECH LANGUAGE PATHOLOGIST PRN-BC 10/29/2022 Last Documented On 3 3:46PM ; [facility] Lumbar radiculopathy PAIN MANAGEMENT FOL LOW UP with KYAW G WANDA ASSISTANT CHIEF OF POLICE-FPA, SPEECH LANGUAGE PATHOLOGIST PRN-BC 10/29/2022 Last Documented On 3 3:46PM ; [facility] Lumbar stenosis PAIN MANAGEMENT FOLL OW UP with KYAW G WANDA ASSISTANT CHIEF OF POLICE-FPA, SPEECH LANGUAGE PATHOLOGIST PRN-BC 10/29/2022 Last Documented On 3 3:46PM ; [facility] Obesity PAIN MANAGEMENT FOLLOW UP with M EDDA G WANDA ASSISTANT CHIEF OF POLICE-FPA, SPEECH LANGUAGE PATHOLOGIST PRN-BC 10/29/2022 Last Documented On 3 3:46PM ; [facility] Postsurgical arthrodesis status PAIN MAN AGEMENT FOLLOW UP with KYAW G WANDA ASSISTANT CHIEF OF POLICE-FPA, SPEECH LANGUAGE PATHOLOGIST PRN-BC 10/29/2022 Last Documented On 3 3:46PM ; [facility] Low back pain PAIN MANAGEMENT FOLL OW UP with KYAW G WANDA ASSISTANT CHIEF OF POLICE-FPA, SPEECH LANGUAGE PATHOLOGIST PRN-BC 07/31/2022 Last Documented On 3 9:24AM ; [facility] Lumbar radiculopathy PAIN MANAGEMENT FOL LOW UP with KYAW G WANDA ASSISTANT CHIEF OF POLICE-FPA, SPEECH LANGUAGE PATHOLOGIST PRN-BC 07/31/2022 Last Documented On 3 9:24AM ; [facility] Lumbar stenosis PAIN MANAGEMENT FOLL OW UP with KYAW G WANDA ASSISTANT CHIEF OF POLICE-FPA, SPEECH LANGUAGE PATHOLOGIST PRN-BC 07/31/2022 Last Documented On 3 9:24AM ; [facility] Obesity PAIN MANAGEMENT FOLLOW UP with M EDDA G WANDA ASSISTANT CHIEF OF POLICE-FPA, SPEECH LANGUAGE PATHOLOGIST PRN-BC 07/31/2022 Last Documented On 3 9:24AM ; [facility] Postsurgical arthrodesis status PAIN MAN AGEMENT FOLLOW UP with KYAW G WANDA ASSISTANT CHIEF OF POLICE-FPA, SPEECH LANGUAGE PATHOLOGIST PRN-BC 07/31/2022 Last Documented On 3 9:24AM ; [facility] Low back pain PAIN MANAGEMENT FOLL OW UP with KYAW G WANDA ASSISTANT CHIEF OF POLICE-FPA, SPEECH LANGUAGE PATHOLOGIST PRN-BC 06/27/2022 Last Documented On 3 2:21PM ; [facility] Lumbar radiculopathy PAIN MANAGEMENT FOL LOW UP with KYAW G WANDA ASSISTANT CHIEF OF POLICE-FPA, SPEECH LANGUAGE PATHOLOGIST PRN-BC 06/27/2022 Last Documented On 3 2:21PM ; [facility] Lumbar stenosis PAIN MANAGEMENT FOLL OW UP with KYAW G WANDA ASSISTANT CHIEF OF POLICE-FPA, SPEECH LANGUAGE PATHOLOGIST PRN-BC 06/27/2022 Last Documented On 3 2:21PM ; [facility] Obesity PAIN MANAGEMENT FOLLOW UP with Mahad BAÑUELOS G WANDA ASSISTANT CHIEF OF POLICE-FPA, SPEECH LANGUAGE PATHOLOGIST PRN-BC 06/27/2022 Last Documented On 3 2:21PM ; [facility] Postsurgical arthrodesis status PAIN MAN AGEMENT FOLLOW UP with KYAW G WANDA ASSISTANT CHIEF OF POLICE-FPA, SPEECH LANGUAGE PATHOLOGIST PRN-BC 06/27/2022 Last Documented On 3 2:21PM ; [facility] Low back pain PAIN MANAGEMENT FOLL OW UP with KYAW G WANDA ASSISTANT CHIEF OF POLICE-FPA, SPEECH LANGUAGE PATHOLOGIST PRN-BC 02/25/2022 Last Documented On 2 1:04PM ; [facility] Lumbar radiculopathy PAIN MANAGEMENT FOL LOW UP with YKAW [place] WANDA ASSISTANT CHIEF OF POLICE-FPA, SPEECH LANGUAGE PATHOLOGIST PRN-BC 02/25/2022 Last Documented On 2 1:04PM ; [facility] Lumbar stenosis PAIN MANAGEMENT FOLL OW UP with KYAW [place] WANDA ASSISTANT CHIEF OF POLICE-FPA, SPEECH LANGUAGE PATHOLOGIST PRN-BC 02/25/2022 Last Documented On 2 1:04PM ; [facility] Obesity PAIN MANAGEMENT FOLLOW UP with Mahad [place] WANDA ASSISTANT CHIEF OF POLICE-FPA, SPEECH LANGUAGE PATHOLOGIST PRN-BC 02/25/2022 Last Documented On 2 1:04PM ; [facility] Postsurgical arthrodesis status PAIN MAN AGEMENT FOLLOW UP with KYAW [place] WANDA ASSISTANT CHIEF OF POLICE-FPA, SPEECH LANGUAGE PATHOLOGIST PRN-BC 02/25/2022 Last Documented On 2 1:04PM ; [facility] Low back pain PAIN MANAGEMENT NEW CONSULT with KYAW [place] WANDA ASSISTANT CHIEF OF POLICE-FPA, SPEECH LANGUAGE PATHOLOGIST PRN-BC 02/01/2022 Last Documented On 2 12:05PM ; [facility] Lumbar radiculopathy PAIN MANAGEMENT NEW CONSULT with KYAW [place] WANDA ASSISTANT CHIEF OF POLICE-FPA, SPEECH LANGUAGE PATHOLOGIST PRN-BC 02/01/2022 Last Documented On 2 12:05PM ; [facility] Lumbar stenosis PAIN MANAGEMENT NEW CONSULT with KYAW [place] WANDA ASSISTANT CHIEF OF POLICE-FPA, SPEECH LANGUAGE PATHOLOGIST PRN-BC 02/01/2022 Last Documented On 2 12:05PM ; [facility] Obesity PAIN MANAGEMENT NEW CONSULT with KYAW [place] WANDA ASSISTANT CHIEF OF POLICE-FPA, SPEECH LANGUAGE PATHOLOGIST PRN-BC 02/01/2022 Last Documented On 2 12:05PM ; [facility] Postsurgical arthrodesis status PAIN MAN AGEMENT NEW CONSULT with KYAW [place] WANDA ASSISTANT CHIEF OF POLICE-FPA, SPEECH LANGUAGE PATHOLOGIST PRN-BC 02/01/2022 Last Documented On 2 12:05PM ; [facility] Instructions Includes: Instructions for all patient encounters Education and Decision Aids were provided during visit for: Lifestyle education Last Documented On 4 3:30PM ; [facility] Pill Count: Tramadol ~ Last Documented On 4 3:36PM ; [facility] Pill Count: Patient did not bring pain medication to appointment for pill count, per policy. Advised in order to continue to safely prescribe opioids, medication must be brought to each appointment Last Documented On 4 3:56PM ; [facility] Lifestyle education Last Documented On 3 1:08PM ; [facility] Lifestyle education Last Documented On 3 2:22PM ; [facility] Lifestyle education Last Documented On 3 10:02AM ; [facility] Pill Count: N/A Last Documented On 3 10:03AM ; [facility] Lifestyle education Last Documented On 3 1:27PM ; [facility] Lifestyle education Last Documented On 3 3:22PM ; [facility] Lifestyle education Last Documented On 3 8:57AM ; [facility] Lifestyle education Last Documented On 3 9:23AM ; [facility] Lifestyle education Last Documented On 2 9:47AM ; [facility] Lifestyle education Last Documented On 2 12:01PM ; [facility] Medical Equipment - Implanted Devices Includes: Current and historical Devices No Medical Equipment Recorded Medications Includes: Current and historical Medications Current Medications (continue as prescribed) Meloxicam 15 MG Oral Tablet 08/04/2023 Provider: SANTOS DEE Diagnosis: Low back pain, u nspecified TAKE ONE TABLET BY MOUTH MILAGRO LY WITH A MEAL Last Documented On 4 4:11PM By KYAW GRAHAM ; [facility] DULoxetine HCl 60 MG Oral Capsule Delayed Release Particles 08/04/2023 Provider: SANTOS PRUETT Diagnosis: Low back pain, u nspecified TAKE ONE CAPSULE BY MOUTH AT BEDTIME Last Documented On 4 4:11PM By KYAW GRAHAM ; [facility] Pregabalin 150 MG Oral Capsule 08/04/2023 Provider: SANTOS DEE Diagnosis: Radiculopathy, l umbar region TAKE ONE CAPSULE BY MOUTH TWICE A DAY Last Documented On 4 4:11PM [facility] ; [facility] traMADol HCl 50 MG Oral Tablet 06/26/2023 [facility] Diagnosis: Radiculopathy, l umbar region One tablet three times a day as needed for severe pain Last Documented On 4 4:05PM By KYAW MUÑ[facility]Z [facility] ; [facility] Lovastatin 40 MG Oral Tablet 02/02/2022 Provider: MILES PHILLIPS MD Diagnosis: Last Documented On 2 1:02PM By KYAW MCKEONNA ; [facility] One-A-Day Mens Oral Tablet 02/01/2022 Provider: Diagnosis: Last Documented On 2 11:21AM By KYAW GRAHAM ; [facility] Metoprolol Tartrate 25 MG Oral Tablet 02/01/2022 Pro vider: Diagnosis: Last Documented On 2 11:21AM By KYAW MUÑ[facility]Z [facility] ; [facility] Lisinopril-hydroCHLOROthiazide 20-12.5 MG Oral Tablet 02/01/2022 Provider: Diagnosis: Last Documented On 2 11:21AM By KYAW GRAHAM ; [facility] metFORMIN HCl ER (OSM) 1000 MG Oral Tablet Extended Release 24 Hour 02/01/2022 Provider: Diagnosis: 2 tablets twice daily. Last Documented On 2 11:21AM By KYAW MCKEONPCAITLYN ; [facility] Pioglitazone HCl 45 MG Oral Tablet 02/01/2022 Provid er: Diagnosis: Last Documented On 2 11:21AM By KYAW MCKEONNA ; [facility] Glimepiride 4 MG Oral Tablet 02/01/2022 Provider: Diagnosis: 2 tablets daily. Last Documented On 2 11:21AM By KYAW GRAHAM ; [facility] Jardiance 10 MG Oral Tablet 01/29/2022 Provider: MILES PHILLIPS MD Diagnosis: Last Documented On 2 11:21AM By KYAW GRAHAM ; [facility] Past Medications on file Pregabalin 150 MG Oral Capsule 07/24/2023 - 08/04/2023 Provider: KYAW MUÑOZ APRN-MAXX MOCK-NA Diagnosis: Radiculopathy, l umbar region TAKE ONE CAPSULE BY MOUTH TWICE A DAY Last Documented On 4 4:11PM By KYAW GRAHAM ; [facility] DULoxetine HCl 60 MG Oral Capsule Delayed Release Particles 07/24/2023 - 08/04/2023 Provider: KYAW MUÑOZ APRN-MAXX MOCK-NA Diagnosis: Low back pain, unspecified TAKE ONE CAPSULE BY MOUTH AT BEDTIME Last Documented On 4 4:08PM By KYAW GRAHAM ; [facility] Meloxicam 15 MG Oral Tablet 07/24/2023 - 08/04/2023 Provider: MAXX VALDEZ-NA Diagnosis: TAKE ONE TABLET BY MOUTH DAILY WITH A MEAL Last Documented On 4 4:08PM By KYAW GRAHAM ; [facility] Meloxicam 15 MG Oral Tablet 06/23/2023 - 08/04/2023 Provider: MAXX PRUETT-NA Diagnosis: Low back pain, unspecified TAKE ONE TABLET BY MOUTH DAILY WITH A MEAL Last Documented On 4 3:49PM By KYAW GRAHAM ; [facility] Pregabalin 150 MG Oral Capsule 06/23/2023 - 07/24/2023 Provider: KYAW MUÑOZ APRN-MAXX MOCK-NA Diagnosis: Radiculopathy, l umbar region TAKE ONE CAPSULE BY MOUTH TWICE A DAY Last Documented On 4 11:03AM By KYAW GRAHAM ; [facility] DULoxetine HCl 60 MG Oral Capsule Delayed Release Particles 05/26/2023 - 07/24/2023 Provider: KYAW MUÑOZ APRN-SANTOS MOCK Diagnosis: Low back pain, unspecified TAKE ONE CAPSULE BY MOUTH AT BEDTIME Last Documented On 4 11:03AM By KYAW GRAHAM ; [facility] traMADol HCl 50 MG Oral Tablet 04/16/2023 - 06/25/2023 Provider: SANTOS PRUETT Diagnosis: Radiculopathy, l umbar region One tablet three times a day as needed for severe pain Last Documented On 4 8:34AM By KYAW GRAHAM ; [facility] Meloxicam 15 MG Oral Tablet 04/01/2023 - 06/23/2023 Provider: SANTOS PRUETT Diagnosis: Low back pain, unspecified TAKE ONE TABLET BY MOUTH DAILY WITH A MEAL Last Documented On 4 12:52PM By KYAW GRAHAM ; [facility] traMADol HCl 50 MG Oral Tablet 03/27/2023 - 04/16/2023 Provider: SANTOS PRUETT Diagnosis: Radiculopathy, l umbar region One tablet three times a day as needed for severe pain Last Documented On 4 2:59PM By KYAW GRAHAM ; [facility] Pregabalin 150 MG Oral Capsule 03/07/2023 - 06/23/2023 Provider: SANTOS PRUETT Diagnosis: Radiculopathy, l umbar region 1 CAPSULE TWO TIMES A DAY Last Documented On 4 12:53PM By KYAW GRAHAM ; [facility] Meloxicam 15 MG Oral Tablet 03/07/2023 - 04/01/2023 Provider: SANTOS PRUETT Diagnosis: Low back pain, unspecified TAKE ONE TABLET BY MOUTH DAILY WITH A MEAL Last Documented On 3 9:34AM By KYAW GRAHAM ; [facility] DULoxetine HCl 60 MG Oral Capsule Delayed Release Particles 03/07/2023 - 05/26/2023 Provider: SANTOS PRUETT Diagnosis: Low back pain, unspecified 1 capsule daily at bedtime Last Documented On 4 10:40AM By KYAW GRAHAM ; [facility] Meloxicam 15 MG Oral Tablet 01/10/2023 - 03/07/2023 Provider: SANTOS PRUETT Diagnosis: Low back pain, unspecified TAKE ONE TABLET BY MOUTH DAILY WITH A MEAL Last Documented On 3 2:41PM By KYAW GRAHAM ; [facility] DULoxetine HCl 60 MG Oral Capsule Delayed Release Particles 01/10/2023 - 03/07/2023 Provider: SANTOS PRUETT Diagnosis: Low back pain, unspecified 1 capsule daily at bedtime Last Documented On 3 2:41PM By KYAW GRAHAM ; [facility] DULoxetine HCl 30 MG Oral Capsule Delayed Release Particles 01/10/2023 - 02/20/2023 Provider: SANTOS PRUETT Diagnosis: Low back pain, unspecified take 1 capsule at bedtime fo r 1 week then increase to 60mg dose Last Documented On 3 8:36AM By KYAW GRAHAM ; [facility] Pregabalin 150 MG Oral Capsule 01/10/2023 - 03/07/2023 Provider: SANTOS PRUETT Diagnosis: Radiculopathy, l umbar region 1 CAPSULE TWO TIMES A DAY Last Documented On 3 2:43PM By KYAW GRAHAM ; [facility] Pregabalin 150 MG Oral Capsule 12/10/2022 - 01/10/2023 Provider: SANTOS PRUETT Diagnosis: Radiculopathy, l umbar region 1 CAPSULE TWO TIMES A DAY Last Documented On 3 10:57AM By KYAW GRAHAM ; [facility] Pregabalin 100 MG Oral Capsule 10/29/2022 - 01/10/2023 Provider: SANOTS PRUETT Diagnosis: Radiculopathy, l umbar region TAKE ONE CAPSULE BY MOUTH TWICE A DAY Last Documented On 3 10:34AM [facility] ; [facility] Meloxicam 15 MG Oral Tablet 10/29/2022 - 01/10/2023 Provider: LINDA PRUETTP-BC Diagnosis: Low back pain, unspecified TAKE ONE TABLET BY MOUTH DAILY WITH A MEAL Last Documented On 3 10:56AM By KYAW MCKEONNA ; [facility] Pregabalin 100 MG Oral Capsule 10/23/2022 - 10/23/2022 Provider: KYAW AVELAR SPEECH LANGUAGE PATHOLOGIST PRN-BC Diagnosis: Radiculopathy, l umbar region TAKE ONE CAPSULE BY MOUTH TWICE A DAY Last Documented On 3 11:51PM By KYAW MCKEONNA ; [facility] Pregabalin 100 MG Oral Capsule 10/23/2022 - 10/29/2022 Provider: KYAW AVELAR SPEECH LANGUAGE PATHOLOGIST PRN-BC Diagnosis: Radiculopathy, l umbar region TAKE ONE CAPSULE BY MOUTH TWICE A DAY Last Documented On 3 3:44PM By KYAW [facility]Z [facility] ; [facility] Meloxicam 15 MG Oral Tablet 10/23/2022 - 10/29/2022 Provider: KYAW AVELAR SPEECH LANGUAGE PATHOLOGIST PRN-BC Diagnosis: Low back pain, unspecified TAKE ONE TABLET BY MOUTH DAILY WITH A MEAL Last Documented On 3 3:45PM By KYAW MCKEONAN ; [facility] Meloxicam 15 MG Oral Tablet 08/20/2022 - 10/23/2022 Provider: KYAW AVELAR SPEECH LANGUAGE PATHOLOGIST PRN-BC Diagnosis: Low back pain, unspecified TAKE ONE TABLET BY MOUTH DAILY WITH A MEAL Last Documented On 3 12:38PM By KYAW LILLYNA ; [facility] Pregabalin 100 MG Oral Capsule 07/31/2022 - 10/23/2022 Provider: KYAW MUÑOZ APRN-NISH SPEECH LANGUAGE PATHOLOGIST PRN-BC Diagnosis: Radiculopathy, l umbar region TAKE ONE CAPSULE BY MOUTH TWICE A DAY Last Documented On 3 12:38PM By KYAW LILLY-BC ; [facility] Meloxicam 15 MG Oral Tablet 07/31/2022 - 08/20/2022 Provider: KYAW MUÑOZ ASSISTANT CHIEF OF POLICE-FPA SPEECH LANGUAGE PATHOLOGIST PRN-BC Diagnosis: Low back pain, unspecified TAKE ONE TABLET BY MOUTH DAILY WITH A MEAL Last Documented On 3 9:40AM By KYAW MCKEONP-BC ; [facility] Pregabalin 100 MG Oral Capsule 07/22/2022 - 07/22/2022 Provider: KYAW Corona PRN-FPA, SPEECH LANGUAGE PATHOLOGIST PRN-BC Diagnosis: TAKE ONE CAPSULE BY MOUTH TWICE A DAY Last Documented On 3 2:19PM By KYAW MUÑOZ SPEECH LANGUAGE PATHOLOGIST PRN-BC ; [facility] Pregabalin 100 MG Oral Capsule 07/22/2022 - 07/31/2022 Provider: KYAW Corona PRN-FPA, SPEECH LANGUAGE PATHOLOGIST PRN-BC Diagnosis: TAKE ONE CAPSULE BY MOUTH TWICE A DAY Last Documented On 3 9:18AM By KYAW MUÑOZ [facility]-BC ; [facility] Pregabalin 100 MG Oral Capsule 06/27/2022 - 07/31/2022 Provider: KYAW MUÑOZ ASSISTANT CHIEF OF POLICE-FPA, SPEECH LANGUAGE PATHOLOGIST PRN-BC Diagnosis: Radiculopathy, l umbar region 1 CAPSULE TWO TIMES A DAY Last Documented On 3 8:58AM By Cassandra MACDONALD ; [facility] Meloxicam 15 MG Oral Tablet 06/27/2022 - 07/31/2022 Provider: KYAW MUÑOZ ASSISTANT CHIEF OF POLICE-FPA, SPEECH LANGUAGE PATHOLOGIST PRN-BC Diagnosis: Low back pain, unspecified TAKE ONE TABLET BY MOUTH DAILY WITH A MEAL Last Documented On 3 9:18AM By KYAW MUÑOZ [facility] ; [facility] Calcium + Vitamin D3 600-10 MG-MCG Oral Tablet 0 06/27/2022 - 03/07/2023 Provider: Diagnosis: Last Documented On 3 2:11PM By Cassandra MACDONALD ; [facility] Pregabalin 75 MG Oral Capsule 06/17/2022 - 07/22/2022 Provider: KYAW MUÑOZ ASSISTANT CHIEF OF POLICE-FPA, SPEECH LANGUAGE PATHOLOGIST PRN-BC Diagnosis: Radiculopathy, l umbar region TAKE ONE CAPSULE BY MOUTH TWICE A DAY Last Documented On 3 1:15PM By KYAW MUÑOZ [facility] ; [facility] Meloxicam 15 MG Oral Tablet 06/17/2022 - 06/27/2022 Provider: KYAW MUÑOZ A PRN-FPA, SPEECH LANGUAGE PATHOLOGIST PRN-BC Diagnosis: TAKE ONE TABLET BY MOUTH DAILY WITH A MEAL Last Documented On 3 2:21PM By KYAW MUÑOZ [facility] ; [facility] Pregabalin 75 MG Oral Capsule 06/17/2022 - 06/17/2022 Provider: KYAW MUÑOZ APRN-FPA, SPEECH LANGUAGE PATHOLOGIST PRN-BC Diagnosis: Radiculopathy, l umbar region TAKE ONE CAPSULE BY MOUTH TWICE A DAY Last Documented On 3 12:53PM By KYAW MUÑOZ [facility] ; [facility] Meloxicam 15 MG Oral Tablet 02/25/2022 - 06/27/2022 Provider: KYAW MUÑOZ APRN-FPChloe SPEECH LANGUAGE PATHOLOGIST PRN-BC Diagnosis: Radiculopathy, l umbar region One tablet daily with a meal Last Documented On 3 9:34AM By Cassandra MACDONALD ; [facility] Pregabalin 75 MG Oral Capsule 02/25/2022 - 06/17/2022 Provider: KYAW MUÑOZ APRN-FPChloe SPEECH LANGUAGE PATHOLOGIST PRN-BC Diagnosis: Radiculopathy, l umbar region 1 CAPSULE TWO TIMES A DAY Last Documented On 3 12:07PM By [facility]AW [facility]Z [facility] ; [facility] Pregabalin 75 MG Oral Capsule 02/01/2022 - 02/25/2022 Provider: KYAW MUÑOZ APRN-FPChloe SPEECH LANGUAGE PATHOLOGIST PRN-BC Diagnosis: Radiculopathy, l umbar region 1 capsule at bedtime for 4 d ays then increase to two times daily Last Documented On 2 9:48AM By Cassandra MACDONALD ; [facility] Cyclobenzaprine HCl 10 MG Oral Tablet 02/01/2022 - Provider: Diagnosis: Up to 3 times a day. Last Documented On 3 9:34AM By Cassandra MACDONALD ; [facility] Meloxicam 15 MG Oral Tablet 02/01/2022 - 02/25/2022 Pr ovider: Diagnosis: Last Documented On 2 1:02PM By KYAW MUÑOZ [facility] ; [facility] Citalopram Hydrobromide 40 MG Oral Tablet 02/01/2022 - 03/07/2023 Provider: Diagnosis: Last Documented On 3 2:12PM By Cassandra MACDONALD ; [facility] metFORMIN HCl ER (OSM) 1000 MG Oral Tablet Extended Release 24 Hour 02/01/2022 - 02/01/2022 Provider: Diagnosis: Last Documented On 2 10:28AM By Cassandra MACDONALD ; [facility] Pregabalin 150 MG Oral Capsule 02/01/2022 - 06/27/2022 Provider: KYAW MUÑOZ ASSISTANT CHIEF OF POLICE-A, [facility] Diagnosis: Radiculopathy, l umbar region 1 CAPSULE TWO TIMES A DAY Last Documented On 3 9:34AM By Cassandra MACDONALD ; [facility] Medications Administered Includes: Administered Medications in patient's [...] 100 Last Documented: On 08/04/2023 4:15PM ; [facility] Results Includes: Results from 05/09/2023 through 05/09/2024 No Results Recorded For Specified Dates History of Present Illness History of Present Illness not supported for this document type No History of Present Illness Recorded Social History Description 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 Last Documented On 3 3:46PM ; [facility] Tobacco non-user 02/01/2022 Last Documented On 2 12:05PM ; [facility] Alcohol 02/01/2022 Last Documented On 2 12:05PM ; [facility] Amount of alcohol per day: 0-1 2 Last Documented On 2 12:05PM ; [facility] Difficulty walking 02/01/2022 Last Documented On 2 12:05PM ; [facility] Not using drugs 02/01/2022 Last Documented On 2 12:05PM ; [facility] Smoking Status Unknown Procedures and Surgical History Includes: Procedures from 05/09/2023 through 05/09/2024 Procedures Code Diagnosis Performing Provider Service Location Service Date CLINIC VISIT T1015 Spinal stenosis, lumbar region with neurogenic claudication, Low back pain, unspecified, Radiculopathy, lumbar region, Arthrodesis status KYAW MUÑOZ ASSISTANT CHIEF OF POLICE-FPA, SPEECH LANGUAGE PATHOLOGIST PRN-BC [facility] 08/04/2023 Last Documented On 4 4:15PM ; [facility] Surgical History Last Updated No Pacemaker 02/01/2022 Last Documented On 2 12:05PM ; [facility] Medical History Includes: Medical History in patient's chart Description Last Updated Denies a fear of falling. 08/04/2023 Last Documented On 4 4:15PM ; [facility] Has had no fall in the last 12 months. 1 Last Documented On 2 12:05PM ; [facility] Currently wearing eyeglasses 02/01/2022 Last Documented On 2 12:05PM ; [facility] No Pain Pump 02/01/2022 Last Documented On 2 12:05PM ; [facility] No Spinal cord stimulator 02/01/2022 Last Documented On 2 12:05PM ; [facility] Please list all surgeries: L4/L5 spinal fusion 07/06/2021 02/01/2022 Last Documented On 2 12:05PM ; [facility] Wearing contact lenses 02/01/2022 Last Documented On 2 12:05PM ; [facility] Family History Includes: Family History in patient's chart Description Last Updated Family history of Arthritis 02/01/2022 Last Documented On 2 12:05PM ; [facility] Family history of ischemic heart disease 02/01/2022 Last Documented On 2 12:05PM ; [facility] Family history of stroke/paralysis 02/01 Last Documented On 2 12:05PM ; [facility] Review of Systems Review of Systems not [...] MANAGEMENT FOLLOW UP KYAW MUÑOZ APRN-NISH, MAXX-BC [facility]- 08/04/19 3:30PM 4:13PM Obesity,Orthope dics Postsurgical Arthrodesis Status,Lumbar Radiculopathy,S jumana Stenosis Lumbar with Neurogenic Claudication,Do rsopathy Low Back Pain RX ISSUE/REFILL KYAW MUÑOZ APRN-NISH, SPEECH LANGUAGE PATHOLOGIST PRN-BC 06/25/19 24 03/27/2023 10:47AM 03/27/2023 11:59PM Insurance Includes: Active Insurance Policies Plan Name Member ID Group # Subscriber Relationship Effect lakesha Dates 1 - [facility] [id number] CHRISTY GONZÁLES Self Clinical Notes Includes: Signed Clinical Notes starting from 04/26/2022 * Progress note Date Encounter Last Documented by 08/04/2023 PAIN MANAGEMENT FOLLOW UP Last d ocumented on 08/04/2023; 4:15 PM, KYAW MUÑOZ APRN-NISH, SPEECH LANGUAGE PATHOLOGIST PRN-BC; [facility] Active Problems & Conditions - Anxiety [...] Use: Not using drugs. 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 Allergies - No Known Allergies Family History [...] score ten, and impression and score six; [[id number]] Established outpatient, medically appropriate H&P, moderate level [...] but may be subject to typographical or manager research and development errors. 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 I TOLD HIM WE NO LONGER GO THERE AND WOULD HAVE TO BE IN [place]. PT SAID HE DOES NOT HAVE TRASPORTATION [...] Use: Not using drugs. 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 Allergies - No Known Allergies Family History [...]
--- OUTSIDE RECORDS SUMMARY | 2024-05-09 20:54 | XMS_ITS | Clinical Summary ---
Author Organization [facility] Address [address] [place] [address] Phone Care Team Providers [employer] Driver Name Role Phone MILES PHILLIPS MD Primary Care Provider [phone] Reason for Visit and Chief Complaint RX ISSUE/REFILL Problems Includes: Problems addressed during this encounter and other active Problems All Visits Onset Date Resolved Date Provider Condition S tatus Anxiety Disorder Nos Unknown KYAW Judit WANDA MICROBIOLOGY COORDINATOR-FPA, MOTOR PATROL OPERATOR-BC Active Last Documented On 2 11:56AM ; [facility] 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 Unknown KYAW [place] WANDA MICROBIOLOGY COORDINATOR-FPA , MOTOR PATROL OPERATOR-BC Active Last Documented On 2 11:56AM ; [facility] Essential Hypertension Unknown KYAW [place] KUL P MICROBIOLOGY COORDINATOR-FPA, MOTOR PATROL OPERATOR-BC Active Last Documented On 2 11:56AM ; [facility] Major Depression Unknown KYAW [place] WANDA MICROBIOLOGY COORDINATOR -FPA, MOTOR PATROL OPERATOR-BC Active Last Documented On 2 11:57AM ; [facility] Plan of Treatment No Plan of Treatment Recorded Assessments Includes: Assessments from this encounter No Assessments Recorded Medical Equipment - Implanted Devices Includes: Current Devices No Medical Equipment Recorded Medications Includes: Medications discussed during this encounter and other current Medications Discontinued / Stopped on this date KYAW MUÑOZ MICROBIOLOGY COORDINATOR-FPA, MOTOR PATROL OPERATOR-BC on 04/16/2023 traMADol HCl 50 MG Oral Tablet Provider: KYAW MUÑOZ MICROBIOLOGY COORDINATOR- FPA, MOTOR PATROL OPERATOR-BC Diagnosis: Radiculopathy, l umbar region Last Documented On 4 8:34AM By KYAW GRAHAM ; [facility] Current Medications (continue as prescribed) Meloxicam 15 MG Oral Tablet 08/04/2023 Provider: SANTOS DEE Diagnosis: Low back pain, u nspecified TAKE ONE TABLET BY MOUTH MIL[place]RO LY WITH A MEAL Last Documented On 4 4:11PM By KYAW GRAHAM ; [facility] DULoxetine HCl 60 MG Oral Capsule Delayed Release Particles 08/04/2023 Provider: MAXX PRUETTNA Diagnosis: Low back pain, u nspecified TAKE ONE CAPSULE BY MOUTH AT BEDTIME Last Documented On 4 4:11PM By KYAW GRAHAM ; [facility] Pregabalin 150 MG Oral Capsule 08/04/2023 [...] On 4 4:05PM By KYAW GRAHAM ; [facility] Lovastatin 40 MG Oral Tablet 02/02/2022 Provider: MILES PHILLIPS MD Diagnosis: Last Documented On 2 1:02PM By KYAW GRAHAM ; [facility] One-A-Day Mens Oral Tablet 02/01/2022 Provider: Diagnosis: Last Documented On 2 11:21AM By KYAW GRAHAM ; [facility] Metoprolol Tartrate 25 MG Oral Tablet 02/01/2022 Pro vider: Diagnosis: Last Documented On 2 11:21AM By KYAW GRAHAM ; [facility] Lisinopril-hydroCHLOROthiazide 20-12.5 MG Oral Tablet 02/01/2022 Provider: Diagnosis: Last Documented On 2 11:21AM [facility] ; [facility] metFORMIN HCl ER (OSM) 1000 MG Oral Tablet Extended Release 24 Hour 02/01/2022 Provider: Diagnosis: 2 tablets twice daily. Last Documented On 2 11:21AM By KYAW WANDA [facility] ; [facility] Pioglitazone HCl 45 MG Oral Tablet 02/01/2022 Provid er: Diagnosis: Last Documented On 2 11:21AM By KYAW WANDA [facility] ; [facility] Glimepiride 4 MG Oral Tablet 02/01/2022 Provider: Diagnosis: 2 tablets daily. Last Documented On 2 11:21AM By KYAW MUÑOZ [facility] ; [facility] Jardiance 10 MG Oral Tablet 01/29/2022 Provider: MILES PHILLIPS MD Diagnosis: Last Documented On 2 11:21AM By KYAW WANDA [facility] ; [facility] Medications Administered Includes: Administered Medications from this encounter No Administered Medications Recorded Results Includes: Results discussed during this encounter No Results Recorded For Specified Dates History of Present Illness Includes: History of Present Illness from this encounter No History of Present Illness Recorded Social History Description 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 Last Documented On 4 10:46AM ; [facility] Tobacco non-user 02/01/2022 Last Documented On 4 10:46AM ; [facility] Alcohol 02/01/2022 Last Documented On 4 10:46AM ; [facility] Amount of alcohol per day: 0-1 2 Last Documented On 4 10:46AM ; [facility] Difficulty walking 02/01/2022 Last Documented On 4 10:46AM ; [facility] Not using drugs 02/01/2022 Last Documented On 4 10:46AM ; [facility] Smoking Status Unknown Procedures and Surgical History Surgical History Last Updated No Pacemaker 02/01/2022 Last Documented On 4 10:46AM ; [facility] Medical History Includes: Medical History addressed during this encounter Description Last Updated Has a fear of falling. 08/04/2023 Last Documented On 4 10:46AM ; [facility] Has had no fall in the last 12 months. 1 Last Documented On 4 10:46AM ; [facility] Currently wearing eyeglasses 02/01/2022 Last Documented On 4 10:46AM ; [facility] No Pain Pump 02/01/2022 Last Documented On 4 10:46AM ; [facility] No Spinal cord stimulator 02/01/2022 Last Documented On 4 10:46AM ; [facility] Please list all surgeries: L4/L5 spinal fusion 07/06/2021 02/01/2022 Last Documented On 4 10:46AM ; [facility] Wearing contact lenses 02/01/2022 Last Documented On 4 10:46AM ; [facility] Family History Includes: Family History addressed during this encounter Description Last Updated Family history of Arthritis 02/01/2022 Last Documented On 4 10:46AM ; [facility] Family history of ischemic heart disease 02/01/2022 Last Documented On 4 10:46AM ; [facility] Family history of stroke/paralysis 02/01 Last Documented On 4 10:46AM ; [facility] Review of Systems Includes: Review of [...] Check-Out Time Diagnosis RX ISSUE/REFILL KYAW MUÑOZ MICROBIOLOGY COORDINATOR-FPA, MOTOR PATROL OPERATOR-BC 06/25/2023 10:47AM 11:59PM Insurance Includes: Active Insurance Policies Plan Name Member ID Group # Subscriber Relationship Effect lakesha Dates 1 - [facility] [id number] CHRISTY GONZÁLES Self Clinical Notes Includes: Clinical Notes from this encounter * Progress note Date Encounter Last Documented by 06/25/2023 RX ISSUE/REFILL Last documented on 06/26/2023; 8:34 AM, KYAW MUÑOZ APRN-NISH, MAXX-NA; [facility] Active Problems & Conditions - Anxiety Disorder Nos - Essential Hypertension - Major Depression - Peripheral Neuropathy Sensory Due To Type 2 Diabetes Mellitus Chief Complaint Phone Call - Chief Concern: Reason for call:RX REFILL TRIED TO SCHEDULE PT AND HE SAID IT WOULD HAVE TO BE IN [place]. I TOLD HIM WE NO LONGER GO THERE AND WOULD HAVE TO BE IN [place]. PT SAID HE DOES NOT HAVE TRASPORTATION [...] Not using drugs. 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 Allergies - No Known Allergies Family History Arthritis Stroke/paralysis Ischemic heart disease Plan StartCited - Other PHY ORDER/COMMENT For new [place] patients I am offering them telehealth every [...]
--- OUTSIDE RECORDS SUMMARY | 2024-05-09 20:54 | XMS_ITS | Clinical Summary ---
Author Organization [facility] Address [address] [place] [address] Phone Care Team Providers Care Professional Development Director Name Role Phone MILES PHILLIPS MD Primary Care Provider [phone] Reason for Visit and Chief Complaint The Chief Complaint is: Follow up on increase in pain lumbar spine and down legs Problems Includes: Problems addressed during this encounter and other active Problems All Visits Onset Date Resolved Date Provider Condition S tatus Anxiety Disorder Nos Unknown KYAW [place] WANDA MOTOR HOME ELECTRICAL FOREMAN-FPA, SHAMPOO ASSISTANT-BC Active Last Documented On 2 11:56AM ; [facility] 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 Unknown KYAW [place] WANDA MOTOR HOME ELECTRICAL FOREMAN-FPA , SHAMPOO ASSISTANT-BC Active Last Documented On 2 11:56AM ; [facility] Essential Hypertension Unknown KYAW [place] KUL P MOTOR HOME ELECTRICAL FOREMAN-FPA, SHAMPOO ASSISTANT-BC Active Last Documented On 2 11:56AM ; [facility] Major Depression Unknown KYAW [place] WANDA MOTOR HOME ELECTRICAL FOREMAN -FPA, SHAMPOO ASSISTANT-BC Active Last Documented On 2 11:57AM ; [facility] Plan of Treatment Education and Decision Aids were provided during visit for: Lifestyle education Last Documented On 3 1:08PM ; [facility] Assessments Includes: Assessments from this encounter Findings - [E66.9 - Obesity, unspecified] Obesity - Last Documented On 03/27/2023 1:39PM ; [facility] - [M54.50 - Low back pain, unspecified] Low back pain - Last Documented On 03/27/2023 1:39PM ; [facility] - [Z98.1 - Arthrodesis status] Postsurgical arthrodesis status - Last Documented On 03/27/2023 1:39PM ; [facility] - [M48.062 - Spinal stenosis, lumbar region with neurogenic claudication] Lumbar stenosis with neurogenic claudication - Last Documented On 03/27/2023 1:39PM ; [facility] - [M54.16 - Radiculopathy, lumbar region] Lumbar radiculopathy - Last Documented On 03/27/2023 1:39PM ; [facility] Instructions Includes: Instructions from this encounter Education and Decision Aids were provided during visit for: Lifestyle education Last Documented On 3 1:08PM ; [facility] Medical Equipment - Implanted Devices Includes: Current [...] day as needed for severe pain Pharmacy: [address], [phone] - Last Documented On 4 2:59PM By KYAW GRAHAM ; [facility] Current Medications (continue as prescribed) Meloxicam 15 MG Oral Tablet 08/04/2023 Provider: SANTOS DEE Diagnosis: Low back pain, u nspecified TAKE ONE TABLET BY MOUTH MILAGRO LY WITH A MEAL Last Documented On 4 4:11PM By KYAW GRAHAM ; [facility] DULoxetine HCl 60 MG Oral Capsule Delayed Release Particles 08/04/2023 Provider: SANTOS PRUETT Diagnosis: Low back pain, u nspecified TAKE ONE CAPSULE BY MOUTH AT BEDTIME Last Documented On 4 4:11PM By KYAW GRAHAM ; [facility] Pregabalin 150 MG Oral Capsule 08/04/2023 Provider: SANTOS DEE Diagnosis: Radiculopathy, l umbar region TAKE ONE CAPSULE BY MOUTH TWICE A DAY Last Documented On 4 4:11PM By KYAW GRAHAM ; [facility] traMADol HCl 50 MG Oral Tablet 06/26/2023 Provider: SANTOS DEE Diagnosis: Radiculopathy, l umbar region One tablet three times a day as needed for severe pain Last Documented On 4 4:05PM By KYAW GRAHAM ; [facility] Lovastatin 40 MG Oral Tablet 02/02/2022 Provider: MILES PHILLIPS MD Diagnosis: Last Documented On 2 1:02PM By KYAW GRAHAM ; [facility] One-A-Day Mens Oral Tablet 02/01/2022 Provider: Diagnosis: Last Documented On 2 11:21AM By KYAW GRAHAM ; [facility] Metoprolol Tartrate 25 MG Oral Tablet 02/01/2022 Pro vider: Diagnosis: Last Documented On 2 11:21AM By KYAW GRAHAM ; [facility] Lisinopril-hydroCHLOROthiazide 20-12.5 MG Oral Tablet 02/01/2022 Provider: Diagnosis: Last Documented On 2 11:21AM By KYAW GRAHAM ; [facility] metFORMIN HCl ER (OSM) 1000 MG Oral Tablet Extended Release 24 Hour 02/01/2022 Provider: Diagnosis: 2 tablets twice daily. Last Documented On 2 11:21AM By KYAW GRAHAM ; [facility] Pioglitazone HCl 45 MG Oral Tablet 02/01/2022 Provid er: Diagnosis: Last Documented On 2 11:21AM By KYAW GRAHAM ; [facility] Glimepiride 4 MG Oral Tablet 02/01/2022 Provider: Diagnosis: 2 tablets daily. Last Documented On 2 11:21AM By KYAW GRAHAM ; [facility] Jardiance 10 MG Oral Tablet 01/29/2022 Provider: MILES PHILLIPS MD Diagnosis: Last Documented On 2 11:21AM By KYAW GRAHAM ; [facility] Medications Administered Includes: Administered Medications from this encounter No Administered Medications Recorded Vital Signs Includes: Vital Signs from this encounter Vital Name 03/27/2023 01:10P Temp-Temporal 98 Height (in) 74 Weight (lb) 340 Body Mass Index 43.7 Body Surface Area 2.7 Pain Level 6 Last Documented: On 03/27/2023 1:11PM ; [facility] Results Includes: Results discussed during [...] Social History Description 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 Last Documented On 3 1:07PM ; [facility] Tobacco non-user 02/01/2022 Last Documented On 3 1:07PM ; [facility] Alcohol 02/01/2022 Last Documented On 3 1:07PM ; [facility] Amount of alcohol per day: 0-1 2 Last Documented On 3 1:07PM ; [facility] Difficulty walking 02/01/2022 Last Documented On 3 1:07PM ; [facility] Not using drugs 02/01/2022 Last Documented On 3 1:07PM ; [facility] Smoking Status Unknown Procedures and Surgical History Includes: Procedures from this encounter Procedures Code Diagnosis Performing Provider Service L ocation Service Date plan of care reviewed and agreed to Last Documented On 3 1:08PM ; [facility] plan of care reviewed and agreed to by t he patient Last Documented On 3 1:08PM ; [facility] use of tobacco assessment performed 1000F Last Documented On 3 1:08PM ; [facility] patient screened for future fall risk: documentation of any fall with injury in past year 1100F Last Documented On 3 1:08PM ; [facility] review of medications documented 1160F Last Documented On 3 1:08PM ; [facility] screening for adult depression: impressi on and score Last Documented On 3 1:08PM ; [facility] screening for adult depression: impressi on and score ten Last Documented On 3 1:08PM ; [facility] screening for adult depression: impressi on and score six Last Documented On 3 1:08PM ; [facility] standardized depression screening: posit lakesha for symptoms Last Documented On 3 1:08PM ; [facility] encouragement to exercise Last Documented On 3 1:08PM ; [facility] Reviewed & agreed to staff entries. Last Documented On 3 1:08PM ; [facility] Clinical summary provided to patient Last Documented On 3 1:08PM ; [facility] SOAPP-R: total score 9 Last Documented On 3 1:08PM ; [facility] Surgical History Last Updated No Pacemaker 02/01/2022 Last Documented On 3 1:07PM ; [facility] Medical History Includes: Medical History addressed during this encounter Description Last Updated Has a fear of falling. 08/04/2023 Last Documented On 3 1:07PM ; [facility] Has had no fall in the last 12 months. 1 Last Documented On 3 1:07PM ; [facility] Currently wearing eyeglasses 02/01/2022 Last Documented On 3 1:07PM ; [facility] No Pain Pump 02/01/2022 Last Documented On 3 1:07PM ; [facility] No Spinal cord stimulator 02/01/2022 Last Documented On 3 1:07PM ; [facility] Please list all surgeries: L4/L5 spinal fusion 07/06/2021 02/01/2022 Last Documented On 3 1:07PM ; [facility] Wearing contact lenses 02/01/2022 Last Documented On 3 1:07PM ; [facility] Family History Includes: Family History addressed during this encounter Description Last Updated Family history of Arthritis 02/01/2022 Last Documented On 3 1:07PM ; [facility] Family history of ischemic heart disease 02/01/2022 Last Documented On 3 1:07PM ; [facility] Family history of stroke/paralysis 02/01 Last Documented On 3 1:07PM ; [facility] Review of Systems Includes: Review of Systems [...] Time Check-Out Time Diagnosis TELEHEALTH KYAW MUÑOZ MOTOR HOME ELECTRICAL FOREMAN-FPA, SHAMPOO ASSISTANT-BC [facility] 03/27/20 23 1:06PM 1:37PM Obesity,Orthoped ics Postsurgical Arthrodesis Status,Lumbar Radiculopathy,Sp inal Stenosis Lumbar with Neurogenic Claudication,David sopathy Low Back Pain Insurance Includes: Active Insurance Policies Plan Name Member ID Group # Subscriber Relationship Effect lakesha Dates 1 - [facility] [[email or web address] [id number] CHRISTY GONZÁLES Self Clinical Notes Includes: Clinical Notes from this encounter * Progress note Date Encounter Last Documented by 03/27/2023 TELEHEALTH Last documented on 03/27/2023; 1:39 PM, KYAW MUÑOZ MOTOR HOME ELECTRICAL FOREMAN-FPA, SHAMPOO ASSISTANT-BC; [facility] Active Problems & Conditions - [...] Use: Not using drugs. 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 Allergies - No Known Allergies Family History [...] score ten, and impression and score six; [51914] Established outpatient, medically appropriate H&P, moderate level [...] but may be subject to typographical or geophysicist errors. Verify all diagnoses, medications, dosages, and patient instructions with patient and/or the originator of this document. Telehealth Visit: Audio and video. Patient called from work. Provider located at the [facility] office. Patient consents to bill [...]
--- OUTSIDE RECORDS SUMMARY | 2024-05-09 20:54 | XMS_ITS | Patient Health Summary ---
Author Organization [facility] Address [address] [place] [address] Care Team Providers Care High Heel Builder Name Role Phone Yves Lafleur MD Primary Care Provider Note from [facility],non-owned Affiliates and Associated Physician Practices is amultiple site organization consisting of ambulatory clinics and hospital sitesin [place], [place], [place] and [place]. This disclosure is being madepursuant to the Care Everywhere program and may not contain all information available regarding this patient. Last updated 17.[facility] Allergies * Biofreeze(Rash) -Medium Criticality Medications * [...] DATE/TIME OF EXAM: ??07/16/2022 10:40 AM, LOCATION ??[facility] INDICATION: M54.9: Back pain, unspecified back location, [...] 3VW, DATE/TIME OF EXAM: 0:40 AM, LOCATION [facility] INDICATION: M54.9: Back pain, unspecified back location, [...] AM Erich Huerta MD DIAGNOSTIC IMAGING O [facility] Care Teams High Heel Builder Relationship Specialty Start Date End Date Yves Lafleur MD [address] [place] [address] PCP - General 06/28/22
--- OUTSIDE RECORDS SUMMARY | 2024-05-09 20:54 | XMS_ITS | Clinical Summary ---
Author Organization [facility] Address [address] [place] [address] Phone Care Team Providers Care Refinery Operator Light Ends Recovery Name Role Phone MILES PHILLIPS MD Primary Care Provider [phone] Reason for Visit and Chief Complaint RX ISSUE/REFILL Problems Includes: Problems addressed during this encounter and other active Problems All Visits Onset Date Resolved Date Provider Condition S tatus Anxiety Disorder Nos Unknown KYAW Judit WANDA MUSIC ENGINEER-FPA, SPRAYING MACHINE OPERATOR-BC Active Last Documented On 2 11:56AM ; [facility] 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 Unknown KYAW [place] WANDA MUSIC ENGINEER-FPA , SPRAYING MACHINE OPERATOR-BC Active Last Documented On 2 11:56AM ; [facility] Essential Hypertension Unknown KYAW [place] KUL P MUSIC ENGINEER-FPA, SPRAYING MACHINE OPERATOR-BC Active Last Documented On 2 11:56AM ; [facility] Major Depression Unknown KYAW [place] WANDA MUSIC ENGINEER -FPA, SPRAYING MACHINE OPERATOR-BC Active Last Documented On 2 11:57AM ; [facility] Plan of Treatment No Plan of Treatment Recorded Assessments Includes: Assessments from this encounter No Assessments Recorded Medical Equipment - Implanted Devices Includes: Current Devices No Medical Equipment Recorded Medications Includes: Medications discussed during this encounter and other current Medications Discontinued / Stopped on this date KYAW MUÑOZ MUSIC ENGINEER-FPA, SPRAYING MACHINE OPERATOR-BC on 03/27/2023 traMADol HCl 50 MG Oral Tablet Provider: KYAW MUÑOZ MUSIC ENGINEER- FPA, SPRAYING MACHINE OPERATOR-BC Diagnosis: Radiculopathy, l umbar region Last Documented On 4 2:59PM By KYAW GRAHAM ; [facility] New / Renewed during this visit SANTOS PRUETT on 04/16/2023 traMADol HCl 50 MG Oral Tablet Provider: SANTOS DEE 14 day supply: 42 tablet, 0 refills Diagnosis: Radiculopathy, lumbar region One tablet three times a day as needed for severe pain Pharmacy: [address], [id number] - Last Documented On 4 8:34AM By KYAW GRAHAM ; [facility] Current Medications (continue as prescribed) Meloxicam 15 MG Oral Tablet 08/04/2023 Provider: SANTOS DEE Diagnosis: Low back pain, u nspecified TAKE ONE TABLET BY MOUTH MILAGRO LY WITH A MEAL Last Documented On 4 4:11PM By KYAW GRAHAM ; [facility] DULoxetine HCl 60 MG Oral Capsule Delayed Release Particles 08/04/2023 Provider: SANTOS PRUETT Diagnosis: Low back pain, u nspecified TAKE ONE CAPSULE BY MOUTH AT BEDTIME Last Documented On 4 4:11PM By KYAW GRAHAM ; [facility] Pregabalin 150 MG Oral Capsule 08/04/2023 Provider: SANTOS DEE Diagnosis: Radiculopathy, l umbar region TAKE ONE CAPSULE BY MOUTH TWICE A DAY Last Documented On 4 4:11PM By KYAW GRAHAM ; [facility] traMADol HCl 50 MG Oral Tablet 06/26/2023 Provider: SANTOS DEE Diagnosis: Radiculopathy, l umbar region One tablet three times a day as needed for severe pain Last Documented On 4 4:05PM By KYAW GRAHAM ; [facility] Lovastatin 40 MG Oral Tablet 02/02/2022 Provider: MILES PHILLIPS MD Diagnosis: Last Documented On 2 1:02PM By KYAW MUÑOZ [facility] ; [facility] One-A-Day Mens Oral Tablet 02/01/2022 Provider: Diagnosis: Last Documented On 2 11:21AM By KYAW MUÑOZ [facility] ; [facility] Metoprolol Tartrate 25 MG Oral Tablet 02/01/2022 Pro vider: Diagnosis: Last Documented On 2 11:21AM By KYAW MUÑOZ [facility] ; [facility] Lisinopril-hydroCHLOROthiazide 20-12.5 MG Oral Tablet 02/01/2022 Provider: Diagnosis: Last Documented On 2 11:21AM By KYAWMARSHA MUÑOZ [facility] ; [facility] metFORMIN HCl ER (OSM) 1000 MG Oral Tablet Extended Release 24 Hour 02/01/2022 Provider: Diagnosis: 2 tablets twice daily. Last Documented On 2 11:21AM By KYAW [facility] ; [facility] Pioglitazone HCl 45 MG Oral Tablet 02/01/2022 Provid er: Diagnosis: Last Documented On 2 11:21AM By KYAW MUÑOZ [facility] ; [facility] Glimepiride 4 MG Oral Tablet 02/01/2022 Provider: Diagnosis: 2 tablets daily. Last Documented On 2 11:21AM By [facility]AW [facility] ; [facility] Jardiance 10 MG Oral Tablet 01/29/2022 Provider: MILES PHILLIPS MD Diagnosis: Last Documented On 2 11:21AM By KYAW MUÑOZ [facility] ; [facility] Medications Administered Includes: Administered Medications from this encounter No Administered Medications Recorded Results Includes: Results discussed during this encounter No Results Recorded For Specified Dates History of Present Illness Includes: History of Present Illness from this encounter No History of Present Illness Recorded Social History Description 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 Last Documented On 4 2:18PM ; [facility] Tobacco non-user 02/01/2022 Last Documented On 4 2:18PM ; [facility] Alcohol 02/01/2022 Last Documented On 4 2:18PM ; [facility] Amount of alcohol per day: 0-1 2 Last Documented On 4 2:18PM ; [facility] Difficulty walking 02/01/2022 Last Documented On 4 2:18PM ; [facility] Not using drugs 02/01/2022 Last Documented On 4 2:18PM ; [facility] Smoking Status Unknown Procedures and Surgical History Surgical History Last Updated No Pacemaker 02/01/2022 Last Documented On 4 2:18PM ; [facility] Medical History Includes: Medical History addressed during this encounter Description Last Updated Has a fear of falling. 08/04/2023 Last Documented On 4 2:18PM ; [facility] Has had no fall in the last 12 months. 1 Last Documented On 4 2:18PM ; [facility] Currently wearing eyeglasses 02/01/2022 Last Documented On 4 2:18PM ; [facility] No Pain Pump 02/01/2022 Last Documented On 4 2:18PM ; [facility] No Spinal cord stimulator 02/01/2022 Last Documented On 4 2:18PM ; [facility] Please list all surgeries: L4/L5 spinal fusion 07/06/2021 02/01/2022 Last Documented On 4 2:18PM ; [facility] Wearing contact lenses 02/01/2022 Last Documented On 4 2:18PM ; [facility] Family History Includes: Family History addressed during this encounter Description Last Updated Family history of Arthritis 02/01/2022 Last Documented On 4 2:18PM ; [facility] Family history of ischemic heart disease 02/01/2022 Last Documented On 4 2:18PM ; [facility] Family history of stroke/paralysis 02/01 Last Documented On 4 2:18PM ; [facility] Review of Systems Includes: Review of Systems [...] Time Diagnosis RX ISSUE/REFILL KYAW G WANDA MUSIC ENGINEER-FPA, SPRAYING MACHINE OPERATOR-BC 04/16/2023 2:18PM 11:59PM Insurance Includes: Active Insurance Policies Plan Name Member ID Group # Subscriber Relationship Effect lakesha Dates 1 - [facility] [id number] CHRISTY GONZÁLES Self Clinical Notes Includes: Clinical Notes from this encounter * Progress note Date Encounter Last Documented by 04/16/2023 RX ISSUE/REFILL Last documented on 04/16/2023; 2:59 PM, KYAW MUÑOZ MUSIC ENGINEER-FPA, SPRAYING MACHINE OPERATOR-BC; [facility] Active Problems & Conditions [...] ~ pt phone # for Return call: [phone] ~Last Drug Screen:NONE ~Date/Initials: 04/16/23 CB. Current [...] Use: Not using drugs. 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 Allergies - No Known Allergies Family History Arthritis Stroke/paralysis Ischemic heart disease Plan StartCited - Radiculopathy, lumbar region traMADol HCl 50 MG tablet One tablet three times a day as needed for severe pain, 14 days, 0 refills EndCited Care Team - MILES PHILLIPS MD - Primary Care Health Reminders - Assess Tobacco Use satisfied 04/16/2023.
--- OUTSIDE RECORDS SUMMARY | 2024-05-09 20:54 | XMS_ITS ---
Care Plan - [facility] Created on: May 09, 2024 CHRISTY GONZÁLES : 1980 Sex: Male Author Organization [facility] Address [address] [place] [address] Phone Care Team Providers Care Taping Machine Operator Name Role Phone MILES PHILLIPS MD Primary Care Provider [phone]
--- OUTSIDE RECORDS SUMMARY | 2024-05-09 20:54 | XMS_ITS | Clinical Summary ---
Author Organization [facility] Address [address] [place] [address]. 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
--- OUTSIDE RECORDS SUMMARY | 2024-05-09 20:54 | XMS_ITS | Clinical Summary ---
Author Organization [facility] Address [address] [place] [address] Phone Care Team Providers Care Customer Logistics Manager Name Role Phone ALAN BERGER, MILES Primary Care Provider [phone] Reason for Visit and Chief Complaint The Chief Complaint is: Follow up on medication refills Problems Includes: Problems addressed during this encounter and other active Problems All Visits Onset Date Resolved Date Provider Condition S tatus Anxiety Disorder Nos Unknown KYAW Spain WANDA CONTAINER WASHER MACHINE-FPA, DATA ENTRY SPECIALIST-BC Active Last Documented On 2 11:56AM ; [facility] 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 Unknown KYAW G WANDA CONTAINER WASHER MACHINE-FPA , DATA ENTRY SPECIALIST-BC Active Last Documented On 2 11:56AM ; [facility] Essential Hypertension Unknown KYAW Spain KUL P CONTAINER WASHER MACHINE-FPA, DATA ENTRY SPECIALIST-BC Active Last Documented On 2 11:56AM ; [facility] Major Depression Unknown KYAW Spain WANDA CONTAINER WASHER MACHINE -FPA, DATA ENTRY SPECIALIST-BC Active Last Documented On 2 11:57AM ; [facility] Plan of Treatment Pending Tests Order Diagnosis Results Due Ordering P rovider Pain Management CPT MILD Procedure Spinal steno sis, lumbar region with neurogenic claudication 09/03/23 KYAW G WANDA CONTAINER WASHER MACHINE-FPA, DATA ENTRY SPECIALIST-BC Last Documented On 4 2:50PM ; [facility] Education and Decision Aids were provided during visit for: Lifestyle education Last Documented On 4 3:30PM ; [facility] Pill Count: Tramadol ~ Last Documented On 4 3:36PM ; [facility] Pill Count: Patient did not bring pain medication to appointment for pill count, per policy. Advised in order to continue to safely prescribe opioids, medication must be brought to each appointment Last Documented On 4 3:56PM ; [facility] Assessments Includes: Assessments from this encounter Findings - [E66.9 - Obesity, unspecified] Obesity - Last Documented On 08/04/2023 4:15PM ; [facility] - [M54.50 - Low back pain, unspecified] Low back pain - Last Documented On 08/04/2023 4:15PM ; [facility] - [Z98.1 - Arthrodesis status] Postsurgical arthrodesis status - Last Documented On 08/04/2023 4:15PM ; [facility] - [M48.062 - Spinal stenosis, lumbar region with neurogenic claudication] Lumbar stenosis with neurogenic claudication - Last Documented On 08/04/2023 4:15PM ; [facility] - [M54.16 - Radiculopathy, lumbar region] Lumbar radiculopathy - Last Documented On 08/04/2023 4:15PM ; [facility] Instructions Includes: Instructions from this encounter Education and Decision Aids were provided during visit for: Lifestyle education Last Documented On 4 3:30PM ; [facility] Pill Count: Tramadol ~ Last Documented On 4 3:36PM ; [facility] Pill Count: Patient did not bring pain medication to appointment for pill count, per policy. Advised in order to continue to safely prescribe opioids, medication must be brought to each appointment Last Documented On 4 3:56PM ; [facility] Medical Equipment - Implanted Devices Includes: Current Devices No Medical Equipment Recorded Medications Includes: Medications discussed during this encounter and other current Medications Discontinued / Stopped on this date SANTOS PRUETT on 07/24/2023 Pregabalin 150 MG Oral Capsule Provider: SANTOS DEE Diagnosis: Radiculopathy, l umbar region Last Documented On 4 4:11PM By KYAW GRAHAM ; [facility] Meloxicam 15 MG Oral Tablet Provider: SANTOS DEE Diagnosis: Low back pain, u nspecified Last Documented On 4 3:49PM By KYAW GRAHAM ; [facility] New / Renewed during this visit SANTOS PRUETT on 08/04/2023 Meloxicam 15 MG Oral Tablet Provider: SANTOS DEE 90 day supply: 90 tablet, 0 refills Diagnosis: Low back pain, unspecified TAKE ONE TABLET BY MOUTH MILAGRO LY WITH A MEAL Pharmacy: [facility] [address], [phone] - Last Documented On 4 4:11PM By KYAW GRAHAM ; [facility] DULoxetine HCl 60 MG Oral Capsule Delayed Release Particles Provider: SANTOS PRUETT 90 day supply: 90 capsule, 0 refills Diagnosis: Low back pain, unspecified TAKE ONE CAPSULE BY MOUTH AT BEDTIME Pharmacy: [facility] [address], [phone] - Last Documented On 4 4:11PM By KYAW GRAHAM ; [facility] Pregabalin 150 MG Oral Capsule Provider: SANTOS DEE 90 day supply: 180 capsule, 0 refills Diagnosis : Radiculopathy, lumbar region TAKE ONE CAPSULE BY MOUTH TWICE A DAY Pharmacy: [facility] [address], [phone] - Last Documented On 4 4:11PM By KYAW GRAHAM ; [facility] Current Medications (continue as prescribed) traMADol HCl 50 MG Oral Tablet 06/26/2023 Provider: SANTOS DEE Diagnosis: Radiculopathy, l umbar region One tablet three times a day as needed for severe pain Last Documented On 4 4:05PM By KYAW GRAHAM ; [facility] Lovastatin 40 MG Oral Tablet 02/02/2022 Provider: MILES PHILLIPS MD Diagnosis: Last Documented On 2 1:02PM By KYAW GRAHAM ; [facility] One-A-Day Mens Oral Tablet 02/01/2022 Provider: Diagnosis: Last Documented On 2 11:21AM By KYAW GRAHAM ; [facility] Metoprolol Tartrate 25 MG Oral Tablet 02/01/2022 Pro vider: Diagnosis: Last Documented On 2 11:21AM By KYAW LILLYNA ; [facility] Lisinopril-hydroCHLOROthiazide 20-12.5 MG Oral Tablet 02/01/2022 Provider: Diagnosis: Last Documented On 2 11:21AM By KYAW MCKEONPCAITLYN ; [facility] metFORMIN HCl ER (OSM) 1000 MG Oral Tablet Extended Release 24 Hour 02/01/2022 Provider: Diagnosis: 2 tablets twice daily. Last Documented On 2 11:21AM By KYAW GRAHAM ; [facility] Pioglitazone HCl 45 MG Oral Tablet 02/01/2022 Provid er: Diagnosis: Last Documented On 2 11:21AM By KYAW MUÑOZ DATA ENTRY SPECIALISTMUSA ; [facility] Glimepiride 4 MG Oral Tablet 02/01/2022 Provider: Diagnosis: 2 tablets daily. 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 Last Documented On 4 3:30PM ; [facility] Tobacco non-user 02/01/2022 Last Documented On 4 3:30PM ; [facility] Alcohol 02/01/2022 Last Documented On 4 3:30PM ; [facility] Amount of alcohol per day: 0-1 2 Last Documented On 4 3:30PM ; [facility] Difficulty walking 02/01/2022 Last Documented On 4 3:30PM ; [facility] Not using drugs 02/01/2022 Last Documented On 4 3:30PM ; [facility] Smoking Status Unknown Procedures and Surgical History Includes: Procedures from this encounter Procedures Code Diagnosis Performing Provider Service Location Service Date CLINIC VISIT T1015 Spinal stenosis, lumbar region with neurogenic claudication, Low back pain, unspecified, Radiculopathy, lumbar region, Arthrodesis status KYAW MUÑOZ CONTAINER WASHER MACHINE-FPA, DATA ENTRY SPECIALIST-BC [facility] 08/04/2023 Last Documented On 4 4:15PM ; [facility] plan of care reviewed and agreed to Last Documented On 4 3:30PM ; [facility] plan of care reviewed and agreed to by veronica mcginnis patient Last Documented On 4 3:30PM ; [facility] use of tobacco assessment performed 1000F Last Documented On 4 3:30PM ; [facility] patient screened for future fall risk: documentation of any fall with injury in past year 1100F Last Documented On 4 3:30PM ; [facility] review of medications documented 1160F Last Documented On 4 3:30PM ; [facility] screening for adult depression: impressi on and score twelve Last Documented On 4 3:36PM ; [facility] screening for adult depression: impressi on and score ten Last Documented On 4 3:30PM ; [facility] screening for adult depression: impressi on and score six Last Documented On 4 3:30PM ; [facility] standardized depression screening: posit lakesha for symptoms Last Documented On 4 3:30PM ; [facility] encouragement to exercise Last Documented On 4 3:30PM ; [facility] Reviewed & agreed to staff entries. Last Documented On 4 3:30PM ; [facility] Clinical summary provided to patient Last Documented On 4 3:30PM ; [facility] SOAPP-R: total score 7 Last Documented On 4 3:52PM ; [facility] Surgical History Last Updated No Pacemaker 02/01/2022 Last Documented On 4 3:30PM ; [facility] Medical History Includes: Medical History addressed during this encounter Description Last Updated Denies a fear of falling. 08/04/2023 Last Documented On 4 4:15PM ; [facility] Has had no fall in the last 12 months. 1 Last Documented On 4 3:30PM ; [facility] Currently wearing eyeglasses 02/01/2022 Last Documented On 4 3:30PM ; [facility] No Pain Pump 02/01/2022 Last Documented On 4 3:30PM ; [facility] No Spinal cord stimulator 02/01/2022 Last Documented On 4 3:30PM ; [facility] Please list all surgeries: L4/L5 spinal fusion 07/06/2021 02/01/2022 Last Documented On 4 3:30PM ; [facility] Wearing contact lenses 02/01/2022 Last Documented On 4 3:30PM ; [facility] Family History Includes: Family History addressed during this encounter Description Last Updated Family history of Arthritis 02/01/2022 Last Documented On 4 3:30PM ; [facility] Family history of ischemic heart disease 02/01/2022 Last Documented On 4 3:30PM ; [facility] Family history of stroke/paralysis 02/01 Last Documented On 4 3:30PM ; [facility] Review of Systems Includes: Review of [...] PAIN MANAGEMENT FOLLOW UP KYAW MUÑOZ APRN-NISH, DATA ENTRY SPECIALIST-BC [facility] 08/04/19 24 3:30PM 4:13PM Obesity,Orthope dics Postsurgical Arthrodesis Status,Lumbar Radiculopathy,S jumana Stenosis Lumbar with Neurogenic Claudication,Do rsopathy Low Back Pain Insurance Includes: Active Insurance Policies Plan Name Member ID Group # Subscriber Relationship Effect lakesha Dates 1 - [facility] [id number] CHRISTY GONZÁLES Self Clinical Notes Includes: Clinical Notes from this encounter * Progress note Date Encounter Last Documented by 08/04/2023 PAIN MANAGEMENT FOLLOW UP Last d ocumented on 08/04/2023; 4:15 PM, KYAW MUÑOZ APRN-NISH, DATA ENTRY SPECIALIST-BC; [facility] Active Problems & Conditions - Anxiety [...] Use: Not using drugs. 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 Allergies - No Known Allergies Family [...] score ten, and impression and score six; [83004] Established outpatient, medically appropriate H&P, moderate level [...] but may be subject to typographical or java security engineer errors. Verify all diagnoses, medications, dosages, and [...]
[2024-05-09 21:01] LABS: Strep Group A RT-PCR NOT DETECTED (Negative)
[2024-05-09 21:13] LABS: Influenza A QL RT-PCR Positive (Negative); Influenza B QL RT-PCR Negative (Negative); SARS-CoV-2 RNA PCR Negative (Negative)
[2024-05-09 21:14] LABS: RSV RNA, RT-PCR Negative (Negative)
[2024-05-09] MEDS: ONDANSETRON HCL ODT 4 MG TABLET PO (21:29)
== END 2024-05-09 21:58 | disposition home or self-care (01) ==
PROVIDERS: Emergency Provider Emergency Medicine; PCP Family Medicine
DX: J10.1 Influenza due to other identified influenza virus with other respiratory manifestations (principal); E11.9 Type 2 diabetes mellitus without complications; I10 Essential (primary) hypertension; Z20.822 Contact with and (suspected) exposure to COVID-19
CPT/HCPCS: 87637; 87651; 99283; A9270

== ENCOUNTER 2024-05-20 11:09 | Outpatient (RCR) | payer OTHER, SELFPAY ==
--- NOTE | 2024-05-20 11:53 | OPREHPOC ---
Outpatient Therapy Plan of Care This is a Multidisciplinary Plan of Care that may contain components documented by all disciplines (PT, OT, and ST.) PT Problem 1 PT Problem #1 Knowledge Deficit PT Goal 1 Goal / Goal Update 1. independent and compliant with HEP Target Visit 6 PT Problem 2 PT Problem #2 Pain PT Goal 1 Goal / Goal Update 1. patient to report no pain in the lower back in the last week Target Visit 12 PT Problem 3 PT Problem #3 Impaired Strength PT Goal 1 Goal / Goal Update 1. improve lower core strength to 4/5 2. bridge to neutral and hold 30 seconds 3. improve bilateral hip strength to 5/5 Target Visit 12 PT Problem 4 PT Problem #4 Impaired Range of Motion PT Goal 1 Goal / Goal Update 1. 40 degrees active L lumbar side bending with fluid motion of the entire spine 2. 20 degrees active lumbar extension Target Visit 12 PT Problem 5 PT Problem #5 Impaired Functional Mobility PT Goal 1 Goal / Goal Update 1. oswestry to display 0% functional deficits 2. patient to ambulate 15 minutes on the treadmill at a steady speed of 2.0 mph or greater without pain 3. safely squat and lift 40lbs from floor to waist without pain Target Visit 12
--- NOTE | 2024-05-20 11:53 | PTOPEVAL1 ---
Assessment and note entered by JT File, PT Evaluation Information Assessment Status Evaluation Diagnosis MILD procedure ICD-10 Condition Codes (PT) Pain in low back M54.50,Aftercare following joint replacement surgery Z47.1 Subjective Information patient is 4 weeks post op tomorrow from a MILD procedure. he reports he is restricted to 10lbs lifting until we are able to safely progress during therapy. he is not working right now. he reports he has no pain since surgery. he reports he has no radicular symptoms. he reports he is weak from being in bed for 3 weeks. he reports he was ill for a week after surgery, and unable to start therapy until now. he reports he would like to get back to working, but has not been able to work for over a year. 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 Reported Pain Level Pain Score 0: Self Report Assessment PT Clinical Summary mr. spring is a 43 yo man who presents to skilled PT services for rehab following MILD procedure. he presents today with weakness of the core and hips, decreased lumbar rom, and decreased functional activity performance. continued skilled PT is indicated to improve his objective/ functional deficits and return to his prior level functional activity performance/quality of life. Plan of Care Interventions Electrical Stimulation,Gait Training,Hot Pack/Cold Pack,Manual Therapy,Neuro Re-education,Patient/ Caregiver Education,Therapeutic Activities, Therapeutic Exercise PT Services Indicated Yes Treatment Frequency and 3x weekly for 12 visits Duration These treatments will address the objective and functional deficits as defined above. The patient will be advanced safely and appropriately in order for the patient to progress towards his/her prior level of function. Additional exercises will be introduced and as well as a comprehensive home exercise program upon discharge, if needed, ?to ensure carryover of functional gains achieved in the clinic. This treatment plan has been reviewed and agreement upon by the patient.
--- NOTE | 2024-05-26 11:27 | PCPTNOTE ---
No call, no show.
--- NOTE | 2024-06-11 14:37 | PCPTNOTE ---
Patient called & cancelled scheduled appointment this date due to not feeling well due to medication changes.
--- NOTE | 2024-06-21 11:17 | PCPTNOTE ---
Pt. called stating that he had to cancel PT today. He will return later this week.
--- NOTE | 2024-06-25 16:51 | PCPTNOTE ---
Cancelled session. Reports he is not going to make it in.
--- NOTE | 2024-07-02 16:55 | OPREHPOC ---
Outpatient Therapy Plan of Care This is a Multidisciplinary Plan of Care that may contain components documented by all disciplines (PT, OT, and ST.) PT Problem 1 PT Problem #1 Knowledge Deficit PT Goal 1 Goal / Goal Update 1. independent and compliant with HEP Target Visit 6 Progress Met PT Problem 2 PT Problem #2 Pain PT Goal 1 Goal / Goal Update 1. patient to report no pain in the lower back in the last week Target Visit 12 Progress Met PT Problem 3 PT Problem #3 Impaired Strength PT Goal 1 Goal / Goal Update 1. improve lower core strength to 4/5 -met 2. bridge to neutral and hold 30 seconds -met 3. improve bilateral hip strength to 5/5 -not met Target Visit 12 Progress Partially Met PT Problem 4 PT Problem #4 Impaired Range of Motion PT Goal 1 Goal / Goal Update 1. 40 degrees active L lumbar side bending with fluid motion of the entire spine 2. 20 degrees active lumbar extension Target Visit 12 Progress Met PT Problem 5 PT Problem #5 Impaired Functional Mobility PT Goal 1 Goal / Goal Update 1. oswestry to display 0% functional deficits -not met 2. patient to ambulate 15 minutes on the treadmill at a steady speed of 2.0 mph or greater without pain -met 3. safely squat and lift 40lbs from floor to waist without pain -not met Target Visit 12 Progress Partially Met
--- NOTE | 2024-07-02 16:55 | PTOPDC ---
Assessment and note entered by Maribel Dejesus, PT Evaluation Information Assessment Status Discharge Diagnosis MILD procedure ICD-10 Condition Codes (PT) Pain in low back M54.50,Aftercare following joint replacement surgery Z47.1 Subjective Information David denies pain and reports he feels a lot stronger since starting therapy and he also has more ROM. He still feels like his endurance is lacking but he's been independent with his HEP and feels like he can manage it and make more progress on his own. Reported Pain Level Pain Score 0: Self Report Assessment PT Clinical Summary Mr. Shannon has attended 11 total skilled physical therapy visits for core and lower extremity strengthening after MILD procedure. Since beginning therapy his lumbar ROM, lower extremity strength and core strength have improved and he no longer has low back pain. He still demonstrates slight deficits in hip flexion strength and demonstrates reduced endurance, however he has been independent with his HEP and feels like he can continue improving these deficits on his own. He has met or partially met all therapeutic goals set for him and therefore skilled PT intervention is no longer indicated. Plan of Care PT Services Indicated No
== END 2024-07-02 17:03 | disposition home or self-care (01) ==
LOC: CHSPT 11:09
PROVIDERS: Visit Provider Anesthesiology Pain Medicine
DX: M54.50 Low back pain, unspecified (principal); Z47.1 Aftercare following joint replacement surgery
CPT/HCPCS: 97110; 97112; 97150; 97161; 97530

== ENCOUNTER 2024-07-15 16:04 | Emergency (ER) | payer OTHER, SELFPAY ==
[2024-07-15] VITALS (37 sets, daily range): BP systolic 89–135; BP diastolic 65–88; PULSE 90–142; RESP 9–20; TEMP 37.1; O2SAT 91–100
--- NOTE | ~2024-07-15 | XR_ITS ---
XR chest 1V portable Ordering provider: Lefty Jaramillo MD History: 43 years Male with . nausea vomiting . Comparison: December 28, 2020 FINDINGS: MEDIASTINUM: The cardiac silhouette is not enlarged. LUNGS: No infiltrates, effusions or pneumothorax. OTHER: No free air under the diaphragm. IMPRESSION: No acute cardiopulmonary pathology. Reviewed, dictated and finalized at location A.
--- OUTSIDE RECORDS SUMMARY | 2024-07-15 16:12 | XMS_ITS | Clinical Summary ---
Author Organization [facility] Address [address] [place] [address] Care Team Providers Care Sheet Pile Driver Operator Name Role Phone Yvse Lafleur MD Primary Care Provider Source Comments [facility],non-owned Affiliates and Associated Physician Practices is amultiple site organization consisting of ambulatory clinics and hospital sitesin [place], [place], [place] and [place]. This disclosure is being madepursuant to the Care Everywhere program and may not contain all information available regarding this patient. Last updated 17.[facility] Allergies Active Allergy Reactions Criticality Noted Date [...] VACCINE (1 - 2023-2 5 season) 2023 DEPRESSION SCREENING 04/07/2024 INFLUENZA VACCINE (Season Ended) 2024 ZOSTER VACCINE (1 of 2) 2032 HIB VACCINE Aged Out No longer eligi ble based on patient's age to complete this topic HPV VACCINE Aged Out No longer eligi ble based on patient's age to complete this topic MENINGOCOCCAL (Group B) VACC INE SHARED DECISION-MAKING Aged Out No longer eligibl e based on patient's age to complete this topic MENINGOCOCCAL GROUPS A/C/Y/W VACCINE Aged Out No longer eligible b ased on patient's age to complete this topic PNEUMOCOCCAL VACCINE Aged Out No long er eligible based on patient's age to complete this topic Care Teams Sheet Pile Driver Operator Relationship Specialty Start Date End Date Yves Lafleur MD [address] [place] [address] PCP - General 06/28/22
--- OUTSIDE RECORDS SUMMARY | 2024-07-15 16:12 | XMS_ITS | Clinical Summary ---
Author Organization [facility] Address [address] [place] [address] Phone Care Team Providers Care Sports Complex Attendant Name Role Phone MILES PHILLIPS MD Primary Care Provider [phone] Reason for Visit and Chief Complaint The Chief Complaint is: 2 month follow up Problems Includes: Problems addressed during this encounter and other active Problems All Visits Onset Date Resolved Date Provider Condition S tatus Anxiety Disorder Nos Unknown KYAW [place] WANDA [employer]SMISSION SPECIALIST-FPA, G[employer] MATE-BC Active Last Documented On 2 11:56AM ; [facility] 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 Unknown KYAW G WANDA TRANSMISSION SPECIALIST-FPA , G[employer] MATE-BC Active Last Documented On 2 11:56AM ; [facility] Essential Hypertension Unknown KYAW [place] KUL P TRANSMISSION SPECIALIST-FPA, G[employer] MATE-BC Active Last Documented On 2 11:56AM ; [facility] Major Depression Unknown KYAW G WANDA TRANSMISSION SPECIALIST -FPA, [employer] MATE-BC Active Last Documented On 2 11:57AM ; [facility] Plan of Treatment Education and Decision Aids were provided during visit for: Lifestyle education Last Documented On 3 2:22PM ; [facility] Assessments Includes: Assessments from this encounter Findings - [Z01.818 - Encounter for other preprocedural examination] Visit for: preoperative exam - Last Documented On 03/10/2023 11:51AM ; [facility] - [E66.9 - Obesity, unspecified] Obesity - Last Documented On 03/10/2023 11:51AM ; [facility] - [M54.50 - Low back pain, unspecified] Low back pain - Last Documented On 03/10/2023 11:51AM ; [facility] - [Z98.1 - Arthrodesis status] Postsurgical arthrodesis status - Last Documented On 03/10/2023 11:51AM ; [facility] - [M48.062 - Spinal stenosis, lumbar region with neurogenic claudication] Lumbar stenosis with neurogenic claudication - Last Documented On 03/10/2023 11:51AM ; [facility] - [M54.16 - Radiculopathy, lumbar region] Lumbar radiculopathy - Last Documented On 03/10/2023 11:51AM ; [facility] Instructions Includes: Instructions from this encounter Education and Decision Aids were provided during visit for: Lifestyle education Last Documented On 3 2:22PM ; [facility] Medical Equipment - Implanted Devices Includes: Current Devices No Medical Equipment Recorded Medications Includes: Medications discussed during this encounter and other current Medications Discontinued / Stopped on this date SANTOS PRUETT on 01/10/2023 Pregabalin 150 MG Oral Capsule Provider: SANTOS DEE Diagnosis: Radiculopathy, l umbar region Last Documented On 3 2:43PM By KYAW GRAHAM ; [facility] Calcium + Vitamin D3 600-10 MG-MCG Oral Tablet Provider: Diagnosis: Last Documented On 3 2:11PM By Cassandra MACDONALD ; [facility] Citalopram Hydrobromide 40 MG Oral Tablet Provider: Diagnosis: Last Documented On 3 2:12PM By Cassandra MACDONALD ; [facility] New / Renewed during this visit SANTOS PRUETT on 03/07/2023 Pregabalin 150 MG Oral Capsule Provider: SANTOS DEE 30 day supply: 60 capsule, 2 refills Diagnosis: Radiculopathy, lumbar region 1 CAPSULE TWO TIMES A DAY Pharmacy: [facility] [address], [phone] - Last Documented On 4 12:53PM By KYAW GRAHAM ; [facility] Meloxicam 15 MG Oral Tablet Provider: SANTOS DEE 30 day supply: 30 tablet, 2 refills Diagnosis: Low back pain, unspecified TAKE ONE TABLET BY MOUTH MILAGRO LY WITH A MEAL Pharmacy: [facility] [address], [phone] - Last Documented On 3 9:34AM By KYAW GRAHAM ; [facility] DULoxetine HCl 60 MG Oral Capsule Delayed Release Particles Provider: SANTOS PRUETT 30 day supply: 30 capsule, 2 refills Diagnosis: Low back pain, unspecified 1 capsule daily at bedtime Pharmacy: [facility] [address], [phone] - Last Documented On 4 10:40AM By KYAW GRAHAM ; [facility] Current Medications (continue as prescribed) Meloxicam 15 MG Oral Tablet 08/04/2023 Provider: SANTOS DEE Diagnosis: Low back pain, u nspecified TAKE ONE TABLET BY MOUTH MILAGRO GONSALES WITH A MEAL Last Documented On 4 4:11PM By KYAW GRAHAM ; [facility] DULoxetine HCl 60 MG Oral Capsule Delayed Release Particles 08/04/2023 Provider: SANTOS PRUETT Diagnosis: Low back pain, u nspecified TAKE ONE CAPSULE BY MOUTH AT BEDTIME Last Documented On 4 4:11PM By KYAW GRAHAM ; [facility] Pregabalin 150 MG Oral Capsule 08/04/2023 Provider: SANTOS DEE Diagnosis: Radiculopathy, l umbar region TAKE ONE CAPSULE BY MOUTH TWICE A DAY Last Documented On 4 4:11PM By KYAW MCKEONNA ; [facility] traMADol HCl 50 MG Oral Tablet 06/26/2023 [facility] Diagnosis: Radiculopathy, l umbar region One tablet three times a day as needed for severe pain Last Documented On 4 4:05PM By KYAW MCKEONNA ; [facility] Lovastatin 40 MG Oral Tablet 02/02/2022 Provider: MILES PHILLIPS MD Diagnosis: Last Documented On 2 1:02PM By KYAW MCKEONNA ; [facility] One-A-Day Mens Oral Tablet 02/01/2022 Provider: Diagnosis: Last Documented On 2 11:21AM By KYAW GRAHAM ; [facility] Metoprolol Tartrate 25 MG Oral Tablet 02/01/2022 Pro vider: Diagnosis: Last Documented On 2 11:21AM By KYAW GRAHAM ; [facility] Lisinopril-hydroCHLOROthiazide 20-12.5 MG Oral Tablet 02/01/2022 Provider: Diagnosis: Last Documented On 2 11:21AM By KYAW GRAHAM ; [facility] metFORMIN HCl ER (OSM) 1000 MG Oral Tablet Extended Release 24 Hour 02/01/2022 Provider: Diagnosis: 2 tablets twice daily. Last Documented On 2 11:21AM By KYAW GRAHAM ; [facility] Pioglitazone HCl 45 MG Oral Tablet 02/01/2022 Provid er: Diagnosis: Last Documented On 2 11:21AM By KYAW MCKEONNA ; [facility] Glimepiride 4 MG Oral Tablet 02/01/2022 Provider: Diagnosis: 2 tablets daily. 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 Last Documented On 3 2:07PM ; [facility] Tobacco non-user 02/01/2022 Last Documented On 3 2:07PM ; [facility] Alcohol 02/01/2022 Last Documented On 3 2:07PM ; [facility] Amount of alcohol per day: 0-1 2 Last Documented On 3 2:07PM ; [facility] Difficulty walking 02/01/2022 Last Documented On 3 2:07PM ; [facility] Not using drugs 02/01/2022 Last Documented On 3 2:07PM ; [facility] Smoking Status Unknown Procedures and Surgical History Includes: Procedures from this encounter Procedures Code Diagnosis Performing Provider Service L ocation Service Date plan of care reviewed and agreed to Last Documented On 3 2:22PM ; [facility] plan of care reviewed and agreed to by t he patient Last Documented On 3 2:22PM ; [facility] use of tobacco assessment performed 1000F Last Documented On 3 2:08PM ; [facility] patient screened for future fall risk: documentation of any fall with injury in past year 1100F Last Documented On 3 2:22PM ; [facility] review of medications documented 1160F Last Documented On 3 2:08PM ; [facility] screening for adult depression: impressi on and score Last Documented On 3 2:08PM ; [facility] screening for adult depression: impressi on and score ten Last Documented On 3 2:22PM ; [facility] screening for adult depression: impressi on and score six Last Documented On 3 2:22PM ; [facility] standardized depression screening: posit lakesha for symptoms Last Documented On 3 2:22PM ; [facility] encouragement to exercise Last Documented On 3 2:22PM ; [facility] Reviewed & agreed to staff entries. Last Documented On 3 2:22PM ; [facility] Clinical summary provided to patient Last Documented On 3 2:22PM ; [facility] SOAPP-R: total score 9 Last Documented On 3 2:22PM ; [facility] Surgical History Last Updated No Pacemaker 02/01/2022 Last Documented On 3 2:07PM ; [facility] Medical History Includes: Medical History addressed during this encounter Description Last Updated Has a fear of falling. 03/07/2023 Last Documented On 3 11:51AM ; [facility] Has had no fall in the last 12 months. 1 Last Documented On 3 2:07PM ; [facility] Currently wearing eyeglasses 02/01/2022 Last Documented On 3 2:07PM ; [facility] No Pain Pump 02/01/2022 Last Documented On 3 2:07PM ; [facility] No Spinal cord stimulator 02/01/2022 Last Documented On 3 2:07PM ; [facility] Please list all surgeries: L4/L5 spinal fusion 07/06/2021 02/01/2022 Last Documented On 3 2:07PM ; [facility] Wearing contact lenses 02/01/2022 Last Documented On 3 2:07PM ; [facility] Family History Includes: Family History addressed during this encounter Description Last Updated Family history of Arthritis 02/01/2022 Last Documented On 3 2:07PM ; [facility] Family history of ischemic heart disease 02/01/2022 Last Documented On 3 2:07PM ; [facility] Family history of stroke/paralysis 02/01 Last Documented On 3 2:07PM ; [facility] Review of Systems Includes: Review of Systems [...] PAIN MANAGEMENT FOLLOW UP KYAW AVELAR, MAXX-BC [facility] 03/07/20 23 2:06PM 2:58PM Obesity,Orthope dics Postsurgical Arthrodesis Status,Lumbar Radiculopathy,S jumana Stenosis Lumbar with Neurogenic Claudication,Do rsopathy Low Back Pain,Visit For: Preoperative Exam Insurance Includes: Active Insurance Policies Plan Name Member ID Group # Subscriber Relationship Effect lakesha Dates 1 - [facility] [id number] CHRISTY GONZÁLES Self Clinical Notes Includes: Clinical Notes from this encounter * Progress note Date Encounter Last Documented by 03/07/2023 PAIN MANAGEMENT FOLLOW UP Last d ocumented on 03/10/2023; 11:51 AM, KYAW AVELAR, G[employer]NER'[employer] MATE-BC; [facility] Top of Document This [...] Use: Not using drugs. 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 Allergies - No Known Allergies Family History [...] bilaterally. Negative compression, thigh thrust, distraction, and Perry's. Positive Noemi's on the right. Gait: Not antalgic. No steppage gait. No Trendelenburg gait. No circumspected gait pattern. Heel walk normal. Toe walk normal. Tandem gait normal. Neuro: Awake. Alert. Oriented x3. DTR's intact in all extremities. DTR's equal in all extremities. No sensory deficit. No motor deficit. Psych: No apparent distress. Mood normal. Affect normal. No pain behaviors. Skin: Normal. [place], warm, dry. Tests Educational Testing: Questionnaires PHQ-9: [...] score ten, and impression and score six; [17208] Established outpatient, medically appropriate H&P, moderate level [...] but may be subject to typographical or sensory scientist errors. Verify all diagnoses, medications, dosages, and [...]
--- OUTSIDE RECORDS SUMMARY | 2024-07-15 16:12 | XMS_ITS | Clinical Summary ---
Author Organization [facility] Address [address] [place] [address] Phone Care Team Providers Care [place] Division Director Name Role Phone ALAN BERGER, MILES Primary Care Provider [phone] Reason for Visit and Chief Complaint The Chief Complaint is: Follow up on medication refills Problems Includes: Problems addressed during this encounter and other active Problems All Visits Onset Date Resolved Date Provider Condition S tatus Anxiety Disorder Nos Unknown KYAW Spain WANDA MEDICAL SUPPORT SPECIALIST-FPA, UNDERGROUND FOREMAN-BC Active Last Documented On 2 11:56AM ; [facility] 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 Unknown KYAW Spain WANDA MEDICAL SUPPORT SPECIALIST-FPA , UNDERGROUND FOREMAN-BC Active Last Documented On 2 11:56AM ; [facility] Essential Hypertension Unknown KYAW Spain KUL P MEDICAL SUPPORT SPECIALIST-FPA, UNDERGROUND FOREMAN-BC Active Last Documented On 2 11:56AM ; [facility] Major Depression Unknown KYAW Spain WANDA MEDICAL SUPPORT SPECIALIST -FPA, UNDERGROUND FOREMAN-BC Active Last Documented On 2 11:57AM ; [facility] Plan of Treatment Pending Tests Order Diagnosis Results Due Ordering P rovider Pain Management CPT MILD Procedure Spinal steno sis, lumbar region with neurogenic claudication 09/03/23 KYAW Judit WANDA MEDICAL SUPPORT SPECIALIST-FPA, UNDERGROUND FOREMAN-BC Last Documented On 4 2:50PM ; [facility] Education and Decision Aids were provided during visit for: Lifestyle education Last Documented On 4 3:30PM ; [facility] Pill Count: Tramadol ~ Last Documented On 4 3:36PM ; [facility] Pill Count: Patient did not bring pain medication to appointment for pill count, per policy. Advised in order to continue to safely prescribe opioids, medication must be brought to each appointment Last Documented On 4 3:56PM ; [facility] Assessments Includes: Assessments from this encounter Findings - [E66.9 - Obesity, unspecified] Obesity - Last Documented On 08/04/2023 4:15PM ; [facility] - [M54.50 - Low back pain, unspecified] Low back pain - Last Documented On 08/04/2023 4:15PM ; [facility] - [Z98.1 - Arthrodesis status] Postsurgical arthrodesis status - Last Documented On 08/04/2023 4:15PM ; [facility] - [M48.062 - Spinal stenosis, lumbar region with neurogenic claudication] Lumbar stenosis with neurogenic claudication - Last Documented On 08/04/2023 4:15PM ; [facility] - [M54.16 - Radiculopathy, lumbar region] Lumbar radiculopathy - Last Documented On 08/04/2023 4:15PM ; [facility] Instructions Includes: Instructions from this encounter Education and Decision Aids were provided during visit for: Lifestyle education Last Documented On 4 3:30PM ; [facility] Pill Count: Tramadol ~ Last Documented On 4 3:36PM ; [facility] Pill Count: Patient did not bring pain medication to appointment for pill count, per policy. Advised in order to continue to safely prescribe opioids, medication must be brought to each appointment Last Documented On 4 3:56PM ; [facility] Medical Equipment - Implanted Devices Includes: Current Devices No Medical Equipment Recorded Medications Includes: Medications discussed during this encounter and other current Medications Discontinued / Stopped on this date SANTOS PRUETT on 07/24/2023 Pregabalin 150 MG Oral Capsule Provider: SANTOS DEE Diagnosis: Radiculopathy, l umbar region Last Documented On 4 4:11PM By KYAW GRAHAM ; [facility] Meloxicam 15 MG Oral Tablet Provider: SANTOS DEE Diagnosis: Low back pain, u nspecified Last Documented On 4 3:49PM By KYAW GRAHAM ; [facility] New / Renewed during this visit SANTOS PRUETT on 08/04/2023 Meloxicam 15 MG Oral Tablet Provider: SANTOS DEE 90 day supply: 90 tablet, 0 refills Diagnosis: Low back pain, unspecified TAKE ONE TABLET BY MOUTH MILAGRO LY WITH A MEAL Pharmacy: [facility] [address], [id number] - Last Documented On 4 4:11PM By KYAW GRAHAM ; [facility] DULoxetine HCl 60 MG Oral Capsule Delayed Release Particles Provider: SANTOS PRUETT 90 day supply: 90 capsule, 0 refills Diagnosis: Low back pain, unspecified TAKE ONE CAPSULE BY MOUTH AT BEDTIME Pharmacy: [facility] [address], [id number] - Last Documented On 4 4:11PM By KYAW GRAHAM ; [facility] Pregabalin 150 MG Oral Capsule Provider: SANTOS DEE 90 day supply: 180 capsule, 0 refills Diagnosis : Radiculopathy, lumbar region TAKE ONE CAPSULE BY MOUTH TWICE A DAY Pharmacy: [facility] [address], [id number] - Last Documented On 4 4:11PM By KYAW GRAHAM ; [facility] Current Medications (continue as prescribed) traMADol HCl 50 MG Oral Tablet 06/26/2023 Provider: SANTOS DEE Diagnosis: Radiculopathy, l umbar region One tablet three times a day as needed for severe pain Last Documented On 4 4:05PM By KYAW GRAHAM ; [facility] Lovastatin 40 MG Oral Tablet 02/02/2022 Provider: MILES PHILLIPS MD Diagnosis: Last Documented On 2 1:02PM By KYAW GRAHAM ; [facility] One-A-Day Mens Oral Tablet 02/01/2022 Provider: Diagnosis: Last Documented On 2 11:21AM By KYAW GRAHAM ; [facility] Metoprolol Tartrate 25 MG Oral Tablet 02/01/2022 Pro vider: Diagnosis: Last Documented On 2 11:21AM By KYAW LILLYNA ; [facility] Lisinopril-hydroCHLOROthiazide 20-12.5 MG Oral Tablet 02/01/2022 Provider: Diagnosis: Last Documented On 2 11:21AM By KYAW MCKEONPCAITLYN ; [facility] metFORMIN HCl ER (OSM) 1000 MG Oral Tablet Extended Release 24 Hour 02/01/2022 Provider: Diagnosis: 2 tablets twice daily. Last Documented On 2 11:21AM By KYAW GRAHAM ; [facility] Pioglitazone HCl 45 MG Oral Tablet 02/01/2022 Provid er: Diagnosis: Last Documented On 2 11:21AM By KYAW MUÑOZ UNDERGROUND FOREMANMUSA ; [facility] Glimepiride 4 MG Oral Tablet 02/01/2022 Provider: Diagnosis: 2 tablets daily. 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 Last Documented On 4 3:30PM ; [facility] Tobacco non-user 02/01/2022 Last Documented On 4 3:30PM ; [facility] Alcohol 02/01/2022 Last Documented On 4 3:30PM ; [facility] Amount of alcohol per day: 0-1 2 Last Documented On 4 3:30PM ; [facility] Difficulty walking 02/01/2022 Last Documented On 4 3:30PM ; [facility] Not using drugs 02/01/2022 Last Documented On 4 3:30PM ; [facility] Smoking Status Unknown Procedures and Surgical History Includes: Procedures from this encounter Procedures Code Diagnosis Performing Provider Service Location Service Date CLINIC VISIT T1015 Spinal stenosis, lumbar region with neurogenic claudication, Low back pain, unspecified, Radiculopathy, lumbar region, Arthrodesis status KYAW MUÑOZ MEDICAL SUPPORT SPECIALIST-FPA, UNDERGROUND FOREMAN-BC [facility] 08/04/2023 Last Documented On 4 4:15PM ; [facility] plan of care reviewed and agreed to Last Documented On 4 3:30PM ; [facility] plan of care reviewed and agreed to by veronica mcginnis patient Last Documented On 4 3:30PM ; [facility] use of tobacco assessment performed 1000F Last Documented On 4 3:30PM ; [facility] patient screened for future fall risk: documentation of any fall with injury in past year 1100F Last Documented On 4 3:30PM ; [facility] review of medications documented 1160F Last Documented On 4 3:30PM ; [facility] screening for adult depression: impressi on and score twelve Last Documented On 4 3:36PM ; [facility] screening for adult depression: impressi on and score ten Last Documented On 4 3:30PM ; [facility] screening for adult depression: impressi on and score six Last Documented On 4 3:30PM ; [facility] standardized depression screening: posit lakesha for symptoms Last Documented On 4 3:30PM ; [facility] encouragement to exercise Last Documented On 4 3:30PM ; [facility] Reviewed & agreed to staff entries. Last Documented On 4 3:30PM ; [facility] Clinical summary provided to patient Last Documented On 4 3:30PM ; [facility] SOAPP-R: total score 7 Last Documented On 4 3:52PM ; [facility] Surgical History Last Updated No Pacemaker 02/01/2022 Last Documented On 4 3:30PM ; [facility] Medical History Includes: Medical History addressed during this encounter Description Last Updated Denies a fear of falling. 08/04/2023 Last Documented On 4 4:15PM ; [facility] Has had no fall in the last 12 months. 1 Last Documented On 4 3:30PM ; [facility] Currently wearing eyeglasses 02/01/2022 Last Documented On 4 3:30PM ; [facility] No Pain Pump 02/01/2022 Last Documented On 4 3:30PM ; [facility] No Spinal cord stimulator 02/01/2022 Last Documented On 4 3:30PM ; [facility] Please list all surgeries: L4/L5 spinal fusion 07/06/2021 02/01/2022 Last Documented On 4 3:30PM ; [facility] Wearing contact lenses 02/01/2022 Last Documented On 4 3:30PM ; [facility] Family History Includes: Family History addressed during this encounter Description Last Updated Family history of Arthritis 02/01/2022 Last Documented On 4 3:30PM ; [facility] Family history of ischemic heart disease 02/01/2022 Last Documented On 4 3:30PM ; [facility] Family history of stroke/paralysis 02/01 Last Documented On 4 3:30PM ; [facility] Review of Systems Includes: Review of [...] PAIN MANAGEMENT FOLLOW UP KYAW MUÑOZ APRN-NISH, UNDERGROUND FOREMAN-BC [facility] 08/04/19 24 3:30PM 4:13PM Obesity,Orthope dics Postsurgical Arthrodesis Status,Lumbar Radiculopathy,S jumana Stenosis Lumbar with Neurogenic Claudication,Do rsopathy Low Back Pain Insurance Includes: Active Insurance Policies Plan Name Member ID Group # Subscriber Relationship Effect lakesha Dates 1 - [facility] [id number] CHRISTY GONZÁLES Self Clinical Notes Includes: Clinical Notes from this encounter * Progress note Date Encounter Last Documented by 08/04/2023 PAIN MANAGEMENT FOLLOW UP Last d ocumented on 08/04/2023; 4:15 PM, KYAW MUÑOZ APRN-NISH, UNDERGROUND FOREMAN-BC; [facility] Active Problems & Conditions - Anxiety [...] using drugs. 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 Allergies - No Known Allergies Family History [...] score ten, and impression and score six; [99567] Established outpatient, medically appropriate H&P, moderate level [...] but may be subject to typographical or apprentice plant attendant errors. Verify all diagnoses, medications, dosages, and [...]
--- OUTSIDE RECORDS SUMMARY | 2024-07-15 16:12 | XMS_ITS | Clinical Summary ---
Author Organization [facility] Address [facility] [place] [address] Care Team Providers Care Silk Conditioner Name Role Phone None, Provider MD Primary [...] on file Legal Sex Male 9:09 PM [employer] Gender Identity Not on file Sexual Orientation Not on file Last Filed Vital Signs Vital Sign Reading Time Taken Comments Blood Pressure 99/60 08/15/2018 2:12 PM CDT Pulse 70 08/15/2018 2:12 PM CDT Temperature 37.2 C (98.9 F) 08/15/2018 2:12 PM CDT Respiratory Rate 22 08/15/2018 2:12 PM CDT [...] - 19+ 3-dose series) 2001 COVID-19 Vaccine (2023- season) 2023 HPV Vaccines Aged Out No longer eligi [...] patient's age to complete this topic Insurance [facility] Care Teams Silk Conditioner Relationship Specialty Start Date End Date None, Provider, PCP - General 08/15/18
--- OUTSIDE RECORDS SUMMARY | 2024-07-15 16:12 | XMS_ITS | Clinical Summary ---
Author Organization [facility] Address [address] [place] [address] Phone Care Team Providers Care Highway Engineering Teacher Name Role Phone MILES PHILLIPS MD Primary Care Provider [phone] Reason for Visit and Chief Complaint RX ISSUE/REFILL Problems Includes: Problems addressed during this encounter and other active Problems All Visits Onset Date Resolved Date Provider Condition S tatus Anxiety Disorder Nos Unknown KYAW Judit WANDA DIRECTOR DATA PROCESSING-FPA, STEAM AND GAS TURBINES ASSEMBLER-BC Active Last Documented On 2 11:56AM ; [facility] 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 Unknown KYAW [place] WANDA DIRECTOR DATA PROCESSING-FPA , STEAM AND GAS TURBINES ASSEMBLER-BC Active Last Documented On 2 11:56AM ; [facility] Essential Hypertension Unknown KYAW [place] KUL P DIRECTOR DATA PROCESSING-FPA, STEAM AND GAS TURBINES ASSEMBLER-BC Active Last Documented On 2 11:56AM ; [facility] Major Depression Unknown KYAW [place] WANDA DIRECTOR DATA PROCESSING -FPA, STEAM AND GAS TURBINES ASSEMBLER-BC Active Last Documented On 2 11:57AM ; [facility] Plan of Treatment No Plan of Treatment Recorded Assessments Includes: Assessments from this encounter No Assessments Recorded Medical Equipment - Implanted Devices Includes: Current Devices No Medical Equipment Recorded Medications Includes: Medications discussed during this encounter and other current Medications Discontinued / Stopped on this date KYAW MUÑOZ DIRECTOR DATA PROCESSING-FPA, STEAM AND GAS TURBINES ASSEMBLER-BC on 03/27/2023 traMADol HCl 50 MG Oral Tablet Provider: KYAW MUÑOZ DIRECTOR DATA PROCESSING- FPA, STEAM AND GAS TURBINES ASSEMBLER-BC Diagnosis: Radiculopathy, l umbar region Last Documented On 4 2:59PM By KYAW GRAHAM ; [facility] New / Renewed during this visit SANTOS PRUETT on 04/16/2023 traMADol HCl 50 MG Oral Tablet Provider: SANTOS DEE 14 day supply: 42 tablet, 0 refills Diagnosis: Radiculopathy, lumbar region One tablet three times a day as needed for severe pain Pharmacy: [address], [id number] - Last Documented On 4 8:34AM By KYAW GRAHAM ; [facility] Current Medications (continue as prescribed) Meloxicam 15 MG Oral Tablet 08/04/2023 Provider: SANTOS DEE Diagnosis: Low back pain, u nspecified TAKE ONE TABLET BY MOUTH MILAGRO LY WITH A MEAL Last Documented On 4 4:11PM By KYAW GRAHAM ; [facility] DULoxetine HCl 60 MG Oral Capsule Delayed Release Particles 08/04/2023 Provider: SANTOS PRUETT Diagnosis: Low back pain, u nspecified TAKE ONE CAPSULE BY MOUTH AT BEDTIME Last Documented On 4 4:11PM By KYAW GRAHAM ; [facility] Pregabalin 150 MG Oral Capsule 08/04/2023 Provider: SANTOS DEE Diagnosis: Radiculopathy, l umbar region TAKE ONE CAPSULE BY MOUTH TWICE A DAY Last Documented On 4 4:11PM By KYAW GRAHAM ; [facility] traMADol HCl 50 MG Oral Tablet 06/26/2023 Provider: SANTOS DEE Diagnosis: Radiculopathy, l umbar region One tablet three times a day as needed for severe pain Last Documented On 4 4:05PM By KYAW GRAHAM ; [facility] Lovastatin 40 MG Oral Tablet 02/02/2022 Provider: MILES PHILLIPS MD Diagnosis: Last Documented On 2 1:02PM By KYAW MUÑOZ [facility] ; [facility] One-A-Day Mens Oral Tablet 02/01/2022 Provider: Diagnosis: Last Documented On 2 11:21AM By KYAW MUÑOZ [facility] ; [facility] Metoprolol Tartrate 25 MG Oral Tablet 02/01/2022 Pro vider: Diagnosis: Last Documented On 2 11:21AM By KYAW MUÑOZ [facility] ; [facility] Lisinopril-hydroCHLOROthiazide 20-12.5 MG Oral Tablet 02/01/2022 Provider: Diagnosis: Last Documented On 2 11:21AM By KYAWMARSHA MUÑOZ [facility] ; [facility] metFORMIN HCl ER (OSM) 1000 MG Oral Tablet Extended Release 24 Hour 02/01/2022 Provider: Diagnosis: 2 tablets twice daily. Last Documented On 2 11:21AM By KYAW [facility]Z [facility] ; [facility] Pioglitazone HCl 45 MG Oral Tablet 02/01/2022 Provid er: Diagnosis: Last Documented On 2 11:21AM By KYAW MUÑOZ [facility] ; [facility] Glimepiride 4 MG Oral Tablet 02/01/2022 Provider: Diagnosis: 2 tablets daily. Last Documented On 2 11:21AM By [facility]AW [facility] ; [facility] Jardiance 10 MG Oral Tablet 01/29/2022 Provider: MILES PHILLIPS MD Diagnosis: Last Documented On 2 11:21AM By KYAW MUÑOZ [facility] ; [facility] Medications Administered Includes: Administered Medications from this encounter No Administered Medications Recorded Results Includes: Results discussed during this encounter No Results Recorded For Specified Dates History of Present Illness Includes: History of Present Illness from this encounter No History of Present Illness Recorded Social History Description 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 Last Documented On 4 2:18PM ; [facility] Tobacco non-user 02/01/2022 Last Documented On 4 2:18PM ; [facility] Alcohol 02/01/2022 Last Documented On 4 2:18PM ; [facility] Amount of alcohol per day: 0-1 2 Last Documented On 4 2:18PM ; [facility] Difficulty walking 02/01/2022 Last Documented On 4 2:18PM ; [facility] Not using drugs 02/01/2022 Last Documented On 4 2:18PM ; [facility] Smoking Status Unknown Procedures and Surgical History Surgical History Last Updated No Pacemaker 02/01/2022 Last Documented On 4 2:18PM ; [facility] Medical History Includes: Medical History addressed during this encounter Description Last Updated Has a fear of falling. 08/04/2023 Last Documented On 4 2:18PM ; [facility] Has had no fall in the last 12 months. 1 Last Documented On 4 2:18PM ; [facility] Currently wearing eyeglasses 02/01/2022 Last Documented On 4 2:18PM ; [facility] No Pain Pump 02/01/2022 Last Documented On 4 2:18PM ; [facility] No Spinal cord stimulator 02/01/2022 Last Documented On 4 2:18PM ; [facility] Please list all surgeries: L4/L5 spinal fusion 07/06/2021 02/01/2022 Last Documented On 4 2:18PM ; [facility] Wearing contact lenses 02/01/2022 Last Documented On 4 2:18PM ; [facility] Family History Includes: Family History addressed during this encounter Description Last Updated Family history of Arthritis 02/01/2022 Last Documented On 4 2:18PM ; [facility] Family history of ischemic heart disease 02/01/2022 Last Documented On 4 2:18PM ; [facility] Family history of stroke/paralysis 02/01 Last Documented On 4 2:18PM ; [facility] Review of Systems Includes: Review of [...] Time Diagnosis RX ISSUE/REFILL KYAW G WANDA DIRECTOR DATA PROCESSING-FPA, STEAM AND GAS TURBINES ASSEMBLER-BC 04/16/2023 2:18PM 11:59PM Insurance Includes: Active Insurance Policies Plan Name Member ID Group # Subscriber Relationship Effect lakesha Dates 1 - [facility] [id number] CHRISTY GONZÁLES Self Clinical Notes Includes: Clinical Notes from this encounter * Progress note Date Encounter Last Documented by 04/16/2023 RX ISSUE/REFILL Last documented on 04/16/2023; 2:59 PM, KYAW MUÑOZ DIRECTOR DATA PROCESSING-FPA, STEAM AND GAS TURBINES ASSEMBLER-BC; [facility] Active Problems & Conditions [...] ~ pt phone # for Return call: [phone] ~Last Drug Screen:NONE ~Date/Initials: 04/16/23 CB. Current [...] Use: Not using drugs. 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 Allergies - No Known Allergies Family [...]
--- OUTSIDE RECORDS SUMMARY | 2024-07-15 16:13 | XMS_ITS | Clinical Summary ---
Author Organization [facility] Address [address] [place] [address] Phone Care Team Providers Care Recruitment And Outreach Assistant Name Role Phone MILES PHILLIPS MD Primary Care Provider [phone] Reason for Visit and Chief Complaint RX ISSUE/REFILL Problems Includes: Problems addressed during this encounter and other active Problems All Visits Onset Date Resolved Date Provider Condition S tatus Anxiety Disorder Nos Unknown KYAW Judit WANDA [employer] FO[employer] SERVICE SUPERVISOR-FPA, EDUCATION PROFESSOR-BC Active Last Documented On 2 11:56AM ; [facility] 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 Unknown KYAW [place] WANDA [employer] FOOD SERVICE SUPERVISOR-FPA , EDUCATION PROFESSOR-BC Active Last Documented On 2 11:56AM ; [facility] Essential Hypertension Unknown KYAW [place] KUL P MOTEL FOOD SERVICE SUPERVISOR-FPA, EDUCATION PROFESSOR-BC Active Last Documented On 2 11:56AM ; [facility] Major Depression Unknown KYAW [place] WANDA MOTEL FOOD SERVICE SUPERVISOR -FPA, EDUCATION PROFESSOR-BC Active Last Documented On 2 11:57AM ; [facility] Plan of Treatment No Plan of Treatment Recorded Assessments Includes: Assessments from this encounter No Assessments Recorded Medical Equipment - Implanted Devices Includes: Current Devices No Medical Equipment Recorded Medications Includes: Medications discussed during this encounter and other current Medications Discontinued / Stopped on this date KYAW MUÑOZ MOTEL FOOD SERVICE SUPERVISOR-FPA, EDUCATION PROFESSOR-BC on 04/16/2023 traMADol HCl 50 MG Oral Tablet Provider: KYAW MUÑOZ MOTEL FOOD SERVICE SUPERVISOR- FPA, EDUCATION PROFESSOR-BC Diagnosis: Radiculopathy, l umbar region Last Documented On 4 8:34AM By KYAW GRAHAM ; [facility] Current Medications (continue as prescribed) Meloxicam 15 MG Oral Tablet 08/04/2023 Provider: SANTOS DEE Diagnosis: Low back pain, u nspecified TAKE ONE TABLET BY MOUTH MILAGRO LY WITH A MEAL Last Documented On 4 4:11PM By KYAW GRAHAM ; [facility] DULoxetine HCl 60 MG Oral Capsule Delayed Release Particles 08/04/2023 Provider: MAXX PRUETTNA Diagnosis: Low back pain, u nspecified TAKE ONE CAPSULE BY MOUTH AT BEDTIME Last Documented On 4 4:11PM By KYAW GRAHAM ; [facility] Pregabalin 150 MG Oral Capsule 08/04/2023 Provider: MAXX DEENA Diagnosis: Radiculopathy, l umbar region TAKE ONE CAPSULE BY MOUTH TWICE A DAY Last Documented On 4 4:11PM By KYAW GRAHAM ; [facility] traMADol HCl 50 MG Oral Tablet 06/26/2023 Provider: MAXX DEENA Diagnosis: Radiculopathy, l umbar region One tablet three times a day as needed for severe pain Last Documented On 4 4:05PM By KYAW GRAHAM ; [facility] Lovastatin 40 MG Oral Tablet 02/02/2022 Provider: MILES PHILLIPS MD Diagnosis: Last Documented On 2 1:02PM By KYAW GRAHAM ; [facility] One-A-Day Mens Oral Tablet 02/01/2022 Provider: Diagnosis: Last Documented On 2 11:21AM By KYAW GRAHAM ; [facility] Metoprolol Tartrate 25 MG Oral Tablet 02/01/2022 Pro vider: Diagnosis: Last Documented On 2 11:21AM By KYAW GRAHAM ; [facility] Lisinopril-hydroCHLOROthiazide 20-12.5 MG Oral Tablet 02/01/2022 Provider: Diagnosis: Last Documented On 2 11:21AM [facility] metFORMIN HCl ER (OSM) 1000 MG Oral Tablet Extended Release 24 Hour 02/01/2022 Provider: Diagnosis: 2 tablets twice daily. Last Documented On 2 11:21AM By KYAW WANDA [facility] ; [facility] Pioglitazone HCl 45 MG Oral Tablet 02/01/2022 Provid er: Diagnosis: Last Documented On 2 11:21AM By KYAW WADNA [facility] ; [facility] Glimepiride 4 MG Oral Tablet 02/01/2022 Provider: Diagnosis: 2 tablets daily. Last Documented On 2 11:21AM By KYAW MUÑOZ [facility] ; [facility] Jardiance 10 MG Oral Tablet 01/29/2022 Provider: MILES PHILLIPS MD Diagnosis: Last Documented On 2 11:21AM By KYAW WANDA [facility] ; [facility] Medications Administered Includes: Administered Medications from this encounter No Administered Medications Recorded Results Includes: Results discussed during this encounter No Results Recorded For Specified Dates History of Present Illness Includes: History of Present Illness from this encounter No History of Present Illness Recorded Social History Description 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 Last Documented On 4 10:46AM ; [facility] Tobacco non-user 02/01/2022 Last Documented On 4 10:46AM ; [facility] Alcohol 02/01/2022 Last Documented On 4 10:46AM ; [facility] Amount of alcohol per day: 0-1 2 Last Documented On 4 10:46AM ; [facility] Difficulty walking 02/01/2022 Last Documented On 4 10:46AM ; [facility] Not using drugs 02/01/2022 Last Documented On 4 10:46AM ; [facility] Smoking Status Unknown Procedures and Surgical History Surgical History Last Updated No Pacemaker 02/01/2022 Last Documented On 4 10:46AM ; [facility] Medical History Includes: Medical History addressed during this encounter Description Last Updated Has a fear of falling. 08/04/2023 Last Documented On 4 10:46AM ; [facility] Has had no fall in the last 12 months. 1 Last Documented On 4 10:46AM ; [facility] Currently wearing eyeglasses 02/01/2022 Last Documented On 4 10:46AM ; [facility] No Pain Pump 02/01/2022 Last Documented On 4 10:46AM ; [facility] No Spinal cord stimulator 02/01/2022 Last Documented On 4 10:46AM ; [facility] Please list all surgeries: L4/L5 spinal fusion 07/06/2021 02/01/2022 Last Documented On 4 10:46AM ; [facility] Wearing contact lenses 02/01/2022 Last Documented On 4 10:46AM ; [facility] Family History Includes: Family History addressed during this encounter Description Last Updated Family history of Arthritis 02/01/2022 Last Documented On 4 10:46AM ; [facility] Family history of ischemic heart disease 02/01/2022 Last Documented On 4 10:46AM ; [facility] Family history of stroke/paralysis 02/01 Last Documented On 4 10:46AM ; [facility] Review of Systems Includes: Review of Systems [...] Check-Out Time Diagnosis RX ISSUE/REFILL KYAW MUÑOZ MOTEL FOOD SERVICE SUPERVISOR-FPA, EDUCATION PROFESSOR-BC 06/25/2023 10:47AM 11:59PM Insurance Includes: Active Insurance Policies Plan Name Member ID Group # Subscriber Relationship Effect lakesha Dates 1 - [facility] [id number] CHRISTY GONZÁLES Self Clinical Notes Includes: Clinical Notes from this encounter * Progress note Date Encounter Last Documented by 06/25/2023 RX ISSUE/REFILL Last documented on 06/26/2023; 8:34 AM, KYAW MUÑOZ APRN-NISH, MAXX-NA; [facility] Active Problems & Conditions - Anxiety Disorder Nos - Essential Hypertension - Major Depression - 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 I TOLD HIM WE NO LONGER GO THERE AND WOULD HAVE TO BE IN [place]. PT SAID HE DOES NOT HAVE TRASPORTATION [...] Not using drugs. 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 Allergies - No Known Allergies Family History Arthritis Stroke/paralysis Ischemic heart disease Plan StartCited - Other PHY ORDER/COMMENT For cooks patients I am offering them telehealth every [...]
--- OUTSIDE RECORDS SUMMARY | 2024-07-15 16:13 | XMS_ITS | Clinical Summary ---
Author Organization [facility] Address [address] [place] [address] Phone Care Team Providers Care Drilling Rig Operator Name Role Phone MILES PHILLIPS MD Primary Care Provider [phone] Reason for Visit and Chief Complaint The Chief Complaint is: Follow up on increase in pain lumbar spine and down legs Problems Includes: Problems addressed during this encounter and other active Problems All Visits Onset Date Resolved Date Provider Condition S tatus Anxiety Disorder Nos Unknown KYAW [place] WANDA SUPERVISOR SHIPPING-FPA, PLATE GRAINER-BC Active Last Documented On 2 11:56AM ; [facility] 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 Unknown KYAW [place] WANDA SUPERVISOR SHIPPING-FPA , PLATE GRAINER-BC Active Last Documented On 2 11:56AM ; [facility] Essential Hypertension Unknown KYAW [place] KUL P SUPERVISOR SHIPPING-FPA, PLATE GRAINER-BC Active Last Documented On 2 11:56AM ; [facility] Major Depression Unknown KYAW [place] WANDA SUPERVISOR SHIPPING -FPA, PLATE GRAINER-BC Active Last Documented On 2 11:57AM ; [facility] Plan of Treatment Education and Decision Aids were provided during visit for: Lifestyle education Last Documented On 3 1:08PM ; [facility] Assessments Includes: Assessments from this encounter Findings - [E66.9 - Obesity, unspecified] Obesity - Last Documented On 03/27/2023 1:39PM ; [facility] - [M54.50 - Low back pain, unspecified] Low back pain - Last Documented On 03/27/2023 1:39PM ; [facility] - [Z98.1 - Arthrodesis status] Postsurgical arthrodesis status - Last Documented On 03/27/2023 1:39PM ; [facility] - [M48.062 - Spinal stenosis, lumbar region with neurogenic claudication] Lumbar stenosis with neurogenic claudication - Last Documented On 03/27/2023 1:39PM ; [facility] - [M54.16 - Radiculopathy, lumbar region] Lumbar radiculopathy - Last Documented On 03/27/2023 1:39PM ; [facility] Instructions Includes: Instructions from this encounter Education and Decision Aids were provided during visit for: Lifestyle education Last Documented On 3 1:08PM ; [facility] Medical Equipment - Implanted Devices [...] day as needed for severe pain Pharmacy: [address], [id number] - Last Documented On 4 2:59PM By KYAW GRAHAM ; [facility] Current Medications (continue as prescribed) Meloxicam 15 MG Oral Tablet 08/04/2023 Provider: SANTOS DEE Diagnosis: Low back pain, u nspecified TAKE ONE TABLET BY MOUTH MILAGRO LY WITH A MEAL Last Documented On 4 4:11PM By KYAW GRAHAM ; [facility] DULoxetine HCl 60 MG Oral Capsule Delayed Release Particles 08/04/2023 Provider: SANTOS PRUETT Diagnosis: Low back pain, u nspecified TAKE ONE CAPSULE BY MOUTH AT BEDTIME Last Documented On 4 4:11PM By KYAW GRAHAM ; [facility] Pregabalin 150 MG Oral Capsule 08/04/2023 Provider: SANTOS DEE Diagnosis: Radiculopathy, l umbar region TAKE ONE CAPSULE BY MOUTH TWICE A DAY Last Documented On 4 4:11PM By KYAW GRAHAM ; [facility] traMADol HCl 50 MG Oral Tablet 06/26/2023 Provider: SANTOS DEE Diagnosis: Radiculopathy, l umbar region One tablet three times a day as needed for severe pain Last Documented On 4 4:05PM By KYAW GRAHAM ; [facility] Lovastatin 40 MG Oral Tablet 02/02/2022 Provider: MILES PHILLIPS MD Diagnosis: Last Documented On 2 1:02PM By KYAW GRAHAM ; [facility] One-A-Day Mens Oral Tablet 02/01/2022 Provider: Diagnosis: Last Documented On 2 11:21AM By KYAW GRAHAM ; [facility] Metoprolol Tartrate 25 MG Oral Tablet 02/01/2022 Pro vider: Diagnosis: Last Documented On 2 11:21AM By YKAW GRAHAM ; [facility] Lisinopril-hydroCHLOROthiazide 20-12.5 MG Oral Tablet 02/01/2022 Provider: Diagnosis: Last Documented On 2 11:21AM By KYAW GRAHAM ; [facility] metFORMIN HCl ER (OSM) 1000 MG Oral Tablet Extended Release 24 Hour 02/01/2022 Provider: Diagnosis: 2 tablets twice daily. Last Documented On 2 11:21AM By KYAW GRAHAM ; [facility] Pioglitazone HCl 45 MG Oral Tablet 02/01/2022 Provid er: Diagnosis: Last Documented On 2 11:21AM By KYAW GRAHAM ; [facility] Glimepiride 4 MG Oral Tablet 02/01/2022 Provider: Diagnosis: 2 tablets daily. Last Documented On 2 11:21AM By KYAW GRAHAM ; [facility] Jardiance 10 MG Oral Tablet 01/29/2022 Provider: MILES PHILLIPS MD Diagnosis: Last Documented On 2 11:21AM By KYAW GRAHAM ; [facility] Medications Administered Includes: Administered Medications from this encounter No Administered Medications Recorded Vital Signs Includes: Vital Signs from this encounter Vital Name 03/27/2023 01:10P Temp-Temporal 98 Height (in) 74 Weight (lb) 340 Body Mass Index 43.7 Body Surface Area 2.7 Pain Level 6 Last Documented: On 03/27/2023 1:11PM ; [facility] Results Includes: Results discussed [...] Social History Description 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 Last Documented On 3 1:07PM ; [facility] Tobacco non-user 02/01/2022 Last Documented On 3 1:07PM ; [facility] Alcohol 02/01/2022 Last Documented On 3 1:07PM ; [facility] Amount of alcohol per day: 0-1 2 Last Documented On 3 1:07PM ; [facility] Difficulty walking 02/01/2022 Last Documented On 3 1:07PM ; [facility] Not using drugs 02/01/2022 Last Documented On 3 1:07PM ; [facility] Smoking Status Unknown Procedures and Surgical History Includes: Procedures from this encounter Procedures Code Diagnosis Performing Provider Service L ocation Service Date plan of care reviewed and agreed to Last Documented On 3 1:08PM ; [facility] plan of care reviewed and agreed to by t he patient Last Documented On 3 1:08PM ; [facility] use of tobacco assessment performed 1000F Last Documented On 3 1:08PM ; [facility] patient screened for future fall risk: documentation of any fall with injury in past year 1100F Last Documented On 3 1:08PM ; [facility] review of medications documented 1160F Last Documented On 3 1:08PM ; [facility] screening for adult depression: impressi on and score Last Documented On 3 1:08PM ; [facility] screening for adult depression: impressi on and score ten Last Documented On 3 1:08PM ; [facility] screening for adult depression: impressi on and score six Last Documented On 3 1:08PM ; [facility] standardized depression screening: posit lakesha for symptoms Last Documented On 3 1:08PM ; [facility] encouragement to exercise Last Documented On 3 1:08PM ; [facility] Reviewed & agreed to staff entries. Last Documented On 3 1:08PM ; [facility] Clinical summary provided to patient Last Documented On 3 1:08PM ; [facility] SOAPP-R: total score 9 Last Documented On 3 1:08PM ; [facility] Surgical History Last Updated No Pacemaker 02/01/2022 Last Documented On 3 1:07PM ; [facility] Medical History Includes: Medical History addressed during this encounter Description Last Updated Has a fear of falling. 08/04/2023 Last Documented On 3 1:07PM ; [facility] Has had no fall in the last 12 months. 1 Last Documented On 3 1:07PM ; [facility] Currently wearing eyeglasses 02/01/2022 Last Documented On 3 1:07PM ; [facility] No Pain Pump 02/01/2022 Last Documented On 3 1:07PM ; [facility] No Spinal cord stimulator 02/01/2022 Last Documented On 3 1:07PM ; [facility] Please list all surgeries: L4/L5 spinal fusion 07/06/2021 02/01/2022 Last Documented On 3 1:07PM ; [facility] Wearing contact lenses 02/01/2022 Last Documented On 3 1:07PM ; [facility] Family History Includes: Family History addressed during this encounter Description Last Updated Family history of Arthritis 02/01/2022 Last Documented On 3 1:07PM ; [facility] Family history of ischemic heart disease 02/01/2022 Last Documented On 3 1:07PM ; [facility] Family history of stroke/paralysis 02/01 Last Documented On 3 1:07PM ; [facility] Review of Systems Includes: Review [...] Time Check-Out Time Diagnosis TELEHEALTH KYAW MUÑOZ SUPERVISOR SHIPPING-FPA, PLATE GRAINER-BC [facility] 03/27/20 23 1:06PM 1:37PM Obesity,Orthoped ics Postsurgical Arthrodesis Status,Lumbar Radiculopathy,Sp inal Stenosis Lumbar with Neurogenic Claudication,David sopathy Low Back Pain Insurance Includes: Active Insurance Policies Plan Name Member ID Group # Subscriber Relationship Effect lakesha Dates 1 - [facility] [id number] CHRISTY GONZÁLES Self Clinical Notes Includes: Clinical Notes from this encounter * Progress note Date Encounter Last Documented by 03/27/2023 TELEHEALTH Last documented on 03/27/2023; 1:39 PM, KYAW MUÑOZ SUPERVISOR SHIPPING-FPA, PLATE GRAINER-BC; [facility] Active Problems & [...] Use: Not using drugs. 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 Allergies - No Known Allergies Family [...] score ten, and impression and score six; [02500] Established outpatient, medically appropriate H&P, moderate level [...] but may be subject to typographical or document control associate errors. Verify all diagnoses, medications, dosages, and patient instructions with patient and/or the originator of this document. Telehealth Visit: Audio and video. Patient called from work. Provider located at the [facility] Clinical Services office. Patient consents to [...]
--- OUTSIDE RECORDS SUMMARY | 2024-07-15 16:13 | XMS_ITS ---
Care Plan - [facility] Created on: July 15, 2024 CHRISTY GONZÁLES : 1980 Sex: Male Author Organization [facility] Address [address] [place] [address] Phone Care Team Providers Care Trans Router Name Role Phone MILES PHILLIPS MD Primary Care Provider [phone]
--- OUTSIDE RECORDS SUMMARY | 2024-07-15 16:13 | XMS_ITS ---
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 Name Role Phone ALAN BERGER, MILES Primary Care Provider [phone] Problems Includes: Active, inactive, and resolved Problems All Visits Onset Date Resolved Date Provider Condition S tatus Anxiety Disorder Nos Unknown KYAW Spain WANDA FIRST ASSISTANT MANAGER-FPA, PAINTER SIGN MAINTENANCE-BC Active Last Documented On 2 11:56AM ; [facility] 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 Unknown KYAW G WANDA FIRST ASSISTANT MANAGER-FPA , PAINTER SIGN MAINTENANCE-BC Active Last Documented On 2 11:56AM ; [facility] Essential Hypertension Unknown KYAW Judit KUL P FIRST ASSISTANT MANAGER-FPA, PAINTER SIGN MAINTENANCE-BC Active Last Documented On 2 11:56AM ; [facility] Major Depression Unknown KYAW G WANDA FIRST ASSISTANT MANAGER -FPA, PAINTER SIGN MAINTENANCE-BC Active Last Documented On 2 11:57AM ; [facility] Plan of Treatment Referrals To Diagnosis Pain Management [address] [address] - Radiculopathy, lumbar region Note: consent for bilateral L5-S1 transforaminal epidural steroid injection under fluoroscopy Last Documented On 3 8:52AM ; [facility] Pain Management [address] [address] - Radiculopathy, lumbar region Note: consent for Right L3-4 and L5-S1 transforaminal epidural steroid injection under fluoroscopy Last Documented On 3 9:07AM ; [facility] Orthopedic [facility] - [address] [place] [address] Radiculopathy, lumbar region Note: Dr Erich Moore would like surgical opinion on his options in case conservative measures fail Last Documented On 4 2:24PM ; [facility] Education and Decision Aids were provided during visit for: Lifestyle education Last Documented On 4 3:30PM ; [facility] Pill Count: Tramadol ~ Last Documented On 4 3:36PM ; [facility] Pill Count: Patient did not bring pain medication to appointment for pill count, per policy. Advised in order to continue to safely prescribe opioids, medication must be brought to each appointment Last Documented On 4 3:56PM ; [facility] Lifestyle education Last Documented On 3 1:08PM ; [facility] Lifestyle education Last Documented On 3 2:22PM ; [facility] Lifestyle education Last Documented On 3 10:02AM ; [facility] Pill Count: N/A Last Documented On 3 10:03AM ; [facility] Lifestyle education Last Documented On 3 1:27PM ; [facility] Lifestyle education Last Documented On 3 3:22PM ; [facility] Lifestyle education Last Documented On 3 8:57AM ; [facility] Lifestyle education Last Documented On 3 9:23AM ; [facility] Lifestyle education Last Documented On 2 9:47AM ; [facility] Lifestyle education Last Documented On 2 12:01PM ; [facility] Assessments Includes: Assessments for all patient encounters Findings Encounter Date Low back pain PAIN MANAGEMENT FOLL OW UP with KYAW MUÑOZ FIRST ASSISTANT MANAGER-FPA, PAINTER SIGN MAINTENANCE-BC 08/04/2023 Last Documented On 4 4:15PM ; [facility] Lumbar radiculopathy PAIN MANAGEMENT FOL LOW UP with KYAW Spain WANDA FIRST ASSISTANT MANAGER-FPA, PAINTER SIGN MAINTENANCE-BC 08/04/2023 Last Documented On 4 4:15PM ; [facility] Lumbar stenosis with neuroge colleen claudication PAIN MANAGEMENT FOLLOW UP with KYAW Spain WANDA FIRST ASSISTANT MANAGER-FPA, PAINTER SIGN MAINTENANCE-BC 08/04/2023 Last Documented On 4 4:15PM ; [facility] Obesity PAIN MANAGEMENT FOLLOW UP with Mahad Spain WANDA FIRST ASSISTANT MANAGER-FPA, PAINTER SIGN MAINTENANCE-BC 08/04/2023 Last Documented On 4 4:15PM ; [facility] Postsurgical arthrodesis status PAIN MAN AGEMENT FOLLOW UP with KYAW Spain WANDA FIRST ASSISTANT MANAGER-FPA, PAINTER SIGN MAINTENANCE-BC 08/04/2023 Last Documented On 4 4:15PM ; [facility] Low back pain TELEHEALTH with KYAW [place] WANDA A PRN-FPA, PAINTER SIGN MAINTENANCE-BC 03/27/2023 Last Documented On 3 1:39PM ; [facility] Lumbar radiculopathy TELEHEALTH with KYAW Estrada ULP FIRST ASSISTANT MANAGER-FPA, PAINTER SIGN MAINTENANCE-BC 03/27/2023 Last Documented On 3 1:39PM ; [facility] Lumbar stenosis with neuroge colleen claudication TELEHEALTH with KYAW [place] WANDA FIRST ASSISTANT MANAGER-FPA, PAINTER SIGN MAINTENANCE-BC 03/27/2023 Last Documented On 3 1:39PM ; [facility] Obesity TELEHEALTH with KYAW [place] WANDA A PRN-FPA, PAINTER SIGN MAINTENANCE-BC 03/27/2023 Last Documented On 3 1:39PM ; [facility] Postsurgical arthrodesis status TELEHEAL TH with KYAW [place] WANDA FIRST ASSISTANT MANAGER-FPA, PAINTER SIGN MAINTENANCE-BC 03/27/2023 Last Documented On 3 1:39PM ; [facility] [Z01.818 - Encounter for ot er preprocedural examination] visit for: preoperative exam PAIN MANAGEMENT FOLLOW UP with KYAW Spain WANDA FIRST ASSISTANT MANAGER-FPA, PAINTER SIGN MAINTENANCE-BC 03/07/2023 Last Documented On 3 11:51AM ; [facility] Low back pain PAIN MANAGEMENT FOLL OW UP with KYAW G WANDA FIRST ASSISTANT MANAGER-FPA, PAINTER SIGN MAINTENANCE-BC 03/07/2023 Last Documented On 3 11:51AM ; [facility] Lumbar radiculopathy PAIN MANAGEMENT FOL LOW UP with KYAW G WANDA FIRST ASSISTANT MANAGER-FPA, PAINTER SIGN MAINTENANCE-BC 03/07/2023 Last Documented On 3 11:51AM ; [facility] Lumbar stenosis with neuroge colleen claudication PAIN MANAGEMENT FOLLOW UP with KYAW G WANDA FIRST ASSISTANT MANAGER-FPA, PAINTER SIGN MAINTENANCE-BC 03/07/2023 Last Documented On 3 11:51AM ; [facility] Obesity PAIN MANAGEMENT FOLLOW UP with Mahad BAÑUELOS G WANDA FIRST ASSISTANT MANAGER-FPA, PAINTER SIGN MAINTENANCE-BC 03/07/2023 Last Documented On 3 11:51AM ; [facility] Postsurgical arthrodesis status PAIN MAN AGEMENT FOLLOW UP with KYAW G WANDA FIRST ASSISTANT MANAGER-FPA, PAINTER SIGN MAINTENANCE-BC 03/07/2023 Last Documented On 3 11:51AM ; [facility] Low back pain PAIN MANAGEMENT FOLL OW UP with KYAW Judit WANDA FIRST ASSISTANT MANAGER-FPA, PAINTER SIGN MAINTENANCE-BC 01/10/2023 Last Documented On 3 11:02AM ; [facility] Lumbar radiculopathy PAIN MANAGEMENT FOL LOW UP with KYAW G WANDA FIRST ASSISTANT MANAGER-FPA, PAINTER SIGN MAINTENANCE-BC 01/10/2023 Last Documented On 3 11:02AM ; [facility] Lumbar stenosis with neuroge colleen claudication PAIN MANAGEMENT FOLLOW UP with KYAW G WANDA FIRST ASSISTANT MANAGER-FPA, PAINTER SIGN MAINTENANCE-BC 01/10/2023 Last Documented On 3 11:02AM ; [facility] Obesity PAIN MANAGEMENT FOLLOW UP with Mahad BAÑUELOS G WANDA FIRST ASSISTANT MANAGER-FPA, PAINTER SIGN MAINTENANCE-BC 01/10/2023 Last Documented On 3 11:02AM ; [facility] Postsurgical arthrodesis status PAIN MAN AGEMENT FOLLOW UP with KYAW G WANDA FIRST ASSISTANT MANAGER-FPA, PAINTER SIGN MAINTENANCE-BC 01/10/2023 Last Documented On 3 11:02AM ; [facility] Low back pain PAIN MANAGEMENT FOLL OW UP with KYAW G WANDA FIRST ASSISTANT MANAGER-FPA, PAINTER SIGN MAINTENANCE-BC 12/10/2022 Last Documented On 3 2:13PM ; [facility] Lumbar radiculopathy PAIN MANAGEMENT FOL LOW UP with KYAW G WANDA FIRST ASSISTANT MANAGER-FPA, PAINTER SIGN MAINTENANCE-BC 12/10/2022 Last Documented On 3 2:13PM ; [facility] Lumbar stenosis with neuroge colleen claudication PAIN MANAGEMENT FOLLOW UP with KYAW G WANDA FIRST ASSISTANT MANAGER-FPA, PAINTER SIGN MAINTENANCE-BC 12/10/2022 Last Documented On 3 2:13PM ; [facility] Obesity PAIN MANAGEMENT FOLLOW UP with M EDDA G WANDA FIRST ASSISTANT MANAGER-FPA, PAINTER SIGN MAINTENANCE-BC 12/10/2022 Last Documented On 3 2:13PM ; [facility] Postsurgical arthrodesis status PAIN MAN AGEMENT FOLLOW UP with KYAW G WANDA FIRST ASSISTANT MANAGER-FPA, PAINTER SIGN MAINTENANCE-BC 12/10/2022 Last Documented On 3 2:13PM ; [facility] Low back pain PAIN MANAGEMENT FOLL OW UP with KYAW G WANDA FIRST ASSISTANT MANAGER-FPA, PAINTER SIGN MAINTENANCE-BC 10/29/2022 Last Documented On 3 3:46PM ; [facility] Lumbar radiculopathy PAIN MANAGEMENT FOL LOW UP with KYAW G WANDA FIRST ASSISTANT MANAGER-FPA, PAINTER SIGN MAINTENANCE-BC 10/29/2022 Last Documented On 3 3:46PM ; [facility] Lumbar stenosis PAIN MANAGEMENT FOLL OW UP with KYAW G WANDA FIRST ASSISTANT MANAGER-FPA, PAINTER SIGN MAINTENANCE-BC 10/29/2022 Last Documented On 3 3:46PM ; [facility] Obesity PAIN MANAGEMENT FOLLOW UP with M EDDA G WANDA FIRST ASSISTANT MANAGER-FPA, PAINTER SIGN MAINTENANCE-BC 10/29/2022 Last Documented On 3 3:46PM ; [facility] Postsurgical arthrodesis status PAIN MAN AGEMENT FOLLOW UP with KYAW G WANDA FIRST ASSISTANT MANAGER-FPA, PAINTER SIGN MAINTENANCE-BC 10/29/2022 Last Documented On 3 3:46PM ; [facility] Low back pain PAIN MANAGEMENT FOLL OW UP with KYAW G WANDA FIRST ASSISTANT MANAGER-FPA, PAINTER SIGN MAINTENANCE-BC 07/31/2022 Last Documented On 3 9:24AM ; [facility] Lumbar radiculopathy PAIN MANAGEMENT FOL LOW UP with KYAW G WANDA FIRST ASSISTANT MANAGER-FPA, PAINTER SIGN MAINTENANCE-BC 07/31/2022 Last Documented On 3 9:24AM ; [facility] Lumbar stenosis PAIN MANAGEMENT FOLL OW UP with KYAW G WANDA FIRST ASSISTANT MANAGER-FPA, PAINTER SIGN MAINTENANCE-BC 07/31/2022 Last Documented On 3 9:24AM ; [facility] Obesity PAIN MANAGEMENT FOLLOW UP with M EDDA G WANDA FIRST ASSISTANT MANAGER-FPA, PAINTER SIGN MAINTENANCE-BC 07/31/2022 Last Documented On 3 9:24AM ; [facility] Postsurgical arthrodesis status PAIN MAN AGEMENT FOLLOW UP with KYAW G WANDA FIRST ASSISTANT MANAGER-FPA, PAINTER SIGN MAINTENANCE-BC 07/31/2022 Last Documented On 3 9:24AM ; [facility] Low back pain PAIN MANAGEMENT FOLL OW UP with KYAW G WADNA FIRST ASSISTANT MANAGER-FPA, PAINTER SIGN MAINTENANCE-BC 06/27/2022 Last Documented On 3 2:21PM ; [facility] Lumbar radiculopathy PAIN MANAGEMENT FOL LOW UP with KYAW G WANDA FIRST ASSISTANT MANAGER-FPA, PAINTER SIGN MAINTENANCE-BC 06/27/2022 Last Documented On 3 2:21PM ; [facility] Lumbar stenosis PAIN MANAGEMENT FOLL OW UP with KYAW G WANDA FIRST ASSISTANT MANAGER-FPA, PAINTER SIGN MAINTENANCE-BC 06/27/2022 Last Documented On 3 2:21PM ; [facility] Obesity PAIN MANAGEMENT FOLLOW UP with Mahad BAÑUELOS G WANDA FIRST ASSISTANT MANAGER-FPA, PAINTER SIGN MAINTENANCE-BC 06/27/2022 Last Documented On 3 2:21PM ; [facility] Postsurgical arthrodesis status PAIN MAN AGEMENT FOLLOW UP with KYAW G WANDA FIRST ASSISTANT MANAGER-FPA, PAINTER SIGN MAINTENANCE-BC 06/27/2022 Last Documented On 3 2:21PM ; [facility] Low back pain PAIN MANAGEMENT FOLL OW UP with KYAW G WANDA FIRST ASSISTANT MANAGER-FPA, PAINTER SIGN MAINTENANCE-BC 02/25/2022 Last Documented On 2 1:04PM ; [facility] Lumbar radiculopathy PAIN MANAGEMENT FOL LOW UP with KYAW [place] WANDA FIRST ASSISTANT MANAGER-FPA, PAINTER SIGN MAINTENANCE-BC 02/25/2022 Last Documented On 2 1:04PM ; [facility] Lumbar stenosis PAIN MANAGEMENT FOLL OW UP with KYAW [place] WANDA FIRST ASSISTANT MANAGER-FPA, PAINTER SIGN MAINTENANCE-BC 02/25/2022 Last Documented On 2 1:04PM ; [facility] Obesity PAIN MANAGEMENT FOLLOW UP with Mahad [place] WANDA FIRST ASSISTANT MANAGER-FPA, PAINTER SIGN MAINTENANCE-BC 02/25/2022 Last Documented On 2 1:04PM ; [facility] Postsurgical arthrodesis status PAIN MAN AGEMENT FOLLOW UP with KYAW [place] WANDA FIRST ASSISTANT MANAGER-FPA, PAINTER SIGN MAINTENANCE-BC 02/25/2022 Last Documented On 2 1:04PM ; [facility] Low back pain PAIN MANAGEMENT NEW CONSULT with KYAW [place] WANDA FIRST ASSISTANT MANAGER-FPA, PAINTER SIGN MAINTENANCE-BC 02/01/2022 Last Documented On 2 12:05PM ; [facility] Lumbar radiculopathy PAIN MANAGEMENT NEW CONSULT with KYAW [place] WANDA FIRST ASSISTANT MANAGER-FPA, PAINTER SIGN MAINTENANCE-BC 02/01/2022 Last Documented On 2 12:05PM ; [facility] Lumbar stenosis PAIN MANAGEMENT NEW CONSULT with KYAW [place] WANDA FIRST ASSISTANT MANAGER-FPA, PAINTER SIGN MAINTENANCE-BC 02/01/2022 Last Documented On 2 12:05PM ; [facility] Obesity PAIN MANAGEMENT NEW CONSULT with KYAW [place] WANDA FIRST ASSISTANT MANAGER-FPA, PAINTER SIGN MAINTENANCE-BC 02/01/2022 Last Documented On 2 12:05PM ; [facility] Postsurgical arthrodesis status PAIN MAN AGEMENT NEW CONSULT with KYAW [place] WANDA FIRST ASSISTANT MANAGER-FPA, PAINTER SIGN MAINTENANCE-BC 02/01/2022 Last Documented On 2 12:05PM ; [facility] Instructions Includes: Instructions for all patient encounters Education and Decision Aids were provided during visit for: Lifestyle education Last Documented On 4 3:30PM ; [facility] Pill Count: Tramadol ~ Last Documented On 4 3:36PM ; [facility] Pill Count: Patient did not bring pain medication to appointment for pill count, per policy. Advised in order to continue to safely prescribe opioids, medication must be brought to each appointment Last Documented On 4 3:56PM ; [facility] Lifestyle education Last Documented On 3 1:08PM ; [facility] Lifestyle education Last Documented On 3 2:22PM ; [facility] Lifestyle education Last Documented On 3 10:02AM ; [facility] Pill Count: N/A Last Documented On 3 10:03AM ; [facility] Lifestyle education Last Documented On 3 1:27PM ; [facility] Lifestyle education Last Documented On 3 3:22PM ; [facility] Lifestyle education Last Documented On 3 8:57AM ; [facility] Lifestyle education Last Documented On 3 9:23AM ; [facility] Lifestyle education Last Documented On 2 9:47AM ; [facility] Lifestyle education Last Documented On 2 12:01PM ; [facility] Medical Equipment - Implanted Devices Includes: Current and historical Devices No Medical Equipment Recorded Medications Includes: Current and historical Medications Current Medications (continue as prescribed) Meloxicam 15 MG Oral Tablet 08/04/2023 Provider: SANTOS DEE Diagnosis: Low back pain, u nspecified TAKE ONE TABLET BY MOUTH MILAGRO LY WITH A MEAL Last Documented On 4 4:11PM By KYAW GRAHAM ; [facility] DULoxetine HCl 60 MG Oral Capsule Delayed Release Particles 08/04/2023 Provider: SANTOS PRUETT Diagnosis: Low back pain, u nspecified TAKE ONE CAPSULE BY MOUTH AT BEDTIME Last Documented On 4 4:11PM By KYAW GRAHAM ; [facility] Pregabalin 150 MG Oral Capsule 08/04/2023 Provider: SANTOS DEE Diagnosis: Radiculopathy, l umbar region TAKE ONE CAPSULE BY MOUTH TWICE A DAY Last Documented On 4 4:11PM [facility] ; [facility] traMADol HCl 50 MG Oral Tablet 06/26/2023 [facility]: Radiculopathy, l umbar region One tablet three times a day as needed for severe pain Last Documented On 4 4:05PM By [facility] ; [facility] Lovastatin 40 MG Oral Tablet 02/02/2022 Provider: MILES PHILLIPS MD Diagnosis: Last Documented On 2 1:02PM By KYAW MCKEONNA ; [facility] One-A-Day Mens Oral Tablet 02/01/2022 Provider: Diagnosis: Last Documented On 2 11:21AM By KYAW GRAHAM ; [facility] Metoprolol Tartrate 25 MG Oral Tablet 02/01/2022 Pro vider: Diagnosis: Last Documented On 2 11:21AM By KY[facility] ; [facility] Lisinopril-hydroCHLOROthiazide 20-12.5 MG Oral Tablet 02/01/2022 Provider: Diagnosis: Last Documented On 2 11:21AM By KYAW GRAHAM ; [facility] metFORMIN HCl ER (OSM) 1000 MG Oral Tablet Extended Release 24 Hour 02/01/2022 Provider: Diagnosis: 2 tablets twice daily. Last Documented On 2 11:21AM By KYAW MCKEONPCAITLYN ; [facility] Pioglitazone HCl 45 MG Oral Tablet 02/01/2022 Provid er: Diagnosis: Last Documented On 2 11:21AM By KYAW MCKEONNA ; [facility] Glimepiride 4 MG Oral Tablet 02/01/2022 Provider: Diagnosis: 2 tablets daily. Last Documented On 2 11:21AM By KYAW GRAHAM ; [facility] Jardiance 10 MG Oral Tablet 01/29/2022 Provider: MILES PHILLIPS MD Diagnosis: Last Documented On 2 11:21AM By KYAW GRAHAM ; [facility] Past Medications on file Pregabalin 150 MG Oral Capsule 07/24/2023 - 08/04/2023 Provider: KYAW MUÑOZ APRN-MAXX MOCK-NA Diagnosis: Radiculopathy, l umbar region TAKE ONE CAPSULE BY MOUTH TWICE A DAY Last Documented On 4 4:11PM By KYAW GRAHAM ; [facility] DULoxetine HCl 60 MG Oral Capsule Delayed Release Particles 07/24/2023 - 08/04/2023 Provider: KYAW MUÑOZ APRN-MAXX MOCK-NA Diagnosis: Low back pain, unspecified TAKE ONE CAPSULE BY MOUTH AT BEDTIME Last Documented On 4 4:08PM By KYAW GRAHAM ; [facility] Meloxicam 15 MG Oral Tablet 07/24/2023 - 08/04/2023 Provider: MAXX VALDEZ-NA Diagnosis: TAKE ONE TABLET BY MOUTH DAILY WITH A MEAL Last Documented On 4 4:08PM By YKAW GRAHAM ; [facility] Meloxicam 15 MG Oral Tablet 06/23/2023 - 08/04/2023 Provider: MAXX PRUETT-NA Diagnosis: Low back pain, unspecified TAKE ONE TABLET BY MOUTH DAILY WITH A MEAL Last Documented On 4 3:49PM By KYAW GRAHAM ; [facility] Pregabalin 150 MG Oral Capsule 06/23/2023 - 07/24/2023 Provider: KYAW MUÑOZ APRN-MAXX MOCK-NA Diagnosis: Radiculopathy, l umbar region TAKE ONE CAPSULE BY MOUTH TWICE A DAY Last Documented On 4 11:03AM By KYAW GRAHAM ; [facility] DULoxetine HCl 60 MG Oral Capsule Delayed Release Particles 05/26/2023 - 07/24/2023 Provider: KYAW MUÑOZ APRN-SANTOS MOCK Diagnosis: Low back pain, unspecified TAKE ONE CAPSULE BY MOUTH AT BEDTIME Last Documented On 4 11:03AM By KYAW GRAHAM ; [facility] traMADol HCl 50 MG Oral Tablet 04/16/2023 - 06/25/2023 Provider: SANTOS PRUETT Diagnosis: Radiculopathy, l umbar region One tablet three times a day as needed for severe pain Last Documented On 4 8:34AM By KYAW GRAHAM ; [facility] Meloxicam 15 MG Oral Tablet 04/01/2023 - 06/23/2023 Provider: SANTOS PRUETT Diagnosis: Low back pain, unspecified TAKE ONE TABLET BY MOUTH DAILY WITH A MEAL Last Documented On 4 12:52PM By KYAW GRAHAM ; [facility] traMADol HCl 50 MG Oral Tablet 03/27/2023 - 04/16/2023 Provider: SANTOS PRUETT Diagnosis: Radiculopathy, l umbar region One tablet three times a day as needed for severe pain Last Documented On 4 2:59PM By KYAW GRAHAM ; [facility] Pregabalin 150 MG Oral Capsule 03/07/2023 - 06/23/2023 Provider: SANTOS PRUETT Diagnosis: Radiculopathy, l umbar region 1 CAPSULE TWO TIMES A DAY Last Documented On 4 12:53PM By KYAW GRAHAM ; [facility] Meloxicam 15 MG Oral Tablet 03/07/2023 - 04/01/2023 Provider: SANTOS PRUETT Diagnosis: Low back pain, unspecified TAKE ONE TABLET BY MOUTH DAILY WITH A MEAL Last Documented On 3 9:34AM By KYAW GRAHAM ; [facility] DULoxetine HCl 60 MG Oral Capsule Delayed Release Particles 03/07/2023 - 05/26/2023 Provider: SANTOS PRUETT Diagnosis: Low back pain, unspecified 1 capsule daily at bedtime Last Documented On 4 10:40AM By KYAW GRAHAM ; [facility] Meloxicam 15 MG Oral Tablet 01/10/2023 - 03/07/2023 Provider: SANTOS PRUETT Diagnosis: Low back pain, unspecified TAKE ONE TABLET BY MOUTH DAILY WITH A MEAL Last Documented On 3 2:41PM By KYAW GRAHAM ; [facility] DULoxetine HCl 60 MG Oral Capsule Delayed Release Particles 01/10/2023 - 03/07/2023 Provider: SANTOS PRUETT Diagnosis: Low back pain, unspecified 1 capsule daily at bedtime Last Documented On 3 2:41PM By KYAW GRAHAM ; [facility] DULoxetine HCl 30 MG Oral Capsule Delayed Release Particles 01/10/2023 - 02/20/2023 Provider: SANTOS PRUETT Diagnosis: Low back pain, unspecified take 1 capsule at bedtime fo r 1 week then increase to 60mg dose Last Documented On 3 8:36AM By KYAW GRAHAM ; [facility] Pregabalin 150 MG Oral Capsule 01/10/2023 - 03/07/2023 Provider: SANTOS PRUETT Diagnosis: Radiculopathy, l umbar region 1 CAPSULE TWO TIMES A DAY Last Documented On 3 2:43PM By KYAW GRAHAM ; [facility] Pregabalin 150 MG Oral Capsule 12/10/2022 - 01/10/2023 Provider: SANTOS PRUETT Diagnosis: Radiculopathy, l umbar region 1 CAPSULE TWO TIMES A DAY Last Documented On 3 10:57AM By KYAW GRAHAM ; [facility] Pregabalin 100 MG Oral Capsule 10/29/2022 - 01/10/2023 Provider: SANTOS PRUETT Diagnosis: Radiculopathy, l umbar region TAKE ONE CAPSULE BY MOUTH TWICE A DAY Last Documented On 3 10:34AM [facility] ; [facility] Meloxicam 15 MG Oral Tablet 10/29/2022 - 01/10/2023 Provider: LINDA PRUETTP-BC Diagnosis: Low back pain, unspecified TAKE ONE TABLET BY MOUTH DAILY WITH A MEAL Last Documented On 3 10:56AM By KYAW MCKEONNA ; [facility] Pregabalin 100 MG Oral Capsule 10/23/2022 - 10/23/2022 Provider: KYAW AVELAR PAINTER SIGN MAINTENANCE-BC Diagnosis: Radiculopathy, l umbar region TAKE ONE CAPSULE BY MOUTH TWICE A DAY Last Documented On 3 11:51PM By KYAW MCKEONNA ; [facility] Pregabalin 100 MG Oral Capsule 10/23/2022 - 10/29/2022 Provider: KYAW AVELAR PAINTER SIGN MAINTENANCE-BC Diagnosis: Radiculopathy, l umbar region TAKE ONE CAPSULE BY MOUTH TWICE A DAY Last Documented On 3 3:44PM [facility] ; [facility] Meloxicam 15 MG Oral Tablet 10/23/2022 - 10/29/2022 Provider: KYAW AVELAR PAINTER SIGN MAINTENANCE-BC Diagnosis: Low back pain, unspecified TAKE ONE TABLET BY MOUTH DAILY WITH A MEAL Last Documented On 3 3:45PM By KYAW MCKEONNA ; [facility] Meloxicam 15 MG Oral Tablet 08/20/2022 - 10/23/2022 Provider: KYAW AVELAR PAINTER SIGN MAINTENANCE-BC Diagnosis: Low back pain, unspecified TAKE ONE TABLET BY MOUTH DAILY WITH A MEAL Last Documented On 3 12:38PM By KYAW LILLYNA ; [facility] Pregabalin 100 MG Oral Capsule 07/31/2022 - 10/23/2022 Provider: KYAW MUÑOZ APRN-NISH PAINTER SIGN MAINTENANCE-BC Diagnosis: Radiculopathy, l umbar region TAKE ONE CAPSULE BY MOUTH TWICE A DAY Last Documented On 3 12:38PM By KYAW LILLY-BC ; [facility] Meloxicam 15 MG Oral Tablet 07/31/2022 - 08/20/2022 Provider: KYAW MUÑOZ FIRST ASSISTANT MANAGER-FPA PAINTER SIGN MAINTENANCE-BC Diagnosis: Low back pain, unspecified TAKE ONE TABLET BY MOUTH DAILY WITH A MEAL Last Documented On 3 9:40AM By KYAW MCKEONP-BC ; [facility] Pregabalin 100 MG Oral Capsule 07/22/2022 - 07/22/2022 Provider: KYAW Corona PRN-FPA, PAINTER SIGN MAINTENANCE-BC Diagnosis: TAKE ONE CAPSULE BY MOUTH TWICE A DAY Last Documented On 3 2:19PM By KYAW MUÑOZ PAINTER SIGN MAINTENANCE-BC ; [facility] Pregabalin 100 MG Oral Capsule 07/22/2022 - 07/31/2022 Provider: KYAW Corona PRN-FPA, PAINTER SIGN MAINTENANCE-BC Diagnosis: TAKE ONE CAPSULE BY MOUTH TWICE A DAY Last Documented On 3 9:18AM By KYAW MUÑOZ [facility]-BC ; [facility] Pregabalin 100 MG Oral Capsule 06/27/2022 - 07/31/2022 Provider: KYAW MUÑOZ FIRST ASSISTANT MANAGER-FPA, PAINTER SIGN MAINTENANCE-BC Diagnosis: Radiculopathy, l umbar region 1 CAPSULE TWO TIMES A DAY Last Documented On 3 8:58AM By Cassandra MACDONALD ; [facility] Meloxicam 15 MG Oral Tablet 06/27/2022 - 07/31/2022 Provider: KYAW MUÑOZ FIRST ASSISTANT MANAGER-FPA, PAINTER SIGN MAINTENANCE-BC Diagnosis: Low back pain, unspecified TAKE ONE TABLET BY MOUTH DAILY WITH A MEAL Last Documented On 3 9:18AM By KYAW MUÑOZ [facility] ; [facility] Calcium + Vitamin D3 600-10 MG-MCG Oral Tablet 0 06/27/2022 - 03/07/2023 Provider: Diagnosis: Last Documented On 3 2:11PM By Cassandra MACDONALD ; [facility] Pregabalin 75 MG Oral Capsule 06/17/2022 - 07/22/2022 Provider: KYAW MUÑOZ FIRST ASSISTANT MANAGER-FPA, PAINTER SIGN MAINTENANCE-BC Diagnosis: Radiculopathy, l umbar region TAKE ONE CAPSULE BY MOUTH TWICE A DAY Last Documented On 3 1:15PM By KYAW MUÑOZ [facility] ; [facility] Meloxicam 15 MG Oral Tablet 06/17/2022 - 06/27/2022 Provider: KYWA MUÑOZ A PRN-FPA, PAINTER SIGN MAINTENANCE-BC Diagnosis: TAKE ONE TABLET BY MOUTH DAILY WITH A MEAL Last Documented On 3 2:21PM By KYAW MUÑOZ [facility] ; [facility] Pregabalin 75 MG Oral Capsule 06/17/2022 - 06/17/2022 Provider: KYAW MUÑOZ APRN-FPA, PAINTER SIGN MAINTENANCE-BC Diagnosis: Radiculopathy, l umbar region TAKE ONE CAPSULE BY MOUTH TWICE A DAY Last Documented On 3 12:53PM By KYAW MUÑOZ [facility] ; [facility] Meloxicam 15 MG Oral Tablet 02/25/2022 - 06/27/2022 Provider: KYAW MUÑOZ APRN-FPChloe PAINTER SIGN MAINTENANCE-BC Diagnosis: Radiculopathy, l umbar region One tablet daily with a meal Last Documented On 3 9:34AM By Cassandra MACDONALD ; [facility] Pregabalin 75 MG Oral Capsule 02/25/2022 - 06/17/2022 Provider: KYAW MUÑOZ APRN-FPChloe PAINTER SIGN MAINTENANCE-BC Diagnosis: Radiculopathy, l umbar region 1 CAPSULE TWO TIMES A DAY Last Documented On 3 12:07PM [facility] ; [facility] Pregabalin 75 MG Oral Capsule 02/01/2022 - 02/25/2022 Provider: KYAW MUÑOZ APRN-FPChloe PAINTER SIGN MAINTENANCE-BC Diagnosis: Radiculopathy, l umbar region 1 capsule at bedtime for 4 d ays then increase to two times daily Last Documented On 2 9:48AM By Cassandra MACDONALD ; [facility] Cyclobenzaprine HCl 10 MG Oral Tablet 02/01/2022 - Provider: Diagnosis: Up to 3 times a day. Last Documented On 3 9:34AM By Cassandra MACDONALD ; [facility] Meloxicam 15 MG Oral Tablet 02/01/2022 - 02/25/2022 Pr ovider: Diagnosis: Last Documented On 2 1:02PM By KYAW MUÑOZ [facility] ; [facility] Citalopram Hydrobromide 40 MG Oral Tablet 02/01/2022 - 03/07/2023 Provider: Diagnosis: Last Documented On 3 2:12PM By Cassandra MACDONALD ; [facility] metFORMIN HCl ER (OSM) 1000 MG Oral Tablet Extended Release 24 Hour 02/01/2022 - 02/01/2022 Provider: Diagnosis: Last Documented On 2 10:28AM By Cassandra MACDONALD ; [facility] Pregabalin 150 MG Oral Capsule 02/01/2022 - 06/27/2022 Provider: KYAW MUÑOZ FIRST ASSISTANT MANAGER-A, [facility] Diagnosis: Radiculopathy, l umbar region 1 CAPSULE TWO TIMES A DAY Last Documented On 3 9:34AM By Cassandra MACDONALD ; [facility] Medications Administered Includes: Administered Medications in patient's chart No Administered Medications Recorded Vital Signs Includes: Vital Signs from 07/16/2023 through 07/15/2024 Vital Name 08/04/2023 03:54P Blood Pressure Sitting R 110/72 BP Cuff Size Large Pulse Rate-Sitting (bpm) 77 Temp-Temporal 96.4 Height (in) 74 Weight (lb) 309 Body Mass Index 39.7 Body Surface Area (m2) 2.6 Pain Level 0 Oxygen Saturation (%) 100 Last Documented: On 08/04/2023 4:15PM ; [facility] Results Includes: Results from 07/16/2023 through 07/15/2024 No Results Recorded For Specified Dates History of Present Illness History of Present Illness not supported for this document type No History of Present Illness Recorded Social History Description 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 Last Documented On 3 3:46PM ; [facility] Tobacco non-user 02/01/2022 Last Documented On 2 12:05PM ; [facility] Alcohol 02/01/2022 Last Documented On 2 12:05PM ; [facility] Amount of alcohol per day: 0-1 2 Last Documented On 2 12:05PM ; [facility] Difficulty walking 02/01/2022 Last Documented On 2 12:05PM ; [facility] Not using drugs 02/01/2022 Last Documented On 2 12:05PM ; [facility] Smoking Status Unknown Procedures and Surgical History Includes: Procedures from 07/16/2023 through 07/15/2024 Procedures Code Diagnosis Performing Provider Service Location Service Date CLINIC VISIT T1015 Spinal stenosis, lumbar region with neurogenic claudication, Low back pain, unspecified, Radiculopathy, lumbar region, Arthrodesis status KYAW MUÑOZ FIRST ASSISTANT MANAGER-FPA, PAINTER SIGN MAINTENANCE-BC [facility] 08/04/2023 Last Documented On 4 4:15PM ; [facility] Surgical History Last Updated No Pacemaker 02/01/2022 Last Documented On 2 12:05PM ; [facility] Medical History Includes: Medical History in patient's chart Description Last Updated Denies a fear of falling. 08/04/2023 Last Documented On 4 4:15PM ; [facility] Has had no fall in the last 12 months. 1 Last Documented On 2 12:05PM ; [facility] Currently wearing eyeglasses 02/01/2022 Last Documented On 2 12:05PM ; [facility] No Pain Pump 02/01/2022 Last Documented On 2 12:05PM ; [facility] No Spinal cord stimulator 02/01/2022 Last Documented On 2 12:05PM ; [facility] Please list all surgeries: L4/L5 spinal fusion 07/06/2021 02/01/2022 Last Documented On 2 12:05PM ; [facility] Wearing contact lenses 02/01/2022 Last Documented On 2 12:05PM ; [facility] Family History Includes: Family History in patient's chart Description Last Updated Family history of Arthritis 02/01/2022 Last Documented On 2 12:05PM ; [facility] Family history of ischemic heart disease 02/01/2022 Last Documented On 2 12:05PM ; [facility] Family history of stroke/paralysis 02/01 Last Documented On 2 12:05PM ; [facility] Review of Systems Review of Systems not supported for this document type No Review of Systems Recorded Mental Status No Mental Status Recorded Functional Status No Functional Status Recorded Physical Exam Physical Exam not supported for this document type No Physical Exam Recorded Allergies Includes: Active, inactive, and resolved Allergies No Known Allergies Encounters Includes: Encounters from 07/16/2023 through 07/15/2024 Encounter Provider Location Date Check-In Time Check-Out Time Diagnosis PAIN MANAGEMENT FOLLOW UP KYAW AVELAR, S[facility] 08/04/19 24 3:30PM 4:13PM Obesity,Orthope dics Postsurgical Arthrodesis Status,Lumbar Radiculopathy,S jumana Stenosis Lumbar with Neurogenic Claudication,Do rsopathy Low Back Pain Insurance Includes: Active Insurance Policies Plan Name Member ID Group # Subscriber Relationship Effect lakesha Dates 1 - [facility] [id number] CHRISTY GONZÁLES Self Clinical Notes Includes: Signed Clinical Notes starting from 04/26/2022 * Progress note Date Encounter Last Documented by 08/04/2023 PAIN MANAGEMENT FOLLOW UP Last d ocumented on 08/04/2023; 4:15 PM, KYAW MUÑOZ APRN-NISH, [facility]; [facility] Active Problems & Conditions - [...] Not using drugs. 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 Allergies - No Known Allergies Family [...] score ten, and impression and score six; [68649] Established outpatient, medically appropriate H&P, moderate level [...] but may be subject to typographical or immunohematologist errors. Verify all diagnoses, medications, dosages, and [...]
[2024-07-15 16:17] LABS: Glucose Point of Care 352 mg/dl (65-105)
--- NOTE | 2024-07-15 16:29 | ECG_ITS ---
Test Date: 2024-07-15 17:05:54 Measurements Intervals [place] Rate: 110 P: 71 AL: 145 QRS: -67 QRSD: 93 T: 57 QT: 342 QTc: 464 Interpretive Statements SINUS TACHYCARDIA LEFT ANTERIOR FASCICULAR BLOCK BASELINE ARTIFACT- I, III, AVL ABNORMAL ECG No previous ECG available for comparison Electronically Signed On 07-15-2024 20:33:23 CDT by Carlos Stanley D.O.
--- OUTSIDE RECORDS SUMMARY | 2024-07-15 16:32 | XMS_ITS | Clinical Summary ---
Author Organization [facility] Address [address] [place] [address] Phone Care Team Providers Care Wrecking Crane Engine Operator Name Role Phone ALAN BERGER, MILES Primary Care Provider [phone] Reason for Visit and Chief Complaint The Chief Complaint is: Follow up on medication refills Problems Includes: Problems addressed during this encounter and other active Problems All Visits Onset Date Resolved Date Provider Condition S tatus Anxiety Disorder Nos Unknown KYAW Spain WANDA FASHION ARTIST-FPA, DAIRY MACHINE OPERATOR FARMWORKER-BC Active Last Documented On 2 11:56AM ; [facility] 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 Unknown KYAW Spain WANDA FASHION ARTIST-FPA , DAIRY MACHINE OPERATOR FARMWORKER-BC Active Last Documented On 2 11:56AM ; [facility] Essential Hypertension Unknown KYAW Spain KUL P FASHION ARTIST-FPA, DAIRY MACHINE OPERATOR FARMWORKER-BC Active Last Documented On 2 11:56AM ; [facility] Major Depression Unknown KYAW Spain WANDA FASHION ARTIST -FPA, DAIRY MACHINE OPERATOR FARMWORKER-BC Active Last Documented On 2 11:57AM ; [facility] Plan of Treatment Pending Tests Order Diagnosis Results Due Ordering P rovider Pain Management CPT MILD Procedure Spinal steno sis, lumbar region with neurogenic claudication 09/03/23 KYAW Judit WANDA FASHION ARTIST-FPA, DAIRY MACHINE OPERATOR FARMWORKER-BC Last Documented On 4 2:50PM ; [facility] Education and Decision Aids were provided during visit for: Lifestyle education Last Documented On 4 3:30PM ; [facility] Pill Count: Tramadol ~ Last Documented On 4 3:36PM ; [facility] Pill Count: Patient did not bring pain medication to appointment for pill count, per policy. Advised in order to continue to safely prescribe opioids, medication must be brought to each appointment Last Documented On 4 3:56PM ; [facility] Assessments Includes: Assessments from this encounter Findings - [E66.9 - Obesity, unspecified] Obesity - Last Documented On 08/04/2023 4:15PM ; [facility] - [M54.50 - Low back pain, unspecified] Low back pain - Last Documented On 08/04/2023 4:15PM ; [facility] - [Z98.1 - Arthrodesis status] Postsurgical arthrodesis status - Last Documented On 08/04/2023 4:15PM ; [facility] - [M48.062 - Spinal stenosis, lumbar region with neurogenic claudication] Lumbar stenosis with neurogenic claudication - Last Documented On 08/04/2023 4:15PM ; [facility] - [M54.16 - Radiculopathy, lumbar region] Lumbar radiculopathy - Last Documented On 08/04/2023 4:15PM ; [facility] Instructions Includes: Instructions from this encounter Education and Decision Aids were provided during visit for: Lifestyle education Last Documented On 4 3:30PM ; [facility] Pill Count: Tramadol ~ Last Documented On 4 3:36PM ; [facility] Pill Count: Patient did not bring pain medication to appointment for pill count, per policy. Advised in order to continue to safely prescribe opioids, medication must be brought to each appointment Last Documented On 4 3:56PM ; [facility] Medical Equipment - Implanted Devices Includes: Current Devices No Medical Equipment Recorded Medications Includes: Medications discussed during this encounter and other current Medications Discontinued / Stopped on this date SANTOS PRUETT on 07/24/2023 Pregabalin 150 MG Oral Capsule Provider: SANTOS DEE Diagnosis: Radiculopathy, l umbar region Last Documented On 4 4:11PM By KYAW GRAHAM ; [facility] Meloxicam 15 MG Oral Tablet Provider: SANTOS DEE Diagnosis: Low back pain, u nspecified Last Documented On 4 3:49PM By KYAW GRAHAM ; [facility] New / Renewed during this visit SANTOS PRUETT on 08/04/2023 Meloxicam 15 MG Oral Tablet Provider: SANTOS DEE 90 day supply: 90 tablet, 0 refills Diagnosis: Low back pain, unspecified TAKE ONE TABLET BY MOUTH MILAGRO LY WITH A MEAL Pharmacy: [facility] [address], [phone] - Last Documented On 4 4:11PM By KYAW GRAHAM ; [facility] DULoxetine HCl 60 MG Oral Capsule Delayed Release Particles Provider: SANTOS PRUETT 90 day supply: 90 capsule, 0 refills Diagnosis: Low back pain, unspecified TAKE ONE CAPSULE BY MOUTH AT BEDTIME Pharmacy: [facility] [address], [phone] - Last Documented On 4 4:11PM By KYAW GRAHAM ; [facility] Pregabalin 150 MG Oral Capsule Provider: SANTOS DEE 90 day supply: 180 capsule, 0 refills Diagnosis : Radiculopathy, lumbar region TAKE ONE CAPSULE BY MOUTH TWICE A DAY Pharmacy: [facility] [address], [phone] - Last Documented On 4 4:11PM By KYAW GRAHAM ; [facility] Current Medications (continue as prescribed) traMADol HCl 50 MG Oral Tablet 06/26/2023 Provider: SANTOS DEE Diagnosis: Radiculopathy, l umbar region One tablet three times a day as needed for severe pain Last Documented On 4 4:05PM By KYAW GRAHAM ; [facility] Lovastatin 40 MG Oral Tablet 02/02/2022 Provider: MILES PHILLIPS MD Diagnosis: Last Documented On 2 1:02PM By KYAW GRAHAM ; [facility] One-A-Day Mens Oral Tablet 02/01/2022 Provider: Diagnosis: Last Documented On 2 11:21AM By KYAW GRAHAM ; [facility] Metoprolol Tartrate 25 MG Oral Tablet 02/01/2022 Pro vider: Diagnosis: Last Documented On 2 11:21AM By KYAW LILLYNA ; [facility] Lisinopril-hydroCHLOROthiazide 20-12.5 MG Oral Tablet 02/01/2022 Provider: Diagnosis: Last Documented On 2 11:21AM By KYAW MCKEONPCAITLYN ; [facility] metFORMIN HCl ER (OSM) 1000 MG Oral Tablet Extended Release 24 Hour 02/01/2022 Provider: Diagnosis: 2 tablets twice daily. Last Documented On 2 11:21AM By KYAW GRAHAM ; [facility] Pioglitazone HCl 45 MG Oral Tablet 02/01/2022 Provid er: Diagnosis: Last Documented On 2 11:21AM By KYAW MUÑOZ DAIRY MACHINE OPERATOR FARMWORKERMUSA ; [facility] Glimepiride 4 MG Oral Tablet 02/01/2022 Provider: Diagnosis: 2 tablets daily. 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 Last Documented On 4 3:30PM ; [facility] Tobacco non-user 02/01/2022 Last Documented On 4 3:30PM ; [facility] Alcohol 02/01/2022 Last Documented On 4 3:30PM ; [facility] Amount of alcohol per day: 0-1 2 Last Documented On 4 3:30PM ; [facility] Difficulty walking 02/01/2022 Last Documented On 4 3:30PM ; [facility] Not using drugs 02/01/2022 Last Documented On 4 3:30PM ; [facility] Smoking Status Unknown Procedures and Surgical History Includes: Procedures from this encounter Procedures Code Diagnosis Performing Provider Service Location Service Date CLINIC VISIT T1015 Spinal stenosis, lumbar region with neurogenic claudication, Low back pain, unspecified, Radiculopathy, lumbar region, Arthrodesis status KYAW MUÑOZ FASHION ARTIST-FPA, DAIRY MACHINE OPERATOR FARMWORKER-BC [facility] 08/04/2023 Last Documented On 4 4:15PM ; [facility] plan of care reviewed and agreed to Last Documented On 4 3:30PM ; [facility] plan of care reviewed and agreed to by veronica mcginnis patient Last Documented On 4 3:30PM ; [facility] use of tobacco assessment performed 1000F Last Documented On 4 3:30PM ; [facility] patient screened for future fall risk: documentation of any fall with injury in past year 1100F Last Documented On 4 3:30PM ; [facility] review of medications documented 1160F Last Documented On 4 3:30PM ; [facility] screening for adult depression: impressi on and score twelve Last Documented On 4 3:36PM ; [facility] screening for adult depression: impressi on and score ten Last Documented On 4 3:30PM ; [facility] screening for adult depression: impressi on and score six Last Documented On 4 3:30PM ; [facility] standardized depression screening: posit lakesha for symptoms Last Documented On 4 3:30PM ; [facility] encouragement to exercise Last Documented On 4 3:30PM ; [facility] Reviewed & agreed to staff entries. Last Documented On 4 3:30PM ; [facility] Clinical summary provided to patient Last Documented On 4 3:30PM ; [facility] SOAPP-R: total score 7 Last Documented On 4 3:52PM ; [facility] Surgical History Last Updated No Pacemaker 02/01/2022 Last Documented On 4 3:30PM ; [facility] Medical History Includes: Medical History addressed during this encounter Description Last Updated Denies a fear of falling. 08/04/2023 Last Documented On 4 4:15PM ; [facility] Has had no fall in the last 12 months. 1 Last Documented On 4 3:30PM ; [facility] Currently wearing eyeglasses 02/01/2022 Last Documented On 4 3:30PM ; [facility] No Pain Pump 02/01/2022 Last Documented On 4 3:30PM ; [facility] No Spinal cord stimulator 02/01/2022 Last Documented On 4 3:30PM ; [facility] Please list all surgeries: L4/L5 spinal fusion 07/06/2021 02/01/2022 Last Documented On 4 3:30PM ; [facility] Wearing contact lenses 02/01/2022 Last Documented On 4 3:30PM ; [facility] Family History Includes: Family History addressed during this encounter Description Last Updated Family history of Arthritis 02/01/2022 Last Documented On 4 3:30PM ; [facility] Family history of ischemic heart disease 02/01/2022 Last Documented On 4 3:30PM ; [facility] Family history of stroke/paralysis 02/01 Last Documented On 4 3:30PM ; [facility] Review of Systems Includes: Review [...] PAIN MANAGEMENT FOLLOW UP KYAW MUÑOZ APRN-NISH, DAIRY MACHINE OPERATOR FARMWORKER-BC [facility] 08/04/19 24 3:30PM 4:13PM Obesity,Orthope dics Postsurgical Arthrodesis Status,Lumbar Radiculopathy,S jumana Stenosis Lumbar with Neurogenic Claudication,Do rsopathy Low Back Pain Insurance Includes: Active Insurance Policies Plan Name Member ID Group # Subscriber Relationship Effect lakesha Dates 1 - [facility] [id number] CHRISTY GONZÁLES Self Clinical Notes Includes: Clinical Notes from this encounter * Progress note Date Encounter Last Documented by 08/04/2023 PAIN MANAGEMENT FOLLOW UP Last d ocumented on 08/04/2023; 4:15 PM, KYAW MUÑOZ APRN-NISH, DAIRY MACHINE OPERATOR FARMWORKER-BC; [facility] Active Problems & Conditions - Anxiety [...] Use: Not using drugs. 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 Allergies - No Known Allergies Family [...] score ten, and impression and score six; [74277] Established outpatient, medically appropriate H&P, moderate level [...] but may be subject to typographical or picc nurse errors. Verify all diagnoses, medications, dosages, and [...]
--- OUTSIDE RECORDS SUMMARY | 2024-07-15 16:33 | XMS_ITS ---
Author Organization [facility] Address [address] [place] [address] Phone Care Team Providers Care Crusher Assembler Name Role Phone ALAN BERGER, MILES Primary Care Provider [phone] Problems Includes: Active, inactive, and resolved Problems All Visits Onset Date Resolved Date Provider Condition S tatus Anxiety Disorder Nos Unknown KYAW Spain WANDA CARNIVAL WORKER-FPA, GRAPHIC PRODUCTION ARTIST-BC Active Last Documented On 2 11:56AM ; [facility] 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 Unknown KYAW G WANDA CARNIVAL WORKER-FPA , GRAPHIC PRODUCTION ARTIST-BC Active Last Documented On 2 11:56AM ; [facility] Essential Hypertension Unknown KYAW Judit KUL P CARNIVAL WORKER-FPA, GRAPHIC PRODUCTION ARTIST-BC Active Last Documented On 2 11:56AM ; [facility] Major Depression Unknown KYAW G WANDA CARNIVAL WORKER -FPA, GRAPHIC PRODUCTION ARTIST-BC Active Last Documented On 2 11:57AM ; [facility] Plan of Treatment Referrals To Diagnosis Pain Management [address] [address] - Radiculopathy, lumbar region Note: consent for bilateral L5-S1 transforaminal epidural steroid injection under fluoroscopy Last Documented On 3 8:52AM ; [facility] Pain Management [address] [address] - Radiculopathy, lumbar region Note: consent for Right L3-4 and L5-S1 transforaminal epidural steroid injection under fluoroscopy Last Documented On 3 9:07AM ; [facility] Orthopedic [facility] - [address] [place] [address] Radiculopathy, lumbar region Note: Dr Erich Moore would like surgical opinion on his options in case conservative measures fail Last Documented On 4 2:24PM ; [facility] Education and Decision Aids were provided during visit for: Lifestyle education Last Documented On 4 3:30PM ; [facility] Pill Count: Tramadol ~ Last Documented On 4 3:36PM ; [facility] Pill Count: Patient did not bring pain medication to appointment for pill count, per policy. Advised in order to continue to safely prescribe opioids, medication must be brought to each appointment Last Documented On 4 3:56PM ; [facility] Lifestyle education Last Documented On 3 1:08PM ; [facility] Lifestyle education Last Documented On 3 2:22PM ; [facility] Lifestyle education Last Documented On 3 10:02AM ; [facility] Pill Count: N/A Last Documented On 3 10:03AM ; [facility] Lifestyle education Last Documented On 3 1:27PM ; [facility] Lifestyle education Last Documented On 3 3:22PM ; [facility] Lifestyle education Last Documented On 3 8:57AM ; [facility] Lifestyle education Last Documented On 3 9:23AM ; [facility] Lifestyle education Last Documented On 2 9:47AM ; [facility] Lifestyle education Last Documented On 2 12:01PM ; [facility] Assessments Includes: Assessments for all patient encounters Findings Encounter Date Low back pain PAIN MANAGEMENT FOLL OW UP with KYAW MUÑOZ CARNIVAL WORKER-FPA, GRAPHIC PRODUCTION ARTIST-BC 08/04/2023 Last Documented On 4 4:15PM ; [facility] Lumbar radiculopathy PAIN MANAGEMENT FOL LOW UP with KYAW [place] WANDA CARNIVAL WORKER-FPA, GRAPHIC PRODUCTION ARTIST-BC 08/04/2023 Last Documented On 4 4:15PM ; [facility] Lumbar stenosis with neuroge colleen claudication PAIN MANAGEMENT FOLLOW UP with KYAW Spain WANDA CARNIVAL WORKER-FPA, GRAPHIC PRODUCTION ARTIST-BC 08/04/2023 Last Documented On 4 4:15PM ; [facility] Obesity PAIN MANAGEMENT FOLLOW UP with Mahad Spain WANDA CARNIVAL WORKER-FPA, GRAPHIC PRODUCTION ARTIST-BC 08/04/2023 Last Documented On 4 4:15PM ; [facility] Postsurgical arthrodesis status PAIN MAN AGEMENT FOLLOW UP with KYAW [place] WANDA CARNIVAL WORKER-FPA, GRAPHIC PRODUCTION ARTIST-BC 08/04/2023 Last Documented On 4 4:15PM ; [facility] Low back pain TELEHEALTH with KYAW [place] WANDA A PRN-FPA, GRAPHIC PRODUCTION ARTIST-BC 03/27/2023 Last Documented On 3 1:39PM ; [facility] Lumbar radiculopathy TELEHEALTH with KYAW Estrada ULP CARNIVAL WORKER-FPA, GRAPHIC PRODUCTION ARTIST-BC 03/27/2023 Last Documented On 3 1:39PM ; [facility] Lumbar stenosis with neuroge colleen claudication TELEHEALTH with KYAW [place] WANDA CARNIVAL WORKER-FPA, GRAPHIC PRODUCTION ARTIST-BC 03/27/2023 Last Documented On 3 1:39PM ; [facility] Obesity TELEHEALTH with KYAW [place] WANDA A PRN-FPA, GRAPHIC PRODUCTION ARTIST-BC 03/27/2023 Last Documented On 3 1:39PM ; [facility] Postsurgical arthrodesis status TELEHEAL TH with KYAW [place] WANDA CARNIVAL WORKER-FPA, GRAPHIC PRODUCTION ARTIST-BC 03/27/2023 Last Documented On 3 1:39PM ; [facility] [Z01.818 - Encounter for ot er preprocedural examination] visit for: preoperative exam PAIN MANAGEMENT FOLLOW UP with KYAW Spain WANDA CARNIVAL WORKER-FPA, GRAPHIC PRODUCTION ARTIST-BC 03/07/2023 Last Documented On 3 11:51AM ; [facility] Low back pain PAIN MANAGEMENT FOLL OW UP with KYAW G WANDA CARNIVAL WORKER-FPA, GRAPHIC PRODUCTION ARTIST-BC 03/07/2023 Last Documented On 3 11:51AM ; [facility] Lumbar radiculopathy PAIN MANAGEMENT FOL LOW UP with KYAW G WANDA CARNIVAL WORKER-FPA, GRAPHIC PRODUCTION ARTIST-BC 03/07/2023 Last Documented On 3 11:51AM ; [facility] Lumbar stenosis with neuroge colleen claudication PAIN MANAGEMENT FOLLOW UP with KYAW G WANDA CARNIVAL WORKER-FPA, GRAPHIC PRODUCTION ARTIST-BC 03/07/2023 Last Documented On 3 11:51AM ; [facility] Obesity PAIN MANAGEMENT FOLLOW UP with Mahad BAÑUELOS G WANDA CARNIVAL WORKER-FPA, GRAPHIC PRODUCTION ARTIST-BC 03/07/2023 Last Documented On 3 11:51AM ; [facility] Postsurgical arthrodesis status PAIN MAN AGEMENT FOLLOW UP with KYAW G WANDA CARNIVAL WORKER-FPA, GRAPHIC PRODUCTION ARTIST-BC 03/07/2023 Last Documented On 3 11:51AM ; [facility] Low back pain PAIN MANAGEMENT FOLL OW UP with KYAW Judit WANDA CARNIVAL WORKER-FPA, GRAPHIC PRODUCTION ARTIST-BC 01/10/2023 Last Documented On 3 11:02AM ; [facility] Lumbar radiculopathy PAIN MANAGEMENT FOL LOW UP with KYAW G WANDA CARNIVAL WORKER-FPA, GRAPHIC PRODUCTION ARTIST-BC 01/10/2023 Last Documented On 3 11:02AM ; [facility] Lumbar stenosis with neuroge colleen claudication PAIN MANAGEMENT FOLLOW UP with KYAW G WANDA CARNIVAL WORKER-FPA, GRAPHIC PRODUCTION ARTIST-BC 01/10/2023 Last Documented On 3 11:02AM ; [facility] Obesity PAIN MANAGEMENT FOLLOW UP with Mahad BAÑUELOS G WANDA CARNIVAL WORKER-FPA, GRAPHIC PRODUCTION ARTIST-BC 01/10/2023 Last Documented On 3 11:02AM ; [facility] Postsurgical arthrodesis status PAIN MAN AGEMENT FOLLOW UP with KYAW G WANDA CARNIVAL WORKER-FPA, GRAPHIC PRODUCTION ARTIST-BC 01/10/2023 Last Documented On 3 11:02AM ; [facility] Low back pain PAIN MANAGEMENT FOLL OW UP with KYAW G WANDA CARNIVAL WORKER-FPA, GRAPHIC PRODUCTION ARTIST-BC 12/10/2022 Last Documented On 3 2:13PM ; [facility] Lumbar radiculopathy PAIN MANAGEMENT FOL LOW UP with KYAW G WANDA CARNIVAL WORKER-FPA, GRAPHIC PRODUCTION ARTIST-BC 12/10/2022 Last Documented On 3 2:13PM ; [facility] Lumbar stenosis with neuroge colleen claudication PAIN MANAGEMENT FOLLOW UP with KYAW G WANDA CARNIVAL WORKER-FPA, GRAPHIC PRODUCTION ARTIST-BC 12/10/2022 Last Documented On 3 2:13PM ; [facility] Obesity PAIN MANAGEMENT FOLLOW UP with M EDDA G WANDA CARNIVAL WORKER-FPA, GRAPHIC PRODUCTION ARTIST-BC 12/10/2022 Last Documented On 3 2:13PM ; [facility] Postsurgical arthrodesis status PAIN MAN AGEMENT FOLLOW UP with KYAW G WANDA CARNIVAL WORKER-FPA, GRAPHIC PRODUCTION ARTIST-BC 12/10/2022 Last Documented On 3 2:13PM ; [facility] Low back pain PAIN MANAGEMENT FOLL OW UP with KYAW G WANDA CARNIVAL WORKER-FPA, GRAPHIC PRODUCTION ARTIST-BC 10/29/2022 Last Documented On 3 3:46PM ; [facility] Lumbar radiculopathy PAIN MANAGEMENT FOL LOW UP with KYAW G WANDA CARNIVAL WORKER-FPA, GRAPHIC PRODUCTION ARTIST-BC 10/29/2022 Last Documented On 3 3:46PM ; [facility] Lumbar stenosis PAIN MANAGEMENT FOLL OW UP with KYAW G WANDA CARNIVAL WORKER-FPA, GRAPHIC PRODUCTION ARTIST-BC 10/29/2022 Last Documented On 3 3:46PM ; [facility] Obesity PAIN MANAGEMENT FOLLOW UP with M EDDA G WANDA CARNIVAL WORKER-FPA, GRAPHIC PRODUCTION ARTIST-BC 10/29/2022 Last Documented On 3 3:46PM ; [facility] Postsurgical arthrodesis status PAIN MAN AGEMENT FOLLOW UP with KYAW G WANDA CARNIVAL WORKER-FPA, GRAPHIC PRODUCTION ARTIST-BC 10/29/2022 Last Documented On 3 3:46PM ; [facility] Low back pain PAIN MANAGEMENT FOLL OW UP with KYAW G WANDA CARNIVAL WORKER-FPA, GRAPHIC PRODUCTION ARTIST-BC 07/31/2022 Last Documented On 3 9:24AM ; [facility] Lumbar radiculopathy PAIN MANAGEMENT FOL LOW UP with KYAW G WANDA CARNIVAL WORKER-FPA, GRAPHIC PRODUCTION ARTIST-BC 07/31/2022 Last Documented On 3 9:24AM ; [facility] Lumbar stenosis PAIN MANAGEMENT FOLL OW UP with KYAW G WANDA CARNIVAL WORKER-FPA, GRAPHIC PRODUCTION ARTIST-BC 07/31/2022 Last Documented On 3 9:24AM ; [facility] Obesity PAIN MANAGEMENT FOLLOW UP with M EDDA G WANDA CARNIVAL WORKER-FPA, GRAPHIC PRODUCTION ARTIST-BC 07/31/2022 Last Documented On 3 9:24AM ; [facility] Postsurgical arthrodesis status PAIN MAN AGEMENT FOLLOW UP with KYAW G WANDA CARNIVAL WORKER-FPA, GRAPHIC PRODUCTION ARTIST-BC 07/31/2022 Last Documented On 3 9:24AM ; [facility] Low back pain PAIN MANAGEMENT FOLL OW UP with KYAW G WANDA CARNIVAL WORKER-FPA, GRAPHIC PRODUCTION ARTIST-BC 06/27/2022 Last Documented On 3 2:21PM ; [facility] Lumbar radiculopathy PAIN MANAGEMENT FOL LOW UP with KYAW G WANDA CARNIVAL WORKER-FPA, GRAPHIC PRODUCTION ARTIST-BC 06/27/2022 Last Documented On 3 2:21PM ; [facility] Lumbar stenosis PAIN MANAGEMENT FOLL OW UP with KYAW G WANDA CARNIVAL WORKER-FPA, GRAPHIC PRODUCTION ARTIST-BC 06/27/2022 Last Documented On 3 2:21PM ; [facility] Obesity PAIN MANAGEMENT FOLLOW UP with Mahad BAÑUELOS G WANDA CARNIVAL WORKER-FPA, GRAPHIC PRODUCTION ARTIST-BC 06/27/2022 Last Documented On 3 2:21PM ; [facility] Postsurgical arthrodesis status PAIN MAN AGEMENT FOLLOW UP with KYWA G WANDA CARNIVAL WORKER-FPA, GRAPHIC PRODUCTION ARTIST-BC 06/27/2022 Last Documented On 3 2:21PM ; [facility] Low back pain PAIN MANAGEMENT FOLL OW UP with KYAW G WANDA CARNIVAL WORKER-FPA, GRAPHIC PRODUCTION ARTIST-BC 02/25/2022 Last Documented On 2 1:04PM ; [facility] Lumbar radiculopathy PAIN MANAGEMENT FOL LOW UP with KYAW [place] WANDA CARNIVAL WORKER-FPA, GRAPHIC PRODUCTION ARTIST-BC 02/25/2022 Last Documented On 2 1:04PM ; [facility] Lumbar stenosis PAIN MANAGEMENT FOLL OW UP with KYAW [place] WANDA CARNIVAL WORKER-FPA, GRAPHIC PRODUCTION ARTIST-BC 02/25/2022 Last Documented On 2 1:04PM ; [facility] Obesity PAIN MANAGEMENT FOLLOW UP with Mahad [place] WANDA CARNIVAL WORKER-FPA, GRAPHIC PRODUCTION ARTIST-BC 02/25/2022 Last Documented On 2 1:04PM ; [facility] Postsurgical arthrodesis status PAIN MAN AGEMENT FOLLOW UP with KYAW [place] WANDA CARNIVAL WORKER-FPA, GRAPHIC PRODUCTION ARTIST-BC 02/25/2022 Last Documented On 2 1:04PM ; [facility] Low back pain PAIN MANAGEMENT NEW CONSULT with KYAW [place] WANDA CARNIVAL WORKER-FPA, GRAPHIC PRODUCTION ARTIST-BC 02/01/2022 Last Documented On 2 12:05PM ; [facility] Lumbar radiculopathy PAIN MANAGEMENT NEW CONSULT with KYAW [place] WANDA CARNIVAL WORKER-FPA, GRAPHIC PRODUCTION ARTIST-BC 02/01/2022 Last Documented On 2 12:05PM ; [facility] Lumbar stenosis PAIN MANAGEMENT NEW CONSULT with KYAW [place] WANDA CARNIVAL WORKER-FPA, GRAPHIC PRODUCTION ARTIST-BC 02/01/2022 Last Documented On 2 12:05PM ; [facility] Obesity PAIN MANAGEMENT NEW CONSULT with KYAW [place] WANDA CARNIVAL WORKER-FPA, GRAPHIC PRODUCTION ARTIST-BC 02/01/2022 Last Documented On 2 12:05PM ; [facility] Postsurgical arthrodesis status PAIN MAN AGEMENT NEW CONSULT with KYAW [place] WANDA CARNIVAL WORKER-FPA, GRAPHIC PRODUCTION ARTIST-BC 02/01/2022 Last Documented On 2 12:05PM ; [facility] Instructions Includes: Instructions for all patient encounters Education and Decision Aids were provided during visit for: Lifestyle education Last Documented On 4 3:30PM ; [facility] Pill Count: Tramadol ~ Last Documented On 4 3:36PM ; [facility] Pill Count: Patient did not bring pain medication to appointment for pill count, per policy. Advised in order to continue to safely prescribe opioids, medication must be brought to each appointment Last Documented On 4 3:56PM ; [facility] Lifestyle education Last Documented On 3 1:08PM ; [facility] Lifestyle education Last Documented On 3 2:22PM ; [facility] Lifestyle education Last Documented On 3 10:02AM ; [facility] Pill Count: N/A Last Documented On 3 10:03AM ; [facility] Lifestyle education Last Documented On 3 1:27PM ; [facility] Lifestyle education Last Documented On 3 3:22PM ; [facility] Lifestyle education Last Documented On 3 8:57AM ; [facility] Lifestyle education Last Documented On 3 9:23AM ; [facility] Lifestyle education Last Documented On 2 9:47AM ; [facility] Lifestyle education Last Documented On 2 12:01PM ; [facility] Medical Equipment - Implanted Devices Includes: Current and historical Devices No Medical Equipment Recorded Medications Includes: Current and historical Medications Current Medications (continue as prescribed) Meloxicam 15 MG Oral Tablet 08/04/2023 Provider: SANTOS DEE Diagnosis: Low back pain, u nspecified TAKE ONE TABLET BY MOUTH MILAGRO LY WITH A MEAL Last Documented On 4 4:11PM By KYWA GRAHAM ; [facility] DULoxetine HCl 60 MG Oral Capsule Delayed Release Particles 08/04/2023 Provider: SANTOS PRUETT Diagnosis: Low back pain, u nspecified TAKE ONE CAPSULE BY MOUTH AT BEDTIME Last Documented On 4 4:11PM By KYAW GRAAHM ; [facility] Pregabalin 150 MG Oral Capsule 08/04/2023 Provider: SANTOS DEE Diagnosis: Radiculopathy, l umbar region TAKE ONE CAPSULE BY MOUTH TWICE A DAY Last Documented On 4 4:11PM [facility] ; [facility] traMADol HCl 50 MG Oral Tablet 06/26/2023 [facility] Diagnosis: Radiculopathy, l umbar region One tablet three times a day as needed for severe pain Last Documented On 4 4:05PM By KYAW [facility] ; [facility] Lovastatin 40 MG Oral Tablet 02/02/2022 Provider: MILES PHILLIPS MD Diagnosis: Last Documented On 2 1:02PM By KYAW MCKEONNA ; [facility] One-A-Day Mens Oral Tablet 02/01/2022 Provider: Diagnosis: Last Documented On 2 11:21AM By KYAW GRAHAM ; [facility] Metoprolol Tartrate 25 MG Oral Tablet 02/01/2022 Pro vider: Diagnosis: Last Documented On 2 11:21AM By KYAW [facility] ; [facility] Lisinopril-hydroCHLOROthiazide 20-12.5 MG Oral Tablet 02/01/2022 Provider: Diagnosis: Last Documented On 2 11:21AM By KYAW GRAHAM ; [facility] metFORMIN HCl ER (OSM) 1000 MG Oral Tablet Extended Release 24 Hour 02/01/2022 Provider: Diagnosis: 2 tablets twice daily. Last Documented On 2 11:21AM By KYAW MCKEONPCAITLYN ; [facility] Pioglitazone HCl 45 MG Oral Tablet 02/01/2022 Provid er: Diagnosis: Last Documented On 2 11:21AM By KYAW MCKEONNA ; [facility] Glimepiride 4 MG Oral Tablet 02/01/2022 Provider: Diagnosis: 2 tablets daily. Last Documented On 2 11:21AM By KYAW GRAHAM ; [facility] Jardiance 10 MG Oral Tablet 01/29/2022 Provider: MILES PHILLIPS MD Diagnosis: Last Documented On 2 11:21AM By KYAW GRAHAM ; [facility] Past Medications on file Pregabalin 150 MG Oral Capsule 07/24/2023 - 08/04/2023 Provider: KYAW MUÑOZ APRN-MAXX MOCK-NA Diagnosis: Radiculopathy, l umbar region TAKE ONE CAPSULE BY MOUTH TWICE A DAY Last Documented On 4 4:11PM By KYAW GRAHAM ; [facility] DULoxetine HCl 60 MG Oral Capsule Delayed Release Particles 07/24/2023 - 08/04/2023 Provider: KYAW MUÑOZ APRN-MAXX MOCK-NA Diagnosis: Low back pain, unspecified TAKE ONE CAPSULE BY MOUTH AT BEDTIME Last Documented On 4 4:08PM By KYAW GRAHAM ; [facility] Meloxicam 15 MG Oral Tablet 07/24/2023 - 08/04/2023 Provider: AMXX VALDEZ-NA Diagnosis: TAKE ONE TABLET BY MOUTH DAILY WITH A MEAL Last Documented On 4 4:08PM By KYAW GRAHAM ; [facility] Meloxicam 15 MG Oral Tablet 06/23/2023 - 08/04/2023 Provider: MAXX PRUETT-NA Diagnosis: Low back pain, unspecified TAKE ONE TABLET BY MOUTH DAILY WITH A MEAL Last Documented On 4 3:49PM By KYAW GRAHAM ; [facility] Pregabalin 150 MG Oral Capsule 06/23/2023 - 07/24/2023 Provider: KYAW MUÑOZ APRN-MAXX MOCK-NA Diagnosis: Radiculopathy, l umbar region TAKE ONE CAPSULE BY MOUTH TWICE A DAY Last Documented On 4 11:03AM By KYAW GRAHAM ; [facility] DULoxetine HCl 60 MG Oral Capsule Delayed Release Particles 05/26/2023 - 07/24/2023 Provider: KYAW MUÑOZ APRN-SANTOS MOCK Diagnosis: Low back pain, unspecified TAKE ONE CAPSULE BY MOUTH AT BEDTIME Last Documented On 4 11:03AM By KYAW GRAHAM ; [facility] traMADol HCl 50 MG Oral Tablet 04/16/2023 - 06/25/2023 Provider: SANTOS PRUETT Diagnosis: Radiculopathy, l umbar region One tablet three times a day as needed for severe pain Last Documented On 4 8:34AM By KYAW GRAHAM ; [facility] Meloxicam 15 MG Oral Tablet 04/01/2023 - 06/23/2023 Provider: SANTOS PRUETT Diagnosis: Low back pain, unspecified TAKE ONE TABLET BY MOUTH DAILY WITH A MEAL Last Documented On 4 12:52PM By KYAW GRAHAM ; [facility] traMADol HCl 50 MG Oral Tablet 03/27/2023 - 04/16/2023 Provider: SANTOS PRUETT Diagnosis: Radiculopathy, l umbar region One tablet three times a day as needed for severe pain Last Documented On 4 2:59PM By KYAW GRAHAM ; [facility] Pregabalin 150 MG Oral Capsule 03/07/2023 - 06/23/2023 Provider: SANTOS PRUETT Diagnosis: Radiculopathy, l umbar region 1 CAPSULE TWO TIMES A DAY Last Documented On 4 12:53PM By KYAW GRAHAM ; [facility] Meloxicam 15 MG Oral Tablet 03/07/2023 - 04/01/2023 Provider: SANTOS PRUETT Diagnosis: Low back pain, unspecified TAKE ONE TABLET BY MOUTH DAILY WITH A MEAL Last Documented On 3 9:34AM By KYAW GRAHAM ; [facility] DULoxetine HCl 60 MG Oral Capsule Delayed Release Particles 03/07/2023 - 05/26/2023 Provider: SANTOS PRUETT Diagnosis: Low back pain, unspecified 1 capsule daily at bedtime Last Documented On 4 10:40AM By KYAW GRAHAM ; [facility] Meloxicam 15 MG Oral Tablet 01/10/2023 - 03/07/2023 Provider: SANTOS PRUETT Diagnosis: Low back pain, unspecified TAKE ONE TABLET BY MOUTH DAILY WITH A MEAL Last Documented On 3 2:41PM By KYAW GRAHAM ; [facility] DULoxetine HCl 60 MG Oral Capsule Delayed Release Particles 01/10/2023 - 03/07/2023 Provider: SANTOS PRUETT Diagnosis: Low back pain, unspecified 1 capsule daily at bedtime Last Documented On 3 2:41PM By KYAW GRAHAM ; [facility] DULoxetine HCl 30 MG Oral Capsule Delayed Release Particles 01/10/2023 - 02/20/2023 Provider: SANTOS PRUETT Diagnosis: Low back pain, unspecified take 1 capsule at bedtime fo r 1 week then increase to 60mg dose Last Documented On 3 8:36AM By KYAW GRAHAM ; [facility] Pregabalin 150 MG Oral Capsule 01/10/2023 - 03/07/2023 Provider: SANTOS PRUETT Diagnosis: Radiculopathy, l umbar region 1 CAPSULE TWO TIMES A DAY Last Documented On 3 2:43PM By KYAW GRAHAM ; [facility] Pregabalin 150 MG Oral Capsule 12/10/2022 - 01/10/2023 Provider: SANTOS PRUETT Diagnosis: Radiculopathy, l umbar region 1 CAPSULE TWO TIMES A DAY Last Documented On 3 10:57AM By KYAW GRAHAM ; [facility] Pregabalin 100 MG Oral Capsule 10/29/2022 - 01/10/2023 Provider: SANTOS PRUETT Diagnosis: Radiculopathy, l umbar region TAKE ONE CAPSULE BY MOUTH TWICE A DAY Last Documented On 3 10:34AM [facility] ; [facility] Meloxicam 15 MG Oral Tablet 10/29/2022 - 01/10/2023 Provider: LINDA PRUETTP-BC Diagnosis: Low back pain, unspecified TAKE ONE TABLET BY MOUTH DAILY WITH A MEAL Last Documented On 3 10:56AM By KYAW MCKEONNA ; [facility] Pregabalin 100 MG Oral Capsule 10/23/2022 - 10/23/2022 Provider: KYAW AVELAR GRAPHIC PRODUCTION ARTIST-BC Diagnosis: Radiculopathy, l umbar region TAKE ONE CAPSULE BY MOUTH TWICE A DAY Last Documented On 3 11:51PM By KYAW MCKEONNA ; [facility] Pregabalin 100 MG Oral Capsule 10/23/2022 - 10/29/2022 Provider: KYAW AVELAR GRAPHIC PRODUCTION ARTIST-BC Diagnosis: Radiculopathy, l umbar region TAKE ONE CAPSULE BY MOUTH TWICE A DAY Last Documented On 3 3:44PM By [facility]AW [facility] ; [facility] Meloxicam 15 MG Oral Tablet 10/23/2022 - 10/29/2022 Provider: KYAW AVELAR GRAPHIC PRODUCTION ARTIST-BC Diagnosis: Low back pain, unspecified TAKE ONE TABLET BY MOUTH DAILY WITH A MEAL Last Documented On 3 3:45PM By KYAW MCKEONNA ; [facility] Meloxicam 15 MG Oral Tablet 08/20/2022 - 10/23/2022 Provider: KYAW AVELAR GRAPHIC PRODUCTION ARTIST-BC Diagnosis: Low back pain, unspecified TAKE ONE TABLET BY MOUTH DAILY WITH A MEAL Last Documented On 3 12:38PM By KYAW LILLYNA ; [facility] Pregabalin 100 MG Oral Capsule 07/31/2022 - 10/23/2022 Provider: KYAW MUÑOZ APRN-NISH GRAPHIC PRODUCTION ARTIST-BC Diagnosis: Radiculopathy, l umbar region TAKE ONE CAPSULE BY MOUTH TWICE A DAY Last Documented On 3 12:38PM By KYAW LILLY-BC ; [facility] Meloxicam 15 MG Oral Tablet 07/31/2022 - 08/20/2022 Provider: KYAW MUÑOZ CARNIVAL WORKER-FPA GRAPHIC PRODUCTION ARTIST-BC Diagnosis: Low back pain, unspecified TAKE ONE TABLET BY MOUTH DAILY WITH A MEAL Last Documented On 3 9:40AM By KYAW MCKEONP-BC ; [facility] Pregabalin 100 MG Oral Capsule 07/22/2022 - 07/22/2022 Provider: KYAW Corona PRN-FPA, GRAPHIC PRODUCTION ARTIST-BC Diagnosis: TAKE ONE CAPSULE BY MOUTH TWICE A DAY Last Documented On 3 2:19PM By KYAW MUÑOZ GRAPHIC PRODUCTION ARTIST-BC ; [facility] Pregabalin 100 MG Oral Capsule 07/22/2022 - 07/31/2022 Provider: KYAW Corona PRN-FPA, GRAPHIC PRODUCTION ARTIST-BC Diagnosis: TAKE ONE CAPSULE BY MOUTH TWICE A DAY Last Documented On 3 9:18AM By KYAW MUÑOZ [facility]-BC ; [facility] Pregabalin 100 MG Oral Capsule 06/27/2022 - 07/31/2022 Provider: KYAW MUÑOZ CARNIVAL WORKER-FPA, GRAPHIC PRODUCTION ARTIST-BC Diagnosis: Radiculopathy, l umbar region 1 CAPSULE TWO TIMES A DAY Last Documented On 3 8:58AM By Cassandra MACDONALD ; [facility] Meloxicam 15 MG Oral Tablet 06/27/2022 - 07/31/2022 Provider: KYAW MUÑOZ CARNIVAL WORKER-FPA, GRAPHIC PRODUCTION ARTIST-BC Diagnosis: Low back pain, unspecified TAKE ONE TABLET BY MOUTH DAILY WITH A MEAL Last Documented On 3 9:18AM By KYAW MUÑOZ [facility] ; [facility] Calcium + Vitamin D3 600-10 MG-MCG Oral Tablet 0 06/27/2022 - 03/07/2023 Provider: Diagnosis: Last Documented On 3 2:11PM By Cassandra MACDONALD ; [facility] Pregabalin 75 MG Oral Capsule 06/17/2022 - 07/22/2022 Provider: KYAW MUÑOZ CARNIVAL WORKER-FPA, GRAPHIC PRODUCTION ARTIST-BC Diagnosis: Radiculopathy, l umbar region TAKE ONE CAPSULE BY MOUTH TWICE A DAY Last Documented On 3 1:15PM By KYAW MUÑOZ [facility] ; [facility] Meloxicam 15 MG Oral Tablet 06/17/2022 - 06/27/2022 Provider: KYAW MUÑOZ A PRN-FPA, GRAPHIC PRODUCTION ARTIST-BC Diagnosis: TAKE ONE TABLET BY MOUTH DAILY WITH A MEAL Last Documented On 3 2:21PM By KYAW MUÑOZ [facility] ; [facility] Pregabalin 75 MG Oral Capsule 06/17/2022 - 06/17/2022 Provider: KYAW MUÑOZ APRN-FPA, GRAPHIC PRODUCTION ARTIST-BC Diagnosis: Radiculopathy, l umbar region TAKE ONE CAPSULE BY MOUTH TWICE A DAY Last Documented On 3 12:53PM By KYAW MUÑOZ [facility] ; [facility] Meloxicam 15 MG Oral Tablet 02/25/2022 - 06/27/2022 Provider: KYAW MUÑOZ APRN-FPChloe GRAPHIC PRODUCTION ARTIST-BC Diagnosis: Radiculopathy, l umbar region One tablet daily with a meal Last Documented On 3 9:34AM By Cassandra MACDONALD ; [facility] Pregabalin 75 MG Oral Capsule 02/25/2022 - 06/17/2022 Provider: KYAW MUÑOZ APRN-FPChloe GRAPHIC PRODUCTION ARTIST-BC Diagnosis: Radiculopathy, l umbar region 1 CAPSULE TWO TIMES A DAY Last Documented On 3 12:07PM By [facility] ; [facility] Pregabalin 75 MG Oral Capsule 02/01/2022 - 02/25/2022 Provider: KYAW MUÑOZ APRN-FPChloe GRAPHIC PRODUCTION ARTIST-BC Diagnosis: Radiculopathy, l umbar region 1 capsule at bedtime for 4 d ays then increase to two times daily Last Documented On 2 9:48AM By Cassandra MACDONALD ; [facility] Cyclobenzaprine HCl 10 MG Oral Tablet 02/01/2022 - Provider: Diagnosis: Up to 3 times a day. Last Documented On 3 9:34AM By Cassandra MACDONALD ; [facility] Meloxicam 15 MG Oral Tablet 02/01/2022 - 02/25/2022 Pr ovider: Diagnosis: Last Documented On 2 1:02PM By KYAW MUÑOZ [facility] ; [facility] Citalopram Hydrobromide 40 MG Oral Tablet 02/01/2022 - 03/07/2023 Provider: Diagnosis: Last Documented On 3 2:12PM By Cassandra MACDONALD ; [facility] metFORMIN HCl ER (OSM) 1000 MG Oral Tablet Extended Release 24 Hour 02/01/2022 - 02/01/2022 Provider: Diagnosis: Last Documented On 2 10:28AM By Cassandra MACDONALD ; [facility] Pregabalin 150 MG Oral Capsule 02/01/2022 - 06/27/2022 Provider: KYAW MUÑOZ CARNIVAL WORKER-A, [facility] Diagnosis: Radiculopathy, l umbar region 1 CAPSULE TWO TIMES A DAY Last Documented On 3 9:34AM By Cassandra MACDONALD ; [facility] Medications Administered Includes: Administered Medications in patient's [...] 100 Last Documented: On 08/04/2023 4:15PM ; [facility] Results Includes: Results from 07/16/2023 through 07/15/2024 No Results Recorded For Specified Dates History of Present Illness History of Present Illness not supported for this document type No History of Present Illness Recorded Social History Description 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 Tobacco non-user 02/01/2022 Last Documented On 2 12:05PM ; [facility] Alcohol 02/01/2022 Last Documented On 2 12:05PM ; [facility] Amount of alcohol per day: 0-1 2 Last Documented On 2 12:05PM ; [facility] Difficulty walking 02/01/2022 Last Documented On 2 12:05PM ; [facility] Not using drugs 02/01/2022 Last Documented On 2 12:05PM ; [facility] Smoking Status Unknown Procedures and Surgical History Includes: Procedures from 07/16/2023 through 07/15/2024 Procedures Code Diagnosis Performing Provider Service Location Service Date CLINIC VISIT [id number] Spinal stenosis, lumbar region with neurogenic claudication, Low back pain, unspecified, Radiculopathy, lumbar region, Arthrodesis status KYAW MUÑOZ CARNIVAL WORKER-FPA, GRAPHIC PRODUCTION ARTIST-BC [facility] 08/04/2023 Last Documented On 4 4:15PM ; [facility] Surgical History Last Updated No Pacemaker 02/01/2022 Last Documented On 2 12:05PM ; [facility] Medical History Includes: Medical History in patient's chart Description Last Updated Denies a fear of falling. 08/04/2023 Last Documented On 4 4:15PM ; [facility] Has had no fall in the last 12 months. 1 Last Documented On 2 12:05PM ; [facility] Currently wearing eyeglasses 02/01/2022 Last Documented On 2 12:05PM ; [facility] No Pain Pump 02/01/2022 Last Documented On 2 12:05PM ; [facility] No Spinal cord stimulator 02/01/2022 Last Documented On 2 12:05PM ; [facility] Please list all surgeries: L4/L5 spinal fusion 07/06/2021 02/01/2022 Last Documented On 2 12:05PM ; [facility] Wearing contact lenses 02/01/2022 Last Documented On 2 12:05PM ; [facility] Family History Includes: Family History in patient's chart Description Last Updated Family history of Arthritis 02/01/2022 Last Documented On 2 12:05PM ; [facility] Family history of ischemic heart disease 02/01/2022 Last Documented On 2 12:05PM ; [facility] Family history of stroke/paralysis 02/01 Last Documented On 2 12:05PM ; [facility] Review of Systems Review of Systems not [...] PAIN MANAGEMENT FOLLOW UP KYAW AVELAR, SANT[facility] 08/04/19 24 3:30PM 4:13PM Obesity,Orthope dics Postsurgical Arthrodesis Status,Lumbar Radiculopathy,S jumana Stenosis Lumbar with Neurogenic Claudication,Do rsopathy Low Back Pain Insurance Includes: Active Insurance Policies Plan Name Member ID Group # Subscriber Relationship Effect lakesha Dates 1 - [facility] [id number] CHRISTY GONZÁLES Self Clinical Notes Includes: Signed Clinical Notes starting from 04/26/2022 * Progress note Date Encounter Last Documented by 08/04/2023 PAIN MANAGEMENT FOLLOW UP Last d ocumented on 08/04/2023; 4:15 PM, KYAW MUÑOZ APRN-NISH, SANTOS; [facility] Active Problems & Conditions - [...] Not using drugs. 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 Allergies - No Known Allergies Family [...] score ten, and impression and score six; [60027] Established outpatient, medically appropriate H&P, moderate level [...] but may be subject to typographical or counter weigher errors. Verify all diagnoses, medications, dosages, and [...]
--- OUTSIDE RECORDS SUMMARY | 2024-07-15 16:33 | XMS_ITS | Clinical Summary ---
Author Organization [facility] Address [address] [place] [address] Phone Care Team Providers Care Radiology Teacher Name Role Phone MILES PHILLIPS MD Primary Care Provider [phone] Reason for Visit and Chief Complaint The Chief Complaint is: Follow up on increase in pain lumbar spine and down legs Problems Includes: Problems addressed during this encounter and other active Problems All Visits Onset Date Resolved Date Provider Condition S tatus Anxiety Disorder Nos Unknown KYAW Spain WANDA SOFTWARE PROJECT MANAGER-FPA, RETURNED ITEM CLERK-BC Active Last Documented On 2 11:56AM ; [facility] 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 Unknown KYAW [place] WANDA SOFTWARE PROJECT MANAGER-FPA , RETURNED ITEM CLERK-BC Active Last Documented On 2 11:56AM ; [facility] Essential Hypertension Unknown KYAW [place] KUL P SOFTWARE PROJECT MANAGER-FPA, RETURNED ITEM CLERK-BC Active Last Documented On 2 11:56AM ; [facility] Major Depression Unknown KYAW [place] WANDA SOFTWARE PROJECT MANAGER -FPA, RETURNED ITEM CLERK-BC Active Last Documented On 2 11:57AM ; [facility] Plan of Treatment Education and Decision Aids were provided during visit for: Lifestyle education Last Documented On 3 1:08PM ; [facility] Assessments Includes: Assessments from this encounter Findings - [E66.9 - Obesity, unspecified] Obesity - Last Documented On 03/27/2023 1:39PM ; [facility] - [M54.50 - Low back pain, unspecified] Low back pain - Last Documented On 03/27/2023 1:39PM ; [facility] - [Z98.1 - Arthrodesis status] Postsurgical arthrodesis status - Last Documented On 03/27/2023 1:39PM ; [facility] - [M48.062 - Spinal stenosis, lumbar region with neurogenic claudication] Lumbar stenosis with neurogenic claudication - Last Documented On 03/27/2023 1:39PM ; [facility] - [M54.16 - Radiculopathy, lumbar region] Lumbar radiculopathy - Last Documented On 03/27/2023 1:39PM ; [facility] Instructions Includes: Instructions from this encounter Education and Decision Aids were provided during visit for: Lifestyle education Last Documented On 3 1:08PM ; [facility] Medical Equipment - Implanted Devices [...] day as needed for severe pain Pharmacy: [address], [id number] - Last Documented On 4 2:59PM By KYAW GRAHMA ; [facility] Current Medications (continue as prescribed) Meloxicam 15 MG Oral Tablet 08/04/2023 Provider: SANTOS DEE Diagnosis: Low back pain, u nspecified TAKE ONE TABLET BY MOUTH MILAGRO LY WITH A MEAL Last Documented On 4 4:11PM By KYAW GRAHAM ; [facility] DULoxetine HCl 60 MG Oral Capsule Delayed Release Particles 08/04/2023 Provider: SANTOS PRUETT Diagnosis: Low back pain, u nspecified TAKE ONE CAPSULE BY MOUTH AT BEDTIME Last Documented On 4 4:11PM By KYAW GRAHAM ; [facility] Pregabalin 150 MG Oral Capsule 08/04/2023 Provider: SANTOS DEE Diagnosis: Radiculopathy, l umbar region TAKE ONE CAPSULE BY MOUTH TWICE A DAY Last Documented On 4 4:11PM By KYAW GRAHAM ; [facility] traMADol HCl 50 MG Oral Tablet 06/26/2023 Provider: SANTOS DEE Diagnosis: Radiculopathy, l umbar region One tablet three times a day as needed for severe pain Last Documented On 4 4:05PM By KYAW GRAHAM ; [facility] Lovastatin 40 MG Oral Tablet 02/02/2022 Provider: MILES PHILLIPS MD Diagnosis: Last Documented On 2 1:02PM By KYAW GRAHAM ; [facility] One-A-Day Mens Oral Tablet 02/01/2022 Provider: Diagnosis: Last Documented On 2 11:21AM By KYAW GRAHAM ; [facility] Metoprolol Tartrate 25 MG Oral Tablet 02/01/2022 Pro vider: Diagnosis: Last Documented On 2 11:21AM By KYAW GRAHAM ; [facility] Lisinopril-hydroCHLOROthiazide 20-12.5 MG Oral Tablet 02/01/2022 Provider: Diagnosis: Last Documented On 2 11:21AM By KYAW GRAHAM ; [facility] metFORMIN HCl ER (OSM) 1000 MG Oral Tablet Extended Release 24 Hour 02/01/2022 Provider: Diagnosis: 2 tablets twice daily. Last Documented On 2 11:21AM By KYAW GRAHAM ; [facility] Pioglitazone HCl 45 MG Oral Tablet 02/01/2022 Provid er: Diagnosis: Last Documented On 2 11:21AM By KYAW GRAHAM ; [facility] Glimepiride 4 MG Oral Tablet 02/01/2022 Provider: Diagnosis: 2 tablets daily. Last Documented On 2 11:21AM By KYAW GRAHAM ; [facility] Jardiance 10 MG Oral Tablet 01/29/2022 Provider: MILES PHILLIPS MD Diagnosis: Last Documented On 2 11:21AM By KYAW GRAHAM ; [facility] Medications Administered Includes: Administered Medications from this encounter No Administered Medications Recorded Vital Signs Includes: Vital Signs from this encounter Vital Name 03/27/2023 01:10P Temp-Temporal 98 Height (in) 74 Weight (lb) 340 Body Mass Index 43.7 Body Surface Area 2.7 Pain Level 6 Last Documented: On 03/27/2023 1:11PM ; [facility] Results Includes: Results discussed during this encounter [...] Social History Description 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 Last Documented On 3 1:07PM ; [facility] Tobacco non-user 02/01/2022 Last Documented On 3 1:07PM ; [facility] Alcohol 02/01/2022 Last Documented On 3 1:07PM ; [facility] Amount of alcohol per day: 0-1 2 Last Documented On 3 1:07PM ; [facility] Difficulty walking 02/01/2022 Last Documented On 3 1:07PM ; [facility] Not using drugs 02/01/2022 Last Documented On 3 1:07PM ; [facility] Smoking Status Unknown Procedures and Surgical History Includes: Procedures from this encounter Procedures Code Diagnosis Performing Provider Service L ocation Service Date plan of care reviewed and agreed to Last Documented On 3 1:08PM ; [facility] plan of care reviewed and agreed to by t he patient Last Documented On 3 1:08PM ; [facility] use of tobacco assessment performed 1000F Last Documented On 3 1:08PM ; [facility] patient screened for future fall risk: documentation of any fall with injury in past year 1100F Last Documented On 3 1:08PM ; [facility] review of medications documented 1160F Last Documented On 3 1:08PM ; [facility] screening for adult depression: impressi on and score Last Documented On 3 1:08PM ; [facility] screening for adult depression: impressi on and score ten Last Documented On 3 1:08PM ; [facility] screening for adult depression: impressi on and score six Last Documented On 3 1:08PM ; [facility] standardized depression screening: posit lakesha for symptoms Last Documented On 3 1:08PM ; [facility] encouragement to exercise Last Documented On 3 1:08PM ; [facility] Reviewed & agreed to staff entries. Last Documented On 3 1:08PM ; [facility] Clinical summary provided to patient Last Documented On 3 1:08PM ; [facility] SOAPP-R: total score 9 Last Documented On 3 1:08PM ; [facility] Surgical History Last Updated No Pacemaker 02/01/2022 Last Documented On 3 1:07PM ; [facility] Medical History Includes: Medical History addressed during this encounter Description Last Updated Has a fear of falling. 08/04/2023 Last Documented On 3 1:07PM ; [facility] Has had no fall in the last 12 months. 1 Last Documented On 3 1:07PM ; [facility] Currently wearing eyeglasses 02/01/2022 Last Documented On 3 1:07PM ; [facility] No Pain Pump 02/01/2022 Last Documented On 3 1:07PM ; [facility] No Spinal cord stimulator 02/01/2022 Last Documented On 3 1:07PM ; [facility] Please list all surgeries: L4/L5 spinal fusion 07/06/2021 02/01/2022 Last Documented On 3 1:07PM ; [facility] Wearing contact lenses 02/01/2022 Last Documented On 3 1:07PM ; [facility] Family History Includes: Family History addressed during this encounter Description Last Updated Family history of Arthritis 02/01/2022 Last Documented On 3 1:07PM ; [facility] Family history of ischemic heart disease 02/01/2022 Last Documented On 3 1:07PM ; [facility] Family history of stroke/paralysis 02/01 Last Documented On 3 1:07PM ; [facility] Review of Systems Includes: [...] Time Check-Out Time Diagnosis TELEHEALTH KYAW MUÑOZ SOFTWARE PROJECT MANAGER-FPA, RETURNED ITEM CLERK-BC [facility] 03/27/20 23 1:06PM 1:37PM Obesity,Orthoped ics Postsurgical Arthrodesis Status,Lumbar Radiculopathy,Sp inal Stenosis Lumbar with Neurogenic Claudication,David sopathy Low Back Pain Insurance Includes: Active Insurance Policies Plan Name Member ID Group # Subscriber Relationship Effect lakesha Dates 1 - [facility] [id number] CHRISTY GONZÁLES Self Clinical Notes Includes: Clinical Notes from this encounter * Progress note Date Encounter Last Documented by 03/27/2023 TELEHEALTH Last documented on 03/27/2023; 1:39 PM, KYAW MUÑZO SOFTWARE PROJECT MANAGER-FPA, RETURNED ITEM CLERK-BC; [facility] Active Problems & [...] Use: Not using drugs. 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 Allergies - No Known Allergies Family [...] score ten, and impression and score six; [40432] Established outpatient, medically appropriate H&P, moderate level [...] but may be subject to typographical or funeral workers errors. Verify all diagnoses, medications, dosages, and patient instructions with patient and/or the originator of this document. Telehealth Visit: Audio and video. Patient called from work. Provider located at the [facility] Clinical Services office. Patient consents [...]
--- OUTSIDE RECORDS SUMMARY | 2024-07-15 16:33 | XMS_ITS | Clinical Summary ---
Author Organization [facility] Address [address] [place] [address] Phone Care Team Providers Care Keyboarding Clerk Name Role Phone MILES PHILLIPS MD Primary Care Provider [phone] Reason for Visit and Chief Complaint RX ISSUE/REFILL Problems Includes: Problems addressed during this encounter and other active Problems All Visits Onset Date Resolved Date Provider Condition S tatus Anxiety Disorder Nos Unknown KYAW Judit WANDA CHEMIST ORGANIC-FPA, SALESPERSON [employer] Active Last Documented On 2 11:56AM ; [facility] 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 Unknown KYAW [place] WANDA CHEMIST ORGANIC-FPA , SALESPERSON [employer] Active Last Documented On 2 11:56AM ; [facility] Essential Hypertension Unknown KYAW [place] KUL P CHEMIST ORGANIC-FPA, SALESPERSON [employer] Active Last Documented On 2 11:56AM ; [facility] Major Depression Unknown KYAW [place] WANDA CHEMIST ORGANIC -FPA, SALESPERSON [employer] Active Last Documented On 2 11:57AM ; [facility] Plan of Treatment No Plan of Treatment Recorded Assessments Includes: Assessments from this encounter No Assessments Recorded Medical Equipment - Implanted Devices Includes: Current Devices No Medical Equipment Recorded Medications Includes: Medications discussed during this encounter and other current Medications Discontinued / Stopped on this date KYAW MUÑOZ CHEMIST ORGANIC-FPA, SALESPERSON [employer] on 04/16/2023 traMADol HCl 50 MG Oral Tablet Provider: KYAW MUÑOZ CHEMIST ORGANIC- FPA, SALESPERSON [employer] Diagnosis: Radiculopathy, l umbar region Last Documented On 4 8:34AM By KYAW GRAHAM ; [facility] Current Medications (continue as prescribed) Meloxicam 15 MG Oral Tablet 08/04/2023 Provider: SANTOS DEE Diagnosis: Low back pain, u nspecified TAKE ONE TABLET BY MOUTH MILAGRO LY WITH A MEAL Last Documented On 4 4:11PM By KYAW GRAHAM ; [facility] DULoxetine HCl 60 MG Oral Capsule Delayed Release Particles 08/04/2023 Provider: MAXX PRUETTNA Diagnosis: Low back pain, u nspecified TAKE ONE CAPSULE BY MOUTH AT BEDTIME Last Documented On 4 4:11PM By KYAW GRAHAM ; [facility] Pregabalin 150 MG Oral Capsule 08/04/2023 Provider: MAXX DEENA Diagnosis: Radiculopathy, l umbar region TAKE ONE CAPSULE BY MOUTH TWICE A DAY Last Documented On 4 4:11PM By KYAW GRAHAM ; [facility] traMADol HCl 50 MG Oral Tablet 06/26/2023 Provider: MAXX DEEAN Diagnosis: Radiculopathy, l umbar region One tablet three times a day as needed for severe pain Last Documented On 4 4:05PM By KYAW GRAHAM ; [facility] Lovastatin 40 MG Oral Tablet 02/02/2022 Provider: MILES PHILLIPS MD Diagnosis: Last Documented On 2 1:02PM By KYAW GRAHAM ; [facility] One-A-Day Mens Oral Tablet 02/01/2022 Provider: Diagnosis: Last Documented On 2 11:21AM By KYAW GRAHAM ; [facility] Metoprolol Tartrate 25 MG Oral Tablet 02/01/2022 Pro vider: Diagnosis: Last Documented On 2 11:21AM By KYAW GRAHAM ; [facility] Lisinopril-hydroCHLOROthiazide 20-12.5 MG Oral Tablet 02/01/2022 Provider: Diagnosis: Last Documented On 2 11:21AM [facility] ; [facility] metFORMIN HCl ER (OSM) 1000 MG Oral Tablet Extended Release 24 Hour 02/01/2022 Provider: Diagnosis: 2 tablets twice daily. Last Documented On 2 11:21AM By KYAW WANDA [facility] ; [facility] Pioglitazone HCl 45 MG Oral Tablet 02/01/2022 Provid er: Diagnosis: Last Documented On 2 11:21AM By KYAW WANDA [facility] ; [facility] Glimepiride 4 MG Oral Tablet 02/01/2022 Provider: Diagnosis: 2 tablets daily. Last Documented On 2 11:21AM By KYAW MUÑOZ [facility] ; 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 Tobacco non-user 02/01/2022 Last Documented On 4 10:46AM ; [facility] Alcohol 02/01/2022 Last Documented On 4 10:46AM ; [facility] Amount of alcohol per day: 0-1 2 Last Documented On 4 10:46AM ; [facility] Difficulty walking 02/01/2022 Last Documented On 4 10:46AM ; [facility] Not using drugs 02/01/2022 Last Documented On 4 10:46AM ; [facility] Smoking Status Unknown Procedures and Surgical History Surgical History Last Updated No Pacemaker 02/01/2022 Last Documented On 4 10:46AM ; [facility] Medical History Includes: Medical History addressed during this encounter Description Last Updated Has a fear of falling. 08/04/2023 Last Documented On 4 10:46AM ; [facility] Has had no fall in the last 12 months. 1 Last Documented On 4 10:46AM ; [facility] Currently wearing eyeglasses 02/01/2022 Last Documented On 4 10:46AM ; [facility] No Pain Pump 02/01/2022 Last Documented On 4 10:46AM ; [facility] No Spinal cord stimulator 02/01/2022 Last Documented On 4 10:46AM ; [facility] Please list all surgeries: L4/L5 spinal fusion 07/06/2021 02/01/2022 Last Documented On 4 10:46AM ; [facility] Wearing contact lenses 02/01/2022 Last Documented On 4 10:46AM ; [facility] Family History Includes: Family History addressed during this encounter Description Last Updated Family history of Arthritis 02/01/2022 Last Documented On 4 10:46AM ; [facility] Family history of ischemic heart disease 02/01/2022 Last Documented On 4 10:46AM ; [facility] Family history of stroke/paralysis 02/01 Last Documented On 4 10:46AM ; [facility] Review of Systems Includes: Review of [...] Check-Out Time Diagnosis RX ISSUE/REFILL KYAW MUÑOZ CHEMIST ORGANIC-FPA, SALESPERSON [employer] 06/25/2023 10:47AM 11:59PM Insurance Includes: Active Insurance Policies Plan Name Member ID Group # Subscriber Relationship Effect lakesha Dates 1 - [facility] [id number] CHRISTY GONZÁLES Self Clinical Notes Includes: Clinical Notes from this encounter * Progress note Date Encounter Last Documented by 06/25/2023 RX ISSUE/REFILL Last documented on 06/26/2023; 8:34 AM, KYAW MUÑOZ APRN-NISH, MAXX-NA; 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 I TOLD HIM WE NO LONGER GO THERE AND WOULD HAVE TO BE IN [place]. PT SAID HE DOES NOT HAVE TRASPORTATION [...] using drugs. 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 Allergies - No Known Allergies Family History Arthritis Stroke/paralysis Ischemic heart disease Plan StartCited - Other PHY ORDER/COMMENT For [facility] patients I am offering them telehealth every [...]
--- OUTSIDE RECORDS SUMMARY | 2024-07-15 16:33 | XMS_ITS | Clinical Summary ---
Author Organization [facility] Address [address] [place] [address] Phone Care Team Providers Care Keyboard Instrument Repairer Name Role Phone MILES PHILLIPS MD Primary Care Provider [phone] Reason for Visit and Chief Complaint The Chief Complaint is: 2 month follow up Problems Includes: Problems addressed during this encounter and other active Problems All Visits Onset Date Resolved Date Provider Condition S tatus Anxiety Disorder Nos Unknown KYAW [place] WANDA FILAMENT SHAPER-FPA, BUSINESS PROCESS CONSULTANT-BC Active Last Documented On 2 11:56AM ; [facility] 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 Unknown KYAW G WANDA FILAMENT SHAPER-FPA , BUSINESS PROCESS CONSULTANT-BC Active Last Documented On 2 11:56AM ; [facility] Essential Hypertension Unknown KYAW [place] KUL P FILAMENT SHAPER-FPA, BUSINESS PROCESS CONSULTANT-BC Active Last Documented On 2 11:56AM ; [facility] Major Depression Unknown KYAW G WANDA FILAMENT SHAPER -FPA, BUSINESS PROCESS CONSULTANT-BC Active Last Documented On 2 11:57AM ; [facility] Plan of Treatment Education and Decision Aids were provided during visit for: Lifestyle education Last Documented On 3 2:22PM ; [facility] Assessments Includes: Assessments from this encounter Findings - [Z01.818 - Encounter for other preprocedural examination] Visit for: preoperative exam - Last Documented On 03/10/2023 11:51AM ; [facility] - [E66.9 - Obesity, unspecified] Obesity - Last Documented On 03/10/2023 11:51AM ; [facility] - [M54.50 - Low back pain, unspecified] Low back pain - Last Documented On 03/10/2023 11:51AM ; [facility] - [Z98.1 - Arthrodesis status] Postsurgical arthrodesis status - Last Documented On 03/10/2023 11:51AM ; [facility] - [M48.062 - Spinal stenosis, lumbar region with neurogenic claudication] Lumbar stenosis with neurogenic claudication - Last Documented On 03/10/2023 11:51AM ; [facility] - [M54.16 - Radiculopathy, lumbar region] Lumbar radiculopathy - Last Documented On 03/10/2023 11:51AM ; [facility] Instructions Includes: Instructions from this encounter Education and Decision Aids were provided during visit for: Lifestyle education Last Documented On 3 2:22PM ; [facility] Medical Equipment - Implanted Devices Includes: Current Devices No Medical Equipment Recorded Medications Includes: Medications discussed during this encounter and other current Medications Discontinued / Stopped on this date SANTOS PRUETT on 01/10/2023 Pregabalin 150 MG Oral Capsule Provider: SANTOS DEE Diagnosis: Radiculopathy, l umbar region Last Documented On 3 2:43PM By KYAW GRAHAM ; [facility] Calcium + Vitamin D3 600-10 MG-MCG Oral Tablet Provider: Diagnosis: Last Documented On 3 2:11PM By Cassandra MACDONALD ; [facility] Citalopram Hydrobromide 40 MG Oral Tablet Provider: Diagnosis: Last Documented On 3 2:12PM By Cassandra MACDONALD ; [facility] New / Renewed during this visit SANTOS PRUETT on 03/07/2023 Pregabalin 150 MG Oral Capsule Provider: SANTOS DEE 30 day supply: 60 capsule, 2 refills Diagnosis: Radiculopathy, lumbar region 1 CAPSULE TWO TIMES A DAY Pharmacy: [facility] [address], [phone] - Last Documented On 4 12:53PM By KYAW GRAHAM ; [facility] Meloxicam 15 MG Oral Tablet Provider: SANTOS DEE 30 day supply: 30 tablet, 2 refills Diagnosis: Low back pain, unspecified TAKE ONE TABLET BY MOUTH MILAGRO LY WITH A MEAL Pharmacy: [facility] [address], [phone] - Last Documented On 3 9:34AM By KYAW GRAHAM ; [facility] DULoxetine HCl 60 MG Oral Capsule Delayed Release Particles Provider: SANTOS PRUETT 30 day supply: 30 capsule, 2 refills Diagnosis: Low back pain, unspecified 1 capsule daily at bedtime Pharmacy: [facility] [address], [phone] - Last Documented On 4 10:40AM By KYAW GRAHAM ; [facility] Current Medications (continue as prescribed) Meloxicam 15 MG Oral Tablet 08/04/2023 Provider: SANTOS DEE Diagnosis: Low back pain, u nspecified TAKE ONE TABLET BY MOUTH MILAGRO GONSALES WITH A MEAL Last Documented On 4 4:11PM By KYAW GRAHAM ; [facility] DULoxetine HCl 60 MG Oral Capsule Delayed Release Particles 08/04/2023 Provider: SANTOS PRUETT Diagnosis: Low back pain, u nspecified TAKE ONE CAPSULE BY MOUTH AT BEDTIME Last Documented On 4 4:11PM By KYAW GRAHAM ; [facility] Pregabalin 150 MG Oral Capsule 08/04/2023 Provider: SANTOS DEE Diagnosis: Radiculopathy, l umbar region TAKE ONE CAPSULE BY MOUTH TWICE A DAY Last Documented On 4 4:11PM By KYAW MCKEONNA ; [facility] traMADol HCl 50 MG Oral Tablet 06/26/2023 Provider: [facility] Diagnosis: Radiculopathy, l umbar region One tablet three times a day as needed for severe pain Last Documented On 4 4:05PM By KYAW MCKEONNA ; [facility] Lovastatin 40 MG Oral Tablet 02/02/2022 Provider: MILES PHILLIPS MD Diagnosis: Last Documented On 2 1:02PM By KYAW MCKEONNA ; [facility] One-A-Day Mens Oral Tablet 02/01/2022 Provider: Diagnosis: Last Documented On 2 11:21AM By KYAW GRAHAM ; [facility] Metoprolol Tartrate 25 MG Oral Tablet 02/01/2022 Pro vider: Diagnosis: Last Documented On 2 11:21AM By KYAW GRAHAM ; [facility] Lisinopril-hydroCHLOROthiazide 20-12.5 MG Oral Tablet 02/01/2022 Provider: Diagnosis: Last Documented On 2 11:21AM By KYAW GRAHAM ; [facility] metFORMIN HCl ER (OSM) 1000 MG Oral Tablet Extended Release 24 Hour 02/01/2022 Provider: Diagnosis: 2 tablets twice daily. Last Documented On 2 11:21AM By KYAW GRAHAM ; [facility] Pioglitazone HCl 45 MG Oral Tablet 02/01/2022 Provid er: Diagnosis: Last Documented On 2 11:21AM By KYAW MCKEONNA ; [facility] Glimepiride 4 MG Oral Tablet 02/01/2022 Provider: Diagnosis: 2 tablets daily. 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 Last Documented On 3 2:07PM ; [facility] Tobacco non-user 02/01/2022 Last Documented On 3 2:07PM ; [facility] Alcohol 02/01/2022 Last Documented On 3 2:07PM ; [facility] Amount of alcohol per day: 0-1 2 Last Documented On 3 2:07PM ; [facility] Difficulty walking 02/01/2022 Last Documented On 3 2:07PM ; [facility] Not using drugs 02/01/2022 Last Documented On 3 2:07PM ; [facility] Smoking Status Unknown Procedures and Surgical History Includes: Procedures from this encounter Procedures Code Diagnosis Performing Provider Service L ocation Service Date plan of care reviewed and agreed to Last Documented On 3 2:22PM ; [facility] plan of care reviewed and agreed to by t he patient Last Documented On 3 2:22PM ; [facility] use of tobacco assessment performed 1000F Last Documented On 3 2:08PM ; [facility] patient screened for future fall risk: documentation of any fall with injury in past year 1100F Last Documented On 3 2:22PM ; [facility] review of medications documented 1160F Last Documented On 3 2:08PM ; [facility] screening for adult depression: impressi on and score Last Documented On 3 2:08PM ; [facility] screening for adult depression: impressi on and score ten Last Documented On 3 2:22PM ; [facility] screening for adult depression: impressi on and score six Last Documented On 3 2:22PM ; [facility] standardized depression screening: posit lakesha for symptoms Last Documented On 3 2:22PM ; [facility] encouragement to exercise Last Documented On 3 2:22PM ; [facility] Reviewed & agreed to staff entries. Last Documented On 3 2:22PM ; [facility] Clinical summary provided to patient Last Documented On 3 2:22PM ; [facility] SOAPP-R: total score 9 Last Documented On 3 2:22PM ; [facility] Surgical History Last Updated No Pacemaker 02/01/2022 Last Documented On 3 2:07PM ; [facility] Medical History Includes: Medical History addressed during this encounter Description Last Updated Has a fear of falling. 03/07/2023 Last Documented On 3 11:51AM ; [facility] Has had no fall in the last 12 months. 1 Last Documented On 3 2:07PM ; [facility] Currently wearing eyeglasses 02/01/2022 Last Documented On 3 2:07PM ; [facility] No Pain Pump 02/01/2022 Last Documented On 3 2:07PM ; [facility] No Spinal cord stimulator 02/01/2022 Last Documented On 3 2:07PM ; [facility] Please list all surgeries: L4/L5 spinal fusion 07/06/2021 02/01/2022 Last Documented On 3 2:07PM ; [facility] Wearing contact lenses 02/01/2022 Last Documented On 3 2:07PM ; [facility] Family History Includes: Family History addressed during this encounter Description Last Updated Family history of Arthritis 02/01/2022 Last Documented On 3 2:07PM ; [facility] Family history of ischemic heart disease 02/01/2022 Last Documented On 3 2:07PM ; [facility] Family history of stroke/paralysis 02/01 Last Documented On 3 2:07PM ; [facility] Review of Systems Includes: Review [...] PAIN MANAGEMENT FOLLOW UP KYAW AVELAR, MAXX-BC [facility] 03/07/20 23 2:06PM 2:58PM Obesity,Orthope dics Postsurgical Arthrodesis Status,Lumbar Radiculopathy,S jumana Stenosis Lumbar with Neurogenic Claudication,Do rsopathy Low Back Pain,Visit For: Preoperative Exam Insurance Includes: Active Insurance Policies Plan Name Member ID Group # Subscriber Relationship Effect lakesha Dates 1 - [facility] [id number] CHRISTY GONZÁLES Self Clinical Notes Includes: Clinical Notes from this encounter * Progress note Date Encounter Last Documented by 03/07/2023 PAIN MANAGEMENT FOLLOW UP Last d ocumented on 03/10/2023; 11:51 AM, KYAW AVELAR, BUSINESS PROCESS CONSULTANT-BC; [facility] Top of Document This [...] Not using drugs. 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 Allergies - No Known Allergies Family History [...] bilaterally. Negative compression, thigh thrust, distraction, and Lyons's. Positive Noemi's on the right. Gait: Not antalgic. No steppage gait. No Trendelenburg gait. No circumspected gait pattern. Heel walk normal. Toe walk normal. Tandem gait normal. Neuro: Awake. Alert. Oriented x3. DTR's intact in all extremities. DTR's equal in all extremities. No sensory deficit. No motor deficit. Psych: No apparent distress. Mood normal. Affect normal. No pain behaviors. Skin: Normal. [place], warm, dry. Tests Educational Testing: Questionnaires PHQ-9: [...] score ten, and impression and score six; [[id number]] Established outpatient, medically appropriate H&P, moderate level [...] but may be subject to typographical or cryptography teacher errors. Verify all diagnoses, medications, dosages, and [...]
--- OUTSIDE RECORDS SUMMARY | 2024-07-15 16:33 | XMS_ITS | Clinical Summary ---
Author Organization [facility] Address [address] [place] [address] Phone Care Team Providers Care Operations Project Manager Name Role Phone MILES PHILLIPS MD Primary Care Provider [phone] Reason for Visit and Chief Complaint RX ISSUE/REFILL Problems Includes: Problems addressed during this encounter and other active Problems All Visits Onset Date Resolved Date Provider Condition S tatus Anxiety Disorder Nos Unknown KYAW Judit WANDA SUPERINTENDENT [employer], SALESPERSON [employer] Active Last Documented On 2 11:56AM ; [facility] 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 Unknown KYAW [place] WANDA SUPERINTENDENT TR[employer]-FPA , SALESPERSON [employer] Active Last Documented On 2 11:56AM ; [facility] Essential Hypertension Unknown KYAW [place] KUL P SUPERINTENDENT TRACK-FPA, SALESPERSON [employer] Active Last Documented On 2 11:56AM ; [facility] Major Depression Unknown KYAW [place] WANDA SUPERINTENDENT TRACK -FPA, SALESPERSON [employer] Active Last Documented On 2 11:57AM ; [facility] Plan of Treatment No Plan of Treatment Recorded Assessments Includes: Assessments from this encounter No Assessments Recorded Medical Equipment - Implanted Devices Includes: Current Devices No Medical Equipment Recorded Medications Includes: Medications discussed during this encounter and other current Medications Discontinued / Stopped on this date KYAW MUÑOZ SUPERINTENDENT [employer], SALESPERSON [employer] on 03/27/2023 traMADol HCl 50 MG Oral Tablet Provider: KYAW MUÑOZ SUPERINTENDENT [employer]- [employer]PA, SALESPERSON [employer] Diagnosis: Radiculopathy, l umbar region Last Documented On 4 2:59PM By KYAW GRAHAM ; [facility] New / Renewed during this visit SANTOS PRUETT on 04/16/2023 traMADol HCl 50 MG Oral Tablet Provider: SANTOS DEE 14 day supply: 42 tablet, 0 refills Diagnosis: Radiculopathy, lumbar region One tablet three times a day as needed for severe pain Pharmacy: [address], [id number] - Last Documented On 4 8:34AM By KYAW GRAHAM ; [facility] Current Medications (continue as prescribed) Meloxicam 15 MG Oral Tablet 08/04/2023 Provider: SANTOS DEE Diagnosis: Low back pain, u nspecified TAKE ONE TABLET BY MOUTH MILAGRO LY WITH A MEAL Last Documented On 4 4:11PM By KYAW GRAHAM ; [facility] DULoxetine HCl 60 MG Oral Capsule Delayed Release Particles 08/04/2023 Provider: SANTOS PRUETT Diagnosis: Low back pain, u nspecified TAKE ONE CAPSULE BY MOUTH AT BEDTIME Last Documented On 4 4:11PM By KYAW GRAHAM ; [facility] Pregabalin 150 MG Oral Capsule 08/04/2023 Provider: SANTOS DEE Diagnosis: Radiculopathy, l umbar region TAKE ONE CAPSULE BY MOUTH TWICE A DAY Last Documented On 4 4:11PM By KYAW GRAHAM ; [facility] traMADol HCl 50 MG Oral Tablet 06/26/2023 Provider: SANTOS DEE Diagnosis: Radiculopathy, l umbar region One tablet three times a day as needed for severe pain Last Documented On 4 4:05PM By KYAW GRAHAM ; [facility] Lovastatin 40 MG Oral Tablet 02/02/2022 Provider: MILES PHILLIPS MD Diagnosis: Last Documented On 2 1:02PM By KYAW MUÑOZ [facility] ; [facility] One-A-Day Mens Oral Tablet 02/01/2022 Provider: Diagnosis: Last Documented On 2 11:21AM By KYAW MUÑOZ [facility] ; [facility] Metoprolol Tartrate 25 MG Oral Tablet 02/01/2022 Pro vider: Diagnosis: Last Documented On 2 11:21AM By KYAW MUÑOZ [facility] ; [facility] Lisinopril-hydroCHLOROthiazide 20-12.5 MG Oral Tablet 02/01/2022 Provider: Diagnosis: Last Documented On 2 11:21AM By KYAWMARSHA MUÑOZ [facility] ; [facility] metFORMIN HCl ER (OSM) 1000 MG Oral Tablet Extended Release 24 Hour 02/01/2022 Provider: Diagnosis: 2 tablets twice daily. Last Documented On 2 11:21AM By KYAW [facility]Z [facility] ; [facility] Pioglitazone HCl 45 MG Oral Tablet 02/01/2022 Provid er: Diagnosis: Last Documented On 2 11:21AM By KYAW MUÑOZ [facility] ; [facility] Glimepiride 4 MG Oral Tablet 02/01/2022 Provider: Diagnosis: 2 tablets daily. Last Documented On 2 11:21AM By [facility] ; [facility] Jardiance 10 MG Oral Tablet 01/29/2022 Provider: MILES PHILLIPS MD Diagnosis: Last Documented On 2 11:21AM By KYAW MUÑOZ [facility] ; [facility] Medications Administered Includes: Administered Medications from this encounter No Administered Medications Recorded Results Includes: Results discussed during this encounter No Results Recorded For Specified Dates History of Present Illness Includes: History of Present Illness from this encounter No History of Present Illness Recorded Social History Description 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 Last Documented On 4 2:18PM ; [facility] Tobacco non-user 02/01/2022 Last Documented On 4 2:18PM ; [facility] Alcohol 02/01/2022 Last Documented On 4 2:18PM ; [facility] Amount of alcohol per day: 0-1 2 Last Documented On 4 2:18PM ; [facility] Difficulty walking 02/01/2022 Last Documented On 4 2:18PM ; [facility] Not using drugs 02/01/2022 Last Documented On 4 2:18PM ; [facility] Smoking Status Unknown Procedures and Surgical History Surgical History Last Updated No Pacemaker 02/01/2022 Last Documented On 4 2:18PM ; [facility] Medical History Includes: Medical History addressed during this encounter Description Last Updated Has a fear of falling. 08/04/2023 Last Documented On 4 2:18PM ; [facility] Has had no fall in the last 12 months. 1 Last Documented On 4 2:18PM ; [facility] Currently wearing eyeglasses 02/01/2022 Last Documented On 4 2:18PM ; [facility] No Pain Pump 02/01/2022 Last Documented On 4 2:18PM ; [facility] No Spinal cord stimulator 02/01/2022 Last Documented On 4 2:18PM ; [facility] Please list all surgeries: L4/L5 spinal fusion 07/06/2021 02/01/2022 Last Documented On 4 2:18PM ; [facility] Wearing contact lenses 02/01/2022 Last Documented On 4 2:18PM ; [facility] Family History Includes: Family History addressed during this encounter Description Last Updated Family history of Arthritis 02/01/2022 Last Documented On 4 2:18PM ; [facility] Family history of ischemic heart disease 02/01/2022 Last Documented On 4 2:18PM ; [facility] Family history of stroke/paralysis 02/01 Last Documented On 4 2:18PM ; [facility] Review of Systems Includes: [...] Time Diagnosis RX ISSUE/REFILL KYAW G WANDA SUPERINTENDENT [employer], SALESPERSON [employer] 04/16/2023 2:18PM 11:59PM Insurance Includes: Active Insurance Policies Plan Name Member ID Group # Subscriber Relationship Effect lakesha Dates 1 - [facility] [id number] CHRISTY GONZÁLES Self Clinical Notes Includes: Clinical Notes from this encounter * Progress note Date Encounter Last Documented by 04/16/2023 RX ISSUE/REFILL Last documented on 04/16/2023; 2:59 PM, KYAW MUÑOZ SUPERINTENDENT TR[employer]PA, SALESPERSON [employer]; [facility] Active Problems [...] ~ pt phone # for Return call: [phone] ~Last Drug Screen:NONE ~Date/Initials: 04/16/23 CB. Current [...] Use: Not using drugs. 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 Allergies - No Known Allergies Family [...]
--- OUTSIDE RECORDS SUMMARY | 2024-07-15 16:33 | XMS_ITS ---
Care Plan - [facility] Created on: July 15, 2024 CHRISTY GONZÁLES : 1980 Sex: Male Author Organization [facility] Address [address] [place] [address] Phone Care Team Providers Care T[employer] Fabric Impregnating Range Tender Name Role Phone MILES PHILLIPS MD Primary Care Provider [phone]
[2024-07-15] MEDS: SODIUM CHLORIDE 0.9% IV 1,000 ML 999 ML IV CONT ×3 (16:50→18:55)
[2024-07-15 16:57] LABS: Basophils Absolute Auto 0.06 K/mm3 (0.00-0.10); Basophils Percent Auto 0.5 % (0.0-1.0); Eosinophils Absolute Auto 0.05 K/mm3 (0.02-0.50); Eosinophils Percent Auto 0.4 % (1.0-6.0); Hematocrit 50.3 % (40.0-54.0); Hemoglobin 17.6 g/dL (14.0-18.0); Immature Granulocyte Absolute 0.07 K/mm3 (0.00-0.00); Immature Granulocyte Percent A 0.6 % (0.0-0.0); Lymphocytes Absolute Auto 1.76 K/mm3 (1.10-4.50); Mean Corpuscular Hemoglobin 28.5 pg (27.0-31.0); Mean Corpuscular Volume 81.4 fL (78.0-102.0); Monocytes Absolute Auto 1.16 K/mm3 (0.10-0.90); Monocytes Percent Auto 9.9 % (2.0-11.0); Neutrophils Absolute Auto 8.64 K/mm3 (1.70-7.20); Neutrophils Percent Auto 73.6 % (50.0-70.0); Platelet Count Result 354 K/mm3 (150-420); Red Blood Count 6.18 M/mm3 (4.70-6.10); Red Cell Distribution Width 12.8 % (11.6-14.4); White Blood Count 11.7 K/mm3 (4.8-10.8)
[2024-07-15 17:14] LABS: Alanine Aminotransferase 20 U/L (16-63); Albumin Level 4.3 g/dL (3.4-5.0); Alkaline Phosphatase 107 U/L (46-116); Anion Gap 25 mmol/L (4-12); Aspartate Amino Transferase 11 U/L (15-37); Bilirubin,Total 1.6 mg/dL (0.00-1.00); Blood Urea Nitrogen 15 mg/dL (7-18); Calcium 10.1 mg/dL (8.5-10.1); Carbon Dioxide 18 mmol/L (21-32); Chloride 88 mmol/L (98-108); Estimated CRCL calculation 94 ml/min; Estimated Glomerular Filt Rate > 60; Glucose 326 mg/dL (70-99); Osmolality Calculated 285 mOsm/kg (285-295); Sodium 131 mmol/L (136-145); Total Protein 8.1 g/dL (6.4-8.2)
[2024-07-15 17:19] LABS: Lactic Acid Reflex 3.2 mmol/L (0.4-2.0)
[2024-07-15 17:25] LABS: Lipase 53 U/L (16-77)
[2024-07-15] MEDS: KCL 20 MEQ/SW 100 ML 100 ML 50 MEQ IVPB (17:52)
[2024-07-15 18:00] LABS: Glucose Point of Care 269 mg/dl (65-105)
--- NOTE | 2024-07-15 18:14 | ED_ITS ---
HPI - Nausea/Vomiting/Diarrhea General Chief complaint: Nausea/Vomiting/Diarrhea Stated complaint: vomiting Time Seen by Provider: 07/15/24 16:15 Source: patient Mode of arrival: ambulatory Limitations: no limitations History of Present Illness HPI Narrative: this is a 43-year-old gentleman presents with some nausea vomiting and weakness, patient has a history of diabetes type 2 on medication for diabetes and patient states that he has been on a Fast since last Friday and presents with weakness, and elevated heart rate with no fever chills no chest pain no abdominal pain no dysuria no shortness of breath no flank pain no hematuria. MD elicited complaint: nausea and vomiting Onset (ago): day(s) Description of vomiting: watery Associated nausea: Yes Severity: moderate Related Data Home Medications ?Medication ?Instructions ?Recorded ?Confirmed ?Last Taken ?Type citalopram 40 mg tablet 40 mg PO DAILY 10/28/20 02/27/21 10/28/20 History glimepiride 1 mg tablet 1 mg PO DAILY 10/28/20 02/27/21 10/28/20 History lisinopril 20 1 tablet PO DAILY 10/28/20 02/27/21 10/28/20 History mg-hydrochlorothiazide 12.5 mg tablet lovastatin 40 mg tablet 40 mg PO QPM 10/28/20 02/27/21 10/27/20 History metformin 1,000 mg tablet 1,000 mg PO BID 10/28/20 02/27/21 10/28/20 History metoprolol tartrate 25 mg tablet 25 mg PO BID 10/28/20 02/27/21 10/28/20 History pioglitazone 30 mg tablet 30 mg PO DAILY 10/28/20 02/27/21 10/28/20 History buspirone 10 mg tablet 10 mg PO BID 07/15/24 Unknown History divalproex 250 mg tablet,delayed 250 mg PO Q8H 07/15/24 Unknown History release (Depakote) empagliflozin 25 mg tablet 25 mg PO DAILY 07/15/24 Unknown History (Jardiance) sumatriptan succinate 100 mg See Rx Instructions PO .COMPLEX 07/15/24 Unknown History tablet (Imitrex) tramadol 50 mg tablet mg 07/15/24 Unknown History Allergies Allergy/AdvReac Type Severity Reaction Status Date / Time camphor (From Biofreeze) Allergy Rash Verified 07/15/24 17:29 menthol (From Biofreeze) Allergy Rash Verified 07/15/24 17:29 Review of Systems 2 Review of Systems: All systems reviewed & are unremarkable except as noted in HPI and below PMFSH Past Medical History Medical History Right rotator cuff tendinitis Arthritis Sleep disorder Drug dependence Alcoholism Anxiety Depression Cellulitis Diabetes High blood pressure Bleeding nose Change in vision Headache Weight gain Subacromial impingement of right shoulder Biceps tendinitis of right shoulder Surgical History Surgical History History of spinal fusion L4-L5 Family History Family History Other Arthritis Diabetes mellitus Hypertension Malignant neoplasm Social History Social History Years smoked: 11 Smoking end date: 04/07/08 Alcohol intake: current Drinks per week: 6 Alcohol use details: Occasional Substance use: unknown Gender identity (if verbalized by the patient): Male Exam 2 Const: General: no acute distress Orientation/consciousness: patient oriented x3 Limitations: no limitations HENMT: Head: normal to inspection Eyes: Conjunctivae: conjunctivae normal Neck: Neck: normal visual inspection Chest: Chest palpation & inspection: normal inspection of the chest Resp: Effort & Inspection: normal respiratory effort Auscultation: clear to auscultation bilaterally Cardio: Rate: tachycardic Rhythm: regular rhythm GI: GI Palp: Yes Soft to palpation Auscultation: normal bowel sounds : General: Yes bladder normal to palpation Urinary Catheter: Urinary Catheter: patent and draining Back/Spine/Pelvis: Back: no CVA tenderness Skin: General skin exam: normal color Rashes: no rashes Neuro: General: patient oriented x3, moves all extremities and no meningeal signs Extrem: General: normal to inspection, no clubbing, cyanosis or edema and no pedal edema Psych: Mental Status: mental status grossly normal Course Course Emergency Course: Patient presents with some weakness had a blood pressure initially of 94/63 with heart rate in the 118 range, patient received IV fluids with normal saline heart rate down to 100, with a blood pressure currently 116/88. Patient with a history of diabetes he had blood work showed he has a blood sugar initially of 252 with an elevated anion gap of 25 with a lactic acid of 3.2. Chest x-ray shows no acute cardiopulmonary abnormalities EKG with normal sinus rhythm. Patient had a potassium level of 3.0 and patient received AK rider with IV fluids and subsequent blood sugar level was 269. Current glucose is 261 with a potassium level 3.9, started in full insulin infusion spoke to environmental emergencies assistant at [facility] accepted the patient for transfer. Vital Signs Vital signs: Vital Signs Temperature 37.1 C 07/15/24 16:04 Pulse Rate 118 H 07/15/24 16:04 Respiratory Rate 20 07/15/24 16:04 Blood Pressure 114/72 07/15/24 16:04 Pulse Oximetry 99 07/15/24 16:04 Oxygen Delivery Room Air 07/15/24 16:04 Temperature 37.1 C 07/15/24 16:04 Pulse Rate 132 H 07/15/24 18:02 Respiratory Rate 15 07/15/24 18:02 Blood Pressure 126/68 07/15/24 18:02 Pulse Oximetry 97 07/15/24 18:00 Oxygen Delivery Room Air 07/15/24 18:00 MDM - Nausea/Vomiting/Diarrhea Lab Data 07/15/24 16:51 07/15/24 16:51 Labs: Lab Results 07/15/24 07/15/24 07/15/24 Range/Units 16:12 16:51 17:58 WBC 11.7 H (4.8-10.8) K/mm3 RBC 6.18 H (4.70-6.10) M/mm3 Hgb 17.6 (14.0-18.0) g/dL Hct 50.3 (40.0-54.0) % MCV 81.4 (78.0-102.0) fL MCH 28.5 (27.0-31.0) pg MCHC 35.0 (32-36) g/dL RDW 12.8 (11.6-14.4) % Plt Count 354 (150-420) K/mm3 MPV 12.0 H (8.7-11.0) fl Immature Gran % (Auto) 0.6 H (0.0-0.0) % Neut % (Auto) 73.6 H (50.0-70.0) % Lymph % (Auto) 15.0 L (18.0-42.0) % Norman % (Auto) 9.9 (2.0-11.0) % Eos % (Auto) 0.4 L (1.0-6.0) % Baso % (Auto) 0.5 (0.0-1.0) % Lymph # (Auto) 1.76 (1.10-4.50) K/mm3 Norman # (Auto) 1.16 H (0.10-0.90) K/mm3 Eos # (Auto) 0.05 (0.02-0.50) K/mm3 Baso # (Auto) 0.06 (0.00-0.10) K/mm3 Abs Immat Gran (auto) 0.07 H (0.00-0.00) K/mm3 Absolute Neuts (auto) 8.64 H (1.70-7.20) K/mm3 Absolute Nucleated RBC 0.00 (0.00-0.00) K/mm3 Nucleated RBC % 0.0 (0-0.0) % Sodium 131 L (136-145) mmol/L Potassium 3.0 L (3.5-5.1) mmol/L Chloride 88 L (98-108) mmol/L Carbon Dioxide 18 L (21-32) mmol/L Anion Gap 25 H (4-12) mmol/L BUN 15 (7-18) mg/dL Creatinine 1.22 (0.70-1.30) mg/dL Estim Creat Clear Calc 94 ml/min Estimated GFR > 60 (59 - ) Glucose 326 H (70-99) mg/dL POC Capillary Glucose 352 H 269 H (65-105) mg/dl Calculated Osmolality 285 (285-295) mOsm/kg Lactic Acid 3.2 H (0.4-2.0) mmol/L Calcium 10.1 (8.5-10.1) mg/dL Total Bilirubin 1.6 H (0.00-1.00) mg/dL AST 11 L (15-37) U/L ALT 20 (16-63) U/L Alkaline Phosphatase 107 (46-116) U/L Total Protein 8.1 (6.4-8.2) g/dL Albumin 4.3 (3.4-5.0) g/dL Lipase 53 (16-77) U/L Critical Care Time Critical Care Time Critical Care Time: No Discharge Plan Discharge Clinical Impression: DKA, type 2 Patient Disposition: Acute Care Hospital Condition: Stable Patient Language: Arabic Prescriptions: No Action citalopram 40 mg Tablet 40 mg PO DAILY lisinopril-hydrochlorothiazide 20-12.5 mg Tablet 1 tablet PO DAILY lovastatin 40 mg Tablet 40 mg PO QPM glimepiride 1 mg Tablet 1 mg PO DAILY metformin 1,000 mg Tablet 1,000 mg PO BID pioglitazone 30 mg Tablet 30 mg PO DAILY metoprolol tartrate 25 mg Tablet 25 mg PO BID tramadol 50 mg tablet sumatriptan succinate [Imitrex] 100 mg tablet See Rx Instructions .ROUTE .COMPLEX Rx Instructions: take 1 tab at onset of headache; if no relief, may repeat 1 tab after at least 2 hrs; max = 2 tabs/24 hrs divalproex [Depakote] 250 mg tablet,delayed release (DR/EC) 250 mg PO Q8H buspirone 10 mg tablet 10 mg PO BID Jardiance 25 mg tablet 25 mg PO DAILY Follow-up/Referrals: Yves Lafleur MD [Primary Care Provider] - Time of Disposition: 19:25
[2024-07-15 18:15] LABS: Influenza A QL RT-PCR Negative (Negative); Influenza B QL RT-PCR Negative (Negative); RSV RNA, RT-PCR Negative (Negative); SARS-CoV-2 RNA PCR Negative (Negative)
[2024-07-15 18:21] LABS: Add Urine Microscopic? YES; Appearance Urine Clear (Clear); Bilirubin Urine 2+ (Negative); Blood Urine Negative (Negative); Color Urine Light Yellow (Yellow); Glucose Urine UA 3+ (Negative); Ketones Urine 3+ (Negative); Leukocyte Esterase Ur Negative LEU/UL (Negative); Nitrate Urine Negative (Negative); Protein Urine 1+ (Negative); Specific Grav Ur 1.015 (1.010-1.020); Urobilinogen Urine 0.2 mg/dL (0.2-1.0)
[2024-07-15 18:30] LABS: Bacteria Urine None seen /hpf; RBC Urine 0-2 /hpf (0-2); Squamous Epithelial Cell Urine None seen /hpf (Few); WBC Urine 0-3 /hpf (0-3)
[2024-07-15 18:44] LABS: Reflex Lactic Acid Yes or No Add Lactic
[2024-07-15] MEDS: POTASSIUM BICARBONATE 25 MEQ TABEF 50 MEQ PO (18:55)
[2024-07-15 19:01] LABS: Alanine Aminotransferase 16 U/L (16-63); Albumin Level 3.8 g/dL (3.4-5.0); Alkaline Phosphatase 95 U/L (46-116); Anion Gap 21 mmol/L (4-12); Aspartate Amino Transferase < 10 U/L (15-37); Bilirubin,Total 1.5 mg/dL (0.00-1.00); Blood Urea Nitrogen 14 mg/dL (7-18); Calcium 9.3 mg/dL (8.5-10.1); Carbon Dioxide 19 mmol/L (21-32); Chloride 95 mmol/L (98-108); Estimated CRCL calculation 109 ml/min; Estimated Glomerular Filt Rate > 60; Glucose 261 mg/dL (70-99); Osmolality Calculated 289 mOsm/kg (285-295); Potassium 3.9 mmol/L (3.5-5.1); Sodium 135 mmol/L (136-145); Total Protein 7.1 g/dL (6.4-8.2)
[2024-07-15 19:06] LABS: Lactic Acid 3.4 mmol/L (0.4-2.0)
--- NOTE | 2024-07-15 19:09 | PC.NURSE ---
ASSUMED CARE. REPORT RECEIVED FROM LAXMI GILL.
[2024-07-15 19:36] LABS: Glucose Point of Care 221 mg/dl (65-105)
[2024-07-15] MEDS: SODIUM CHLORIDE 0.9% IV 500 ML 50 ML IV CONT (19:41)
--- NOTE | 2024-07-15 19:55 | PC.NURSE ---
PATIENT REPORTS THAT HE IS FEELING BETTER. INCREASED IV SALINE DUE TO BURNING FROM THE POTASSIUM INFUSION. PATIENT HAS BEEN ABLE TO STAND AT THE SIDE OF THE BED AND USE THE URINAL. STEADY WITH STANDING.
[2024-07-15] MEDS: INSULIN REG 100 UNITS/100 ML 100 UNITS/100 ML BAG 11 UNITS IV CONT (20:07)
[2024-07-15] MEDS: DEXTROSE 5% IN WATER 500 ML 100 ML IV CONT (20:07)
[2024-07-15 20:12] LABS: Glucose Point of Care 219 mg/dl (65-105)
--- NOTE | 2024-07-15 20:27 | PC.NURSE ---
PATIENT IS RESTING ON STRETCHER. OFFERED BLANKET. DOES NOT WANT ONE AT THIS TIME. CALL LIGHT IN REACH
--- NOTE | 2024-07-15 21:06 | PC.NURSE ---
NOTIFIED DR JAMES OF CURRENT GLUCOSE OF 121. INSULIN DRIP TURNED OFF. PER MR JAMES, CONTINUE WITH D5W AT 100ML/HR.
[2024-07-15 21:11] LABS: Glucose Point of Care 121 mg/dl (65-105)
--- NOTE | 2024-07-15 21:19 | PC.NURSE ---
UPDATED PATIENT AND MOTHER OF BED ASSIGNMENT AT [facility]. PATIENT AND MOTHER VERBALIZED UNDERSTANDING
--- NOTE | 2024-07-17 13:48 | PC.NURSE ---
Preliminary blood culture; no growth to date.
== END 2024-07-15 21:56 | disposition short-term general hospital (02) ==
PROVIDERS: Emergency Provider Emergency Medicine; PCP Family Medicine
DX: E11.10 Type 2 diabetes mellitus with ketoacidosis without coma (principal); Z79.899 Other long term (current) drug therapy; Z87.891 Personal history of nicotine dependence; Z79.84 Long term (current) use of oral hypoglycemic drugs; Z20.822 Contact with and (suspected) exposure to COVID-19
CPT/HCPCS: 36415; 71045; 80053; 81001; 82948; 83605; 83690; 83930; 85025; 87040; 87637; 93005; 96361; 96365; 96366; 96367; 99285; A9270; J1815; J3480; J7030; J7040; J7060